=== PATIENT | female | born 1955 | race American Indian/Alaskan Native ===

== ENCOUNTER 2016-09-04 11:29 | Emergency (ER) | payer MEDICARE, OTHER ==
[2016-09-04 11:30] VITALS: PULSE 81
[2016-09-04 11:45] VITALS: BMI 34.7
[2016-09-04 11:49] VITALS: PULSE 80
[2016-09-04 12:35] LABS: BASO % 0.5 % (0.0-2.0); EOS # 0.1 K/uL (0.0-0.7); EOS % 1.1 % (0.0-4.0); HEMATOCRIT 27.4 % (34.0-47.0); LYMPH # 1.7 K/uL (1.0-4.3); LYMPH % 17.6 % (20.0-40.0); MEAN CELL VOLUME 77.7 fL (81.0-99.0); MEAN CORPUSCULAR HEMOGLOBIN 24.3 pg (27.0-31.0); MEAN CORPUSCULAR HGB CONC 31.3 g/dL (33.0-37.0); MEAN PLATELET VOLUME 9.6 fL (7.2-11.7); MONO # 0.7 K/uL (0.0-0.8); MONO % 6.9 % (0.0-10.0); RED CELL DISTRIBUTION WIDTH 17.3 % (11.5-14.5); WHITE BLOOD COUNT 9.7 K/uL (4.8-10.8)
[2016-09-04 12:53] LABS: CHLORIDE 98 mmol/L (98-107)
[2016-09-04 12:54] LABS: POTASSIUM 3.7 mmol/L (3.6-5.2); SODIUM 138 mmol/L (132-148)
[2016-09-04 12:56] LABS: ALKALINE PHOSPHATASE 105 U/L (38-126); ALT/SGPT 24 U/L (9-52); AST/SGOT 23 U/L (14-36); BILIRUBIN,TOTAL 1.3 mg/dL (0.2-1.3); BLOOD UREA NITROGEN 10 mg/dL (7-17); CALCIUM 8.8 mg/dl (8.6-10.4); CARBON DIOXIDE 31 mmol/L (22-30); GFR AFRICAN-AMERICAN > 60; GLUCOSE,RANDOM 171 mg/dL (65-105); TOTAL PROTEIN 7.5 g/dL (6.3-8.3)
--- NOTE | 2016-09-04 13:47 | RAD ---
HISTORY: r/o infiltrate COMPARISON: 04/14/2016 FINDINGS: LUNGS: The lungs are clear. PLEURA: No significant pleural effusion identified, no pneumothorax apparent. CARDIOVASCULAR: There is persistent severe cardiomegaly. OSSEOUS STRUCTURES: No significant abnormalities. VISUALIZED UPPER ABDOMEN: Normal. OTHER FINDINGS: None. IMPRESSION: No active pulmonary disease.
--- NOTE | 2016-09-04 14:21 | C.PDOC ---
History Of Present Illness 61 y/o female presents to the ED with complaints of chronic SOB and headache x3- 4 days. Pt denies worst headache of her life. Denies fever, neck stiffness, chest pain, vomiting or any other complaints. PMHx includes pacemaker, CHF, COPD. Chief Complaint (Nursing): Shortness Of Breath History Per: Patient History/Exam Limitations: no limitations Onset/Duration Of Symptoms: Days Current Symptoms Are (Timing): Still Present Quality: "Pain" Severity: Moderate Associated Symptoms: denies: Fever, Chills, Chest Pain Recent travel outside of the [place]: No Past Medical History Reviewed: Historical Data, Nursing Documentation, Vital Signs Vital Signs: Last Vital Signs Temp 98.2 F 09/04/16 16:54 Pulse 80 09/04/16 16:54 Resp 20 09/04/16 16:54 BP 95/52 L 09/04/16 16:54 Pulse Ox 95 09/04/16 16:54 - Medical History PMH: Anemia, Arthritis (KNEES), Atrial Fibrillation, Cardia Arrhythmia, CHF, COPD, Fractures (RIGHT MIDDLE TOE), HTN, Hypercholesterolemia, Peripheral Edema , Sleep Apnea (C PAP SETTING 10) Surgical History: Pacemaker - [facility] Procedures LEFT HEART CARDIAC CATH (02/12/13) LT HEART ANGIOCARDIOGRAM (02/12/13) Family History: States: Unknown Family Hx - Social History Hx Tobacco Use: No Hx Alcohol Use: No Hx Substance Use: No - Immunization History Hx Tetanus Toxoid Vaccination: No Hx Influenza Vaccination: No Hx Pneumococcal Vaccination: No Review Of Systems Except As Marked, All Systems Reviewed And Found Negative. Constitutional: Negative for: Fever Cardiovascular: Negative for: Chest Pain Respiratory: Positive for: Shortness of Breath Gastrointestinal: Negative for: Vomiting Neurological: Positive for: Headache Physical Exam - Physical Exam Appears: Non-toxic, No Acute Distress Skin: Warm, Dry, No Rash Head: Atraumatic, Normacephalic Throat: Normal Neck: Normal, Normal ROM, Supple Chest: Symmetrical, No Tenderness Cardiovascular: Rhythm Regular, No Murmur Respiratory: No Accessory Muscle Use, No Rhonchi, No Wheezing, Other (basilar crackles, good air entry) Gastrointestinal/Abdominal: Normal Exam, Soft, No Tenderness Extremity: Normal ROM, No Calf Tenderness, Other (Trace bilateral lower extremity edema) Pulses: Left Dorsalis Pedis: Normal, Right Dorsalis Pedis: Normal Neurological/Psych: Oriented x3, Normal Speech ED Course And Treatment - Laboratory Results Result Diagrams: 09/04/16 12:31 09/04/16 12:31 ECG: Interpreted By Me, Viewed By Me ECG Rhythm: A Paced Rate From EC (BPM) O2 Sat by Pulse Oximetry: 88 (room air) Pulse Ox Interpretation: Abnormal - Other Rad CXR X-Ray: Viewed By Me, Read By Radiologist Interpretation: HISTORY: r/o infiltrate. COMPARISON: 04/14/2016. FINDINGS: LUNGS: The lungs are clear. PLEURA: No significant pleural effusion identified, no pneumothorax apparent. CARDIOVASCULAR: There is persistent severe cardiomegaly. OSSEOUS STRUCTURES: No significant abnormalities. VISUALIZED UPPER ABDOMEN: Normal. OTHER FINDINGS: None. IMPRESSION: No active pulmonary disease. 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 Headache resolved with pain medication. Medical Decision Making Medical Decision Making: Plan: * labs * CXR * toradol Disposition - Disposition Referrals: Peggy Aaron, [Non-Staff] - Disposition: HOME/ ROUTINE Disposition Time: 15:30 Condition: IMPROVED Additional Instructions: Thank you for letting us take care of you today. Your provider was Dr. Singh. You were treated for headache and CHF. The emergency medical care you received today was directed at your acute symptoms. If you were prescribed any medication, please fill it and take as directed. It may take several days for your symptoms to resolve. Return to the Emergency Department if your symptoms worsen, do not improve, or if you have any other problems. Please contact your doctor or call one of the physicians/clinics you have been referred to that are listed on the Patient Visit Information form that is included in your discharge packet. Bring any paperwork you were given at discharge with you along with any medications you are taking to your follow up visit. Our treatment cannot replace ongoing medical care by a primary care provider (PCP) outside of the emergency department. Thank you for allowing the [facility] team to be part of your care today. Follow up with your doctor in 2-3 days for re-evaluation. Prescriptions: traMADol [Ultram] 50 mg PO Q8 PRN #15 tab PRN Reason: Pain, Moderate (4-7) Instructions: Heart Failure (ED) - Clinical Impression Clinical Impression: Chronic congestive heart failure - Scribe Statement The provider has reviewed the documentation as recorded by the Edis Rebolledo Provider Attestation: All medical record entries made by the Edis were at my direction and personally dictated by me. I have reviewed the chart and agree that the record accurately reflects my personal performance of the history, physical exam, medical decision making, and the department course for this patient. I have also personally directed, reviewed, and agree with the discharge instructions and disposition.
[2016-09-04 16:55] VITALS: BP 95/52; RESP 20; TEMP 98.2
--- NOTE | 2016-09-05 14:01 | CARD ---
APPROVED REPORT EKG Measurement Heart [id number] NM 150P [id number] <Conclusion> Atrial-Ventricular paced rhythm Abnormal ECG
[2016-09-07 07:37] VITALS: O2SAT 88
== END 2016-09-04 17:15 | disposition home or self-care (01) ==
LOC: C.ER 11:29
DX: I50.9 Heart failure, unspecified (principal)
CPT/HCPCS: 71010; 80053; 83880; 84484; 85025; 85610; 85730; 93005; 96374; 99285; J1885

== ENCOUNTER 2016-10-31 19:04 | Inpatient (IN) | payer MEDICARE, OTHER ==
[2016-10-31 19:04] VITALS: BMI 34.7
--- NOTE | 2016-10-31 19:51 | C.PDOC ---
History Of Present Illness Patient presents to ED with complaints of worsening sob for 3 weeks. Patient states she saw PMD and finished course of Antibiotics with no relief. Patient is speaking in 5-6 words sentences and denies fever, chills, chest pain, palpitations, n/v/d or any other complaints at this time. Time Seen by Provider: 10/31/16 19:50 Chief Complaint (Nursing): Shortness Of Breath History Per: Patient History/Exam Limitations: no limitations Onset/Duration Of Symptoms: Days Current Symptoms Are (Timing): Still Present Initiating Event: Upper Respiratory Illness Quality: "Pain" Severity: Mild Pain Scale Rating Of: 2 Associated Symptoms: denies: Fever, Chills, Chest Pain Past Medical History Reviewed: Historical Data, Nursing Documentation, Vital Signs Vital Signs: Last Vital Signs Temp 98.6 F 10/31/16 19:31 Pulse 90 10/31/16 22:00 Resp 20 10/31/16 22:00 BP 133/85 10/31/16 22:00 Pulse Ox 100 10/31/16 22:00 - Medical History PMH: Anemia, Arthritis (KNEES), Atrial Fibrillation, Cardia Arrhythmia, CHF, COPD, Fractures (RIGHT MIDDLE TOE), HTN, Hypercholesterolemia, Peripheral Edema , Sleep Apnea (C PAP SETTING 10) Surgical History: Pacemaker - [facility] Procedures LEFT HEART CARDIAC CATH (02/12/13) LT HEART ANGIOCARDIOGRAM (02/12/13) Family History: States: No Known Family Hx - Social History Hx Tobacco Use: No Hx Alcohol Use: No Hx Substance Use: No - Immunization History Hx Tetanus Toxoid Vaccination: No Hx Influenza Vaccination: No Hx Pneumococcal Vaccination: No Review Of Systems Constitutional: Negative for: Fever, Chills Cardiovascular: Negative for: Chest Pain Respiratory: Positive for: Shortness of Breath. Negative for: Cough Gastrointestinal: Negative for: Nausea, Vomiting, Diarrhea Skin: Negative for: Rash Neurological: Negative for: Numbness Physical Exam - Physical Exam Appears: No Acute Distress, Other (Morbidly obese) Skin: Warm, Dry, No Rash Head: Normacephalic Eye(s): bilateral: Normal Inspection Oral Mucosa: Moist Neck: Supple Chest: No Deformity, Other (Fibrillator to left chest wall) Cardiovascular: Rhythm Irregular Respiratory: Decreased Breath Sounds, Rales (at bases), No Rhonchi, No Wheezing Gastrointestinal/Abdominal: Soft, No Tenderness, No Guarding, No Rebound, Other (Obese abdomen) Back: No CVA Tenderness Extremity: Pedal Edema (Trace pedal edema bilateral), Capillary Refill (<2 seconds), No Deformity Extremity: Bilateral: Atraumatic, Normal Color And Temperature Pulses: Left Dorsalis Pedis: Normal, Right Dorsalis Pedis: Normal Neurological/Psych: Oriented x3, Normal Speech, Normal Cognition Gait: Steady ED Course And Treatment - Laboratory Results Result Diagrams: 10/31/16 20:19 10/31/16 20:19 ECG: Interpreted By Me, Viewed By Me ECG Rhythm: Sinus Rhythm (80), Nonspecific Changes (av dual paced rhythm) O2 Sat by Pulse Oximetry: 98 (RA) Pulse Ox Interpretation: Normal - Radiology CXR: Interpreted by Me, Viewed By Me CXR Interpretation: Yes: Cardiomegaly, Other (aicd left, unchanged from 09/09). No: Infiltrates, Fracture, Pnemothorax Disposition Discussed With : Kandy Sánchez Comment: accepted the pt on her service and took over the care at 10:12PM Doctor Will See Patient In The: Hospital Counseled Patient/Family Regarding: Studies Performed, Diagnosis - Disposition Disposition: HOSPITALIZED Disposition Time: 19:50 Condition: FAIR Forms: [employer] (Danish) - POA Present On Arrival: Poor Glycemic Control - Clinical Impression Clinical Impression: Chr obstructive pulmonary disease w/ acute lower respiratory infxn, Dyspnea, CHF (congestive heart failure), Anemia - Scribe Statement The provider has reviewed the documentation as recorded by the Scribe Gurwinder Figueroa All medical record entries made by the Scribe were at my direction and personally dictated by me. I have reviewed the chart and agree that the record accurately reflects my personal performance of the history, physical exam, medical decision making, and the department course for this patient. I have also personally directed, reviewed, and agree with the discharge instructions and disposition. Decision To Admit - Pt Status Changed To: Hospital Disposition Of: Inpatient - Admit Certification Admit to Inpatient:: After my assessment, the patient will require hospitalization for at least two midnights. This is because of the severity of symptoms shown, intensity of services needed, and/or the medical risk in this patient being treated as an outpatient. - InPatient: Physician Admission Certification: I certify that this patient requires 2 or more midnights of care for the following reason:: After my assessment, the patient will require hospitalization for at least two midnights. This is because of the severity of symptoms shown, intensity of services needed, and/or the medical risk in this patient being treated as an outpatient. - . Bed Request Type: Telemetry Admitting Physician: Kandy Sánchez Patient Diagnosis: Chr obstructive pulmonary disease w/ acute lower respiratory infxn, Dyspnea, CHF (congestive heart failure), Anemia
[2016-10-31 20:23] LABS: BASO % 0.3 % (0.0-2.0); EOS # 0.2 K/uL (0.0-0.7); EOS % 2.8 % (0.0-4.0); HEMATOCRIT 32.8 % (34.0-47.0); LYMPH # 1.9 K/uL (1.0-4.3); LYMPH % 25.2 % (20.0-40.0); MEAN CORPUSCULAR HEMOGLOBIN 25.7 pg (27.0-31.0); MEAN CORPUSCULAR HGB CONC 31.5 g/dL (33.0-37.0); MEAN PLATELET VOLUME 8.6 fL (7.2-11.7); MONO # 0.7 K/uL (0.0-0.8); MONO % 9.7 % (0.0-10.0); RED CELL DISTRIBUTION WIDTH 18.7 % (11.5-14.5); WHITE BLOOD COUNT 7.6 K/uL (4.8-10.8)
[2016-10-31 20:24] LABS: MEAN CELL VOLUME 81.8 fL (81.0-99.0)
[2016-10-31 20:38] LABS: CHLORIDE 100 mmol/L (98-107)
[2016-10-31 20:39] LABS: SODIUM 142 mmol/L (132-148)
[2016-10-31 20:40] LABS: POTASSIUM 3.8 mmol/L (3.6-5.2)
[2016-10-31 20:42] LABS: ALB/GLOB RATIO 0.9 (1.0-2.1); ALKALINE PHOSPHATASE 105 U/L (38-126); ALT/SGPT 23 U/L (9-52); AST/SGOT 27 U/L (14-36); BILIRUBIN,TOTAL 1.2 mg/dL (0.2-1.3); BLOOD UREA NITROGEN 9 mg/dL (7-17); CARBON DIOXIDE 30 mmol/L (22-30); GFR AFRICAN-AMERICAN > 60; GLUCOSE,RANDOM 120 mg/dL (65-105); TOTAL PROTEIN 7.9 g/dL (6.3-8.3)
[2016-10-31 20:43] LABS: CALCIUM 8.9 mg/dl (8.6-10.4)
[2016-10-31 21:03] LABS: ABG ALLEN TEST POS; DRAW SITE RRADIAL
[2016-10-31] MEDS ORDERED: Albuterol-Ipratrop 3 mg / 0.5 (3 ml) UD ONE (21:52)
[2016-10-31] MEDS: Albuterol-Ipratrop 3 mg / 0.5 (3 ml) UD IH SCH (22:03)
[2016-10-31 22:08] LABS: INR 1.2
[2016-10-31] MEDS ORDERED: Piperacillin/Tazobact 3.375 gm 100 ML IVPB STA (22:24)
[2016-10-31] MEDS ORDERED: Piperacillin/Tazobact 3.375 gm 100 ML IVPB ONE (22:31)
[2016-10-31 22:34] LABS: RBC URINE < 1 /hpf (0-3); URINE BACTERIA RARE (<OCC); URINE BILIRUBIN NEGATIVE (NEGATIVE); URINE BLOOD NEGATIVE (NEGATIVE); URINE COLOR Yellow (YELLOW); URINE GLUCOSE (UA) NORMAL (Normal); URINE KETONE NEGATIVE (NEGATIVE); URINE LEUKOCYTE ESTERASE NEG Leu/uL (Negative); URINE PROTEIN 1+ mg/dL (NEGATIVE); URINE UROBILINOGEN NORMAL mg/dL (0.2-1.0); WBC URINE 1 /hpf (0-5)
[2016-11-01] MEDS: (Novolin R) Insulin Human Regular 100 units/ml vial SC SCH ×4 (08:04→21:59)
--- NOTE | 2016-11-01 08:07 | RAD ---
PROCEDURE: CHEST RADIOGRAPH, 1 VIEW HISTORY: Shortness of breath COMPARISON: 09/04/2016 FINDINGS: LUNGS: Moderate to severe venous congestion with prominent bibasilar airspace opacities and possible small bilateral pleural effusions. Prominent right suprahilar region which may be related to prominent vasculature. PLEURA: As above. CARDIOVASCULAR: Marked cardiomegaly. Marked prominence of the superior mediastinum. Left-sided pacemaker. OSSEOUS STRUCTURES: No significant abnormalities. VISUALIZED UPPER ABDOMEN: Normal. OTHER FINDINGS: None. IMPRESSION: Moderate to severe venous congestion with prominent bibasilar airspace opacities and possible small bilateral pleural effusions. Prominent right suprahilar region which may be related to prominent vasculature. Marked cardiomegaly. Marked prominence of the superior mediastinum. Left-sided pacemaker.
--- NOTE | 2016-11-01 08:14 | CP.PCM.CON ---
<VALE MAYES - Last Filed: 11/01/16 09:17> History of Present Illness - History of Present Illness History of Present Illness: Vale Mayes, PGY1, Consult Note for Dr. Catherine: CC: SOB HPI: 61F with PMH COPD (on home O2/2-3L NC), CHF (EF of 55%), afib on Xarelto, pacemaker, htn, HLD, ROSIO (c pap setting of 10), anemia, arthritis, presents for SOB x 3 weeks. Pt complains of dry cough, wheezing, dizziness, mild leg swelling ; denies f/c/n/v/d, constipation, abdominal pain, dysuria, and hematuria. Pt is able to speak 5-6 word sentences. Pt went to PMD and finished course of PO Augmentin, with minimal improvement. 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 On Home O2 (2-3L NC). Denies ETOH or drug use. Previous smoker. PMD: Dr. Mckeon ([place]) Review of Systems - Constitutional Constitutional: absent: Chills, Fever - EENT Eyes: absent: Blurred Vision, Change in Vision Nose/Mouth/Throat: absent: Nasal Congestion - Cardiovascular Cardiovascular: Leg Edema, Lightheadedness. absent: Chest Pain, Chest Pain with Activity, Palpitations - Respiratory Respiratory: Dyspnea, Wheezing, Chest Congestion - Gastrointestinal Gastrointestinal: absent: Constipation, Diarrhea - Musculoskeletal Musculoskeletal: absent: Joint Swelling, Stiffness - Integumentary Integumentary: absent: New Lesions, Rash - Neurological Neurological: absent: Confusion, Dizziness, Numbness - Endocrine Endocrine: absent: Excessive Sweating, Flushing - Hematologic/Lymphatic Hematologic: absent: Easy Bleeding Past Patient History - Past Medical History & Family History Past Medical History?: Yes - Past Social History Smoking Status: Former Smoker - CARDIAC Hx Atrial Fibrillation: Yes Hx Cardia Arrhythmia: Yes Hx Congestive Heart Failure: Yes Hx Hypercholesterolemia: Yes Hx Hypertension: Yes Hx Pacemaker: Yes Hx Peripheral Edema: Yes - PULMONARY Hx Chronic Obstructive Pulmonary Disease (COPD): Yes Hx Sleep Apnea: Yes (C PAP SETTING 10) - NEUROLOGICAL Hx Neurological Disorder: Yes Hx Dizziness: Yes - HEENT Hx HEENT Problems: Yes (ITCHY EYES) Other/Comment: left eye surgery 2014 - RENAL Hx Chronic Kidney Disease: No - ENDOCRINE/METABOLIC Hx Diabetes Mellitus Type 2: Yes - HEMATOLOGICAL/ONCOLOGICAL Hx Anemia: Yes - INTEGUMENTARY Hx Dermatological Problems: No - MUSCULOSKELETAL/RHEUMATOLOGICAL Hx Arthritis: Yes (KNEES) Hx Fractures: Yes (RIGHT MIDDLE TOE) - GASTROINTESTINAL Hx Gastrointestinal Disorders: No - GENITOURINARY/GYNECOLOGICAL Hx Genitourinary Disorders: No - PSYCHIATRIC Hx Substance Use: No - SURGICAL HISTORY Hx Surgeries: Yes (CARDIAC ABLATION) Hx Cardiac Catheterization: Yes Hx Eye Surgery: Yes (left eye 2014) Hx Herniorrhaphy: Yes (UMBILICAL) 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 ) Other/Comment: pacemaker 2009,ablation 2009, - ANESTHESIA Hx Anesthesia: Yes Hx Anesthesia Reactions: No Hx Malignant Hyperthermia: No Meds Allergies/Adverse Reactions: Allergies Allergy/AdvReac Type Severity Reaction Status Date / Time No Known Allergies Allergy Verified 09/04/16 11:44 - Medications Medications: Current Medications Carvedilol (Coreg) 25 mg PO BID [facility] Cyclobenzaprine HCl (Flexeril) 10 mg PO HS [facility]ONE Digoxin (Lanoxin) 0.25 mg PO DAILY [facility] Ferrous Sulfate (Feosol) 325 mg PO TID [facility] Furosemide (Lasix) 40 mg PO DAILY [facility] Home Med (Atorvastatin Calcium [Lipitor]) 20 mg PO DAILY [facility] Home Med (Esomeprazole Magnesium [Nexium]) 40 mg PO DAILY [facility] Home Med (Magnesium [Magnesium]) 400 mg PO DAILY [facility] Home Med (Potassium Chloride [Potassium Chloride]) 20 meq PO DAILY [facility] Insulin Human Regular (Novolin R) 0 unit SC ACHS [facility] PRN Reason: Protocol Last Admin: 11/01/16 08:04 Dose: Not Given Lisinopril (Zestril) 5 mg PO DAILY [facility] Rivaroxaban (Xarelto) 20 mg PO DAILY [facility] Sitagliptin Phosphate (Januvia) 50 mg PO DAILY [facility] Tramadol HCl (Ultram) 50 mg PO Q8 PRN PRN Reason: Pain, moderate (4-7) Physical Exam - Constitutional Appears: No Acute Distress - Head Exam Head Exam: ATRAUMATIC, NORMOCEPHALIC - Eye Exam Eye Exam: absent: PERRL - ENT Exam ENT Exam: Mucous Membranes Moist - Respiratory Exam Respiratory Exam: Decreased Breath Sounds Additional comments: mild wheezing in middle lobes. - Cardiovascular Exam Cardiovascular Exam: RRR Additional comments: paced - GI/Abdominal Exam GI & Abdominal Exam: Normal Bowel Sounds, Soft. absent: Distended - Extremities Exam Extremities exam: Negative for: calf tenderness, pedal edema - Neurological Exam Neurological exam: Alert, Oriented x3 - Psychiatric Exam Psychiatric exam: Normal Mood - Skin Skin Exam: Dry, Warm Results - Vital Signs Recent Vital Signs: Last Vital Signs Temp 98.6 F 10/31/16 19:31 Pulse 80 11/01/16 08:02 Resp 20 11/01/16 08:02 BP 104/64 11/01/16 08:02 Pulse Ox 94 L 11/01/16 08:02 - Labs Result Diagrams: 10/31/16 20:19 10/31/16 20:19 Labs: Laboratory Results - last 24 hr 11/01/16 07:58 POC Glucose (mg/dL) 130 H Assessment & Plan - Assessment and Plan (Free Text) Assessment: 61F with PMH CHF (EF 55%), COPD, afib, pacemaker, htn, hld, admitted for COPD exacerbation. Cardiology consulted for management of chf. Plan: CHF and afib: - Pt c/o sob, wheezing x3 weeks [employer], failed PO outpatient Augmentin therapy. - In ED, pt afebrile, HR 80's, paced, normotensive, saturating well on 2L NC. Labs show no leukocytosis, trop neg x1, BNP elevated 1270, lactate 0.7. Received IV Lasix 40 mg once and Zosyn IV. - EKG shows HR 80, dual paced. QRS 160 ms, QTc 489. - CXR shows cardiomegaly. - Echo 03/2016: EF 55%. R ventricle severely dilated. RV function moderately reduced. Paradoxic septum consistent with right ventricle volume overload. R atrium severely dilated. Moderate tricuspid regurg. Mild pulm HTN. - Cardiac Cath 01/2013: Normal coronaries. Increased end diastolic pressure 30 mmHg. Normal LVSF. Recommend medical management. - Continue with home meds lisinopril 5 mg Po daily, lasix 40 mg PO daily, digoxin 0.25 mg PO daily, Carvedilol 25 mg PO BID, Atorvastatin 20 mg PO daily, Xarelto 20 mg PO daily. - Maintain normotensive BP and currently rate controlled. Discussed with Dr. Catherine. Vale Mayes PGY1 - Date & Time Date: 11/01/16 Time: 09:41 <Mony Catherine - Last Filed: 11/01/16 10:04> Meds - Medications Medications: Current Medications Carvedilol (Coreg) 25 mg PO BID [facility] Cyclobenzaprine HCl (Flexeril) 10 mg PO HS [facility] Digoxin (Lanoxin) 0.25 mg PO Q24H [facility] Ferrous Sulfate (Feosol) 325 mg PO TID [facility] Furosemide (Lasix) 40 mg PO DAILY [facility] Insulin Human Regular (Novolin R) 0 unit SC ACHS [facility] PRN Reason: Protocol Last Admin: 11/01/16 08:04 Dose: Not Given Lisinopril (Zestril) 5 mg PO DAILY [facility] Magnesium Oxide (Mag-Ox) 400 mg PO DAILY [facility] Pantoprazole Sodium (Protonix Ec Tab) 40 mg PO DAILY [facility] Potassium Chloride (K-Dur 20 Meq Er Tab) 20 meq PO DAILY [facility] Rivaroxaban (Xarelto) 20 mg PO DAILY [facility] Rosuvastatin Calcium (Crestor) 10 mg PO HS [facility] Sitagliptin Phosphate (Januvia) 50 mg PO DAILY [facility] Tramadol HCl (Ultram) 50 mg PO Q8 PRN PRN Reason: Pain, moderate (4-7) Results - Vital Signs Recent Vital Signs: Last Vital Signs Temp 98.0 F 11/01/16 09:25 Pulse 80 11/01/16 08:58 Resp 22 11/01/16 08:58 BP 125/62 11/01/16 08:58 Pulse Ox 99 11/01/16 08:58 - Labs Result Diagrams: 10/31/16 20:19 10/31/16 20:19 Labs: Laboratory Results - last 24 hr 11/01/16 11/01/16 07:58 08:31 POC Glucose (mg/dL) 130 H Digoxin 0.4 L Attending/Attestation - Attestation I have personally seen and examined this patient.: Yes I have fully participated in the care of the patient.: Yes I have reviewed all pertinent clinical information: Yes Notes (Text): 11/01/16 10:04 continue a/c will interrogate icd
[2016-11-01] MEDS ORDERED: Potassium Chloride 20 mEq ER Tab PO ONE (09:41)
[2016-11-01] MEDS ORDERED: Home Med 1 UNIT (Esomeprazole Magnesium [Nexium] 40 MG) PO SCH (10:00)
[2016-11-01] MEDS ORDERED: MAGNESIUM 400 MG PO SCH (10:00)
[2016-11-01] MEDS ORDERED: Digoxin 250 mcg (0.25 mg) Tab PO SCH (10:00)
[2016-11-01] MEDS ORDERED: Home Med 1 UNIT (Potassium Chloride [Potassium Chloride] 20 MEQ) PO SCH (10:00)
[2016-11-01] MEDS ORDERED: Potassium Chloride 20 mEq ER Tab PO SCH (10:00)
[2016-11-01] MEDS: Potassium Chloride 20 mEq ER Tab PO SCH (10:11)
[2016-11-01] MEDS: Magnesium Oxide 400 mg Tab UD PO SCH (10:34)
[2016-11-01] MEDS: Pantoprazole 40 mg EC Tab PO SCH (10:34)
--- NOTE | 2016-11-01 13:55 | CP.PCM.CON ---
History of Present Illness - History of Present Illness History of Present Illness: Reason for consult: COPD The patient is a 61 year old female with PMHx of COPD, HTN, ROSIO , CHF and Afib who presented to the emergency department for shortness of breath and dry cough for three weeks. In ED she received two Duonebs, two doses of Lasix 40mg and Zosyn. Currently patient reported dyspnea, dry cough, fever, and tenderness of bilateral lower extremities. Patient denied palpitations, n/v/d/c, chills, and sputum production. PMHx: Arthritis, anemia, afib, CHF, COPD (on home oxygen 2-3L nasal cannula), DM , HTN, hypercholesterolemia, ROSIO (CPAP setting of 10) Surg Hx: Patent foramen ovale repair (open heart surgery) at 6yo, ICD placement (2009), , Pacemaker placement (2009), cardiac ablation (2009),, umbilical hernia repair (2014), left heart cath (2016) Family hx: mother has HTN and asthma, from unknown cancer at 52yo Social Hx: denied drugs and ETOH, former smoker with unknown pack year history ( quit 20 years ago) Allergies: NKDA PMD: Dr. Sánchez CXR (10/31/16): Moderate to severe venous congestion with prominent bibasilar airspace opacities and possible small bilateral pleural effusions. Marked cardiomegaly and left sided pacemaker Echocardiogram (03/2016): LVEF 55%, severely dilated right atrium and right ventricle, mild pulmonary HTN, and moderate tricuspid regurg CT angio Chest (03/2016): cardiomegaly and pulm HTN Review of Systems - Review of Systems All systems: reviewed and no additional remarkable complaints except (Shortness of breath and cough) Past Patient History - Past Medical History & Family History Past Medical History?: Yes - Past Social History Smoking Status: Never Smoked - CARDIAC Hx Atrial Fibrillation: Yes Hx Cardia Arrhythmia: Yes Hx Congestive Heart Failure: Yes Hx Hypercholesterolemia: Yes Hx Hypertension: Yes Hx Pacemaker: Yes Hx Peripheral Edema: Yes - PULMONARY Hx Chronic Obstructive Pulmonary Disease (COPD): Yes Hx Sleep Apnea: Yes (C PAP SETTING 10) - NEUROLOGICAL Hx Neurological Disorder: Yes Hx Dizziness: Yes - HEENT Hx HEENT Problems: Yes (ITCHY EYES) Other/Comment: left eye surgery 2014 - RENAL Hx Chronic Kidney Disease: No - ENDOCRINE/METABOLIC Hx Diabetes Mellitus Type 2: Yes - HEMATOLOGICAL/ONCOLOGICAL Hx Anemia: Yes - INTEGUMENTARY Hx Dermatological Problems: No - MUSCULOSKELETAL/RHEUMATOLOGICAL Hx Falls: Yes - GASTROINTESTINAL Hx Gastrointestinal Disorders: No - GENITOURINARY/GYNECOLOGICAL Hx Genitourinary Disorders: No - PSYCHIATRIC Hx Substance Use: No - SURGICAL HISTORY Hx Surgeries: Yes (CARDIAC ABLATION) Hx Cardiac Catheterization: Yes Hx Eye Surgery: Yes (left eye 2014) Hx Herniorrhaphy: Yes (UMBILICAL) 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) Other/Comment: pacemaker 2009,ablation 2009, - ANESTHESIA Hx Anesthesia: Yes Hx Anesthesia Reactions: No Hx Malignant Hyperthermia: No Meds Allergies/Adverse Reactions: Allergies Allergy/AdvReac Type Severity Reaction Status Date / Time No Known Allergies Allergy Verified 09/04/16 11:44 - Medications Medications: Current Medications Carvedilol (Coreg) 25 mg PO BID [facility] Last Admin: 11/01/16 10:10 Dose: 25 mg Cyclobenzaprine HCl (Flexeril) 10 mg PO HS [facility] Digoxin (Lanoxin) 0.25 mg PO Q24H [facility] Ferrous Sulfate (Feosol) 325 mg PO TID [facility] Last Admin: 11/01/16 10:11 Dose: 325 mg Furosemide (Lasix) 40 mg PO DAILY [facility] Last Admin: 11/01/16 10:11 Dose: 40 mg Insulin Human Regular (Novolin R) 0 unit SC [facility] PRN Reason: Protocol Last Admin: 11/01/16 12:34 Dose: Not Given Lisinopril (Zestril) 5 mg PO DAILY [facility] Last Admin: 11/01/16 10:12 Dose: 5 mg Magnesium Oxide (Mag-Ox) 400 mg PO DAILY [facility] Last Admin: 11/01/16 10:34 Dose: 400 mg Pantoprazole Sodium (Protonix Ec Tab) 40 mg PO DAILY [facility] Last Admin: 11/01/16 10:34 Dose: 40 mg Potassium Chloride (K-Dur 20 Meq Er Tab) 20 meq PO DAILY [facility] Last Admin: 11/01/16 10:11 Dose: Not Given Rivaroxaban (Xarelto) 20 mg PO DAILY [facility] Last Admin: 11/01/16 10:11 Dose: 20 mg Rosuvastatin Calcium (Crestor) 10 mg PO HS [facility] Sitagliptin Phosphate (Januvia) 50 mg PO DAILY [facility] Last Admin: 11/01/16 10:11 Dose: 50 mg Tramadol HCl (Ultram) 50 mg PO Q8 PRN PRN Reason: Pain, moderate (4-7) Physical Exam - Head Exam Head Exam: ATRAUMATIC, NORMOCEPHALIC - Eye Exam Eye Exam: Normal appearance - ENT Exam ENT Exam: Mucous Membranes Moist - Neck Exam Neck exam: Positive for: Normal Inspection - Respiratory Exam Respiratory Exam: Decreased Breath Sounds Results - Vital Signs Recent Vital Signs: Last Vital Signs Temp 97.8 F 11/01/16 11:32 Pulse 80 11/01/16 11:36 Resp 18 11/01/16 11:36 BP 120/80 11/01/16 11:32 Pulse Ox 96 11/01/16 11:36 - Labs Result Diagrams: 10/31/16 20:19 10/31/16 20:19 Labs: Laboratory Results - last 24 hr 11/01/16 11/01/16 11/01/16 07:58 08:31 12:10 POC Glucose (mg/dL) 130 H 116 H Digoxin 0.4 L Assessment & Plan (1) ROSIO and COPD overlap syndrome Status: Acute Comment: Nebulizer treatment and inhaled steroids. BiPAP. Diuretics. Follow up ABG and chest x-ray (2) Atrial fibrillation and flutter Status: Chronic
[2016-11-01] MEDS: MethylPREDNISolone 40 mg Vial IV SCH ×2 (14:30→21:59)
[2016-11-01] MEDS: Albuterol-Ipratrop 3 mg / 0.5 (3 ml) UD INH SCH ×2 (15:00→19:59)
[2016-11-01] MEDS: Digoxin 250 mcg (0.25 mg) Tab PO SCH (17:50)
--- NOTE | 2016-11-01 19:17 | CARD ---
APPROVED REPORT EKG Measurement Heart [id number] 150P [id number] <Conclusion> AV dual-paced rhythm Abnormal ECG
[2016-11-02] MEDS: Albuterol-Ipratrop 3 mg / 0.5 (3 ml) UD INH SCH ×4 (00:47→19:59)
--- NOTE | 2016-11-02 01:08 | CP.PCM.HP ---
History of Present Illness - History of Present Illness History of Present Illness: 11/01/16 Patient presents to ED with complaints of worsening sob for 3 weeks. Patient states she saw PMD and finished course of Antibiotics with no relief. Patient is speaking in 5-6 words sentences and denies fever, chills, chest pain, palpitations, n/v/d or any other complaints at this time. Present on Admission - Present on Admission Any Indicators Present on Admission: No Review of Systems - Constitutional Constitutional: As Per HPI - EENT Eyes: As Per HPI Ears: As Per HPI Nose/Mouth/Throat: As Per HPI - Breasts Breasts: As Per HPI - Cardiovascular Cardiovascular: As Per HPI - Respiratory Respiratory: Cough, Dyspnea on Exertion, Wheezing - Gastrointestinal Gastrointestinal: As Per HPI - Genitourinary Genitourinary: As Per HPI - Musculoskeletal Musculoskeletal: As Per HPI - Integumentary Integumentary: As Per HPI - Neurological Neurological: As Per HPI - Psychiatric Psychiatric: As Per HPI - Endocrine Endocrine: As Per HPI - Hematologic/Lymphatic Hematologic: As Per HPI Past Patient History - Past Medical History & Family History Past Medical History?: Yes - Past Social History Smoking Status: Never Smoked - CARDIAC Hx Atrial Fibrillation: Yes Hx Cardia Arrhythmia: Yes Hx Congestive Heart Failure: Yes Hx Hypercholesterolemia: Yes Hx Hypertension: Yes Hx Pacemaker: Yes Hx Peripheral Edema: Yes - PULMONARY Hx Chronic Obstructive Pulmonary Disease (COPD): Yes Hx Sleep Apnea: Yes (C PAP SETTING 10) - NEUROLOGICAL Hx Neurological Disorder: Yes Hx Dizziness: Yes - HEENT Hx HEENT Problems: Yes (ITCHY EYES) Other/Comment: left eye surgery 2014 - RENAL Hx Chronic Kidney Disease: No - ENDOCRINE/METABOLIC Hx Diabetes Mellitus Type 2: Yes - HEMATOLOGICAL/ONCOLOGICAL Hx Anemia: Yes - INTEGUMENTARY Hx Dermatological Problems: No - MUSCULOSKELETAL/RHEUMATOLOGICAL Hx Falls: Yes - GASTROINTESTINAL Hx Gastrointestinal Disorders: No - GENITOURINARY/GYNECOLOGICAL Hx Genitourinary Disorders: No - PSYCHIATRIC Hx Substance Use: No - SURGICAL HISTORY Hx Surgeries: Yes (CARDIAC ABLATION) Hx Cardiac Catheterization: Yes Hx Eye Surgery: Yes (left eye 2014) Hx Herniorrhaphy: Yes (UMBILICAL) 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) Other/Comment: pacemaker 2009,ablation 2009, - ANESTHESIA Hx Anesthesia: Yes Hx Anesthesia Reactions: No Hx Malignant Hyperthermia: No Meds Allergies/Adverse Reactions: Allergies Allergy/AdvReac Type Severity Reaction Status Date / Time No Known Allergies Allergy Verified 09/04/16 11:44 Physical Exam - Constitutional Appears: Well - Head Exam Head Exam: ATRAUMATIC, NORMAL INSPECTION, NORMOCEPHALIC - Eye Exam Eye Exam: EOMI, Normal appearance, PERRL Pupil Exam: NORMAL ACCOMODATION, PERRL - ENT Exam ENT Exam: Mucous Membranes Moist, Normal Exam - Neck Exam Neck exam: Positive for: Normal Inspection - Respiratory Exam Respiratory Exam: Prolonged Expiratory Phase - Cardiovascular Exam Cardiovascular Exam: REGULAR RHYTHM - GI/Abdominal Exam GI & Abdominal Exam: Normal Bowel Sounds, Soft. absent: Tenderness - Rectal Exam Rectal Exam: NORMAL INSPECTION - Exam Exam: Circumcision, NORMAL INSPECTION External exam: NORMAL EXTERNAL EXAM Speculum exam: NORMAL SPECULUM EXAM Bimanual exam: NORMAL BIMANUAL EXAM - Extremities Exam Extremities exam: Positive for: normal inspection - Back Exam Back exam: NORMAL INSPECTION - Neurological Exam Neurological exam: Alert, CN II-XII Intact, Normal Gait, Oriented x3, Reflexes Normal - Psychiatric Exam Psychiatric exam: Normal Affect, Normal Mood - Skin Skin Exam: Dry, Intact, Normal Color, Warm Results - Vital Signs Recent Vital Signs: Last Vital Signs Temp 97.8 F 11/01/16 15:00 Pulse 80 11/01/16 20:00 Resp 20 11/01/16 15:00 BP 143/68 11/01/16 17:50 Pulse Ox 95 11/01/16 15:00 - Labs Result Diagrams: 10/31/16 20:19 10/31/16 20:19 Labs: Laboratory Results - last 24 hr 11/01/16 11/01/16 11/01/16 07:58 08:31 12:10 POC Glucose (mg/dL) 130 H 116 H Digoxin 0.4 L 11/01/16 11/01/16 16:54 21:27 POC Glucose (mg/dL) 129 H 144 H Digoxin Assessment & Plan - Assessment and Plan (Free Text) Assessment: The patient is a 61 year old female with PMHx of COPD, HTN, ROSIO , CHF and Afib who presented to the emergency department for shortness of breath and dry cough for three weeks. In ED she received two Duonebs, two doses of Lasix 40mg and Zosyn. Currently patient reported dyspnea, dry cough, fever, and tenderness of bilateral lower extremities. Patient denied palpitations, n/v/d/c, chills, and sputum production. h/o Arthritis, anemia, afib, CHF, COPD (on home oxygen 2-3L nasal cannula), DM , HTN, hypercholesterolemia, ROSIO (CPAP setting of 10) Hx: Patent foramen ovale repair (open heart surgery) at 6yo, ICD placement ( 2009), , Pacemaker placement (2009), cardiac ablation (2009),, umbilical hernia repair (2014), left heart cath (2016) CXR (10/31/16): Moderate to severe venous congestion with prominent bibasilar airspace opacities and possible small bilateral pleural effusions. Marked cardiomegaly and left sided pacemaker Echocardiogram (03/2016): LVEF 55%, severely dilated right atrium and right ventricle, mild pulmonary HTN, and moderate tricuspid regurg CT angio Chest (03/2016): cardiomegaly and pulm HTN pul and cardio consult called
[2016-11-02] MEDS: MethylPREDNISolone 40 mg Vial IV SCH ×3 (05:33→22:32)
--- NOTE | 2016-11-02 07:58 | CP.PCM.PN ---
<CARLY MAYES - Last Filed: 11/02/16 07:55> Subjective - Date & Time of Evaluation Date of Evaluation: 11/02/16 Time of Evaluation: 07:55 - Subjective Subjective: Carly Mayes, PGY1, Progress Note for Dr. Catherine: Pt seen and examined at bedside. No acute events overnight. Pt complains of cough with yellow sputum and improving sob, denies f/c/n/v/d, cp, diaphoresis, abdominal pain or urinary discomfort. Objective - Vital Signs/Intake and Output Vital Signs (last 24 hours): Temp Pulse Resp BP Pulse Ox 98.0 F 80 20 124/78 98 11/01/16 23:32 11/01/16 23:32 11/01/16 23:32 11/01/16 23:32 11/01/16 23:32 - Medications Medications: Current Medications Albuterol/Ipratropium (Duoneb 3 Mg/0.5 Mg (3 Ml) Ud) 3 ml INH RQ6 [facility] Last Admin: 11/02/16 07:09 Dose: Not Given Carvedilol (Coreg) 25 mg PO BID [facility] Last Admin: 11/01/16 17:50 Dose: 25 mg Cyclobenzaprine HCl (Flexeril) 10 mg PO HS [facility] Last Admin: 11/01/16 21:59 Dose: 10 mg Digoxin (Lanoxin) 0.25 mg PO Q24H [facility] Last Admin: 11/01/16 17:50 Dose: 0.25 mg Ferrous Sulfate (Feosol) 325 mg PO TID [facility] Last Admin: 11/01/16 17:50 Dose: 325 mg Furosemide (Lasix) 40 mg PO DAILY [facility] Last Admin: 11/01/16 10:11 Dose: 40 mg Insulin Human Regular (Novolin R) 0 unit SC ACHS [facility] PRN Reason: Protocol Last Admin: 11/01/16 21:59 Dose: Not Given Lisinopril (Zestril) 5 mg PO DAILY [facility] Last Admin: 11/01/16 10:12 Dose: 5 mg Magnesium Oxide (Mag-Ox) 400 mg PO DAILY [facility] Last Admin: 11/01/16 10:34 Dose: 400 mg Methylprednisolone (Solu-Medrol) 40 mg IV Q8 [facility] Last Admin: 11/02/16 05:33 Dose: 40 mg Pantoprazole Sodium (Protonix Ec Tab) 40 mg PO DAILY [facility] Last Admin: 11/01/16 10:34 Dose: 40 mg Potassium Chloride (K-Dur 20 Meq Er Tab) 20 meq PO DAILY [facility] Last Admin: 11/01/16 10:11 Dose: Not Given Rivaroxaban (Xarelto) 20 mg PO DAILY [facility] Last Admin: 11/01/16 10:11 Dose: 20 mg Rosuvastatin Calcium (Crestor) 10 mg PO HS [facility] Last Admin: 11/01/16 21:59 Dose: 10 mg Sitagliptin Phosphate (Januvia) 50 mg PO DAILY [facility] Last Admin: 11/01/16 10:11 Dose: 50 mg Tramadol HCl (Ultram) 50 mg PO Q8 PRN PRN Reason: Pain, moderate (4-7) - Labs Labs: PT 13.6 SECONDS (9.7-12.2) H 10/31/16 21:56 INR 1.2 10/31/16 21:56 APTT 35 SECONDS (21-34) H 10/31/16 21:56 - Constitutional Appears: No Acute Distress - Head Exam Head Exam: ATRAUMATIC, NORMOCEPHALIC - Eye Exam Eye Exam: PERRL - ENT Exam ENT Exam: Mucous Membranes Moist - Respiratory Exam Respiratory Exam: Decreased Breath Sounds, Rhonchi, Wheezes - Cardiovascular Exam Additional comments: paced - GI/Abdominal Exam GI & Abdominal Exam: Soft, Normal Bowel Sounds. absent: Tenderness - Extremities Exam Extremities Exam: absent: Calf Tenderness, Pedal Edema - Neurological Exam Neurological Exam: Alert, Awake, Oriented x3 - Psychiatric Exam Psychiatric exam: Normal Mood - Skin Skin Exam: Dry, Intact, Warm Assessment and Plan - Assessment and Plan (Free Text) Assessment: 61F with PMH CHF (EF 55%), COPD, afib, pacemaker, htn, hld, admitted for COPD exacerbation. Cardiology consulted for management of chf and afib. 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 - In ED, pt afebrile, HR 80's, paced, normotensive, saturating well on 2L NC. Labs show no leukocytosis, trop neg x1, BNP elevated 1270, lactate 0.7. Received IV Lasix 40 mg once and Zosyn IV. - EKG shows HR 80, dual paced. QRS 160 ms, QTc 489. - CXR shows cardiomegaly. - Echo 03/2016: EF 55%. R ventricle severely dilated. RV function moderately reduced. Paradoxic septum consistent with right ventricle volume overload. R atrium severely dilated. Moderate tricuspid regurg. Mild pulm HTN. - Cardiac Cath 01/2013: Normal coronaries. Increased end diastolic pressure 30 mmHg. Normal LVSF. Recommend medical management. - Continue with home meds lisinopril 5 mg Po daily, lasix 40 mg PO daily, digoxin 0.25 mg PO daily, Carvedilol 25 mg PO BID, Atorvastatin 20 mg PO daily, Xarelto 20 mg PO daily for afib. - Maintain normotensive BP and currently rate controlled. Discussed with Dr. Catherine. Carly Mayes, PGY1 <Mony Catherine - Last Filed: 11/02/16 09:07> Objective - Vital Signs/Intake and Output Vital Signs (last 24 hours): Temp Pulse Resp BP Pulse Ox 98.0 F 80 20 124/78 98 11/01/16 23:32 11/01/16 23:32 11/01/16 23:32 11/01/16 23:32 11/01/16 23:32 - Medications Medications: Current Medications Albuterol/Ipratropium (Duoneb 3 Mg/0.5 Mg (3 Ml) Ud) 3 ml INH RQ6 [facility] Last Admin: 11/02/16 07:09 Dose: Not Given Carvedilol (Coreg) 25 mg PO BID [facility] Last Admin: 11/01/16 17:50 Dose: 25 mg Cyclobenzaprine HCl (Flexeril) 10 mg PO HS [facility] Last Admin: 11/01/16 21:59 Dose: 10 mg Digoxin (Lanoxin) 0.25 mg PO Q24H [facility] Last Admin: 11/01/16 17:50 Dose: 0.25 mg Ferrous Sulfate (Feosol) 325 mg PO TID [facility] Last Admin: 11/01/16 17:50 Dose: 325 mg Furosemide (Lasix) 40 mg PO DAILY [facility] Last Admin: 11/01/16 10:11 Dose: 40 mg Insulin Human Regular (Novolin R) 0 unit SC ACHS [facility] PRN Reason: Protocol Last Admin: 11/01/16 21:59 Dose: Not Given Lisinopril (Zestril) 5 mg PO DAILY [facility] Last Admin: 11/01/16 10:12 Dose: 5 mg Magnesium Oxide (Mag-Ox) 400 mg PO DAILY [facility] Last Admin: 11/01/16 10:34 Dose: 400 mg Methylprednisolone (Solu-Medrol) 40 mg IV Q8 [facility] Last Admin: 11/02/16 05:33 Dose: 40 mg Pantoprazole Sodium (Protonix Ec Tab) 40 mg PO DAILY [facility] Last Admin: 11/01/16 10:34 Dose: 40 mg Potassium Chloride (K-Dur 20 Meq Er Tab) 20 meq PO DAILY [facility] Last Admin: 11/01/16 10:11 Dose: Not Given Rivaroxaban (Xarelto) 20 mg PO DAILY [facility] Last Admin: 11/01/16 10:11 Dose: 20 mg Rosuvastatin Calcium (Crestor) 10 mg PO HS [facility] Last Admin: 11/01/16 21:59 Dose: 10 mg Sitagliptin Phosphate (Januvia) 50 mg PO DAILY [facility] Last Admin: 11/01/16 10:11 Dose: 50 mg Tramadol HCl (Ultram) 50 mg PO Q8 PRN PRN Reason: Pain, moderate (4-7) - Labs Labs: PT 13.6 SECONDS (9.7-12.2) H 10/31/16 21:56 INR 1.2 10/31/16 21:56 APTT 35 SECONDS (21-34) H 10/31/16 21:56 Attending/Attestation - Attestation I have personally seen and examined this patient.: Yes I have fully participated in the care of the patient.: Yes I have reviewed all pertinent clinical information, including history, physical exam and plan: Yes Notes (Text): 11/02/16 09:06 pt being treated for pneumonia called ICD company again to have ICD interrogated today
[2016-11-02] MEDS: (Novolin R) Insulin Human Regular 100 units/ml vial SC SCH ×4 (08:10→22:33)
[2016-11-02 10:04] LABS: IRON 37 ug/dL (37-170)
[2016-11-02] MEDS: Magnesium Oxide 400 mg Tab UD PO SCH (10:25)
[2016-11-02] MEDS: Pantoprazole 40 mg EC Tab PO SCH (10:25)
[2016-11-02] MEDS: Potassium Chloride 20 mEq ER Tab PO SCH (10:25)
--- NOTE | 2016-11-02 18:10 | CP.PCM.PN ---
Subjective - Date & Time of Evaluation Date of Evaluation: 11/02/16 Time of Evaluation: 11:55 - Subjective Subjective: patient seen and examined. patient is complaining of cough and shortness of brath Using CPAP at night Afebrile No chest pain Objective - Vital Signs/Intake and Output Vital Signs (last 24 hours): Temp Pulse Resp BP Pulse Ox 97.6 F 98 H 18 120/78 94 L 11/02/16 16:00 11/02/16 16:00 11/02/16 16:00 11/02/16 16:00 11/02/16 17:37 Intake and Output: 11/02/16 11/02/16 06:59 18:59 Intake Total 300 Balance 300 - Medications Medications: Current Medications Albuterol/Ipratropium (Duoneb 3 Mg/0.5 Mg (3 Ml) Ud) 3 ml INH RQ6 [facility] Last Admin: 11/02/16 13:20 Dose: 3 ml Carvedilol (Coreg) 25 mg PO BID [facility] Last Admin: 11/02/16 10:24 Dose: 25 mg Cyclobenzaprine HCl (Flexeril) 10 mg PO HS [facility] Last Admin: 11/01/16 21:59 Dose: 10 mg Digoxin (Lanoxin) 0.25 mg PO Q24H [facility] Last Admin: 11/01/16 17:50 Dose: 0.25 mg Ferrous Sulfate (Feosol) 325 mg PO TID [facility] Last Admin: 11/02/16 13:37 Dose: 325 mg Furosemide (Lasix) 40 mg PO DAILY [facility] Last Admin: 11/02/16 10:24 Dose: 40 mg Insulin Human Regular (Novolin R) 0 unit SC ACHS [facility] PRN Reason: Protocol Last Admin: 11/02/16 12:00 Dose: Not Given Lisinopril (Zestril) 5 mg PO DAILY [facility] Last Admin: 11/02/16 10:25 Dose: 5 mg Magnesium Oxide (Mag-Ox) 400 mg PO DAILY [facility] Last Admin: 11/02/16 10:25 Dose: 400 mg Methylprednisolone (Solu-Medrol) 40 mg IV Q8 [facility] Last Admin: 11/02/16 13:37 Dose: 40 mg Pantoprazole Sodium (Protonix Ec Tab) 40 mg PO DAILY [facility] Last Admin: 11/02/16 10:25 Dose: 40 mg Potassium Chloride (K-Dur 20 Meq Er Tab) 20 meq PO DAILY [facility] Last Admin: 11/02/16 10:25 Dose: Not Given Rivaroxaban (Xarelto) 20 mg PO DAILY [facility] Last Admin: 11/02/16 10:25 Dose: 20 mg Rosuvastatin Calcium (Crestor) 10 mg PO HS [facility] Last Admin: 11/01/16 21:59 Dose: 10 mg Sitagliptin Phosphate (Januvia) 50 mg PO DAILY [facility] Last Admin: 11/02/16 10:25 Dose: 50 mg Tramadol HCl (Ultram) 50 mg PO Q8 PRN PRN Reason: Pain, moderate (4-7) - Labs Labs: PT 13.6 SECONDS (9.7-12.2) H 10/31/16 21:56 INR 1.2 10/31/16 21:56 APTT 35 SECONDS (21-34) H 10/31/16 21:56 - Head Exam Head Exam: ATRAUMATIC, NORMOCEPHALIC - Eye Exam Eye Exam: Normal appearance - ENT Exam ENT Exam: Mucous Membranes Moist - Neck Exam Neck Exam: Normal Inspection - Respiratory Exam Respiratory Exam: Decreased Breath Sounds - Cardiovascular Exam Cardiovascular Exam: REGULAR RHYTHM - GI/Abdominal Exam GI & Abdominal Exam: Soft Assessment and Plan (1) ROSIO and COPD overlap syndrome Assessment & Plan: continue nebulizment and steroids BiPAP at night and as needed Continue diuretics Status: Acute (2) Atrial fibrillation and flutter Status: Chronic
[2016-11-02] MEDS: Digoxin 250 mcg (0.25 mg) Tab PO SCH (18:12)
[2016-11-03] MEDS: Albuterol-Ipratrop 3 mg / 0.5 (3 ml) UD INH SCH ×4 (01:14→19:18)
[2016-11-03] MEDS: MethylPREDNISolone 40 mg Vial IV SCH ×4 (05:16→21:56)
[2016-11-03 08:19] LABS: HEMATOCRIT 31.4 % (34.0-47.0); MEAN CELL VOLUME 80.6 fL (81.0-99.0); MEAN CORPUSCULAR HEMOGLOBIN 25.1 pg (27.0-31.0); MEAN CORPUSCULAR HGB CONC 31.1 g/dL (33.0-37.0); WHITE BLOOD COUNT 10.7 K/uL (4.8-10.8)
[2016-11-03 08:33] LABS: CHLORIDE 99 mmol/L (98-107)
[2016-11-03 08:34] LABS: POTASSIUM 4.3 mmol/L (3.6-5.2); SODIUM 140 mmol/L (132-148)
[2016-11-03 08:36] LABS: CARBON DIOXIDE 34 mmol/L (22-30); GFR AFRICAN-AMERICAN > 60
[2016-11-03 08:37] LABS: BLOOD UREA NITROGEN 16 mg/dL (7-17); CALCIUM 8.8 mg/dl (8.6-10.4); GLUCOSE,RANDOM 184 mg/dL (65-105)
[2016-11-03] MEDS: (Novolin R) Insulin Human Regular 100 units/ml vial SC SCH ×4 (08:59→21:40)
[2016-11-03 09:22] LABS: THYROID STIMULATING HORMONE 0.35 mIU/L (0.46-4.68)
--- NOTE | 2016-11-03 09:33 | CP.PCM.PN ---
<CARLY MAYES - Last Filed: 11/03/16 09:29> Subjective - Date & Time of Evaluation Date of Evaluation: 11/03/16 Time of Evaluation: 09:29 - Subjective Subjective: Carly Mayes, PGY1, Progress Note for Dr. Catherine: Pt seen and examined at bedside. No acute events overnight. Pt reports improving cough and sob, denies f/c/n/v/d, cp, diaphoresis, abdominal pain or urinary discomfort. Objective - Vital Signs/Intake and Output Vital Signs (last 24 hours): Temp Pulse Resp BP Pulse Ox 97.4 F L 80 20 103/68 95 11/03/16 07:10 11/03/16 07:10 11/03/16 07:10 11/03/16 07:10 11/03/16 07:10 - Medications Medications: Current Medications Albuterol/Ipratropium (Duoneb 3 Mg/0.5 Mg (3 Ml) Ud) 3 ml INH RQ6 [facility] Last Admin: 11/03/16 07:24 Dose: Not Given Carvedilol (Coreg) 25 mg PO BID [facility] Last Admin: 11/02/16 18:12 Dose: 25 mg Cyclobenzaprine HCl (Flexeril) 10 mg PO HS [facility] Last Admin: 11/02/16 22:32 Dose: 10 mg Digoxin (Lanoxin) 0.25 mg PO Q24H [facility] Last Admin: 11/02/16 18:12 Dose: 0.25 mg Ferrous Sulfate (Feosol) 325 mg PO TID [facility] Last Admin: 11/02/16 18:13 Dose: 325 mg Furosemide (Lasix) 40 mg PO DAILY [facility] Last Admin: 11/02/16 10:24 Dose: 40 mg Insulin Human Regular (Novolin R) 0 unit SC ACHS [facility] PRN Reason: Protocol Last Admin: 11/03/16 08:59 Dose: 2 unit Lisinopril (Zestril) 5 mg PO DAILY [facility] Last Admin: 11/02/16 10:25 Dose: 5 mg Magnesium Oxide (Mag-Ox) 400 mg PO DAILY [facility] Last Admin: 11/02/16 10:25 Dose: 400 mg Methylprednisolone (Solu-Medrol) 40 mg IV Q8 [facility] Last Admin: 11/03/16 05:16 Dose: 40 mg Pantoprazole Sodium (Protonix Ec Tab) 40 mg PO DAILY [facility] Last Admin: 11/02/16 10:25 Dose: 40 mg Potassium Chloride (K-Dur 20 Meq Er Tab) 20 meq PO DAILY [facility] Last Admin: 11/02/16 10:25 Dose: Not Given Rivaroxaban (Xarelto) 20 mg PO DAILY [facility] Last Admin: 11/02/16 10:25 Dose: 20 mg Rosuvastatin Calcium (Crestor) 10 mg PO HS [facility] Last Admin: 11/02/16 22:32 Dose: 10 mg Sitagliptin Phosphate (Januvia) 50 mg PO DAILY [facility] Last Admin: 11/02/16 10:25 Dose: 50 mg Tramadol HCl (Ultram) 50 mg PO Q8 PRN PRN Reason: Pain, moderate (4-7) Last Admin: 11/02/16 18:12 Dose: 50 mg - Labs Labs: 11/03/16 08:04 11/03/16 08:04 PT 13.6 SECONDS (9.7-12.2) H 10/31/16 21:56 INR 1.2 10/31/16 21:56 APTT 35 SECONDS (21-34) H 10/31/16 21:56 - Constitutional Appears: No Acute Distress - Head Exam Head Exam: ATRAUMATIC, NORMOCEPHALIC - Eye Exam Eye Exam: PERRL - ENT Exam ENT Exam: Mucous Membranes Moist - Respiratory Exam Respiratory Exam: Clear to Ausculation Bilateral - Cardiovascular Exam Cardiovascular Exam: +S1, +S2. absent: Murmur - GI/Abdominal Exam GI & Abdominal Exam: Soft, Normal Bowel Sounds. absent: Tenderness - Extremities Exam Extremities Exam: absent: Calf Tenderness, Pedal Edema - Neurological Exam Neurological Exam: Alert, Awake, Oriented x3 - Psychiatric Exam Psychiatric exam: Normal Mood - Skin Skin Exam: Dry, Warm Assessment and Plan - Assessment and Plan (Free Text) Assessment: 61F with PMH CHF (EF 55%), COPD, afib, pacemaker, htn, hld, admitted for COPD exacerbation. Cardiology consulted for management of chf and afib. 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 - In ED, pt afebrile, HR 80's, paced, normotensive, saturating well on 2L NC. Labs show no leukocytosis, trop neg x1, BNP elevated 1270, lactate 0.7. Received IV Lasix 40 mg once and Zosyn IV. - EKG shows HR 80, dual paced. QRS 160 ms, QTc 489. - CXR shows cardiomegaly. - Echo 03/2016: EF 55%. R ventricle severely dilated. RV function moderately reduced. Paradoxic septum consistent with right ventricle volume overload. R atrium severely dilated. Moderate tricuspid regurg. Mild pulm HTN. - Cardiac Cath 01/2013: Normal coronaries. Increased end diastolic pressure 30 mmHg. Normal LVSF. Recommend medical management. - Continue with home meds lisinopril 5 mg Po daily, lasix 40 mg PO daily, digoxin 0.25 mg PO daily, Carvedilol 25 mg PO BID, Atorvastatin 20 mg PO daily, Xarelto 20 mg PO daily for afib. - Lung sounds better, CTA b/l but decreased - Will interrogate icd. - Maintain normotensive BP and currently rate controlled. Off Tele. Discussed with Dr. Catherine. Carly Mayes, PGY1 <Mony Catherine A - Last Filed: 11/27/16 23:51> Objective - Vital Signs/Intake and Output Vital Signs (last 24 hours): Temp Pulse Resp BP Pulse Ox 97.8 F 80 22 133/65 93 L 11/06/16 19:25 11/06/16 19:25 11/06/16 19:25 11/06/16 19:25 11/06/16 19:25 - Labs Labs: 11/03/16 08:04 11/03/16 08:04 PT 13.6 SECONDS (9.7-12.2) H 10/31/16 21:56 INR 1.2 10/31/16 21:56 APTT 35 SECONDS (21-34) H 10/31/16 21:56 Attending/Attestation - Attestation I have personally seen and examined this patient.: Yes I have fully participated in the care of the patient.: Yes I have reviewed all pertinent clinical information, including history, physical exam and plan: Yes Notes (Text): 11/27/16 23:50 continue pulmonary tx
[2016-11-03] MEDS: Pantoprazole 40 mg EC Tab PO SCH (10:53)
[2016-11-03] MEDS: Magnesium Oxide 400 mg Tab UD PO SCH (10:53)
[2016-11-03] MEDS: Potassium Chloride 20 mEq ER Tab PO SCH (10:54)
--- NOTE | 2016-11-03 11:54 | CP.PCM.PN ---
Subjective - Date & Time of Evaluation Date of Evaluation: 11/03/16 Time of Evaluation: 11:10 - Subjective Subjective: Patient seen and examined. Breathing and cough much improved Sitting comfortably in no acute distress On BiPAP at night Denies any chest pain Objective - Vital Signs/Intake and Output Vital Signs (last 24 hours): Temp Pulse Resp BP Pulse Ox 97.4 F L 79 20 103/63 95 11/03/16 07:10 11/03/16 10:50 11/03/16 07:10 11/03/16 10:52 11/03/16 07:10 - Medications Medications: Current Medications Albuterol/Ipratropium (Duoneb 3 Mg/0.5 Mg (3 Ml) Ud) 3 ml INH RQ6 [facility] Last Admin: 11/03/16 07:24 Dose: Not Given Carvedilol (Coreg) 25 mg PO BID [facility] Last Admin: 11/03/16 10:50 Dose: Not Given Cyclobenzaprine HCl (Flexeril) 10 mg PO HS [facility] Last Admin: 11/02/16 22:32 Dose: 10 mg Digoxin (Lanoxin) 0.25 mg PO Q24H [facility] Last Admin: 11/02/16 18:12 Dose: 0.25 mg Ferrous Sulfate (Feosol) 325 mg PO TID [facility] Last Admin: 11/03/16 10:52 Dose: 325 mg Furosemide (Lasix) 40 mg PO DAILY [facility] Last Admin: 11/03/16 10:52 Dose: 40 mg Insulin Human Regular (Novolin R) 0 unit SC ACHS [facility] PRN Reason: Protocol Last Admin: 11/03/16 08:59 Dose: 2 unit Lisinopril (Zestril) 5 mg PO DAILY [facility] Last Admin: 11/03/16 10:51 Dose: Not Given Magnesium Oxide (Mag-Ox) 400 mg PO DAILY [facility] Last Admin: 11/03/16 10:53 Dose: 400 mg Methylprednisolone (Solu-Medrol) 40 mg IV Q8 [facility] Last Admin: 11/03/16 05:16 Dose: 40 mg Pantoprazole Sodium (Protonix Ec Tab) 40 mg PO DAILY [facility] Last Admin: 11/03/16 10:53 Dose: 40 mg Potassium Chloride (K-Dur 20 Meq Er Tab) 20 meq PO DAILY [facility] Last Admin: 11/03/16 10:54 Dose: Not Given Rivaroxaban (Xarelto) 20 mg PO DAILY [facility] Last Admin: 11/03/16 10:52 Dose: 20 mg Rosuvastatin Calcium (Crestor) 10 mg PO HS [facility] Last Admin: 11/02/16 22:32 Dose: 10 mg Sitagliptin Phosphate (Januvia) 50 mg PO DAILY [facility] Last Admin: 11/03/16 10:52 Dose: 50 mg Tramadol HCl (Ultram) 50 mg PO Q8 PRN PRN Reason: Pain, moderate (4-7) Last Admin: 11/02/16 18:12 Dose: 50 mg - Labs Labs: 11/03/16 08:04 11/03/16 08:04 PT 13.6 SECONDS (9.7-12.2) H 10/31/16 21:56 INR 1.2 10/31/16 21:56 APTT 35 SECONDS (21-34) H 10/31/16 21:56 - Constitutional Appears: No Acute Distress - Head Exam Head Exam: ATRAUMATIC, NORMOCEPHALIC - Eye Exam Eye Exam: Normal appearance - ENT Exam ENT Exam: Mucous Membranes Moist - Neck Exam Neck Exam: Normal Inspection - Respiratory Exam Respiratory Exam: Rhonchi - Cardiovascular Exam Cardiovascular Exam: REGULAR RHYTHM - GI/Abdominal Exam GI & Abdominal Exam: Soft, Normal Bowel Sounds - Extremities Exam Extremities Exam: Pedal Edema Assessment and Plan (1) ROSIO and COPD overlap syndrome Assessment & Plan: Continue BiPAP at night Taper IV steroids Continue nebulizer treatment Status: Acute (2) Atrial fibrillation and flutter Status: Chronic
[2016-11-03] MEDS: Digoxin 250 mcg (0.25 mg) Tab PO SCH (18:37)
[2016-11-04] MEDS: Albuterol-Ipratrop 3 mg / 0.5 (3 ml) UD INH SCH ×4 (01:57→19:53)
--- NOTE | 2016-11-04 02:01 | CP.PCM.PN ---
Subjective - Date & Time of Evaluation Date of Evaluation: 11/02/16 Time of Evaluation: 01:00 - Subjective Subjective: patient seen and examined. patient is complaining of cough and shortness of brath Using CPAP at night Afebrile No chest pain Objective - Vital Signs/Intake and Output Vital Signs (last 24 hours): Temp Pulse Resp BP Pulse Ox 97.6 F 80 20 102/65 98 11/03/16 23:50 11/03/16 23:50 11/03/16 23:50 11/03/16 23:50 11/03/16 23:50 Intake and Output: 11/03/16 11/04/16 18:59 06:59 Intake Total 400 Balance 400 - Medications Medications: Current Medications Albuterol/Ipratropium (Duoneb 3 Mg/0.5 Mg (3 Ml) Ud) 3 ml INH RQ6 [facility] Last Admin: 11/04/16 01:57 Dose: 3 ml Carvedilol (Coreg) 25 mg PO BID [facility] Last Admin: 11/03/16 18:37 Dose: 25 mg Digoxin (Lanoxin) 0.25 mg PO Q24H [facility] Last Admin: 11/03/16 18:37 Dose: 0.25 mg Ferrous Sulfate (Feosol) 325 mg PO TID [facility] Last Admin: 11/03/16 18:37 Dose: 325 mg Furosemide (Lasix) 40 mg PO DAILY [facility] Last Admin: 11/03/16 10:52 Dose: 40 mg Insulin Human Regular (Novolin R) 0 unit SC ACHS [facility] PRN Reason: Protocol Last Admin: 11/03/16 21:40 Dose: Not Given Lisinopril (Zestril) 5 mg PO DAILY [facility] Last Admin: 11/03/16 10:51 Dose: Not Given Magnesium Oxide (Mag-Ox) 400 mg PO DAILY [facility] Last Admin: 11/03/16 10:53 Dose: 400 mg Methylprednisolone (Solu-Medrol) 30 mg IV Q8 [facility] Pantoprazole Sodium (Protonix Ec Tab) 40 mg PO DAILY [facility] Last Admin: 11/03/16 10:53 Dose: 40 mg Potassium Chloride (K-Dur 20 Meq Er Tab) 20 meq PO DAILY [facility] Last Admin: 11/03/16 10:54 Dose: Not Given Rivaroxaban (Xarelto) 20 mg PO DAILY [facility] Last Admin: 11/03/16 10:52 Dose: 20 mg Rosuvastatin Calcium (Crestor) 10 mg PO HS [facility] Last Admin: 11/03/16 21:56 Dose: 10 mg Sitagliptin Phosphate (Januvia) 50 mg PO DAILY [facility] Last Admin: 11/03/16 10:52 Dose: 50 mg - Labs Labs: 11/03/16 08:04 11/03/16 08:04 PT 13.6 SECONDS (9.7-12.2) H 10/31/16 21:56 INR 1.2 10/31/16 21:56 APTT 35 SECONDS (21-34) H 10/31/16 21:56 - Constitutional Appears: Well - Head Exam Head Exam: ATRAUMATIC, NORMAL INSPECTION, NORMOCEPHALIC - Eye Exam Eye Exam: EOMI, Normal appearance, PERRL Pupil Exam: NORMAL ACCOMODATION, PERRL - ENT Exam ENT Exam: Mucous Membranes Moist, Normal Exam - Neck Exam Neck Exam: Full ROM, Normal Inspection. absent: Lymphadenopathy - Respiratory Exam Respiratory Exam: Clear to Ausculation Bilateral, NORMAL BREATHING PATTERN - Cardiovascular Exam Cardiovascular Exam: REGULAR RHYTHM, +S1, +S2. absent: Murmur - GI/Abdominal Exam GI & Abdominal Exam: Soft, Normal Bowel Sounds. absent: Tenderness - Rectal Exam Rectal Exam: NORMAL INSPECTION - Exam Exam: Circumcision, NORMAL INSPECTION External exam: NORMAL EXTERNAL EXAM Speculum exam: NORMAL SPECULUM EXAM Bimanual exam: NORMAL BIMANUAL EXAM - Extremities Exam Extremities Exam: Full ROM, Normal Capillary Refill, Normal Inspection. absent : Joint Swelling, Pedal Edema - Back Exam Back Exam: NORMAL INSPECTION - Neurological Exam Neurological Exam: Alert, Awake, CN II-XII Intact, Normal Gait, Oriented x3 - Psychiatric Exam Psychiatric exam: Normal Affect, Normal Mood - Skin Skin Exam: Dry, Intact, Normal Color, Warm Assessment and Plan - Assessment and Plan (Free Text) Assessment: Assessment: 61F with PMH CHF (EF 55%), COPD, afib, pacemaker, htn, hld, admitted for COPD exacerbation. Cardiology consulted for management of chf and afib. 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 - In ED, pt afebrile, HR 80's, paced, normotensive, saturating well on 2L NC. Labs show no leukocytosis, trop neg x1, BNP elevated 1270, lactate 0.7. Received IV Lasix 40 mg once and Zosyn IV. - EKG shows HR 80, dual paced. QRS 160 ms, QTc 489. - CXR shows cardiomegaly. - Echo 03/2016: EF 55%. R ventricle severely dilated. RV function moderately reduced. Paradoxic septum consistent with right ventricle volume overload. R atrium severely dilated. Moderate tricuspid regurg. Mild pulm HTN. - Cardiac Cath 01/2013: Normal coronaries. Increased end diastolic pressure 30 mmHg. Normal LVSF. Recommend medical management. - Continue with home meds lisinopril 5 mg Po daily, lasix 40 mg PO daily, digoxin 0.25 mg PO daily, Carvedilol 25 mg PO BID, Atorvastatin 20 mg PO daily, Xarelto 20 mg PO daily for afib. - Maintain normotensive BP and currently rate controlled.
--- NOTE | 2016-11-04 03:43 | PN ---
SUBJECTIVE: The patient is 61 years old female. The patient is seen and examined on the bedside, looking comfortable. Cough is getting better. Shortness of breath is getting better. No nausea, vomiting or diarrhea. No swelling of the leg. No chest pain. No palpitations. No headache or dizziness. No hematuria or hematochezia. PHYSICAL EXAMINATION: VITAL SIGNS: Temperature is 97.4, pulse is 79, respiratory rate 20, blood pressure is 102/63, and pulse oximetry is 95. HEENT: Head is normocephalic and atraumatic. Eyes, PERRLA. Extraocular muscles intact. Conjunctivae clear. Nose patent. Mucous membranes are moist. NECK: Supple. No carotid bruit. No JVD or thyromegaly. CHEST: Bilaterally symmetrical. HEART: S1 and S2 positive. LUNGS: Clear to auscultation. ABDOMEN: Soft. Bowel sounds are present. No organomegaly. EXTREMITIES: No edema. No cyanosis. NEUROLOGIC: The patient is awake and alert. Moving all four extremities. No focal deficits. MEDICATIONS: Duoneb, Coreg, Flexeril, Digoxin, Feosol, Lasix, Novolin, Zestril, magnesium oxide, Solu-Medrol tapering dose, Protonix, Xarelto, Crestor, Januvia and tramadol. LABORATORY DATA: White blood cell is 10.7, hemoglobin 9.2, hematocrit 31.4, and platelets 192. Sodium 140, potassium 4.3, BUN 16, creatinine 0.7 and glucose 184. ASSESSMENT AND PLAN: Ms. Kary Gordillo is a 61 years old lady with anemia, hyperglycemia, came with exacerbation of chronic obstructive pulmonary disease, overlapping obstructive sleep apnea syndrome. She is getting BiPAP at night, tapering dose of steroids. Continue nebulizer, atrial fibrillation and flutter is chronic. Tarring Machine Operator Dr. Chavez is on the case. The patient has an ejection fraction of 55%, congestive heart failure, pacemaker, hypertension. Shortness of breath and wheezing is better. Heart rate 80s. Getting IV Lasix and Zosyn. Echo shows paradoxical septum consistent with right ventricular volume overload. done on 02/12/2013 showed normal coronaries. GI and DVT prophylaxis. Repeat labs. We will followup. Kandy Sánchez MD [facility] # [id number] [place]
--- NOTE | 2016-11-04 07:12 | CP.PCM.PN ---
Subjective - Date & Time of Evaluation Date of Evaluation: 11/04/16 Time of Evaluation: 07:12 - Subjective Subjective: less coughing breathing better Objective - Vital Signs/Intake and Output Vital Signs (last 24 hours): Temp Pulse Resp BP Pulse Ox 97.6 F 80 20 102/65 98 11/03/16 23:50 11/03/16 23:50 11/03/16 23:50 11/03/16 23:50 11/03/16 23:50 - Medications Medications: Current Medications Albuterol/Ipratropium (Duoneb 3 Mg/0.5 Mg (3 Ml) Ud) 3 ml INH RQ6 [facility] Last Admin: 11/04/16 01:57 Dose: 3 ml Carvedilol (Coreg) 25 mg PO BID [facility] Last Admin: 11/03/16 18:37 Dose: 25 mg Digoxin (Lanoxin) 0.25 mg PO Q24H [facility] Last Admin: 11/03/16 18:37 Dose: 0.25 mg Ferrous Sulfate (Feosol) 325 mg PO TID [facility] Last Admin: 11/03/16 18:37 Dose: 325 mg Furosemide (Lasix) 40 mg PO DAILY [facility] Last Admin: 11/03/16 10:52 Dose: 40 mg Insulin Human Regular (Novolin R) 0 unit SC ACHS [facility] PRN Reason: Protocol Last Admin: 11/03/16 21:40 Dose: Not Given Lisinopril (Zestril) 5 mg PO DAILY [facility] Last Admin: 11/03/16 10:51 Dose: Not Given Magnesium Oxide (Mag-Ox) 400 mg PO DAILY [facility] Last Admin: 11/03/16 10:53 Dose: 400 mg Methylprednisolone (Solu-Medrol) 30 mg IV Q8 [facility] Pantoprazole Sodium (Protonix Ec Tab) 40 mg PO DAILY [facility] Last Admin: 11/03/16 10:53 Dose: 40 mg Potassium Chloride (K-Dur 20 Meq Er Tab) 20 meq PO DAILY [facility] Last Admin: 11/03/16 10:54 Dose: Not Given Rivaroxaban (Xarelto) 20 mg PO DAILY [facility] Last Admin: 11/03/16 10:52 Dose: 20 mg Rosuvastatin Calcium (Crestor) 10 mg PO HS [facility] Last Admin: 11/03/16 21:56 Dose: 10 mg Sitagliptin Phosphate (Januvia) 50 mg PO DAILY [facility] Last Admin: 11/03/16 10:52 Dose: 50 mg - Labs Labs: 11/03/16 08:04 11/03/16 08:04 PT 13.6 SECONDS (9.7-12.2) H 10/31/16 21:56 INR 1.2 10/31/16 21:56 APTT 35 SECONDS (21-34) H 10/31/16 21:56 - Constitutional Appears: Well - Head Exam Head Exam: ATRAUMATIC - Eye Exam Eye Exam: Normal appearance - ENT Exam ENT Exam: Mucous Membranes Moist - Respiratory Exam Respiratory Exam: Wheezes - Cardiovascular Exam Cardiovascular Exam: Diastolic murmur, REGULAR RHYTHM - GI/Abdominal Exam GI & Abdominal Exam: Normal Bowel Sounds - Exam External exam: absent: Ecchymosis Assessment and Plan (1) CHF (congestive heart failure) Assessment & Plan: icd stable continue xarelto rate control Status: Acute (2) Atrial fibrillation and flutter Status: Chronic
[2016-11-04] MEDS: MethylPREDNISolone 40 mg Vial IV SCH ×2 (07:21→13:20)
[2016-11-04] MEDS: (Novolin R) Insulin Human Regular 100 units/ml vial SC SCH ×4 (07:59→21:25)
[2016-11-04] MEDS: Magnesium Oxide 400 mg Tab UD PO SCH (10:03)
[2016-11-04] MEDS: Pantoprazole 40 mg EC Tab PO SCH (10:04)
[2016-11-04] MEDS: Potassium Chloride 20 mEq ER Tab PO SCH ×2 (10:04→10:08)
[2016-11-04] MEDS: Digoxin 250 mcg (0.25 mg) Tab PO SCH (17:58)
[2016-11-04 18:00] VITALS: PULSE 80
--- NOTE | 2016-11-04 19:51 | CP.PCM.PN ---
Subjective - Date & Time of Evaluation Date of Evaluation: 11/04/16 Time of Evaluation: 16:00 - Subjective Subjective: patient seen and examined. Sitting comfortably in no acute distress Patient states breathing is much improved Not using BiPAP at night Afebrile No chest pain Objective - Vital Signs/Intake and Output Vital Signs (last 24 hours): Temp Pulse Resp BP Pulse Ox 97.7 F 80 18 126/81 96 11/04/16 16:00 11/04/16 16:00 11/04/16 16:00 11/04/16 17:59 11/04/16 16:00 - Medications Medications: Current Medications Albuterol/Ipratropium (Duoneb 3 Mg/0.5 Mg (3 Ml) Ud) 3 ml INH RQ6 [facility] Last Admin: 11/04/16 13:34 Dose: 3 ml Carvedilol (Coreg) 25 mg PO BID [facility] Last Admin: 11/04/16 17:59 Dose: 25 mg Digoxin (Lanoxin) 0.25 mg PO Q24H [facility] Last Admin: 11/04/16 17:58 Dose: 0.25 mg Ferrous Sulfate (Feosol) 325 mg PO TID [facility] Last Admin: 11/04/16 17:59 Dose: 325 mg Furosemide (Lasix) 40 mg PO DAILY [facility] Last Admin: 11/04/16 10:10 Dose: 40 mg Insulin Human Regular (Novolin R) 0 unit SC ACHS [facility] PRN Reason: Protocol Last Admin: 11/04/16 17:59 Dose: 4 unit Lisinopril (Zestril) 5 mg PO DAILY [facility] Last Admin: 11/04/16 10:03 Dose: 5 mg Magnesium Oxide (Mag-Ox) 400 mg PO DAILY [facility] Last Admin: 11/04/16 10:03 Dose: 400 mg Methylprednisolone (Solu-Medrol) 30 mg IV Q8 [facility] Last Admin: 11/04/16 13:20 Dose: 30 mg Pantoprazole Sodium (Protonix Ec Tab) 40 mg PO DAILY [facility] Last Admin: 11/04/16 10:04 Dose: 40 mg Potassium Chloride (K-Dur 20 Meq Er Tab) 20 meq PO DAILY [facility] Last Admin: 11/04/16 10:08 Dose: Not Given Rivaroxaban (Xarelto) 20 mg PO DAILY [facility] Last Admin: 11/04/16 10:03 Dose: 20 mg Rosuvastatin Calcium (Crestor) 10 mg PO HS [facility] Last Admin: 11/03/16 21:56 Dose: 10 mg Sitagliptin Phosphate (Januvia) 50 mg PO DAILY [facility] Last Admin: 11/04/16 10:04 Dose: 50 mg - Labs Labs: 11/03/16 08:04 11/03/16 08:04 PT 13.6 SECONDS (9.7-12.2) H 10/31/16 21:56 INR 1.2 10/31/16 21:56 APTT 35 SECONDS (21-34) H 10/31/16 21:56 - Head Exam Head Exam: ATRAUMATIC, NORMOCEPHALIC - Eye Exam Eye Exam: Normal appearance - ENT Exam ENT Exam: Mucous Membranes Moist - Neck Exam Neck Exam: Normal Inspection - Respiratory Exam Respiratory Exam: Decreased Breath Sounds - Cardiovascular Exam Cardiovascular Exam: REGULAR RHYTHM - GI/Abdominal Exam GI & Abdominal Exam: Soft, Normal Bowel Sounds Assessment and Plan (1) ROSIO and COPD overlap syndrome Assessment & Plan: switch to p.o. prednisone Continue nebulizer treatment Patient advised to use BiPAP Status: Acute (2) Atrial fibrillation and flutter Status: Chronic
--- NOTE | 2016-11-05 00:56 | PN ---
SUBJECTIVE: The patient is 61-year-old female. The patient is seen and examined on the bedside, looking comfortable. Shortness of breath is better. No nausea, vomiting or diarrhea. Tolerating food very well. Family was around. PHYSICAL EXAMINATION: VITAL SIGNS: Temperature 97.7, pulse 80, respiratory rate 18, blood pressure 126/81, and pulse oximetry is 96. HEENT: Head is normocephalic and atraumatic. Eyes, PERRLA. Extraocular muscles intact. Conjunctivae clear. Nose patent. NECK: Supple. No carotid bruit. No JVD or thyromegaly. CHEST: Bilaterally symmetrical. HEART: S1 and S2 positive. LUNGS: Clear to auscultation. ABDOMEN: Soft. Bowel sounds are present. No organomegaly. EXTREMITIES: No edema. No cyanosis. NEUROLOGIC: The patient is awake and alert. Moving all four extremities. No focal deficits. MEDICATIONS: Duoneb, Coreg, Digoxin, Iron, Lasix, Novolin, Zestril, magnesium oxide, Solu-Medrol, Protonix, potassium, Xarelto, Crestor, Januvia. LABORATORY DATA: We do not have recent labs today, but I reviewed old labs . ASSESSMENT AND PLAN: The patient is a 61-year-old female with obstructive sleep apnea, chronic obstructive pulmonary disease, overlap syndrome as per Dr. Colton Serrano. He switched her Solu-Medrol to prednisone p.o. Continue present treatment. The patient was advised to use BiPAP. Atrial fibrillation and flutter. Dr. hCavez, semiconductor processor is on the case. The patient has history of anemia, hyperglycemia. According to Dr. Chavez's progress notes, I do not have any plan and I never talked to him about this patient. We will try to reach Dr. Chavez about the patient's plan. Meanwhile, continue present treatment. Gastrointestinal and deep venous thrombosis prophylaxis. Repeat labs. The patient has congestive heart failure with ejection fraction of 55, pacemaker, hypertension, hypercholesterolemia. We will follow up. Kandy Sánchez MD
[2016-11-05] MEDS: Albuterol-Ipratrop 3 mg / 0.5 (3 ml) UD INH SCH ×4 (01:41→20:08)
--- NOTE | 2016-11-05 07:47 | CP.PCM.PN ---
Subjective - Date & Time of Evaluation Date of Evaluation: 11/05/16 Time of Evaluation: 07:47 - Subjective Subjective: tolerating po Objective - Vital Signs/Intake and Output Vital Signs (last 24 hours): Temp Pulse Resp BP Pulse Ox 98 F 79 20 132/82 96 11/04/16 23:40 11/04/16 23:40 11/04/16 23:40 11/04/16 23:40 11/04/16 23:40 - Medications Medications: Current Medications Albuterol/Ipratropium (Duoneb 3 Mg/0.5 Mg (3 Ml) Ud) 3 ml INH RQ6 [facility] Last Admin: 11/05/16 01:41 Dose: 3 ml Carvedilol (Coreg) 25 mg PO BID [facility] Last Admin: 11/04/16 17:59 Dose: 25 mg Digoxin (Lanoxin) 0.25 mg PO Q24H [facility] Last Admin: 11/04/16 17:58 Dose: 0.25 mg Ferrous Sulfate (Feosol) 325 mg PO TID [facility] Last Admin: 11/04/16 17:59 Dose: 325 mg Furosemide (Lasix) 40 mg PO DAILY [facility] Last Admin: 11/04/16 10:10 Dose: 40 mg Insulin Human Regular (Novolin R) 0 unit SC [facility] PRN Reason: Protocol Last Admin: 11/04/16 21:25 Dose: Not Given Lisinopril (Zestril) 5 mg PO DAILY [facility] Last Admin: 11/04/16 10:03 Dose: 5 mg Magnesium Oxide (Mag-Ox) 400 mg PO DAILY [facility] Last Admin: 11/04/16 10:03 Dose: 400 mg Pantoprazole Sodium (Protonix Ec Tab) 40 mg PO DAILY [facility] Last Admin: 11/04/16 10:04 Dose: 40 mg Potassium Chloride (K-Dur 20 Meq Er Tab) 20 meq PO DAILY [facility] Last Admin: 11/04/16 10:08 Dose: Not Given Prednisone (Prednisone Tab) 20 mg PO DAILY [facility] Rivaroxaban (Xarelto) 20 mg PO DAILY [facility] Last Admin: 11/04/16 10:03 Dose: 20 mg Rosuvastatin Calcium (Crestor) 10 mg PO HS [facility] Last Admin: 11/04/16 21:25 Dose: 10 mg Sitagliptin Phosphate (Januvia) 50 mg PO DAILY [facility] Last Admin: 11/04/16 10:04 Dose: 50 mg - Labs Labs: 11/03/16 08:04 11/03/16 08:04 PT 13.6 SECONDS (9.7-12.2) H 10/31/16 21:56 INR 1.2 10/31/16 21:56 APTT 35 SECONDS (21-34) H 10/31/16 21:56 - Constitutional Appears: Well - Head Exam Head Exam: ATRAUMATIC - Eye Exam Eye Exam: Normal appearance - Respiratory Exam Respiratory Exam: Clear to Ausculation Bilateral - Cardiovascular Exam Cardiovascular Exam: REGULAR RHYTHM - Extremities Exam Extremities Exam: Normal Inspection - Neurological Exam Neurological Exam: Awake - Psychiatric Exam Psychiatric exam: Normal Mood - Skin Skin Exam: Dry Assessment and Plan (1) CHF (congestive heart failure) Assessment & Plan: bipap pulmonary tx lungs continie a/c and rate control Status: Acute (2) Dyspnea Status: Acute
[2016-11-05] MEDS: (Novolin R) Insulin Human Regular 100 units/ml vial SC SCH ×4 (08:28→21:48)
[2016-11-05] MEDS: Magnesium Oxide 400 mg Tab UD PO SCH (11:29)
[2016-11-05] MEDS: Pantoprazole 40 mg EC Tab PO SCH (11:30)
[2016-11-05] MEDS: Potassium Chloride 20 mEq ER Tab PO SCH (11:31)
[2016-11-05] MEDS: Digoxin 250 mcg (0.25 mg) Tab PO SCH (18:19)
[2016-11-06] MEDS: Albuterol-Ipratrop 3 mg / 0.5 (3 ml) UD INH SCH ×3 (01:28→13:10)
--- NOTE | 2016-11-06 05:25 | PN ---
DATE: 11/05/2016 SUBJECTIVE: The patient is a 61-year-old female. The patient last seen and examined on 11/05/2016 on the bedside. Looking comfortable. Shortness of breath is getting better, and swelling of the leg getting better. No nausea, vomiting or diarrhea. No hematuria or hematochezia. No headache, no chest pain, no palpitation. PHYSICAL EXAMINATION: VITAL SIGNS: Temperature 97.6, pulse 80, blood pressure 90/60, and respiratory rate 20. HEENT: Head is normocephalic and atraumatic. Eyes, PERRLA. Extraocular muscles intact. Conjunctivae clear. Nose patent. NECK: Supple. No carotid bruit. No thyromegaly. CHEST: Bilaterally symmetrical. HEART: S1 and S2 positive. LUNGS: Clear to auscultation. ABDOMEN: Soft. Bowel sounds are present. No organomegaly. EXTREMITIES: No edema and no cyanosis. NEUROLOGIC: The patient is awake and alert, moving all 4 extremities. No focal deficits. MEDICATIONS: Coreg, Crestor, DuoNeb, Feosol, Januvia, K-Dur, Lanoxin, furosemide, magnesium oxide, Novolin. prednisone, Protonix, Xarelto, and Zestril. LABORATORY DATA: White blood cell is 10.7, hemoglobin 9.8, hematocrit 31.4 and platelets 192. Glucose 308, 243, 243. ASSESSMENT AND PLAN: Ms. Duy Preston is a 61-year-old lady with obstructive sleep apnea syndrome and chronic obstructive pulmonary disease, getting tapering dose of steroid. Advice to use BiPAP. Atrial fibrillation and flutter. Dr. Chavez is the spray machine tender. History of anemia, hypercholesterolemia. Gastrointestinal and deep vein thrombosis prophylaxis. Repeat labs. We will followup. Kandy Sánchez MD
[2016-11-06] MEDS: (Novolin R) Insulin Human Regular 100 units/ml vial SC SCH ×2 (09:36→12:50)
--- NOTE | 2016-11-06 09:49 | CP.PCM.PN ---
Subjective - Date & Time of Evaluation Date of Evaluation: 11/06/16 Time of Evaluation: 09:49 - Subjective Subjective: stable tolerating po Objective - Vital Signs/Intake and Output Vital Signs (last 24 hours): Temp Pulse Resp BP Pulse Ox 97.8 F 80 20 114/77 94 L 11/06/16 08:45 11/06/16 08:45 11/06/16 08:45 11/06/16 08:45 11/06/16 08:45 Intake and Output: 11/06/16 11/06/16 06:59 18:59 Intake Total 480 Balance 480 - Medications Medications: Current Medications Albuterol/Ipratropium (Duoneb 3 Mg/0.5 Mg (3 Ml) Ud) 3 ml INH RQ6 [facility] Last Admin: 11/06/16 07:45 Dose: 3 ml Carvedilol (Coreg) 25 mg PO BID [facility] Last Admin: 11/05/16 18:19 Dose: 25 mg Digoxin (Lanoxin) 0.25 mg PO Q24H [facility] Last Admin: 11/05/16 18:19 Dose: 0.25 mg Ferrous Sulfate (Feosol) 325 mg PO TID [facility] Last Admin: 11/05/16 18:19 Dose: 325 mg Furosemide (Lasix) 40 mg PO DAILY [facility] Last Admin: 11/05/16 11:30 Dose: 40 mg Insulin Human Regular (Novolin R) 0 unit SC [facility] PRN Reason: Protocol Last Admin: 11/06/16 09:36 Dose: 1 unit Lisinopril (Zestril) 5 mg PO DAILY [facility] Last Admin: 11/05/16 11:31 Dose: 5 mg Magnesium Oxide (Mag-Ox) 400 mg PO DAILY [facility] Last Admin: 11/05/16 11:29 Dose: 400 mg Pantoprazole Sodium (Protonix Ec Tab) 40 mg PO DAILY [facility] Last Admin: 11/05/16 11:30 Dose: 40 mg Potassium Chloride (K-Dur 20 Meq Er Tab) 20 meq PO DAILY [facility] Last Admin: 11/05/16 11:31 Dose: 20 meq Prednisone (Prednisone Tab) 20 mg PO DAILY [facility] Last Admin: 11/05/16 11:31 Dose: 20 mg Rivaroxaban (Xarelto) 20 mg PO DAILY [facility] Last Admin: 11/05/16 11:34 Dose: 20 mg Rosuvastatin Calcium (Crestor) 10 mg PO HS [facility] Last Admin: 11/05/16 22:13 Dose: 10 mg Sitagliptin Phosphate (Januvia) 50 mg PO DAILY [facility] Last Admin: 11/05/16 11:31 Dose: 50 mg - Labs Labs: 11/03/16 08:04 11/03/16 08:04 PT 13.6 SECONDS (9.7-12.2) H 10/31/16 21:56 INR 1.2 10/31/16 21:56 APTT 35 SECONDS (21-34) H 10/31/16 21:56 - Constitutional Appears: Well - Head Exam Head Exam: ATRAUMATIC - Eye Exam Eye Exam: Normal appearance - ENT Exam ENT Exam: Mucous Membranes Moist - Respiratory Exam Respiratory Exam: Wheezes - Cardiovascular Exam Cardiovascular Exam: Diastolic murmur - GI/Abdominal Exam GI & Abdominal Exam: Normal Bowel Sounds - Exam External exam: NORMAL EXTERNAL EXAM - Neurological Exam Neurological Exam: Alert
[2016-11-06] MEDS: Potassium Chloride 20 mEq ER Tab PO SCH (11:00)
[2016-11-06] MEDS: Pantoprazole 40 mg EC Tab PO SCH (11:00)
[2016-11-06] MEDS: Magnesium Oxide 400 mg Tab UD PO SCH (11:00)
--- NOTE | 2016-11-06 12:05 | CP.PCM.PN ---
Subjective - Date & Time of Evaluation Date of Evaluation: 11/06/16 Time of Evaluation: 09:00 - Subjective Subjective: patient seen and examined. sitting comfortably in no acute distress but still complaining of dyspnea on exertion and slight cough Denies fever chills not using BiPAP at night Objective - Vital Signs/Intake and Output Vital Signs (last 24 hours): Temp Pulse Resp BP Pulse Ox 97.8 F 81 20 132/86 94 L 11/06/16 08:45 11/06/16 11:00 11/06/16 08:45 11/06/16 11:00 11/06/16 08:45 Intake and Output: 11/06/16 11/06/16 06:59 18:59 Intake Total 480 Balance 480 - Medications Medications: Current Medications Albuterol/Ipratropium (Duoneb 3 Mg/0.5 Mg (3 Ml) Ud) 3 ml INH RQ6 [facility] Last Admin: 11/06/16 07:45 Dose: 3 ml Carvedilol (Coreg) 25 mg PO BID [facility] Last Admin: 11/06/16 11:00 Dose: 25 mg Digoxin (Lanoxin) 0.25 mg PO Q24H [facility] Last Admin: 11/05/16 18:19 Dose: 0.25 mg Ferrous Sulfate (Feosol) 325 mg PO TID [facility] Last Admin: 11/06/16 11:00 Dose: 325 mg Furosemide (Lasix) 40 mg PO DAILY [facility] Last Admin: 11/06/16 11:00 Dose: 40 mg Insulin Human Regular (Novolin R) 0 unit SC [facility] PRN Reason: Protocol Last Admin: 11/06/16 09:36 Dose: 1 unit Lisinopril (Zestril) 5 mg PO DAILY [facility] Last Admin: 11/06/16 11:00 Dose: 5 mg Magnesium Oxide (Mag-Ox) 400 mg PO DAILY [facility] Last Admin: 11/06/16 11:00 Dose: 400 mg Pantoprazole Sodium (Protonix Ec Tab) 40 mg PO DAILY [facility] Last Admin: 11/06/16 11:00 Dose: 40 mg Potassium Chloride (K-Dur 20 Meq Er Tab) 20 meq PO DAILY [facility] Last Admin: 11/06/16 11:00 Dose: 20 meq Prednisone (Prednisone Tab) 20 mg PO DAILY [facility] Last Admin: 11/06/16 11:00 Dose: 20 mg Rivaroxaban (Xarelto) 20 mg PO DAILY [facility] Last Admin: 11/06/16 11:00 Dose: 20 mg Rosuvastatin Calcium (Crestor) 10 mg PO [facility] Last Admin: 11/05/16 22:13 Dose: 10 mg Sitagliptin Phosphate (Januvia) 50 mg PO DAILY [facility] Last Admin: 11/06/16 11:00 Dose: 50 mg - Labs Labs: 11/03/16 08:04 11/03/16 08:04 PT 13.6 SECONDS (9.7-12.2) H 10/31/16 21:56 INR 1.2 10/31/16 21:56 APTT 35 SECONDS (21-34) H 10/31/16 21:56 - Head Exam Head Exam: ATRAUMATIC, NORMOCEPHALIC - Eye Exam Eye Exam: Normal appearance - ENT Exam ENT Exam: Mucous Membranes Moist - Neck Exam Neck Exam: Normal Inspection - Respiratory Exam Respiratory Exam: Clear to Ausculation Bilateral - Cardiovascular Exam Cardiovascular Exam: Irregular Rhythm - GI/Abdominal Exam GI & Abdominal Exam: Soft Assessment and Plan (1) ROSIO and COPD overlap syndrome Assessment & Plan: Patient advised to use CPAP at night Tapers her prednisone Continue nebulizer treatment Status: Acute (2) Atrial fibrillation and flutter Status: Chronic
--- NOTE | 2016-11-06 16:50 | CP.PCM.PN ---
Subjective - Date & Time of Evaluation Date of Evaluation: 11/06/16 Time of Evaluation: 12:00 - Subjective Subjective: Patient seen an d examined today comfortable states feels better, sob improved ,denies any chest pain, palpitations , dizziness spo2 94% room air Objective - Vital Signs/Intake and Output Vital Signs (last 24 hours): Temp Pulse Resp BP Pulse Ox 97.8 F 81 20 132/86 94 L 11/06/16 08:45 11/06/16 11:00 11/06/16 08:45 11/06/16 11:00 11/06/16 08:45 Intake and Output: 11/06/16 11/06/16 06:59 18:59 Intake Total 480 Balance 480 - Medications Medications: Current Medications Carvedilol (Coreg) 25 mg PO BID [facility]S [facility] Last Admin: 11/06/16 11:00 Dose: 25 mg Digoxin (Lanoxin) 0.25 mg PO Q24H [facility] 234 [facility]EDS AT [facility] Last Admin: 11/05/16 18:19 Dose: 0.25 mg Ferrous Sulfate (Feosol) 325 mg PO TID [facility] 234 [facility]S [facility] Last Admin: 11/06/16 13:04 Dose: 325 mg Furosemide (Lasix) 40 mg PO DAILY [facility] 234 [facility]S [facility] Last Admin: 11/06/16 11:00 Dose: 40 mg Insulin Human Regular (Novolin R) 0 unit SC [facility]S [facility] PRN Reason: Protocol Last Admin: 11/06/16 12:50 Dose: 2 unit Lisinopril (Zestril) 5 mg PO DAILY [facility] 234 [facility]S [facility] Last Admin: 11/06/16 11:00 Dose: 5 mg Magnesium Oxide (Mag-Ox) 400 mg PO DAILY [facility] 234 [facility]S [facility] Last Admin: 11/06/16 11:00 Dose: 400 mg Pantoprazole Sodium (Protonix Ec Tab) 40 mg PO DAILY [facility] 234 [facility]S [facility] Last Admin: 11/06/16 11:00 Dose: 40 mg Potassium Chloride (K-Dur 20 Meq Er Tab) 20 meq PO DAILY [facility]S [facility] Last Admin: 11/06/16 11:00 Dose: 20 meq Prednisone (Prednisone Tab) 20 mg PO DAILY [facility] 234 [facility]S [facility] Last Admin: 11/06/16 11:00 Dose: 20 mg Rivaroxaban (Xarelto) 20 mg PO DAILY [facility] 234 [facility] Last Admin: 11/06/16 11:00 Dose: 20 mg Rosuvastatin Calcium (Crestor) 10 mg PO [facility] Last Admin: 11/05/16 22:13 Dose: 10 mg Sitagliptin Phosphate (Januvia) 50 mg PO DAILY [facility] Last Admin: 11/06/16 11:00 Dose: 50 mg - Labs Labs: 11/03/16 08:04 11/03/16 08:04 PT 13.6 SECONDS (9.7-12.2) H 10/31/16 21:56 INR 1.2 10/31/16 21:56 APTT 35 SECONDS (21-34) H 10/31/16 21:56 - Constitutional Appears: Well, No Acute Distress - Respiratory Exam Respiratory Exam: Decreased Breath Sounds, Rhonchi, NORMAL BREATHING PATTERN - Cardiovascular Exam Cardiovascular Exam: REGULAR RHYTHM, +S1, +S2 - Neurological Exam Neurological Exam: Alert, Awake, Oriented x3 Assessment and Plan - Assessment and Plan (Free Text) Assessment: A/P 61 yr old female admitted for exc. CHF/COPD Pt has oxygen an d C- pap at home seen by Dr. Serrano cleared for discharge from pulmonary stand point , recommends to use c- pap at [facility] ttime D/W Dr. Gonzalez, cleared for discharge from cardiology stand point D/W Dr. cano, stable for discharge home otday an df/u with Dr. Cano in 1 week Discharge plan discussed wiht patient who understands and agrees with plan Pt instructed to return to ED if symptoms returns CM will arrange transportation
[2016-11-06 16:56] VITALS: PULSE 80
--- NOTE | 2016-11-06 17:20 | PCM.HF ---
Heart Failure Core Measure - Heart Failure Ejection Fraction: 40 % or Greater KENA Inhibitor Prescribed: Yes Beta-Daquan Prescribed: Carvedilol Angiotensin II Receptor Daquan Prescribed: No Contraindication/Reason for not providing: ON KENA AnticoagulationTherapy for Atrial Fibrillation/Atrialflutter: Yes Aldosterone Antagonist Prescribed: No Contraindication/Reason for not providing: EF>45 Hydralazine Nitrate Prescribed: No Contraindication/Reason for not providing: EF>45 Implantable Cardioverter Defibrillator Therapy: No Contraindication/Reason for not providing: EFa>45 Cardiac Resynchronization Therapy Prescribed: No Contraindication/Reason for not providing: EF>45 - Follow up Will be discharged to: Home Follow Up Date (must be within 7 days from discharge): 11/10/16 Follow Up Time: 09:00
[2016-11-06 20:40] VITALS: BP 133/65; RESP 22; TEMP 97.8; O2SAT 93
--- NOTE | 2016-11-24 07:36 | DS ---
CHIEF COMPLAINT: Shortness of breath. HISTORY OF PRESENT ILLNESS: The patient is a 61-year-old lady came with complaining of worsening of shortness of breath from 3 days. The patient said she saw her primary care physician and treated with course of antibiotics with no relief. The patient is speaking 5 to 6 words sentence. Denies fevers, chills, nausea, vomiting, diarrhea. No palpitations. Readmitted the patient, did a chest x-ray, seen by Dr. Zach Segura, hospitality house supervisor. Dr. Mony Catherine is the patient's green building materials distributor. The patient got better, discharged home. Prescription medicine given. She will follow up with her own primary care physician and hospitality house supervisor. PAST MEDICAL HISTORY: History of asthma, atrial fibrillation, congestive heart failure, hypercholesterolemia, hypertension and pacemaker, peripheral edema, history of COPD, sleep apnea using CPAP, dizziness, left eye surgery, herniorrhaphy of umbilical hernia, born with a hole in the right repaired as infant. ALLERGIES: THE PATIENT IS NOT ALLERGIC WITH ANY MEDICATIONS. REVIEW OF SYSTEMS: The patient seen and examined on the bedside, looking comfortable. Shortness of breath is better. No hematuria, no hematochezia. No headache. No dizziness. Looking comfortable. PHYSICAL EXAMINATION: VITAL SIGNS: Temperature 97.8, pulse 80, blood pressure 133/65, respiratory rate 22. HEENT: Head normocephalic and atraumatic. Eyes: PERRLA. Extraocular muscles intact. Conjunctivae clear. Nose patent. Mucous membranes moist. NECK: Supple. No carotid bruits, JVD, or thyromegaly. CHEST: Bilaterally symmetrical. HEART: S1 and S2 positive. LUNGS: Clear to auscultation. ABDOMEN: Soft. Bowel sounds are present. No organomegaly. EXTREMITIES: No edema. No cyanosis. NEUROLOGIC: The patient is awake and alert. Moving all 4 extremities. No focal deficit.. LABORATORY DATA: White blood cells 10.7, hemoglobin 9.8, hematocrit 31.4 and platelets 192. Glucose 205, 190, 308, 243. ASSESSMENT AND PLAN: The patient is a 61-year-old lady with multiple medical problems, has obstructive sleep apnea syndrome, chronic obstructive lung disease, got tapering dose of steroid, obstructive sleep apnea using BiPAP, atrial fibrillation and flutter, Dr. Catherine, green building materials distributor. History of anemia, hypercholesterolemia, chronic obstructive pulmonary disease treated by Dr. Zach Segura. Discharged home with medications. We will follow primary care physician and patient's hospitality house supervisor. We will follow. Kandy Sánchez MD
== END 2016-11-06 19:20 | disposition home or self-care (01) | DRG 190 ==
LOC: C.ER 19:04 → C.9E 22:23 → C.5T 11-01 09:49
PROVIDERS: ADMIT Internal Medicine; ATTEND Internal Medicine
DX: J44.0 Chronic obstructive pulmonary disease with (acute) lower respiratory infection (principal); J18.9 Pneumonia, unspecified organism; J44.1 Chronic obstructive pulmonary disease with (acute) exacerbation; I27.2 Other secondary pulmonary hypertension; I11.0 Hypertensive heart disease with heart failure; I48.92 Unspecified atrial flutter; E11.65 Type 2 diabetes mellitus with hyperglycemia; I50.9 Heart failure, unspecified; Z99.81 Dependence on supplemental oxygen; D64.9 Anemia, unspecified; I48.91 Unspecified atrial fibrillation; I07.1 Rheumatic tricuspid insufficiency; E78.00 Pure hypercholesterolemia, unspecified; E78.5 Hyperlipidemia, unspecified; G47.33 Obstructive sleep apnea (adult) (pediatric); M17.0 Bilateral primary osteoarthritis of knee; Z79.01 Long term (current) use of anticoagulants; Z87.891 Personal history of nicotine dependence; Z95.0 Presence of cardiac pacemaker; Z87.74 Personal history of (corrected) congenital malformations of heart and circulatory system

== ENCOUNTER 2017-07-06 13:46 | Inpatient (IN) | payer MEDICARE, OTHER ==
[2017-07-06 13:46] VITALS: BMI 50.6
[2017-07-06 15:02] LABS: EOS # 0.1 K/uL (0.0-0.7); MEAN PLATELET VOLUME 9.1 fL (7.2-11.7); MONO # 0.5 K/uL (0.0-0.8); NRBC % 0.1 % (0.0-2.0)
[2017-07-06 15:07] LABS: BASO % 0.4 % (0.0-2.0); EOS % 1.2 % (0.0-4.0); LYMPH % 25.7 % (20.0-40.0); MEAN CORPUSCULAR HEMOGLOBIN 24.9 pg (27.0-31.0); MONO % 6.4 % (0.0-10.0); NEUT # 5.3 K/uL (1.8-7.0); NEUT % 66.3 % (50.0-75.0); RBC 2.39 Mil/uL (3.80-5.20); RED CELL DISTRIBUTION WIDTH 16.2 % (11.5-14.5)
[2017-07-06 15:11] LABS: INR 1.2; PROTHROMBIN TIME 13.5 SECONDS (9.7-12.2)
[2017-07-06 15:23] LABS: ALB/GLOB RATIO 0.9 (1.0-2.1); ALBUMIN 3.8 g/dL (3.5-5.0); ALT/SGPT 8 U/L (9-52); AST/SGOT 25 U/L (14-36); BLOOD UREA NITROGEN 19 mg/dL (7-17); CALCIUM 8.6 mg/dl (8.6-10.4); GFR AFRICAN-AMERICAN > 60; GFR NON-AFRICAN AMERICAN > 60
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
[2017-07-06] MEDS ORDERED: Sodium Chloride 0.9% 250 ML IV ONE (16:45)
--- NOTE | 2017-07-06 16:59 | C.PDOC ---
History Of Present Illness 61-year-old female, presents to the emergency department from pre admission testing for evaluation of low hemoglobin. Patient has a Hx of anemia and regularly gets iron infusion every two weeks. Patient denies blood or stool in urine, currently complaining of generalized weakness. Denies fever. Chief Complaint (Nursing): Abnormal Labs History Per: Patient History/Exam Limitations: no limitations Past Medical History Reviewed: Historical Data, Nursing Documentation, Vital Signs Vital Signs: Last Vital Signs Temp 97.9 F 07/06/17 21:00 Pulse 74 07/06/17 21:00 Resp 20 07/06/17 18:33 BP 132/76 07/06/17 21:00 Pulse Ox 94 L 07/06/17 18:33 - Medical History PMH: Anemia, Anxiety, Arthritis, Asthma, Atrial Fibrillation, Cardia Arrhythmia , CHF, COPD, Depression, Fractures (RIGHT MIDDLE TOE), HTN, Hypercholesterolemia , Peripheral Edema, Pneumonia, Sleep Apnea (C PAP SETTING 10) Surgical History: Pacemaker - [facility] Procedures LEFT HEART CARDIAC CATH (02/12/13) LT HEART ANGIOCARDIOGRAM (02/12/13) Family History: States: No Known Family Hx - Social History Hx Tobacco Use: No Hx Alcohol Use: No Hx Substance Use: No - Immunization History Hx Tetanus Toxoid Vaccination: No Hx Influenza Vaccination: Yes Hx Pneumococcal Vaccination: No Review Of Systems Constitutional: Positive for: Weakness. Negative for: Fever Cardiovascular: Negative for: Chest Pain Respiratory: Negative for: Shortness of Breath Gastrointestinal: Negative for: Vomiting Musculoskeletal: Negative for: Neck Pain, Back Pain Neurological: Negative for: Weakness, Numbness, Headache, Dizziness Physical Exam - Physical Exam Appears: Non-toxic, No Acute Distress Skin: Warm, Dry, No Rash Head: Normacephalic Eye(s): bilateral: PERRL, EOMI, Conjunctiva Pale Nose: Normal Oral Mucosa: Moist Lips: Normal Appearing Neck: Normal ROM Chest: Symmetrical Cardiovascular: Rhythm Regular, No Murmur Respiratory: Normal Breath Sounds, No Accessory Muscle Use Extremity: Normal ROM, No Deformity Neurological/Psych: Oriented x3, Normal Speech ED Course And Treatment - Laboratory Results Result Diagrams: 07/06/17 14:58 07/06/17 14:58 O2 Sat by Pulse Oximetry: 99 (RA) Pulse Ox Interpretation: Normal Disposition - Disposition Disposition: HOSPITALIZED Disposition Time: 15:15 Condition: STABLE - Clinical Impression Clinical Impression: Iron deficiency anemia, Weakness - Scribe Statement The provider has reviewed the documentation as recorded by the Scribe (Octavio Pacheco) All medical record entries made by the Scribe were at my direction and personally dictated by me. I have reviewed the chart and agree that the record accurately reflects my personal performance of the history, physical exam, medical decision making, and the department course for this patient. I have also personally directed, reviewed, and agree with the discharge instructions and disposition.
[2017-07-06] MEDS ORDERED: Albuterol-Ipratrop 3 mg / 0.5 (3 ml) UD INH PRN (18:01)
[2017-07-06] MEDS ORDERED: Glucagon Recombinant 1 mg Inj IM PRN (18:15)
[2017-07-06] MEDS ORDERED: Dextrose 50% SYRINGE Inj (50 ml) IV PRN (18:15)
--- NOTE | 2017-07-06 22:24 | CP.PCM.CON ---
History of Present Illness - History of Present Illness History of Present Illness: 61 year old female with a history of DM, HTN, HL, COPD, ROSIO, cardiomyopthay with AICD, afib on aspirin, iron deficiency anemia, admitted with severe anemia. The patient has been receiving intermittent iron infusions which has been limited due to poor IV access. She was tohave a portacath placed and was found to have a hgb of 6 at preadmission testing. She was sent to the ER and is currently receiving PRBC transfusions. She has been FOB positive and has received multiple PRBC transfusions. The patient was felt high risk for endoscopy given her cardiac history and prior Xarelto was held in an attempt to stabilize her hemoglobin. Past medical history: DM, HTN, HL, COPD, ROSIO, cardiomyopathy, with AICD, afib, iron deficiency anemia Past surgical history: Umbilical hernia repair, AICD Family history: Denies hematologic and oncologic problems Social history: Denies tobacco, alcohol, and illicit drug use. Allergies: NKA Review of systems: All remaining review of systems including HEENT, cardiovascular, respiratory, gastrointestinal, genitourinary, musculoskeletal, dermatologic, neurologic, and psychiatric are negative unless mentioned in the HPI. Past Patient History - Past Medical History & Family History Past Medical History?: Yes - Past Social History Smoking Status: Former Smoker Alcohol: None Drugs: Denies - CARDIAC Hx Cardiac Disorders: Yes Hx Angina: Yes Hx Cardia Arrhythmia: Yes Hx Congestive Heart Failure: Yes Hx Hypercholesterolemia: Yes Hx Hypertension: Yes Hx Internal Defibrillator: Yes Hx Pacemaker: Yes Hx Peripheral Edema: Yes - PULMONARY Other/Comment: pt uses continuous o2 2l via nc at home - NEUROLOGICAL Hx Neurological Disorder: Yes Hx Dizziness: Yes - HEENT Other/Comment: left eye surgery 2015 - RENAL Hx Chronic Kidney Disease: No - ENDOCRINE/METABOLIC Hx Endocrine Disorders: Yes Hx Diabetes Mellitus Type 2: Yes - HEMATOLOGICAL/ONCOLOGICAL Hx Blood Disorders: Yes Hx Anemia: Yes Hx Blood Transfusions: Yes Hx Blood Transfusion Reaction: No - INTEGUMENTARY Hx Dermatological Problems: No - MUSCULOSKELETAL/RHEUMATOLOGICAL Other/Comment: carpal tunnel surgery 2015 - GASTROINTESTINAL Hx Gastrointestinal Disorders: No - GENITOURINARY/GYNECOLOGICAL Hx Genitourinary Disorders: No - PSYCHIATRIC Hx Psychophysiologic Disorder: Yes Hx Anxiety: Yes Hx Depression: Yes Hx Substance Use: No - SURGICAL HISTORY Hx Eye Surgery: Yes (left eye 2014) Hx Orthopedic Surgery: Yes (right carpal surgery) Other/Comment: pacemaker 2009,ablation 2009, - ANESTHESIA Hx Anesthesia: Yes Hx Anesthesia Reactions: No Hx Malignant Hyperthermia: No Meds Allergies/Adverse Reactions: Allergies Allergy/AdvReac Type Severity Reaction Status Date / Time No Known Allergies Allergy Verified 01/25/17 15:34 - Medications Medications: Current Medications Acetaminophen (Tylenol 325mg Tab) 650 mg PO Q6 PRN PRN Reason: Fever >100.4 F Albuterol/Ipratropium (Duoneb 3 Mg/0.5 Mg (3 Ml) Ud) 3 ml INH RQ4 PRN PRN Reason: Wheezing Alprazolam (Xanax) 1 mg PO BID [facility] Last Admin: 07/06/17 21:31 Dose: 1 mg Aspirin (Aspirin Chewable) 81 mg PO DAILY MONE Carvedilol (Coreg) 12.5 mg PO BID MONE Dextrose (Dextrose 50% Inj) 0 ml IV STAT PRN; Protocol PRN Reason: Hypoglycemia Protocol Dextrose (Glutose 15) 0 gm PO ONCE PRN; Protocol PRN Reason: Hypoglycemia Protocol Digoxin (Lanoxin) 0.25 mg PO DAILY@1800 MONE Ferrous Sulfate (Feosol) 325 mg PO TID MONE Furosemide (Lasix) 40 mg PO BID MONE Glucagon (Glucagen Diagnostic Kit) 0 mg IM STAT PRN; Protocol PRN Reason: Hypoglycemia Protocol Dextrose (Dextrose 5% In Water 1000 Ml) 1,000 mls @ 0 mls/hr IV .Q0M PRN; Protocol; Per Protocol PRN Reason: Hypoglycemia Protocol Insulin Aspart (Novolog) 0 unit SC ACHS MONE PRN Reason: Protocol Magnesium Oxide (Mag-Ox) 400 mg PO DAILY [facility] Potassium Chloride (K-Dur 20 Meq Er Tab) 20 meq PO DAILY MONE Rosuvastatin Calcium (Crestor) 10 mg PO HS [facility] Last Admin: 07/06/17 21:31 Dose: 10 mg Sacubitril/Valsartan (Entresto 24 Mg-26 Mg) 1 tab PO BID MONE Fluticasone/Salmeterol (Advair Diskus 250/50) 1 puff INH RQ12 MONE Sitagliptin Phosphate (Januvia) 50 mg PO DAILY [facility] Physical Exam - Head Exam Head Exam: ATRAUMATIC - Eye Exam Eye Exam: Normal appearance - ENT Exam ENT Exam: Mucous Membranes Dry - Respiratory Exam Respiratory Exam: NORMAL BREATHING PATTERN - Cardiovascular Exam Cardiovascular Exam: +S1, +S2 - GI/Abdominal Exam GI & Abdominal Exam: Normal Bowel Sounds - Neurological Exam Neurological exam: Oriented x3 - Psychiatric Exam Psychiatric exam: Normal Affect, Normal Mood - Skin Skin Exam: Warm Results - Vital Signs Recent Vital Signs: Last Vital Signs Temp 98.5 F 07/06/17 18:33 Pulse 75 07/06/17 19:37 Resp 20 07/06/17 18:33 BP 100/65 07/06/17 18:33 Pulse Ox 94 L 07/06/17 18:33 - Labs Result Diagrams: 07/06/17 14:58 07/06/17 14:58 Labs: Laboratory Results - last 24 hr 07/06/17 07/06/17 07/06/17 14:58 14:58 14:58 WBC 8.0 RBC 2.39 L Hgb 6.0 L* Hct 18.6 L MCV 78.0 L MCH 24.9 L MCHC 32.0 L RDW 16.2 H Plt Count 194 MPV 9.1 Neut % (Auto) 66.3 Lymph % (Auto) 25.7 [place] % (Auto) 6.4 Eos % (Auto) 1.2 Baso % (Auto) 0.4 Neut # (Auto) 5.3 Lymph # (Auto) 2.0 [place] # (Auto) 0.5 Eos # (Auto) 0.1 Baso # (Auto) 0.0 PT 13.5 H INR 1.2 APTT 34 D Sodium 143 Potassium 4.0 Chloride 100 Carbon Dioxide 28 Anion Gap 16 BUN 19 H Creatinine 0.9 Est GFR ( Amer) > 60 Est GFR (Non-Af Amer) > 60 POC Glucose (mg/dL) Random Glucose 116 H Calcium 8.6 Total Bilirubin 1.0 AST 25 ALT 8 L Alkaline Phosphatase 61 Total Protein 7.8 Albumin 3.8 Globulin 4.0 H Albumin/Globulin Ratio 0.9 L Blood Type Antibody Screen 07/06/17 07/06/17 14:58 21:37 WBC RBC Hgb Hct MCV MCH MCHC RDW Plt Count MPV Neut % (Auto) Lymph % (Auto) [place] % (Auto) Eos % (Auto) Baso % (Auto) Neut # (Auto) Lymph # (Auto) [place] # (Auto) Eos # (Auto) Baso # (Auto) PT INR APTT Sodium Potassium Chloride Carbon Dioxide Anion Gap BUN Creatinine Est GFR ( Amer) Est GFR (Non-Af Amer) POC Glucose (mg/dL) 131 H Random Glucose Calcium Total Bilirubin AST ALT Alkaline Phosphatase Total Protein Albumin Globulin Albumin/Globulin Ratio Blood Type O POSITIVE Antibody Screen Negative Assessment & Plan (1) Anemia Assessment and Plan: iron deficiency anemia from chronic GI blood loss unable to undergo GI w/u due to high cardiac risk on intermittent iron agree with PRBC transfusion support; goal HGb ~ 10 iron supplementation portacath placement Status: Acute
[2017-07-06] MEDS: (Novolog) Insulin Aspart, Recombinant 100 u/ml 10 ml vial SC SCH (22:49)
--- NOTE | 2017-07-07 01:25 | CP.PCM.CON ---
History of Present Illness - History of Present Illness History of Present Illness: Vascular surgery consult for Dr. Celis-Ashley Lewis, PGY-1 Pt S & E at bedside. 61F w/PMH sig for iron deficiency anemia consulted for portacath insertion due to poor vascular access. Pt had an appointment with Dr. Celis, pre op lab work revealed severe anemia. Pt was admitted to hospital for severe anemia. Admits to dizziness, some SOB. Denies N & V, F & C, palpitations, hematochezia , hematemesis, hematuria, other complaints. PMH: DM, HTN, CLD, COPD, ROSIO, CM w/AICD, Afib on ASA, iron deficiency anemia PSH: Umbilical hernia repair, AICD, Pacemaker, cardaic ablation, hernia repair All: NKDA SH: Denies current ETOH, tobacco, illicit drug use. Former smoker, unknown duration, former ETOH user, unknown duration Review of Systems - Review of Systems All systems: reviewed and no additional remarkable complaints except - Constitutional Constitutional: absent: Chills, Fever, Headache - EENT Eyes: absent: Change in Vision Ears: Dizziness Nose/Mouth/Throat: absent: Sore Throat - Cardiovascular Cardiovascular: absent: Chest Pain, Palpitations - Gastrointestinal Gastrointestinal: absent: Abdominal Pain, Hematemesis, Hematochezia, Nausea, Vomiting - Genitourinary Genitourinary: absent: Hematuria - Reproductive: Female Reproductive:Female: absent: Abnormal Vaginal Bleeding - Musculoskeletal Musculoskeletal: absent: Neck Pain - Integumentary Integumentary: absent: New Lesions - Neurological Neurological: Dizziness Past Patient History - Past Medical History & Family History Past Medical History?: Yes - Past Social History Smoking Status: Former Smoker Alcohol: None Drugs: Denies - CARDIAC Hx Atrial Fibrillation: Yes Hx Cardia Arrhythmia: Yes Hx Congestive Heart Failure: Yes Hx Hypercholesterolemia: Yes Hx Hypertension: Yes Hx Pacemaker: Yes Hx Peripheral Edema: Yes - PULMONARY Hx Asthma: Yes Hx Chronic Obstructive Pulmonary Disease (COPD): Yes Hx Pneumonia: Yes Hx Sleep Apnea: Yes (C PAP SETTING 10) - NEUROLOGICAL Hx Neurological Disorder: Yes Hx Dizziness: Yes - HEENT Other/Comment: left eye surgery 2014 - RENAL Hx Chronic Kidney Disease: No - ENDOCRINE/METABOLIC Hx Endocrine Disorders: Yes Hx Diabetes Mellitus Type 2: Yes - HEMATOLOGICAL/ONCOLOGICAL Hx Anemia: Yes - INTEGUMENTARY Hx Dermatological Problems: No - MUSCULOSKELETAL/RHEUMATOLOGICAL Hx Arthritis: Yes Hx Fractures: Yes (RIGHT MIDDLE TOE) - GASTROINTESTINAL Hx Gastrointestinal Disorders: No - GENITOURINARY/GYNECOLOGICAL Hx Genitourinary Disorders: No - PSYCHIATRIC Hx Anxiety: Yes Hx Depression: Yes Hx Substance Use: No - SURGICAL HISTORY Hx Eye Surgery: Yes (left eye 2014) Hx Orthopedic Surgery: Yes (right carpal surgery) Other/Comment: pacemaker 2010,ablation 2009, - ANESTHESIA Hx Anesthesia: Yes Hx Anesthesia Reactions: No Hx Malignant Hyperthermia: No Meds Allergies/Adverse Reactions: Allergies Allergy/AdvReac Type Severity Reaction Status Date / Time No Known Allergies Allergy Verified 01/25/17 15:34 - Medications Medications: Current Medications Acetaminophen (Tylenol 325mg Tab) 650 mg PO Q6 PRN PRN Reason: Fever >100.4 F Albuterol/Ipratropium (Duoneb 3 Mg/0.5 Mg (3 Ml) Ud) 3 ml INH RQ4 PRN PRN Reason: Wheezing Alprazolam (Xanax) 1 mg PO BID [facility] Last Admin: 07/06/17 21:31 Dose: 1 mg Aspirin (Aspirin Chewable) 81 mg PO DAILY [facility] Carvedilol (Coreg) 12.5 mg PO BID [facility] Dextrose (Dextrose 50% Inj) 0 ml IV STAT PRN; Protocol PRN Reason: Hypoglycemia Protocol Dextrose (Glutose 15) 0 gm PO ONCE PRN; Protocol PRN Reason: Hypoglycemia Protocol Digoxin (Lanoxin) 0.25 mg PO DAILY@1800 [facility] Ferric Sodium Gluconate Complex (Ferrlecit) 125 mg IVPB DAILY [facility] Stop: 07/15/17 10:01 Ferrous Sulfate (Feosol) 325 mg PO TID [facility] Furosemide (Lasix) 40 mg PO BID [facility] Glucagon (Glucagen Diagnostic Kit) 0 mg IM STAT PRN; Protocol PRN Reason: Hypoglycemia Protocol Dextrose (Dextrose 5% In Water 1000 Ml) 1,000 mls @ 0 mls/hr IV .Q0M PRN; Protocol; Per Protocol PRN Reason: Hypoglycemia Protocol Insulin Aspart (Novolog) 0 unit SC ACHS [facility] PRN Reason: Protocol Last Admin: 07/06/17 22:49 Dose: Not Given Magnesium Oxide (Mag-Ox) 400 mg PO DAILY [facility] Potassium Chloride (K-Dur 20 Meq Er Tab) 20 meq PO DAILY [facility] Rosuvastatin Calcium (Crestor) 10 mg PO HS [facility] Last Admin: 07/06/17 21:31 Dose: 10 mg Sacubitril/Valsartan (Entresto 24 Mg-26 Mg) 1 tab PO BID [facility] Fluticasone/Salmeterol (Advair Diskus 250/50) 1 puff INH RQ12 [facility] Sitagliptin Phosphate (Januvia) 50 mg PO DAILY [facility] Physical Exam - Constitutional Appears: Non-toxic, No Acute Distress - Head Exam Head Exam: ATRAUMATIC, NORMAL INSPECTION, NORMOCEPHALIC - Eye Exam Eye Exam: EOMI, Normal appearance - ENT Exam ENT Exam: Mucous Membranes Moist, Normal Exam - Neck Exam Neck exam: Positive for: Full Rom, Normal Inspection - Respiratory Exam Respiratory Exam: NORMAL BREATHING PATTERN. absent: Chest Wall Tenderness - Cardiovascular Exam Cardiovascular Exam: REGULAR RHYTHM, +S1, +S2 - GI/Abdominal Exam GI & Abdominal Exam: Normal Bowel Sounds, Soft. absent: Distended (obese), Tenderness - Extremities Exam Extremities exam: Positive for: normal inspection. Negative for: pedal edema - Neurological Exam Neurological exam: CN II-XII Intact, Oriented x3 - Psychiatric Exam Psychiatric exam: Normal Affect, Normal Mood - Skin Skin Exam: Dry, Intact, Normal Color, Warm Results - Vital Signs Recent Vital Signs: Last Vital Signs Temp 98.0 F 07/07/17 01:10 Pulse 89 07/07/17 01:10 Resp 20 07/07/17 01:10 BP 105/89 07/07/17 01:10 Pulse Ox 99 07/07/17 00:26 - Labs Result Diagrams: 07/06/17 14:58 07/06/17 14:58 Labs: Laboratory Results - last 24 hr 07/06/17 07/06/17 07/06/17 14:58 14:58 14:58 WBC 8.0 RBC 2.39 L Hgb 6.0 L* Hct 18.6 L MCV 78.0 L MCH 24.9 L MCHC 32.0 L RDW 16.2 H Plt Count 194 MPV 9.1 Neut % (Auto) 66.3 Lymph % (Auto) 25.7 [place] % (Auto) 6.4 Eos % (Auto) 1.2 Baso % (Auto) 0.4 Neut # (Auto) 5.3 Lymph # (Auto) 2.0 [place] # (Auto) 0.5 Eos # (Auto) 0.1 Baso # (Auto) 0.0 PT 13.5 H INR 1.2 APTT 34 D Sodium 143 Potassium 4.0 Chloride 100 Carbon Dioxide 28 Anion Gap 16 BUN 19 H Creatinine 0.9 Est GFR ( Amer) > 60 Est GFR (Non-Af Amer) > 60 POC Glucose (mg/dL) Random Glucose 116 H Calcium 8.6 Total Bilirubin 1.0 AST 25 ALT 8 L Alkaline Phosphatase 61 Total Protein 7.8 Albumin 3.8 Globulin 4.0 H Albumin/Globulin Ratio 0.9 L Blood Type Antibody Screen 07/06/17 07/06/17 14:58 21:37 WBC RBC Hgb Hct MCV MCH MCHC RDW Plt Count MPV Neut % (Auto) Lymph % (Auto) [place] % (Auto) Eos % (Auto) Baso % (Auto) Neut # (Auto) Lymph # (Auto) [place] # (Auto) Eos # (Auto) Baso # (Auto) PT INR APTT Sodium Potassium Chloride Carbon Dioxide Anion Gap BUN Creatinine Est GFR ( Amer) Est GFR (Non-Af Amer) POC Glucose (mg/dL) 131 H Random Glucose Calcium Total Bilirubin AST ALT Alkaline Phosphatase Total Protein Albumin Globulin Albumin/Globulin Ratio Blood Type O POSITIVE Antibody Screen Negative Assessment & Plan - Assessment and Plan (Free Text) Assessment: 61F w/PMH sig for severe anemia consulted for portacath insertion Plan: NPO for AM Possible portacath insertion tomorrow FU AM labs Will DW attending Debbie, PGY-1 - Date & Time Date: 07/07/17 Time: 01:25
[2017-07-07] MEDS: (Novolog) Insulin Aspart, Recombinant 100 u/ml 10 ml vial SC SCH ×4 (08:08→22:04)
[2017-07-07 10:13] LABS: BASO % 0.2 % (0.0-2.0); EOS # 0.1 K/uL (0.0-0.7); EOS % 1.1 % (0.0-4.0); HEMOGLOBIN 7.2 g/dL (11.0-16.0); LYMPH # 1.8 K/uL (1.0-4.3); LYMPH % 21.3 % (20.0-40.0); MEAN CELL VOLUME 78.1 fL (81.0-99.0); MEAN CORPUSCULAR HEMOGLOBIN 25.7 pg (27.0-31.0); MEAN CORPUSCULAR HGB CONC 32.9 g/dL (33.0-37.0); MEAN PLATELET VOLUME 9.1 fL (7.2-11.7); MONO # 0.5 K/uL (0.0-0.8); MONO % 5.9 % (0.0-10.0); NEUT % 71.5 % (50.0-75.0); NRBC % 0.1 % (0.0-2.0); RBC 2.79 Mil/uL (3.80-5.20); RED CELL DISTRIBUTION WIDTH 16.7 % (11.5-14.5); WHITE BLOOD COUNT 8.4 K/uL (4.8-10.8)
[2017-07-07 10:18] LABS: INR 1.1
[2017-07-07 10:27] LABS: BLOOD UREA NITROGEN 17 mg/dL (7-17); CALCIUM 8.7 mg/dl (8.6-10.4); GFR AFRICAN-AMERICAN > 60; GFR NON-AFRICAN AMERICAN > 60; HDL CHOLESTEROL 26 mg/dL (30-70)
[2017-07-07 10:38] LABS: LDL CHOLESTEROL 121 mg/dL (0-129)
[2017-07-07] MEDS: Magnesium Oxide 400 mg Tab UD PO SCH (10:47)
[2017-07-07] MEDS: Fluticasone-Salmeterol 250-50mcg Diskus INH SCH (10:47)
[2017-07-07] MEDS: Ferric Sodium Gluconat Complex 62.5 mg/5 ml Vial IVPB SCH (10:48)
[2017-07-07] MEDS: Sacubitril/Valsartan 24-26mg Tab PO SCH ×2 (10:53→18:02)
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
[2017-07-07 11:07] LABS: FERRITIN 9.6 ng/mL
[2017-07-07] MEDS: Potassium Chloride 20 mEq ER Tab PO SCH ×2 (15:10→15:13)
[2017-07-07] MEDS: Digoxin 250 mcg (0.25 mg) Tab PO SCH (17:58)
[2017-07-07] MEDS ORDERED: Digoxin 250 mcg (0.25 mg) Tab PO SCH (18:00)
[2017-07-07 21:12] LABS: BASO % 0.4 % (0.0-2.0); EOS # 0.2 K/uL (0.0-0.7); EOS % 1.5 % (0.0-4.0); HEMOGLOBIN 7.7 g/dL (11.0-16.0); LYMPH # 2.2 K/uL (1.0-4.3); LYMPH % 19.3 % (20.0-40.0); MEAN CELL VOLUME 78.5 fL (81.0-99.0); MEAN CORPUSCULAR HEMOGLOBIN 25.2 pg (27.0-31.0); MEAN CORPUSCULAR HGB CONC 32.1 g/dL (33.0-37.0); MEAN PLATELET VOLUME 9.3 fL (7.2-11.7); MONO # 0.8 K/uL (0.0-0.8); MONO % 7.6 % (0.0-10.0); NEUT % 71.2 % (50.0-75.0); NRBC % 0.6 % (0.0-2.0); RBC 3.05 Mil/uL (3.80-5.20); RED CELL DISTRIBUTION WIDTH 16.8 % (11.5-14.5); WHITE BLOOD COUNT 11.2 K/uL (4.8-10.8)
--- NOTE | 2017-07-08 03:36 | CP.PCM.PN ---
Subjective - Date & Time of Evaluation Date of Evaluation: 07/07/17 Time of Evaluation: 18:00 - Subjective Subjective: Feels weak, short of breat with exertion. Objective - Vital Signs/Intake and Output Vital Signs (last 24 hours): Temp Pulse Resp BP Pulse Ox 98.1 F 84 20 91/59 L 96 07/07/17 23:55 07/07/17 23:55 07/07/17 23:55 07/07/17 23:55 07/07/17 23:55 Intake and Output: 07/07/17 07/08/17 18:59 06:59 Intake Total 275 600 Balance 275 600 - Medications Medications: Current Medications Acetaminophen (Tylenol 325mg Tab) 650 mg PO Q6 PRN PRN Reason: Fever >100.4 F Albuterol/Ipratropium (Duoneb 3 Mg/0.5 Mg (3 Ml) Ud) 3 ml INH RQ4 PRN PRN Reason: Wheezing Alprazolam (Xanax) 1 mg PO BID [facility] Last Admin: 07/07/17 17:59 Dose: 1 mg Aspirin (Aspirin Chewable) 81 mg PO DAILY [facility] Last Admin: 07/07/17 10:48 Dose: 81 mg Carvedilol (Coreg) 12.5 mg PO BID [facility] Last Admin: 07/07/17 18:02 Dose: Not Given Dextrose (Dextrose 50% Inj) 0 ml IV STAT PRN; Protocol PRN Reason: Hypoglycemia Protocol Dextrose (Glutose 15) 0 gm PO ONCE PRN; Protocol PRN Reason: Hypoglycemia Protocol Digoxin (Lanoxin) 0.25 mg PO DAILY@1800 [facility] Last Admin: 07/07/17 17:58 Dose: 0.25 mg Ferric Sodium Gluconate Complex (Ferrlecit) 125 mg IVPB DAILY [facility] Stop: 07/15/17 10:01 Last Admin: 07/07/17 10:48 Dose: 125 mg Ferrous Sulfate (Feosol) 325 mg PO TID [facility] Last Admin: 07/07/17 18:01 Dose: 325 mg Furosemide (Lasix) 40 mg PO BID [facility] Last Admin: 07/07/17 18:03 Dose: Not Given Glucagon (Glucagen Diagnostic Kit) 0 mg IM STAT PRN; Protocol PRN Reason: Hypoglycemia Protocol Dextrose (Dextrose 5% In Water 1000 Ml) 1,000 mls @ 0 mls/hr IV .Q0M PRN; Protocol; Per Protocol PRN Reason: Hypoglycemia Protocol Insulin Aspart (Novolog) 0 unit SC ACHS [facility] PRN Reason: Protocol Last Admin: 07/07/17 22:04 Dose: Not Given Magnesium Oxide (Mag-Ox) 400 mg PO DAILY [facility] Last Admin: 07/07/17 10:47 Dose: 400 mg Pantoprazole Sodium (Protonix Inj) 40 mg IVP DAILY [facility] Last Admin: 07/07/17 15:10 Dose: 40 mg Potassium Chloride (K-Dur 20 Meq Er Tab) 20 meq PO DAILY [facility] Last Admin: 07/07/17 15:13 Dose: Not Given Rosuvastatin Calcium (Crestor) 10 mg PO HS [facility] Last Admin: 07/07/17 22:31 Dose: 10 mg Sacubitril/Valsartan (Entresto 24 Mg-26 Mg) 1 tab PO BID [facility] Last Admin: 07/07/17 18:02 Dose: 1 tab Fluticasone/Salmeterol (Advair Diskus 250/50) 1 puff INH RQ12 [facility] Last Admin: 07/07/17 10:47 Dose: Not Given Sitagliptin Phosphate (Januvia) 50 mg PO DAILY [facility] Last Admin: 07/07/17 10:48 Dose: 50 mg - Labs Labs: 07/07/17 20:35 07/07/17 09:58 PT 13.0 SECONDS (9.7-12.2) H 07/07/17 09:58 INR 1.1 07/07/17 09:58 APTT 35 SECONDS (21-34) H 07/07/17 09:58 - Head Exam Head Exam: ATRAUMATIC - Eye Exam Eye Exam: Normal appearance - ENT Exam ENT Exam: Mucous Membranes Dry - Respiratory Exam Respiratory Exam: NORMAL BREATHING PATTERN - Cardiovascular Exam Cardiovascular Exam: +S1, +S2 - GI/Abdominal Exam GI & Abdominal Exam: Normal Bowel Sounds Assessment and Plan (1) Anemia Assessment & Plan: iron deficiency on IV iron transfusion support; goal hgb ~ 10 Status: Acute
[2017-07-08] MEDS: (Novolog) Insulin Aspart, Recombinant 100 u/ml 10 ml vial SC SCH ×3 (07:51→21:58)
--- NOTE | 2017-07-08 08:03 | CP.PCM.PN ---
Subjective - Date & Time of Evaluation Date of Evaluation: 07/08/17 Time of Evaluation: 08:02 - Subjective Subjective: Vascular Surgery - Dr. Celis Pt S&E. JENNIFER. Pt denies any complaints at this time. She is aware of plan for Portacath insertion tomorrow. Objective - Vital Signs/Intake and Output Vital Signs (last 24 hours): Temp Pulse Resp BP Pulse Ox 98.1 F 75 20 104/66 95 07/07/17 23:55 07/08/17 01:00 07/07/17 23:55 07/08/17 04:41 07/08/17 04:41 Intake and Output: 07/08/17 07/08/17 06:59 18:59 Intake Total 600 Balance 600 - Medications Medications: Current Medications Acetaminophen (Tylenol 325mg Tab) 650 mg PO Q6 PRN PRN Reason: Fever >100.4 F Albuterol/Ipratropium (Duoneb 3 Mg/0.5 Mg (3 Ml) Ud) 3 ml INH RQ4 PRN PRN Reason: Wheezing Alprazolam (Xanax) 1 mg PO BID [facility] Last Admin: 07/07/17 17:59 Dose: 1 mg Aspirin (Aspirin Chewable) 81 mg PO DAILY [facility] Last Admin: 07/07/17 10:48 Dose: 81 mg Carvedilol (Coreg) 12.5 mg PO BID [facility] Last Admin: 07/07/17 18:02 Dose: Not Given Dextrose (Dextrose 50% Inj) 0 ml IV STAT PRN; Protocol PRN Reason: Hypoglycemia Protocol Dextrose (Glutose 15) 0 gm PO ONCE PRN; Protocol PRN Reason: Hypoglycemia Protocol Digoxin (Lanoxin) 0.25 mg PO DAILY@1800 [facility] Last Admin: 07/07/17 17:58 Dose: 0.25 mg Ferric Sodium Gluconate Complex (Ferrlecit) 125 mg IVPB DAILY [facility] Stop: 07/15/17 10:01 Last Admin: 07/07/17 10:48 Dose: 125 mg Ferrous Sulfate (Feosol) 325 mg PO TID [facility] Last Admin: 07/07/17 18:01 Dose: 325 mg Furosemide (Lasix) 40 mg PO BID [facility] Last Admin: 07/07/17 18:03 Dose: Not Given Glucagon (Glucagen Diagnostic Kit) 0 mg IM STAT PRN; Protocol PRN Reason: Hypoglycemia Protocol Dextrose (Dextrose 5% In Water 1000 Ml) 1,000 mls @ 0 mls/hr IV .Q0M PRN; Protocol; Per Protocol PRN Reason: Hypoglycemia Protocol Insulin Aspart (Novolog) 0 unit SC ACHS [facility] PRN Reason: Protocol Last Admin: 07/08/17 07:51 Dose: Not Given Magnesium Oxide (Mag-Ox) 400 mg PO DAILY [facility] Last Admin: 07/07/17 10:47 Dose: 400 mg Pantoprazole Sodium (Protonix Inj) 40 mg IVP DAILY [facility] Last Admin: 07/07/17 15:10 Dose: 40 mg Potassium Chloride (K-Dur 20 Meq Er Tab) 20 meq PO DAILY [facility] Last Admin: 07/07/17 15:13 Dose: Not Given Rosuvastatin Calcium (Crestor) 10 mg PO HS [facility] Last Admin: 07/07/17 22:31 Dose: 10 mg Sacubitril/Valsartan (Entresto 24 Mg-26 Mg) 1 tab PO BID [facility] Last Admin: 07/07/17 18:02 Dose: 1 tab Fluticasone/Salmeterol (Advair Diskus 250/50) 1 puff INH RQ12 [facility] Last Admin: 07/07/17 10:47 Dose: Not Given Sitagliptin Phosphate (Januvia) 50 mg PO DAILY [facility] Last Admin: 07/07/17 10:48 Dose: 50 mg - Labs Labs: 07/07/17 20:35 07/07/17 09:58 PT 13.0 SECONDS (9.7-12.2) H 07/07/17 09:58 INR 1.1 07/07/17 09:58 APTT 35 SECONDS (21-34) H 07/07/17 09:58 - Constitutional Appears: No Acute Distress - Head Exam Head Exam: ATRAUMATIC, NORMAL INSPECTION, NORMOCEPHALIC - Eye Exam Eye Exam: Normal appearance - Respiratory Exam Respiratory Exam: NORMAL BREATHING PATTERN. absent: Respiratory Distress - Neurological Exam Neurological Exam: Alert, Oriented x3 - Psychiatric Exam Psychiatric exam: Normal Affect, Normal Mood - Skin Skin Exam: Dry Assessment and Plan - Assessment and Plan (Free Text) Assessment: 61F w/ severe anemia with ongoing transfusions, surgery consulted for portacath Plan: OR tomorrow for Portacath insertion NPO after midnight tonphuong Celis
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
[2017-07-08 08:54] LABS: BASO % 0.2 % (0.0-2.0); EOS # 0.2 K/uL (0.0-0.7); EOS % 1.8 % (0.0-4.0); HEMOGLOBIN 7.3 g/dL (11.0-16.0); LYMPH # 1.9 K/uL (1.0-4.3); LYMPH % 19.1 % (20.0-40.0); MEAN CELL VOLUME 78.3 fL (81.0-99.0); MEAN CORPUSCULAR HEMOGLOBIN 25.6 pg (27.0-31.0); MEAN CORPUSCULAR HGB CONC 32.7 g/dL (33.0-37.0); MEAN PLATELET VOLUME 8.8 fL (7.2-11.7); MONO # 0.6 K/uL (0.0-0.8); MONO % 5.9 % (0.0-10.0); NEUT # 7.3 K/uL (1.8-7.0); NRBC % 0.5 % (0.0-2.0); RBC 2.85 Mil/uL (3.80-5.20); RED CELL DISTRIBUTION WIDTH 16.7 % (11.5-14.5); WHITE BLOOD COUNT 10.1 K/uL (4.8-10.8)
[2017-07-08 09:12] LABS: ALB/GLOB RATIO 0.9 (1.0-2.1); ALBUMIN 3.3 g/dL (3.5-5.0); ALT/SGPT < 6 U/L (9-52); AST/SGOT 27 U/L (14-36); BLOOD UREA NITROGEN 15 mg/dL (7-17); CALCIUM 8.5 mg/dl (8.6-10.4); GFR AFRICAN-AMERICAN > 60; GFR NON-AFRICAN AMERICAN > 60
[2017-07-08] MEDS: Ferric Sodium Gluconat Complex 62.5 mg/5 ml Vial IVPB SCH (09:37)
[2017-07-08] MEDS: Magnesium Oxide 400 mg Tab UD PO SCH (09:38)
[2017-07-08] MEDS: Potassium Chloride 20 mEq ER Tab PO SCH (09:40)
[2017-07-08] MEDS: Sacubitril/Valsartan 24-26mg Tab PO SCH ×2 (09:45→18:32)
--- NOTE | 2017-07-08 10:56 | CP.PCM.CON ---
History of Present Illness - History of Present Illness History of Present Illness: This is a 61 year old woman with anemia, positive fecal occult blood test. Patient has a history of anemia, HGB 10.0 04/13/2016, who was admitted with severe anemia, HGB 5.9 and ferritin 9.6. Stool for occult blood was positive. Patient denies having rectal bleeding, constipation or diarrhea. She further denies having nausea, vomiting, heartburn, difficulty swallowing, loss of appetite or loss of weight. She has not had colonoscopy before and specifically refuses to have colonoscopy at present. She said, "You're not going up my butt." Review of Systems - Constitutional Constitutional: absent: Chills, Fever - EENT Eyes: absent: Blurred Vision, Change in Vision - Cardiovascular Cardiovascular: Dyspnea. absent: Chest Pain, Chest Pain at Rest - Respiratory Respiratory: Dyspnea. absent: Chest Congestion - Gastrointestinal Gastrointestinal: absent: Constipation, Diarrhea, Dysphagia, Heartburn, Hematochezia, Nausea, Vomiting - Genitourinary Genitourinary: absent: Difficulty Urinating, Dysuria - Neurological Neurological: absent: Headaches, Tremor - Hematologic/Lymphatic Hematologic: absent: Easy Bleeding, Easy Bruising Past Patient History - Past Medical History & Family History Past Medical History?: Yes - Past Social History Smoking Status: Former Smoker Alcohol: None Drugs: Denies - CARDIAC Hx Atrial Fibrillation: Yes Hx Cardia Arrhythmia: Yes Hx Congestive Heart Failure: Yes Hx Hypercholesterolemia: Yes Hx Hypertension: Yes Hx Pacemaker: Yes Hx Peripheral Edema: Yes - PULMONARY Hx Asthma: Yes Hx Chronic Obstructive Pulmonary Disease (COPD): Yes Hx Pneumonia: Yes Hx Sleep Apnea: Yes (C PAP SETTING 10) - NEUROLOGICAL Hx Neurological Disorder: Yes Hx Dizziness: Yes - HEENT Other/Comment: left eye surgery 2014 - RENAL Hx Chronic Kidney Disease: No - ENDOCRINE/METABOLIC Hx Endocrine Disorders: Yes Hx Diabetes Mellitus Type 2: Yes - HEMATOLOGICAL/ONCOLOGICAL Hx Anemia: Yes - INTEGUMENTARY Hx Dermatological Problems: No - MUSCULOSKELETAL/RHEUMATOLOGICAL Hx Arthritis: Yes Hx Fractures: Yes (RIGHT MIDDLE TOE) - GASTROINTESTINAL Hx Gastrointestinal Disorders: No - GENITOURINARY/GYNECOLOGICAL Hx Genitourinary Disorders: No - PSYCHIATRIC Hx Anxiety: Yes Hx Depression: Yes Hx Substance Use: No - SURGICAL HISTORY Hx Eye Surgery: Yes (left eye 2014) Hx Orthopedic Surgery: Yes (right carpal surgery) Other/Comment: pacemaker 2009,ablation 2009, - ANESTHESIA Hx Anesthesia: Yes Hx Anesthesia Reactions: No Hx Malignant Hyperthermia: No Meds Allergies/Adverse Reactions: Allergies Allergy/AdvReac Type Severity Reaction Status Date / Time No Known Allergies Allergy Verified 01/25/17 15:34 - Medications Medications: Current Medications Acetaminophen (Tylenol 325mg Tab) 650 mg PO Q6 PRN PRN Reason: Fever >100.4 F Albuterol/Ipratropium (Duoneb 3 Mg/0.5 Mg (3 Ml) Ud) 3 ml INH RQ4 PRN PRN Reason: Wheezing Alprazolam (Xanax) 1 mg PO BID [facility] Last Admin: 07/07/17 17:59 Dose: 1 mg Carvedilol (Coreg) 12.5 mg PO BID [facility] Last Admin: 07/08/17 09:39 Dose: 12.5 mg Dextrose (Dextrose 50% Inj) 0 ml IV STAT PRN; Protocol PRN Reason: Hypoglycemia Protocol Dextrose (Glutose 15) 0 gm PO ONCE PRN; Protocol PRN Reason: Hypoglycemia Protocol Digoxin (Lanoxin) 0.25 mg PO DAILY@1800 [facility] Last Admin: 07/07/17 17:58 Dose: 0.25 mg Ferric Sodium Gluconate Complex (Ferrlecit) 125 mg IVPB DAILY [facility] Stop: 07/15/17 10:01 Last Admin: 07/08/17 09:37 Dose: 125 mg Ferrous Sulfate (Feosol) 325 mg PO TID [facility] Last Admin: 07/08/17 09:39 Dose: 325 mg Furosemide (Lasix) 40 mg PO BID [facility] Last Admin: 07/08/17 09:39 Dose: 40 mg Glucagon (Glucagen Diagnostic Kit) 0 mg IM STAT PRN; Protocol PRN Reason: Hypoglycemia Protocol Dextrose (Dextrose 5% In Water 1000 Ml) 1,000 mls @ 0 mls/hr IV .Q0M PRN; Protocol; Per Protocol PRN Reason: Hypoglycemia Protocol Insulin Aspart (Novolog) 0 unit SC ACHS [facility] PRN Reason: Protocol Last Admin: 07/08/17 07:51 Dose: Not Given Magnesium Oxide (Mag-Ox) 400 mg PO DAILY [facility] Last Admin: 07/08/17 09:38 Dose: 400 mg Pantoprazole Sodium (Protonix Inj) 40 mg IVP DAILY [facility] Last Admin: 07/08/17 09:37 Dose: 40 mg Potassium Chloride (K-Dur 20 Meq Er Tab) 20 meq PO DAILY [facility] Last Admin: 07/08/17 09:40 Dose: 20 meq Rosuvastatin Calcium (Crestor) 10 mg PO HS [facility] Last Admin: 07/07/17 22:31 Dose: 10 mg Sacubitril/Valsartan (Entresto 24 Mg-26 Mg) 1 tab PO BID [facility] Last Admin: 07/08/17 09:45 Dose: 1 tab Fluticasone/Salmeterol (Advair Diskus 250/50) 1 puff INH RQ12 [facility] Last Admin: 07/07/17 10:47 Dose: Not Given Sitagliptin Phosphate (Januvia) 50 mg PO DAILY [facility] Last Admin: 07/08/17 09:39 Dose: 50 mg Physical Exam - Constitutional Additional comments: Obese - Head Exam Head Exam: ATRAUMATIC, NORMOCEPHALIC - Eye Exam Eye Exam: EOMI, PERRL - Neck Exam Neck exam: Negative for: Lymphadenopathy, Thyromegaly - Respiratory Exam Respiratory Exam: NORMAL BREATHING PATTERN. absent: Rales, Rhonchi, Wheezes - Cardiovascular Exam Cardiovascular Exam: REGULAR RHYTHM, +S1, +S2. absent: Gallop, Rubs, Systolic Murmur - GI/Abdominal Exam GI & Abdominal Exam: Normal Bowel Sounds, Soft. absent: Mass, Organomegaly, Tenderness - Rectal Exam Rectal Exam: Deferred - Extremities Exam Extremities exam: Negative for: calf tenderness, pedal edema Results - Vital Signs Recent Vital Signs: Last Vital Signs Temp 98.0 F 07/08/17 08:11 Pulse 73 07/08/17 08:11 Resp 20 07/08/17 08:11 BP 128/63 07/08/17 09:39 Pulse Ox 97 07/08/17 08:11 - Labs Result Diagrams: 07/08/17 08:42 07/08/17 08:42 Labs: Laboratory Results - last 24 hr 07/06/17 07/07/17 07/07/17 14:58 09:58 09:58 WBC RBC Hgb Hct MCV MCH MCHC RDW Plt Count MPV Neut % (Auto) Lymph % (Auto) [place] % (Auto) Eos % (Auto) Baso % (Auto) Neut # (Auto) Lymph # (Auto) [place] # (Auto) Eos # (Auto) Baso # (Auto) Sodium Potassium Chloride Carbon Dioxide Anion Gap BUN Creatinine Est GFR ( Amer) Est GFR (Non-Af Amer) POC Glucose (mg/dL) Random Glucose Hemoglobin A1c 6.9 H Calcium Phosphorus Magnesium Ferritin 9.6 Total Bilirubin AST ALT Alkaline Phosphatase Total Protein Albumin Globulin Albumin/Globulin Ratio TSH 3rd Generation 2.35 Stool Occult Blood Blood Type O POSITIVE Antibody Screen Negative 07/07/17 07/07/17 07/07/17 11:12 16:58 20:35 WBC 11.2 H RBC 3.05 L Hgb 7.7 L Hct 24.0 L MCV 78.5 L MCH 25.2 L MCHC 32.1 L RDW 16.8 H Plt Count 244 MPV 9.3 Neut % (Auto) 71.2 Lymph % (Auto) 19.3 L [place] % (Auto) 7.6 Eos % (Auto) 1.5 Baso % (Auto) 0.4 Neut # (Auto) 8.0 H Lymph # (Auto) 2.2 [place] # (Auto) 0.8 Eos # (Auto) 0.2 Baso # (Auto) 0.0 Sodium Potassium Chloride Carbon Dioxide Anion Gap BUN Creatinine Est GFR ( Amer) Est GFR (Non-Af Amer) POC Glucose (mg/dL) 166 H 113 H Random Glucose Hemoglobin A1c Calcium Phosphorus Magnesium Ferritin Total Bilirubin AST ALT Alkaline Phosphatase Total Protein Albumin Globulin Albumin/Globulin Ratio TSH 3rd Generation Stool Occult Blood Blood Type Antibody Screen 07/07/17 07/08/17 07/08/17 21:36 06:13 08:42 WBC 10.1 RBC 2.85 L Hgb 7.3 L Hct 22.4 L MCV 78.3 L MCH 25.6 L MCHC 32.7 L RDW 16.7 H Plt Count 187 MPV 8.8 Neut % (Auto) 73.0 Lymph % (Auto) 19.1 L [place] % (Auto) 5.9 Eos % (Auto) 1.8 Baso % (Auto) 0.2 Neut # (Auto) 7.3 H Lymph # (Auto) 1.9 [place] # (Auto) 0.6 Eos # (Auto) 0.2 Baso # (Auto) 0.0 Sodium Potassium Chloride Carbon Dioxide Anion Gap BUN Creatinine Est GFR ( Amer) Est GFR (Non-Af Amer) POC Glucose (mg/dL) 126 H 120 H Random Glucose Hemoglobin A1c Calcium Phosphorus Magnesium Ferritin Total Bilirubin AST ALT Alkaline Phosphatase Total Protein Albumin Globulin Albumin/Globulin Ratio TSH 3rd Generation Stool Occult Blood Blood Type Antibody Screen 07/08/17 07/08/17 08:42 08:55 WBC RBC Hgb Hct MCV MCH MCHC RDW Plt Count MPV Neut % (Auto) Lymph % (Auto) [place] % (Auto) Eos % (Auto) Baso % (Auto) Neut # (Auto) Lymph # (Auto) [place] # (Auto) Eos # (Auto) Baso # (Auto) Sodium 144 Potassium 3.9 Chloride 101 Carbon Dioxide 32 H Anion Gap 15 BUN 15 Creatinine 0.9 Est GFR ( Amer) > 60 Est GFR (Non-Af Amer) > 60 POC Glucose (mg/dL) Random Glucose 105 Hemoglobin A1c Calcium 8.5 L Phosphorus 3.4 Magnesium 1.8 Ferritin Total Bilirubin 1.2 AST 27 ALT < 6 L D Alkaline Phosphatase 70 Total Protein 6.8 Albumin 3.3 L Globulin 3.5 Albumin/Globulin Ratio 0.9 L TSH 3rd Generation Stool Occult Blood Positive H Blood Type Antibody Screen Assessment & Plan (1) Iron deficiency anemia Assessment and Plan: Patient has documented iron deficiency anemia with positive fecal occult blood test. Colonoscopy is indicated, followed by EGD if colonoscopy is non- diagnostic. However, patient is refusing colonoscopy at present. Please recall if patient consents to colonoscopy. Since she is not actively bleeding, she may be referred to the clinic to have the procedures done as an outpatient. Status: Acute
[2017-07-08] MEDS: Fluticasone-Salmeterol 250-50mcg Diskus INH SCH (11:16)
--- NOTE | 2017-07-08 17:12 | CP.PCM.PN ---
Subjective - Date & Time of Evaluation Date of Evaluation: 07/08/17 Time of Evaluation: 16:55 - Subjective Subjective: Intermittent dyspnea with exertion Objective - Vital Signs/Intake and Output Vital Signs (last 24 hours): Temp Pulse Resp BP Pulse Ox 97.2 F L 75 20 94/64 L 97 07/08/17 13:35 07/08/17 16:00 07/08/17 13:35 07/08/17 13:35 07/08/17 08:11 Intake and Output: 07/08/17 07/08/17 06:59 18:59 Intake Total 600 0 Balance 600 0 - Medications Medications: Current Medications Acetaminophen (Tylenol 325mg Tab) 650 mg PO Q6 PRN PRN Reason: Fever >100.4 F Albuterol/Ipratropium (Duoneb 3 Mg/0.5 Mg (3 Ml) Ud) 3 ml INH RQ4 PRN PRN Reason: Wheezing Alprazolam (Xanax) 1 mg PO BID [facility] Last Admin: 07/07/17 17:59 Dose: 1 mg Carvedilol (Coreg) 12.5 mg PO BID [facility] Last Admin: 07/08/17 09:39 Dose: 12.5 mg Dextrose (Dextrose 50% Inj) 0 ml IV STAT PRN; Protocol PRN Reason: Hypoglycemia Protocol Dextrose (Glutose 15) 0 gm PO ONCE PRN; Protocol PRN Reason: Hypoglycemia Protocol Digoxin (Lanoxin) 0.25 mg PO DAILY@1800 [facility] Last Admin: 07/07/17 17:58 Dose: 0.25 mg Ferric Sodium Gluconate Complex (Ferrlecit) 125 mg IVPB DAILY [facility] Stop: 07/15/17 10:01 Last Admin: 07/08/17 09:37 Dose: 125 mg Ferrous Sulfate (Feosol) 325 mg PO TID [facility] Last Admin: 07/08/17 14:29 Dose: 325 mg Furosemide (Lasix) 40 mg PO BID [facility] Last Admin: 07/08/17 09:39 Dose: 40 mg Glucagon (Glucagen Diagnostic Kit) 0 mg IM STAT PRN; Protocol PRN Reason: Hypoglycemia Protocol Dextrose (Dextrose 5% In Water 1000 Ml) 1,000 mls @ 0 mls/hr IV .Q0M PRN; Protocol; Per Protocol PRN Reason: Hypoglycemia Protocol Insulin Aspart (Novolog) 0 unit SC ACHS [facility] PRN Reason: Protocol Last Admin: 07/08/17 07:51 Dose: Not Given Magnesium Oxide (Mag-Ox) 400 mg PO DAILY [facility] Last Admin: 07/08/17 09:38 Dose: 400 mg Pantoprazole Sodium (Protonix Inj) 40 mg IVP DAILY [facility] Last Admin: 07/08/17 09:37 Dose: 40 mg Potassium Chloride (K-Dur 20 Meq Er Tab) 20 meq PO DAILY [facility] Last Admin: 07/08/17 09:40 Dose: 20 meq Rosuvastatin Calcium (Crestor) 10 mg PO HS [facility] Last Admin: 07/07/17 22:31 Dose: 10 mg Sacubitril/Valsartan (Entresto 24 Mg-26 Mg) 1 tab PO BID [facility] Last Admin: 07/08/17 09:45 Dose: 1 tab Fluticasone/Salmeterol (Advair Diskus 250/50) 1 puff INH RQ12 [facility] Last Admin: 07/08/17 11:16 Dose: Not Given Sitagliptin Phosphate (Januvia) 50 mg PO DAILY [facility] Last Admin: 07/08/17 09:39 Dose: 50 mg - Labs Labs: 07/08/17 08:42 07/08/17 08:42 PT 13.0 SECONDS (9.7-12.2) H 07/07/17 09:58 INR 1.1 07/07/17 09:58 APTT 35 SECONDS (21-34) H 07/07/17 09:58 - Head Exam Head Exam: ATRAUMATIC - Eye Exam Eye Exam: Normal appearance - ENT Exam ENT Exam: Mucous Membranes Dry - Respiratory Exam Respiratory Exam: NORMAL BREATHING PATTERN - Cardiovascular Exam Cardiovascular Exam: +S1, +S2 - GI/Abdominal Exam GI & Abdominal Exam: Normal Bowel Sounds Assessment and Plan (1) Anemia Assessment & Plan: iron deficiency from chronic GI blood loss declined endoscopy transfusion support; goal hgb ~ 10 on IV iron Status: Acute
[2017-07-08] MEDS: Digoxin 250 mcg (0.25 mg) Tab PO SCH (18:32)
[2017-07-08 21:31] LABS: BASO % 0.2 % (0.0-2.0); EOS # 0.2 K/uL (0.0-0.7); EOS % 1.8 % (0.0-4.0); HEMOGLOBIN 7.9 g/dL (11.0-16.0); LYMPH % 19.7 % (20.0-40.0); MEAN CELL VOLUME 78.8 fL (81.0-99.0); MEAN CORPUSCULAR HEMOGLOBIN 25.5 pg (27.0-31.0); MEAN CORPUSCULAR HGB CONC 32.3 g/dL (33.0-37.0); MEAN PLATELET VOLUME 8.9 fL (7.2-11.7); MONO # 0.6 K/uL (0.0-0.8); MONO % 5.8 % (0.0-10.0); NEUT # 7.2 K/uL (1.8-7.0); NEUT % 72.5 % (50.0-75.0); NRBC % 0.5 % (0.0-2.0); RBC 3.08 Mil/uL (3.80-5.20); RED CELL DISTRIBUTION WIDTH 16.4 % (11.5-14.5)
[2017-07-09] MEDS: Fluticasone-Salmeterol 250-50mcg Diskus INH SCH ×2 (07:24→19:01)
[2017-07-09 07:34] LABS: BASO % 0.2 % (0.0-2.0); EOS # 0.2 K/uL (0.0-0.7); EOS % 1.7 % (0.0-4.0); HEMOGLOBIN 7.6 g/dL (11.0-16.0); LYMPH # 1.9 K/uL (1.0-4.3); LYMPH % 17.8 % (20.0-40.0); MEAN CELL VOLUME 79.5 fL (81.0-99.0); MEAN CORPUSCULAR HGB CONC 32.8 g/dL (33.0-37.0); MEAN PLATELET VOLUME 8.9 fL (7.2-11.7); MONO # 0.7 K/uL (0.0-0.8); MONO % 6.2 % (0.0-10.0); NEUT # 7.9 K/uL (1.8-7.0); NEUT % 74.1 % (50.0-75.0); NRBC % 0.5 % (0.0-2.0); RBC 2.93 Mil/uL (3.80-5.20); RED CELL DISTRIBUTION WIDTH 16.7 % (11.5-14.5); WHITE BLOOD COUNT 10.7 K/uL (4.8-10.8)
[2017-07-09 07:57] LABS: ALBUMIN 3.3 g/dL (3.5-5.0); ALT/SGPT 9 U/L (9-52); AST/SGOT 19 U/L (14-36); BLOOD UREA NITROGEN 14 mg/dL (7-17); CALCIUM 8.7 mg/dl (8.6-10.4); GFR AFRICAN-AMERICAN > 60; GFR NON-AFRICAN AMERICAN 57
[2017-07-09] MEDS: (Novolog) Insulin Aspart, Recombinant 100 u/ml 10 ml vial SC SCH ×3 (08:49→22:08)
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
[2017-07-09] MEDS ORDERED: Home Med 1 UNIT (Acetaminophen/Oxycodone Hydr [Percocet 10/325 Mg Tab] 1 TAB) PO SCH (10:00)
[2017-07-09] MEDS ORDERED: HEPARIN-NS 5,000 UNITS/500 ML 5,000 UNIT/500 ML BAG IV ONE (10:17)
[2017-07-09] MEDS: Sacubitril/Valsartan 24-26mg Tab PO SCH ×2 (10:25→18:29)
[2017-07-09] MEDS: Magnesium Oxide 400 mg Tab UD PO SCH (10:26)
[2017-07-09] MEDS: Potassium Chloride 20 mEq ER Tab PO SCH (10:26)
[2017-07-09] MEDS ORDERED: Sodium Chloride 0.9% 500 ML IV ONE (10:55)
[2017-07-09] MEDS ORDERED: ceFAZolin 1 gm in NS 2 GM/200 ML BAG IVPB ONE (11:05)
[2017-07-09] MEDS ORDERED: Midazolam 2 MG/2 ML VIAL ONE ×3 (11:22→11:41)
[2017-07-09] MEDS: Ferric Sodium Gluconat Complex 62.5 mg/5 ml Vial IVPB SCH (11:24)
[2017-07-09] MEDS ORDERED: Lidocaine Hydrochloride 10 ML INJ ONE (11:47)
[2017-07-09] MEDS ORDERED: Propofol 10 mg/ml Inj (20 ML) ONE (11:52)
[2017-07-09] MEDS ORDERED: Sodium Chloride 0.9% 100 ML IV ONE (12:19)
--- NOTE | 2017-07-09 12:21 | PCM.SURG1 ---
Surgeon's Initial Post Op Note - Surgeon's Notes Surgeon: Dr. Quincy Celis MD [employer] Principal: Dr. Ashley Lewis PGY1, Fabrice Reynolds MS3 Pre-Operative Diagnosis: poor vascular access Operative Findings: see op report Post-Operative Diagnosis: poor vascular access Operation Performed: right IJ Portacath insertion Specimen/Specimens Removed: none Estimated Blood Loss: EBL {In ML}: 10 Blood Products Given: PRBC Drains Used: No Drains Post-Op Condition: Good Date of Surgery/Procedure: 07/09/17 Time of Surgery/Procedure: 12:21
--- NOTE | 2017-07-09 13:07 | RAD ---
Chest x-ray single frontal view History: Catheter insertion. Comparison: 07/06/2017 Findings: Right chest wall port with tip extending into the right SVC in a somewhat tortuous course. Cardiomegaly with enlarged ectatic aorta. Calcification at the aortic knob. Left-sided pacemaker. Degenerative changes in the spine and shoulders. Question left basilar airspace opacity. Degenerative changes in the spine and shoulders. Impression: Right chest wall port with tip extending into the right SVC in a somewhat tortuous course. Cardiomegaly with enlarged ectatic aorta. Calcification at the aortic knob. Left-sided pacemaker. Degenerative changes in the spine and shoulders. Question left basilar airspace opacity. Degenerative changes in the spine and shoulders.
--- NOTE | 2017-07-09 14:39 | RAD ---
PROCEDURE: Intraoperative Fluoroscopy. HISTORY: RENAL FAILURE FINDINGS: Fluoroscopic assistance was provided for right chest wall port placement. Please refer to the operative report from SUSHANT Cleary.
[2017-07-09 16:50] LABS: BASO % 0.2 % (0.0-2.0); EOS # 0.2 K/uL (0.0-0.7); EOS % 1.8 % (0.0-4.0); HEMOGLOBIN 7.9 g/dL (11.0-16.0); LYMPH # 2.1 K/uL (1.0-4.3); LYMPH % 23.3 % (20.0-40.0); MEAN CELL VOLUME 80.5 fL (81.0-99.0); MEAN CORPUSCULAR HEMOGLOBIN 25.6 pg (27.0-31.0); MEAN CORPUSCULAR HGB CONC 31.8 g/dL (33.0-37.0); MEAN PLATELET VOLUME 8.9 fL (7.2-11.7); MONO # 0.6 K/uL (0.0-0.8); MONO % 6.3 % (0.0-10.0); NEUT # 6.1 K/uL (1.8-7.0); NEUT % 68.4 % (50.0-75.0); NRBC % 0.7 % (0.0-2.0); RBC 3.1 Mil/uL (3.80-5.20); RED CELL DISTRIBUTION WIDTH 16.6 % (11.5-14.5)
[2017-07-09] MEDS: Digoxin 250 mcg (0.25 mg) Tab PO SCH (18:30)
[2017-07-09] MEDS: Oxycodone/Acetaminophen 5/325 mg Tab PO PRN (21:43)
--- NOTE | 2017-07-09 22:52 | OP ---
PROCEDURE DATE: 07/09/2017 PREOPERATIVE DIAGNOSIS: Lack of venous access, avenia. POSTOPERATIVE DIAGNOSIS: Lack of venous access, avenia. PROCEDURE: Placement of Port-A-Cath PowerPort type right jugular vein with C-arm fluoroscopy, ultrasound-guided puncture, and micropuncture technique. SURGEON: Quincy Celis Jr., MD CUSTOMER RETENTION REPRESENTATIVE: Dr. Lewis. TYPE OF ANESTHESIA: Local with sedation. ANESTHESIA ADMINISTERED BY: Amna Brewer CRNA INDICATIONS: The patient is an older middle-aged woman with multiple problems including anemia. OPERATIVE FINDINGS: The catheter was inserted uneventfully via the jugular vein. Initially placed catheter was too short, was too high up in the superior vena cava. We placed this over a wire for a longer catheter and went to the appropriate location in the lower portions of the superior vena cava. DESCRIPTION OF PROCEDURE: The patient was given local anesthesia. Using ultrasound guidance and micropuncture technique, the right jugular vein was cannulated. Under fluoroscopic control, the guidewire was advanced centrally. There were lot of other wires from multiple cardiac devices. Nonetheless, the device was then deployed. We had to revise it to make it a slightly longer one that went in further. This was flushed with heparinized saline, connected to the port in the subcutaneous tunnel and secured to the skin. Wounds were closed. Steri-Strips applied to the skin. Blood loss for the procedure was 25 mL. Operation carried out is Port-A-Cath PowerPort type right jugular vein with C-arm fluoroscopy and ultrasound-guided puncture. Ultrasound imaging of the neck showed the vein was approximately 20 mm in diameter with normal compressibility and no intraluminal thrombosis. Quincy Celis Jr., MD
--- NOTE | 2017-07-09 23:06 | CP.PCM.PN ---
Subjective - Date & Time of Evaluation Date of Evaluation: 07/09/17 Time of Evaluation: 19:00 - Subjective Subjective: Has some post op pain s/p portacath placement Objective - Vital Signs/Intake and Output Vital Signs (last 24 hours): Temp Pulse Resp BP Pulse Ox 98 F 75 20 100/65 97 07/09/17 15:55 07/09/17 20:48 07/09/17 15:55 07/09/17 15:55 07/09/17 15:55 Intake and Output: 07/09/17 07/10/17 18:59 06:59 Intake Total 625 Balance 625 - Medications Medications: Current Medications Acetaminophen (Tylenol 325mg Tab) 650 mg PO Q6 PRN PRN Reason: Fever >100.4 F Last Admin: 07/09/17 18:36 Dose: 650 mg Acetaminophen (Tylenol 325mg Tab) 650 mg PO Q6 PRN PRN Reason: Pain, moderate (4-7) Albuterol/Ipratropium (Duoneb 3 Mg/0.5 Mg (3 Ml) Ud) 3 ml INH RQ4 PRN PRN Reason: Wheezing Alprazolam (Xanax) 1 mg PO BID [facility] Last Admin: 07/09/17 18:29 Dose: 1 mg Carvedilol (Coreg) 12.5 mg PO BID [facility] Last Admin: 07/09/17 18:30 Dose: Not Given Dextrose (Dextrose 50% Inj) 0 ml IV STAT PRN; Protocol PRN Reason: Hypoglycemia Protocol Dextrose (Glutose 15) 0 gm PO ONCE PRN; Protocol PRN Reason: Hypoglycemia Protocol Digoxin (Lanoxin) 0.25 mg PO DAILY@1800 [facility] Last Admin: 07/09/17 18:30 Dose: 0.25 mg Ferric Sodium Gluconate Complex (Ferrlecit) 125 mg IVPB DAILY [facility] Stop: 07/15/17 10:01 Last Admin: 07/09/17 11:24 Dose: Not Given Ferrous Sulfate (Feosol) 325 mg PO TID [facility] Last Admin: 07/09/17 18:29 Dose: 325 mg Furosemide (Lasix) 40 mg PO BID [facility] Last Admin: 07/09/17 18:30 Dose: Not Given Glucagon (Glucagen Diagnostic Kit) 0 mg IM STAT PRN; Protocol PRN Reason: Hypoglycemia Protocol Insulin Aspart (Novolog) 0 unit SC ACHS [facility] PRN Reason: Protocol Last Admin: 07/09/17 22:08 Dose: Not Given Magnesium Oxide (Mag-Ox) 400 mg PO DAILY [facility] Last Admin: 07/09/17 10:26 Dose: Not Given Oxycodone/Acetaminophen (Percocet 5/325 Mg Tab) 1 tab PO Q4H PRN PRN Reason: Pain, moderate (4-7) Stop: 07/12/17 21:12 Last Admin: 07/09/17 21:43 Dose: 1 tab Pantoprazole Sodium (Protonix Inj) 40 mg IVP DAILY [facility] Last Admin: 07/09/17 11:23 Dose: Not Given Potassium Chloride (K-Dur 20 Meq Er Tab) 20 meq PO DAILY [facility] Last Admin: 07/09/17 10:26 Dose: Not Given Rosuvastatin Calcium (Crestor) 10 mg PO HS [facility] Last Admin: 07/09/17 21:43 Dose: 10 mg Sacubitril/Valsartan (Entresto 24 Mg-26 Mg) 1 tab PO BID [facility] Last Admin: 07/09/17 18:29 Dose: 1 tab Fluticasone/Salmeterol (Advair Diskus 250/50) 1 puff INH RQ12 [facility] Last Admin: 07/09/17 19:01 Dose: Not Given Sitagliptin Phosphate (Januvia) 50 mg PO DAILY [facility] Last Admin: 07/09/17 10:26 Dose: Not Given - Labs Labs: 07/09/17 16:44 07/09/17 07:24 PT 13.0 SECONDS (9.7-12.2) H 07/07/17 09:58 INR 1.1 07/07/17 09:58 APTT 35 SECONDS (21-34) H 07/07/17 09:58 - Head Exam Head Exam: ATRAUMATIC - Eye Exam Eye Exam: Normal appearance - ENT Exam ENT Exam: Mucous Membranes Dry - Respiratory Exam Respiratory Exam: NORMAL BREATHING PATTERN - Cardiovascular Exam Cardiovascular Exam: +S1, +S2 - GI/Abdominal Exam GI & Abdominal Exam: Normal Bowel Sounds Assessment and Plan (1) Anemia Assessment & Plan: iron deficiency anemia on IV iron FOBT positive; declined endoscopy transfusion support goal hgb ~ 10 given cardiac history Status: Acute
[2017-07-10] MEDS: Oxycodone/Acetaminophen 5/325 mg Tab PO PRN ×2 (02:28→08:14)
[2017-07-10 07:31] LABS: BASO % 0.5 % (0.0-2.0); EOS # 0.2 K/uL (0.0-0.7); EOS % 2.3 % (0.0-4.0); HEMOGLOBIN 8.2 g/dL (11.0-16.0); LYMPH # 2.3 K/uL (1.0-4.3); LYMPH % 26.2 % (20.0-40.0); MEAN CELL VOLUME 80.9 fL (81.0-99.0); MEAN CORPUSCULAR HGB CONC 32.2 g/dL (33.0-37.0); MONO # 0.6 K/uL (0.0-0.8); MONO % 7.1 % (0.0-10.0); NEUT # 5.6 K/uL (1.8-7.0); NEUT % 63.9 % (50.0-75.0); NRBC % 0.4 % (0.0-2.0); RBC 3.15 Mil/uL (3.80-5.20); RED CELL DISTRIBUTION WIDTH 16.8 % (11.5-14.5); WHITE BLOOD COUNT 8.7 K/uL (4.8-10.8)
[2017-07-10] MEDS: (Novolog) Insulin Aspart, Recombinant 100 u/ml 10 ml vial SC SCH ×4 (08:05→22:20)
[2017-07-10] MEDS: Fluticasone-Salmeterol 250-50mcg Diskus INH SCH ×2 (08:25→20:45)
[2017-07-10 08:51] LABS: ALBUMIN 3.5 g/dL (3.5-5.0); ALT/SGPT 7 U/L (9-52); AST/SGOT 18 U/L (14-36); BLOOD UREA NITROGEN 16 mg/dL (7-17); CALCIUM 8.7 mg/dl (8.6-10.4); GFR AFRICAN-AMERICAN > 60; GFR NON-AFRICAN AMERICAN > 60
[2017-07-10] MEDS ORDERED: Peg-Electrolyte Oral Soln 4L (Golytely) PO ONE ×2 (08:56→16:00)
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
[2017-07-10] MEDS: Potassium Chloride 20 mEq ER Tab PO SCH (10:15)
[2017-07-10] MEDS: Ferric Sodium Gluconat Complex 62.5 mg/5 ml Vial IVPB SCH (10:15)
[2017-07-10] MEDS: Magnesium Oxide 400 mg Tab UD PO SCH (10:15)
[2017-07-10] MEDS: Sacubitril/Valsartan 24-26mg Tab PO SCH ×2 (10:15→17:23)
--- NOTE | 2017-07-10 11:02 | CP.PCM.PN ---
Subjective - Date & Time of Evaluation Date of Evaluation: 07/10/17 Time of Evaluation: 07:10 - Subjective Subjective: Patient seen and exained this AM. No adverse events overnight. Patient reports mild pain but denies any other symptoms Objective - Vital Signs/Intake and Output Vital Signs (last 24 hours): Temp Pulse Resp BP Pulse Ox 97.6 F 76 18 122/69 97 07/10/17 07:30 07/10/17 07:30 07/10/17 07:30 07/10/17 07:30 07/10/17 07:30 Intake and Output: 07/10/17 07/10/17 06:59 18:59 Intake Total 480 Balance 480 - Medications Medications: Current Medications Acetaminophen (Tylenol 325mg Tab) 650 mg PO Q6 PRN PRN Reason: Fever >100.4 F Last Admin: 07/09/17 18:36 Dose: 650 mg Acetaminophen (Tylenol 325mg Tab) 650 mg PO Q6 PRN PRN Reason: Pain, moderate (4-7) Albuterol/Ipratropium (Duoneb 3 Mg/0.5 Mg (3 Ml) Ud) 3 ml INH RQ4 PRN PRN Reason: Wheezing Alprazolam (Xanax) 1 mg PO BID [facility] Last Admin: 07/09/17 18:29 Dose: 1 mg Carvedilol (Coreg) 12.5 mg PO BID [facility] Last Admin: 07/09/17 18:30 Dose: Not Given Dextrose (Dextrose 50% Inj) 0 ml IV STAT PRN; Protocol PRN Reason: Hypoglycemia Protocol Dextrose (Glutose 15) 0 gm PO ONCE PRN; Protocol PRN Reason: Hypoglycemia Protocol Digoxin (Lanoxin) 0.25 mg PO DAILY@1800 [facility] Last Admin: 07/09/17 18:30 Dose: 0.25 mg Ferric Sodium Gluconate Complex (Ferrlecit) 125 mg IVPB DAILY [facility] Stop: 07/15/17 10:01 Last Admin: 07/09/17 11:24 Dose: Not Given Ferrous Sulfate (Feosol) 325 mg PO TID [facility] Last Admin: 07/09/17 18:29 Dose: 325 mg Furosemide (Lasix) 40 mg PO BID [facility] Last Admin: 07/09/17 18:30 Dose: Not Given Glucagon (Glucagen Diagnostic Kit) 0 mg IM STAT PRN; Protocol PRN Reason: Hypoglycemia Protocol Insulin Aspart (Novolog) 0 unit SC ACHS [facility] PRN Reason: Protocol Last Admin: 07/10/17 08:05 Dose: Not Given Magnesium Oxide (Mag-Ox) 400 mg PO DAILY [facility] Last Admin: 07/09/17 10:26 Dose: Not Given Oxycodone/Acetaminophen (Percocet 5/325 Mg Tab) 1 tab PO Q4H PRN PRN Reason: Pain, moderate (4-7) Stop: 07/12/17 21:12 Last Admin: 07/10/17 08:14 Dose: 1 tab Pantoprazole Sodium (Protonix Inj) 40 mg IVP DAILY [facility] Last Admin: 07/09/17 11:23 Dose: Not Given Potassium Chloride (K-Dur 20 Meq Er Tab) 20 meq PO DAILY [facility] Last Admin: 07/09/17 10:26 Dose: Not Given Rosuvastatin Calcium (Crestor) 10 mg PO HS [facility] Last Admin: 07/09/17 21:43 Dose: 10 mg Sacubitril/Valsartan (Entresto 24 Mg-26 Mg) 1 tab PO BID [facility] Last Admin: 07/09/17 18:29 Dose: 1 tab Fluticasone/Salmeterol (Advair Diskus 250/50) 1 puff INH RQ12 [facility] Last Admin: 07/10/17 08:25 Dose: Not Given Sitagliptin Phosphate (Januvia) 50 mg PO DAILY [facility] Last Admin: 07/09/17 10:26 Dose: Not Given - Labs Labs: 07/10/17 07:19 07/10/17 07:19 PT 13.0 SECONDS (9.7-12.2) H 07/07/17 09:58 INR 1.1 07/07/17 09:58 APTT 35 SECONDS (21-34) H 07/07/17 09:58 - Constitutional Appears: Well, Non-toxic, No Acute Distress - Head Exam Head Exam: ATRAUMATIC, NORMOCEPHALIC - Eye Exam Eye Exam: Normal appearance. absent: Conjunctival injection, Scleral icterus - ENT Exam ENT Exam: Mucous Membranes Moist, Normal Oropharynx - Respiratory Exam Respiratory Exam: NORMAL BREATHING PATTERN. absent: Accessory Muscle Use, Respiratory Distress - Cardiovascular Exam Cardiovascular Exam: RRR - GI/Abdominal Exam GI & Abdominal Exam: absent: Distended - Neurological Exam Neurological Exam: Alert, Awake, Oriented x3 - Psychiatric Exam Psychiatric exam: Normal Affect, Normal Mood - Skin Skin Exam: Dry, Intact, Normal Color, Warm - Additional Findings Additional findings: portacath in his right chest without surrounding erythema or swelling or drainage Assessment and Plan - Assessment and Plan (Free Text) Assessment: 61F POD#1 s/p portacath insertion Plan: -No further surgical intervention indicated at this time -Portacath is cleared for use -Medical management per primary team -Follow up with Dr. Celis in his office in 1-2 weeks as outpatient discussed with Dr. Lalita Ji, PGY2
[2017-07-10] MEDS: Digoxin 250 mcg (0.25 mg) Tab PO SCH (17:23)
[2017-07-10 19:14] VITALS: PULSE 75
--- NOTE | 2017-07-10 19:29 | CP.PCM.PN ---
Subjective - Date & Time of Evaluation Date of Evaluation: 07/10/17 Time of Evaluation: 14:00 - Subjective Subjective: Has a headache Objective - Vital Signs/Intake and Output Vital Signs (last 24 hours): Temp Pulse Resp BP Pulse Ox 98.7 F 75 20 98/63 L 95 07/10/17 15:00 07/10/17 16:00 07/10/17 15:00 07/10/17 15:00 07/10/17 15:00 - Medications Medications: Current Medications Acetaminophen (Tylenol 325mg Tab) 650 mg PO Q6 PRN PRN Reason: Fever >100.4 F Last Admin: 07/10/17 17:23 Dose: 650 mg Acetaminophen (Tylenol 325mg Tab) 650 mg PO Q6 PRN PRN Reason: Pain, moderate (4-7) Albuterol/Ipratropium (Duoneb 3 Mg/0.5 Mg (3 Ml) Ud) 3 ml INH RQ4 PRN PRN Reason: Wheezing Alprazolam (Xanax) 1 mg PO BID [facility] Last Admin: 07/10/17 17:23 Dose: 1 mg Carvedilol (Coreg) 12.5 mg PO BID [facility] Last Admin: 07/10/17 17:35 Dose: Not Given Dextrose (Dextrose 50% Inj) 0 ml IV STAT PRN; Protocol PRN Reason: Hypoglycemia Protocol Dextrose (Glutose 15) 0 gm PO ONCE PRN; Protocol PRN Reason: Hypoglycemia Protocol Digoxin (Lanoxin) 0.25 mg PO DAILY@1800 [facility] Last Admin: 07/10/17 17:23 Dose: 0.25 mg Ferric Sodium Gluconate Complex (Ferrlecit) 125 mg IVPB DAILY [facility] Stop: 07/15/17 10:01 Last Admin: 07/10/17 10:15 Dose: 125 mg Ferrous Sulfate (Feosol) 325 mg PO TID [facility] Last Admin: 07/10/17 17:22 Dose: 325 mg Furosemide (Lasix) 40 mg PO BID [facility] Last Admin: 07/10/17 17:34 Dose: Not Given Glucagon (Glucagen Diagnostic Kit) 0 mg IM STAT PRN; Protocol PRN Reason: Hypoglycemia Protocol Insulin Aspart (Novolog) 0 unit SC ACHS [facility] PRN Reason: Protocol Last Admin: 07/10/17 16:33 Dose: Not Given Magnesium Oxide (Mag-Ox) 400 mg PO DAILY [facility] Last Admin: 07/10/17 10:15 Dose: 400 mg Pantoprazole Sodium (Protonix Inj) 40 mg IVP DAILY [facility] Last Admin: 07/10/17 10:15 Dose: 40 mg Potassium Chloride (K-Dur 20 Meq Er Tab) 20 meq PO DAILY [facility] Last Admin: 07/10/17 10:15 Dose: 20 meq Rosuvastatin Calcium (Crestor) 10 mg PO HS [facility] Last Admin: 07/09/17 21:43 Dose: 10 mg Sacubitril/Valsartan (Entresto 24 Mg-26 Mg) 1 tab PO BID [facility] Last Admin: 07/10/17 17:23 Dose: 1 tab Fluticasone/Salmeterol (Advair Diskus 250/50) 1 puff INH RQ12 [facility] Last Admin: 07/10/17 08:25 Dose: Not Given Sitagliptin Phosphate (Januvia) 50 mg PO DAILY [facility] Last Admin: 07/10/17 10:15 Dose: 50 mg - Labs Labs: 07/10/17 07:19 07/10/17 07:19 PT 13.0 SECONDS (9.7-12.2) H 07/07/17 09:58 INR 1.1 07/07/17 09:58 APTT 35 SECONDS (21-34) H 07/07/17 09:58 - Head Exam Head Exam: ATRAUMATIC - Eye Exam Eye Exam: Normal appearance - ENT Exam ENT Exam: Mucous Membranes Dry - Respiratory Exam Respiratory Exam: NORMAL BREATHING PATTERN - Cardiovascular Exam Cardiovascular Exam: +S1, +S2 - GI/Abdominal Exam GI & Abdominal Exam: Normal Bowel Sounds Assessment and Plan (1) Anemia Assessment & Plan: iron deficiency GI w/u pending transfusion support PRN Status: Acute
[2017-07-11 07:39] LABS: BASO % 0.3 % (0.0-2.0); EOS # 0.2 K/uL (0.0-0.7); EOS % 1.8 % (0.0-4.0); HEMOGLOBIN 8.4 g/dL (11.0-16.0); LYMPH % 22.1 % (20.0-40.0); MEAN CELL VOLUME 81.7 fL (81.0-99.0); MEAN CORPUSCULAR HEMOGLOBIN 26.4 pg (27.0-31.0); MEAN CORPUSCULAR HGB CONC 32.4 g/dL (33.0-37.0); MEAN PLATELET VOLUME 9.2 fL (7.2-11.7); MONO # 0.5 K/uL (0.0-0.8); MONO % 5.4 % (0.0-10.0); NEUT # 6.3 K/uL (1.8-7.0); NEUT % 70.4 % (50.0-75.0); NRBC % 0.2 % (0.0-2.0); RBC 3.17 Mil/uL (3.80-5.20); RED CELL DISTRIBUTION WIDTH 16.9 % (11.5-14.5); WHITE BLOOD COUNT 8.9 K/uL (4.8-10.8)
[2017-07-11] MEDS: Fluticasone-Salmeterol 250-50mcg Diskus INH SCH (07:48)
[2017-07-11 07:58] LABS: ALB/GLOB RATIO 0.9 (1.0-2.1); ALBUMIN 3.5 g/dL (3.5-5.0); ALT/SGPT 11 U/L (9-52); AST/SGOT 17 U/L (14-36); BLOOD UREA NITROGEN 13 mg/dL (7-17); CALCIUM 8.7 mg/dl (8.6-10.4); GFR AFRICAN-AMERICAN > 60; GFR NON-AFRICAN AMERICAN > 60
[2017-07-11] MEDS: (Novolog) Insulin Aspart, Recombinant 100 u/ml 10 ml vial SC SCH ×2 (08:30→17:09)
--- NOTE | 2017-07-11 10:30 | CP.PCM.PN ---
Subjective - Date & Time of Evaluation Date of Evaluation: 07/11/17 Time of Evaluation: 10:15 - Subjective Subjective: Hospitalist Progress Note Patient was seen and examined at 10:15 AM 07/11/17 660 A Upon FULL ROS Pain at the Right Chest PortCath that is described as a soreness NO dysphagia/odynopahgia NO soreness in throat Cough that is dry and non productive NO sinus/nasal congestion NO fever/chills NO muscle aches/pains NO joint pain NO chest pain/palpations NO SOB as long as she uses O2 NO abdominal pain NO n/v/d/c NO burning pain with urination NO CARRERA NO lightheadedness/dizziness NO paresthesias Exam: General: Asleep but was easily arousable, AAOX3, NAD HEENT: NCA, EOMI, PERRLA, NO cervical/supraclavicular/submandibular lymphadenopathy, NO pharyngeal erythema/exudate, Nasal Turbinates are nonerythematous/nonedematous, Oral Mucosa is moist Cardio: NS1 and NS2, Early systolic ejection murmur heard in all of the auscultatory phipps Resp: CTA B/L, NO R/R/W however there are decreased breath sounds in the bilateral lower lung phipps that may be related to the patient's body habitus GI: BSx4, Soft, NT, Could not palpate Liver and Spleen adequately due to patient 's obesity, NO guarding/rebound tenderness Ext: Pulses are strong and equal, Capillary Refill is 2 seconds, NO edema Neuro: CN II through XII are grossly intact Assessments: 1). Iron Deficiency Anemia: required multiple PRBC transfusion during this admission. Stool Occult Blood was positive. Explained at length the need for Colonoscopy and Upper Endoscopy and patient finally agreed to have done on then refused to drink preparation. HgB/Hct is stable. She will need to continue her Iron transfusions through Heme/Onc Dr. Moura and arrange for outpatient Upper EGD and Colonoscopy through her PMD. 2). Hx Atrial Fibrillation 3). Hx CHF Pacemaker/AICD 4). Hx HLD 5). Hx DM 2 6). Hx COPD: uses continuous home O2 at 2L via NC and patient confirmed that she has enough O2 at home 7). Hx ROSIO 8). Hx Chronic Back Pain 9). Hx Anxiety Patient has refused to drink prep for Colonoscopy on 07/10/17. Extensive conversations by Hospitalist Team about the necessity of these procedures however patient continues to decline performance. HgB/Hct stable. Explained to her today because she is being discharged and will have to arrange through her PMD these procedures. The following instructions were explained to the patient and a copy will be provided to her upon discharge: 1). Please schedule follow up with your Primary Care Physician Dr. Mckeon as soon as possible to help coordinate your health care. Through his office arrange fro the following: Upper Endoscopy and Colonoscopy to help determine if you have an ulcer or a mass as the cause of the bleeding in your stool. 2). Schedule follow up with your Heart Physician Dr. Raymundo Andino by calling his office at [phone]. This follow up should occur in the next 7 to 10 days. 3). Schedule follow up with your Director Integrated Dr. Jerel Moura for your next Iron Infussion by calling his office at [phone]. 4). Please have the following prescriptions filled at your pharmacy on your way home from the hospital. Please use only these medications. Please take them as instructed: Anoro Ellipta 62.5/25 mcg, 1 inhalation by mouth 1x/day (breakfast), Dispense #1 , NO refills Januvia 50 mg, 1 tablet by mouth 1x/day (breakfast), Dispense #30, NO refills Entresto 24/26 mg, 1 tablet by mouth 1x/day (lunch) Dispense #30, NO refills Potassium Chloride 20 mg, 1 tablet by mouth 1x/day (breakfast), Dispense #30, NO refills Protonix 20 mg, 1 tablet by mouth 1x/day (breakfast), Dispense #30, NO refills Magnesium 400 mg, 1 tablet by mouth 1x/day (breakfast), Dispense #30, NO refills Furosemide 40 mg, 1 tablet by mouth 1x/day (breakfast), Dispense #30, NO refills Digoxin 0.25 mg, 1 tablet by mouth 1x/day (dinner), Dispense #30, NO refills Coreg 12.5 mg, 1 tablet by mouth 2x/day (breakfast and dinner), Dispense #60, NO refills Atorvastatin 20 mg, 1 tablet by mouth 1x/day (dinner), Dispense #30, NO refills Aspirin 81 mg, 1 tablet by mouth 1x/day (breakfast), Dispense #30, NO refills Xanax 1 mg, 1 tablet by mouth 2x/day ONLY NEEDED for anxiety, Dispense #15, NO refills Albuterol 0.083%, 1 respule via nebulizer every 6 hours ONLY NEEDED for severe shortness of breath/wheezing, Dispense #120, NO refills Ferrous Sulfate 325 mg, 1 tablet by mouth 3x/day (breakfast, lunch, dinner), Dispense #90, NO refills 5). Please stop taking Meloxicam and Percocet until further instructions from your Primary Care Physician Dr. Mckeon. 5). Please follow the above instructions. Failure to do so can cause serious harm to your health. 6). Please take care and be well. Shaheed Mejia D.O. Objective - Vital Signs/Intake and Output Vital Signs (last 24 hours): Temp Pulse Resp BP Pulse Ox 97.7 F 75 18 95/54 L 97 07/11/17 07:25 07/11/17 07:25 07/11/17 07:25 07/11/17 07:25 07/11/17 07:25 Intake and Output: 07/11/17 07/11/17 06:59 18:59 Intake Total 500 Balance 500 - Medications Medications: Current Medications Acetaminophen (Tylenol 325mg Tab) 650 mg PO Q6 PRN PRN Reason: Fever >100.4 F Last Admin: 07/10/17 17:23 Dose: 650 mg Acetaminophen (Tylenol 325mg Tab) 650 mg PO Q6 PRN PRN Reason: Pain, moderate (4-7) Albuterol/Ipratropium (Duoneb 3 Mg/0.5 Mg (3 Ml) Ud) 3 ml INH RQ4 PRN PRN Reason: Wheezing Alprazolam (Xanax) 1 mg PO BID [facility] Last Admin: 07/10/17 17:23 Dose: 1 mg Carvedilol (Coreg) 12.5 mg PO BID [facility] Last Admin: 07/10/17 17:35 Dose: Not Given Dextrose (Dextrose 50% Inj) 0 ml IV STAT PRN; Protocol PRN Reason: Hypoglycemia Protocol Dextrose (Glutose 15) 0 gm PO ONCE PRN; Protocol PRN Reason: Hypoglycemia Protocol Digoxin (Lanoxin) 0.25 mg PO DAILY@1800 [facility] Last Admin: 07/10/17 17:23 Dose: 0.25 mg Ferric Sodium Gluconate Complex (Ferrlecit) 125 mg IVPB DAILY [facility] Stop: 07/15/17 10:01 Last Admin: 07/10/17 10:15 Dose: 125 mg Ferrous Sulfate (Feosol) 325 mg PO TID [facility] Last Admin: 07/10/17 17:22 Dose: 325 mg Furosemide (Lasix) 40 mg PO BID [facility] Last Admin: 07/10/17 17:34 Dose: Not Given Glucagon (Glucagen Diagnostic Kit) 0 mg IM STAT PRN; Protocol PRN Reason: Hypoglycemia Protocol Insulin Aspart (Novolog) 0 unit SC ACHS [facility] PRN Reason: Protocol Last Admin: 07/11/17 08:30 Dose: Not Given Magnesium Oxide (Mag-Ox) 400 mg PO DAILY [facility] Last Admin: 07/10/17 10:15 Dose: 400 mg Pantoprazole Sodium (Protonix Inj) 40 mg IVP DAILY [facility] Last Admin: 07/10/17 10:15 Dose: 40 mg Potassium Chloride (K-Dur 20 Meq Er Tab) 20 meq PO DAILY [facility] Last Admin: 07/10/17 10:15 Dose: 20 meq Rosuvastatin Calcium (Crestor) 10 mg PO HS [facility] Last Admin: 07/10/17 21:23 Dose: 10 mg Sacubitril/Valsartan (Entresto 24 Mg-26 Mg) 1 tab PO BID [facility] Last Admin: 07/10/17 17:23 Dose: 1 tab Fluticasone/Salmeterol (Advair Diskus 250/50) 1 puff INH RQ12 [facility] Last Admin: 07/11/17 07:48 Dose: Not Given Sitagliptin Phosphate (Januvia) 50 mg PO DAILY [facility] Last Admin: 07/10/17 10:15 Dose: 50 mg - Labs Labs: 07/11/17 07:28 07/11/17 07:28 PT 13.0 SECONDS (9.7-12.2) H 07/07/17 09:58 INR 1.1 07/07/17 09:58 APTT 35 SECONDS (21-34) H 07/07/17 09:58
[2017-07-11] MEDS: Potassium Chloride 20 mEq ER Tab PO SCH (10:33)
[2017-07-11] MEDS: Ferric Sodium Gluconat Complex 62.5 mg/5 ml Vial IVPB SCH (10:34)
[2017-07-11] MEDS: Magnesium Oxide 400 mg Tab UD PO SCH (10:34)
[2017-07-11] MEDS: Sacubitril/Valsartan 24-26mg Tab PO SCH ×2 (10:36→17:59)
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
--- NOTE | 2017-07-11 14:46 | CP.PCM.PN ---
Subjective - Date & Time of Evaluation Date of Evaluation: 07/11/17 Time of Evaluation: 14:43 - Subjective Subjective: Patient was scheduled for colonoscopy today but refused the prep last night. The procedure was therefore canceled. She denies having nausea, vomting, abdominal pain. Objective - Vital Signs/Intake and Output Vital Signs (last 24 hours): Temp Pulse Resp BP Pulse Ox 97.7 F 75 18 99/65 L 97 07/11/17 07:25 07/11/17 07:25 07/11/17 07:25 07/11/17 10:35 07/11/17 07:25 Intake and Output: 07/11/17 07/11/17 06:59 18:59 Intake Total 500 Balance 500 - Medications Medications: Current Medications Acetaminophen (Tylenol 325mg Tab) 650 mg PO Q6 PRN PRN Reason: Fever >100.4 F Last Admin: 07/10/17 17:23 Dose: 650 mg Acetaminophen (Tylenol 325mg Tab) 650 mg PO Q6 PRN PRN Reason: Pain, moderate (4-7) Albuterol/Ipratropium (Duoneb 3 Mg/0.5 Mg (3 Ml) Ud) 3 ml INH RQ4 PRN PRN Reason: Wheezing Alprazolam (Xanax) 1 mg PO BID [facility] Last Admin: 07/11/17 10:33 Dose: 1 mg Carvedilol (Coreg) 12.5 mg PO BID [facility] Last Admin: 07/11/17 10:32 Dose: Not Given Dextrose (Dextrose 50% Inj) 0 ml IV STAT PRN; Protocol PRN Reason: Hypoglycemia Protocol Dextrose (Glutose 15) 0 gm PO ONCE PRN; Protocol PRN Reason: Hypoglycemia Protocol Digoxin (Lanoxin) 0.25 mg PO DAILY@1800 [facility] Last Admin: 07/10/17 17:23 Dose: 0.25 mg Ferric Sodium Gluconate Complex (Ferrlecit) 125 mg IVPB DAILY [facility] Stop: 07/15/17 10:01 Last Admin: 07/11/17 10:34 Dose: 125 mg Ferrous Sulfate (Feosol) 325 mg PO TID [facility] Last Admin: 07/11/17 10:34 Dose: 325 mg Furosemide (Lasix) 40 mg PO BID [facility] Last Admin: 07/11/17 10:35 Dose: Not Given Glucagon (Glucagen Diagnostic Kit) 0 mg IM STAT PRN; Protocol PRN Reason: Hypoglycemia Protocol Insulin Aspart (Novolog) 0 unit SC ACHS MONE PRN Reason: Protocol Last Admin: 07/11/17 08:30 Dose: Not Given Magnesium Oxide (Mag-Ox) 400 mg PO DAILY [facility] Last Admin: 07/11/17 10:34 Dose: 400 mg Pantoprazole Sodium (Protonix Inj) 40 mg IVP DAILY [facility] Last Admin: 07/11/17 10:32 Dose: 40 mg Potassium Chloride (K-Dur 20 Meq Er Tab) 20 meq PO DAILY [facility] Last Admin: 07/11/17 10:33 Dose: 20 meq Rosuvastatin Calcium (Crestor) 10 mg PO HS [facility] Last Admin: 07/10/17 21:23 Dose: 10 mg Sacubitril/Valsartan (Entresto 24 Mg-26 Mg) 1 tab PO BID [facility] Last Admin: 07/11/17 10:36 Dose: Not Given Fluticasone/Salmeterol (Advair Diskus 250/50) 1 puff INH RQ12 [facility] Last Admin: 07/11/17 07:48 Dose: Not Given Sitagliptin Phosphate (Januvia) 50 mg PO DAILY [facility] Last Admin: 07/11/17 10:33 Dose: 50 mg - Labs Labs: 07/11/17 07:28 07/11/17 07:28 PT 13.0 SECONDS (9.7-12.2) H 07/07/17 09:58 INR 1.1 07/07/17 09:58 APTT 35 SECONDS (21-34) H 07/07/17 09:58 - Constitutional Appears: No Acute Distress - Head Exam Head Exam: ATRAUMATIC, NORMOCEPHALIC - Eye Exam Eye Exam: EOMI, PERRL - Neck Exam Neck Exam: absent: Lymphadenopathy, Thyromegaly - Respiratory Exam Respiratory Exam: NORMAL BREATHING PATTERN. absent: Rales, Rhonchi, Wheezes - Cardiovascular Exam Cardiovascular Exam: REGULAR RHYTHM, +S1, +S2. absent: Gallop, Rubs, Murmur - GI/Abdominal Exam GI & Abdominal Exam: Soft, Normal Bowel Sounds. absent: Tenderness, Organomegaly - Rectal Exam Rectal Exam: Deferred - Extremities Exam Extremities Exam: absent: Calf Tenderness, Pedal Edema Assessment and Plan (1) Iron deficiency anemia Assessment & Plan: Patient has iron deficiency anemia and a positive fecal occult blood test. She should have colonoscopy and possibly EGD. These tests can be performed as an outpatient. Status: Acute
[2017-07-11 16:13] VITALS: RESP 20; TEMP 98.4; O2SAT 99
[2017-07-11] MEDS: Digoxin 250 mcg (0.25 mg) Tab PO SCH (17:58)
[2017-07-11 17:59] VITALS: BP 95/60; PULSE 76
--- NOTE | 2017-07-11 22:44 | CP.PCM.PN ---
Subjective - Date & Time of Evaluation Date of Evaluation: 07/11/17 Time of Evaluation: 13:00 - Subjective Subjective: Declined colon prep Objective - Vital Signs/Intake and Output Vital Signs (last 24 hours): Temp Pulse Resp BP Pulse Ox 98.4 F 75 20 95/60 L 99 07/11/17 16:12 07/11/17 16:12 07/11/17 16:12 07/11/17 17:58 07/11/17 16:12 Intake and Output: 07/11/17 07/12/17 18:59 06:59 Intake Total 100 Balance 100 - Labs Labs: 07/11/17 07:28 07/11/17 07:28 PT 13.0 SECONDS (9.7-12.2) H 07/07/17 09:58 INR 1.1 07/07/17 09:58 APTT 35 SECONDS (21-34) H 07/07/17 09:58 - Head Exam Head Exam: ATRAUMATIC - Eye Exam Eye Exam: Normal appearance - ENT Exam ENT Exam: Mucous Membranes Dry - Respiratory Exam Respiratory Exam: NORMAL BREATHING PATTERN - Cardiovascular Exam Cardiovascular Exam: +S1, +S2 - GI/Abdominal Exam GI & Abdominal Exam: Normal Bowel Sounds Assessment and Plan (1) Anemia Assessment & Plan: iron deficiency anemia outpatient endoscopy s/p IV iron and PRBC transfusion outpatient f/u Status: Acute
== END 2017-07-11 18:34 | disposition home or self-care (01) | DRG 812 ==
LOC: C.ER 13:46 → C.9E 15:41 → C.6T 17:24 → OBSVTOIN 07-09 19:31
PROVIDERS: ADMIT Family Medicine; ATTEND Family Medicine
PROC: 02HV33Z Insertion of Infusion Device into Superior Vena Cava, Percutaneous Approach (ICD-10-PCS; 2017-07-09)
PROC: 30233N1 Transfusion of Nonautologous Red Blood Cells into Peripheral Vein, Percutaneous Approach (ICD-10-PCS; 2017-07-09)
PROC: 0JH60XZ Insertion of Tunneled Vascular Access Device into Chest Subcutaneous Tissue and Fascia, Open Approach (ICD-10-PCS; principal; 2017-07-09 13:45)
DX: D50.0 Iron deficiency anemia secondary to blood loss (chronic) (principal); I42.9 Cardiomyopathy, unspecified; I48.91 Unspecified atrial fibrillation; I50.9 Heart failure, unspecified; I11.0 Hypertensive heart disease with heart failure; E11.9 Type 2 diabetes mellitus without complications; E78.00 Pure hypercholesterolemia, unspecified; F41.9 Anxiety disorder, unspecified; G47.33 Obstructive sleep apnea (adult) (pediatric); J44.9 Chronic obstructive pulmonary disease, unspecified; Z82.49 Family history of ischemic heart disease and other diseases of the circulatory system; Z82.5 Family history of asthma and other chronic lower respiratory diseases; Z99.81 Dependence on supplemental oxygen; Z95.810 Presence of automatic (implantable) cardiac defibrillator

== ENCOUNTER 2017-12-25 22:19 | Inpatient (IN) | payer MEDICARE, OTHER ==
[2017-12-25 22:21] VITALS: BMI 50.6
[2017-12-25 23:28] LABS: BASO % 0.6 % (0.0-2.0); EOS # 0.2 K/uL (0.0-0.7); EOS % 2.5 % (0.0-4.0); HEMOGLOBIN 8.5 g/dL (11.0-16.0); LYMPH % 26.7 % (20.0-40.0); MEAN CELL VOLUME 84.7 fL (81.0-99.0); MEAN CORPUSCULAR HEMOGLOBIN 27.5 pg (27.0-31.0); MEAN CORPUSCULAR HGB CONC 32.4 g/dL (33.0-37.0); MEAN PLATELET VOLUME 9.3 fL (7.2-11.7); MONO # 0.6 K/uL (0.0-0.8); NEUT # 4.7 K/uL (1.8-7.0); NEUT % 62.2 % (50.0-75.0); NRBC % 0.1 % (0.0-2.0); RBC 3.11 Mil/uL (3.80-5.20); RED CELL DISTRIBUTION WIDTH 15.8 % (11.5-14.5); WHITE BLOOD COUNT 7.5 K/uL (4.8-10.8)
[2017-12-25 23:36] LABS: INR 1.2; PROTHROMBIN TIME 12.9 SECONDS (9.7-12.2)
[2017-12-25 23:36] LABS: ALB/GLOB RATIO 1.2 (1.0-2.1); ALBUMIN 3.8 g/dL (3.5-5.0); ALT/SGPT 21 U/L (9-52); AST/SGOT 11 U/L (14-36); BLOOD UREA NITROGEN 14 mg/dL (7-17); GFR NON-AFRICAN AMERICAN > 60
[2017-12-25 23:47] LABS: B-TYPE NATRIURETIC PEPTIDE 245 pg/mL (0-900)
--- NOTE | 2017-12-26 00:07 | C.PDOC ---
History Of Present Illness 62 year old female sent in by Dr. Ned Moura for low hemoglobin of 7.5. Patient has a Hx of chronic anemia due to iron deficiency and GI blood loss. Patient also complains of dyspnea on exertion, SOB, and chest pressure. Denies nausea, vomiting, fever, or chills. Time Seen by Provider: 12/25/17 22:38 Chief Complaint (Nursing): Abnormal Labs History Per: Patient History/Exam Limitations: no limitations Onset/Duration Of Symptoms: Hrs Current Symptoms Are (Timing): Still Present Recent travel outside of the [place]: No Past Medical History Reviewed: Historical Data, Nursing Documentation, Vital Signs Vital Signs: Last Vital Signs Temp 98.9 F 12/25/17 22:35 Pulse 75 12/25/17 22:35 Resp 20 12/25/17 22:35 BP 141/84 12/25/17 22:35 Pulse Ox 97 12/25/17 22:35 - Medical History PMH: Anemia, Anxiety, Arthritis, Asthma, Atrial Fibrillation, Cardia Arrhythmia, CHF, COPD, Depression, Fractures (RIGHT MIDDLE TOE), HTN, Hypercholesterolemia, Peripheral Edema, Pneumonia, Sleep Apnea (C PAP SETTING 10) Denies: Chronic Kidney Disease Surgical History: Pacemaker - [facility] Procedures INSERTION OF INFUSION DEV INTO SUP VENA CAVA, PERC APPROACH (07/09/17) INSERTION OF VAD INTO CHEST SUBCU/FASCIA, OPEN APPROACH (07/09/17) LEFT HEART CARDIAC CATH (02/12/13) LT HEART ANGIOCARDIOGRAM (02/12/13) TRANSFUSE NONAUT RED BLOOD CELLS IN PERIPH VEIN, PERC (07/09/17) Family History: States: Unknown Family Hx - Social History Hx Tobacco Use: No Hx Alcohol Use: No Hx Substance Use: No - Immunization History Hx Tetanus Toxoid Vaccination: No Hx Influenza Vaccination: Yes Hx Pneumococcal Vaccination: No Review Of Systems Constitutional: Negative for: Fever, Chills Cardiovascular: Positive for: Chest Pain (Pressure) Respiratory: Positive for: Shortness of Breath, SOB with Excertion Gastrointestinal: Negative for: Nausea, Vomiting Genitourinary: Negative for: Dysuria, Hematuria Skin: Negative for: Rash Neurological: Negative for: Weakness, Numbness Physical Exam - Physical Exam Appears: Non-toxic, Other (Morbidly obese) Skin: Normal Color, Warm, Dry Head: Atraumatic, Normacephalic Eye(s): bilateral: Normal Inspection Oral Mucosa: Moist Throat: Normal, No Erythema, No Exudate Neck: Normal, Supple Chest: Other (Left sided pacer, Right sided medport) Cardiovascular: Rhythm Regular Respiratory: Normal Breath Sounds, No Rales, No Rhonchi, No Wheezing Gastrointestinal/Abdominal: Soft, No Tenderness Rectal: Other (Refuses exam) Back: No CVA Tenderness Extremity: Normal ROM (x4) Neurological/Psych: Oriented x3, Normal Speech, Other (Minor chronic left facial droop) ED Course And Treatment - Laboratory Results Result Diagrams: 12/25/17 23:19 12/25/17 23:19 Lab Interpretation: Abnormal (anemia) ECG: Interpreted By Mt ECG Rhythm: AV Paced ECG Interpretation: Normal Rate From EC O2 Sat by Pulse Oximetry: 97 Pulse Ox Interpretation: Normal - Radiology CXR: Interpreted by Me CXR Interpretation: Yes: No Acute Disease, Heart Size Reevaluation Time: 00:08 Reassessment Condition: Improved - Physician Consult Information Outcome Of Conversation: 2315: d/w Dr. Ned Moura, will consult. 2315: d/w Dr. Sánchez, prior admitting doctor, defers to [facility] [employer]. 0000: d/w Dr. Dave Mejia, [facility] [employer], ok to admit. Medical Decision Making Medical Decision Making: acute on chronic anemia usually GI source, pt denies GIB, refused occult blood stool Start Blood tx per Dr. Moura Disposition Doctor Will See Patient In The: Hospital Counseled Patient/Family Regarding: Studies Performed, Diagnosis - Disposition Disposition: HOSPITALIZED Disposition Time: 00:11 Condition: GOOD Forms: [facility] (Dutch) - Clinical Impression Clinical Impression: Chronic anemia - Scribe Statement The provider has reviewed the documentation as recorded by the Scribbarrett Leung All medical record entries made by the Scribe were at my direction and personally dictated by me. I have reviewed the chart and agree that the record accurately reflects my personal performance of the history, physical exam, medical decision making, and the department course for this patient. I have also personally directed, reviewed, and agree with the discharge instructions and disposition.
[2017-12-26] MEDS ORDERED: Albuterol 0.083% Inhal Sol (2.5 mg/3 mL) UD INH PRN ×2 (01:51→17:30)
[2017-12-26 06:25] LABS: BASO % 0.6 % (0.0-2.0); EOS # 0.2 K/uL (0.0-0.7); EOS % 2.5 % (0.0-4.0); HEMOGLOBIN 8.3 g/dL (11.0-16.0); LYMPH # 2.3 K/uL (1.0-4.3); LYMPH % 32.4 % (20.0-40.0); MEAN CORPUSCULAR HEMOGLOBIN 27.3 pg (27.0-31.0); MEAN CORPUSCULAR HGB CONC 31.7 g/dL (33.0-37.0); MONO # 0.6 K/uL (0.0-0.8); MONO % 8.7 % (0.0-10.0); NEUT % 55.8 % (50.0-75.0); RBC 3.06 Mil/uL (3.80-5.20); RED CELL DISTRIBUTION WIDTH 15.8 % (11.5-14.5); WHITE BLOOD COUNT 7.1 K/uL (4.8-10.8)
[2017-12-26 06:52] LABS: ALB/GLOB RATIO 1.2 (1.0-2.1); ALBUMIN 3.7 g/dL (3.5-5.0); ALT/SGPT 19 U/L (9-52); AST/SGOT 16 U/L (14-36); BLOOD UREA NITROGEN 15 mg/dL (7-17); GFR NON-AFRICAN AMERICAN > 60
--- NOTE | 2017-12-26 08:50 | RAD ---
Date of service: 12/25/2017 PROCEDURE: CHEST RADIOGRAPH, 1 VIEW HISTORY: SOB COMPARISON: 07/09/2017 FINDINGS: LUNGS: Clear. PLEURA: No pneumothorax or pleural fluid seen. CARDIOVASCULAR: Cardiomegaly. AIC Right central venous infusion port. Please note that the catheter is in appropriately position and extending up the jugular vein. This should be repositioned. This represents change from its position on prior radiographic examination. OSSEOUS STRUCTURES: No significant abnormalities. VISUALIZED UPPER ABDOMEN: Normal. OTHER FINDINGS: None. IMPRESSION: Malpositioned right central venous infusion port. This extends cephalad up the internal jugular vein. Cardiomegaly and AICD. No infiltrate.
[2017-12-26] MEDS ORDERED: IRON INFUSION IV SCH (09:00)
[2017-12-26] MEDS ORDERED: Home Med 1 UNIT (Potassium Chloride [Potassium Chloride] 20 MEQ) PO SCH (10:00)
[2017-12-26] MEDS ORDERED: MAGNESIUM 400 MG PO SCH (10:00)
[2017-12-26] MEDS ORDERED: UMECLIDINIUM BRM IH SCH (10:00)
[2017-12-26] MEDS ORDERED: Home Med 1 UNIT (Acetaminophen/Oxycodone Hydr [Percocet 10/325 Mg Tab] 1 TAB) PO SCH (10:00)
[2017-12-26] MEDS ORDERED: VILANTEROL TR IH SCH (10:00)
[2017-12-26] MEDS ORDERED: ALPRAZOLAM 1 MG PO SCH (10:00)
[2017-12-26] MEDS: Sacubitril/Valsartan 24-26mg Tab PO SCH (12:55)
[2017-12-26] MEDS: Pantoprazole 40 mg EC Tab PO SCH (12:55)
[2017-12-26] MEDS ORDERED: Ferric Sodium Gluconat Complex 62.5 mg/5 ml Vial IVPB SCH (13:45)
[2017-12-26] MEDS: Ferric Sodium Gluconat Complex 125 MG in Sodium Chloride 0.9% 100 ML IVPB SCH (15:39)
[2017-12-26] MEDS ORDERED: Ferric Sodium Gluconat Complex 125 MG in Sodium Chloride 0.9% 100 ML IVPB SCH (16:00)
[2017-12-26] MEDS: Oxycodone/Acetaminophen 5/325 mg Tab PO PRN (17:36)
[2017-12-26] MEDS: Digoxin 250 mcg (0.25 mg) Tab PO SCH (17:36)
[2017-12-26] MEDS: Potassium Chloride 20 mEq ER Tab PO SCH (17:47)
--- NOTE | 2017-12-26 21:17 | CP.PCM.HP ---
Past Patient History - Infectious Disease Hx of Infectious Diseases: None - Past Medical History & Family History Past Medical History?: Yes - Past Social History Smoking Status: Former Smoker - CARDIAC Hx Cardiac Disorders: Yes Hx Atrial Fibrillation: Yes Hx Cardia Arrhythmia: Yes Hx Congestive Heart Failure: Yes Hx Hypercholesterolemia: Yes Hx Hypertension: Yes Hx Internal Defibrillator: Yes Hx Pacemaker: Yes Hx Peripheral Edema: Yes - PULMONARY Hx Respiratory Disorders: Yes Hx Asthma: Yes Hx Chronic Obstructive Pulmonary Disease (COPD): Yes Hx Pneumonia: Yes Hx Sleep Apnea: Yes (C PAP SETTING 10) - NEUROLOGICAL Hx Neurological Disorder: Yes Hx Dizziness: Yes - HEENT Hx HEENT Problems: Yes Other/Comment: left eye surgery 2014. glasses for distance and reading - RENAL Hx Chronic Kidney Disease: No - ENDOCRINE/METABOLIC Hx Endocrine Disorders: Yes Hx Diabetes Mellitus Type 2: Yes - HEMATOLOGICAL/ONCOLOGICAL Hx Blood Disorders: Yes Hx Anemia: Yes Hx Blood Transfusions: Yes - INTEGUMENTARY Hx Dermatological Problems: No - MUSCULOSKELETAL/RHEUMATOLOGICAL Hx Musculoskeletal Disorders: Yes Hx Arthritis: Yes Hx Falls: Yes Hx Fractures: Yes (RIGHT MIDDLE TOE) - GASTROINTESTINAL Hx Gastrointestinal Disorders: No - GENITOURINARY/GYNECOLOGICAL Hx Genitourinary Disorders: No - PSYCHIATRIC Hx Psychophysiologic Disorder: Yes Hx Anxiety: Yes Hx Depression: Yes - SURGICAL HISTORY Hx Surgeries: Yes Hx Eye Surgery: Yes (left eye 2014) Hx Herniorrhaphy: Yes Hx Open Heart Surgery: Yes (foramen ovale at age 6) Hx Orthopedic Surgery: Yes (right carpal surgery) Hx Vascular Access Device: Yes Other/Comment: pacemaker 2009,ablation 2009, - ANESTHESIA Hx Anesthesia: Yes Hx Anesthesia Reactions: No Hx Malignant Hyperthermia: No Has any member of the family had a problem w/ anesthesia?: No Meds Allergies/Adverse Reactions: Allergies Allergy/AdvReac Type Severity Reaction Status Date / Time No Known Allergies Allergy Verified 12/25/17 22:40 Physical Exam - Constitutional Appears: Well - Head Exam Head Exam: ATRAUMATIC, NORMAL INSPECTION, NORMOCEPHALIC - Eye Exam Eye Exam: EOMI, Normal appearance, PERRL Pupil Exam: NORMAL ACCOMODATION, PERRL - ENT Exam ENT Exam: Mucous Membranes Moist, Normal Exam - Neck Exam Neck exam: Positive for: Normal Inspection - Respiratory Exam Respiratory Exam: Decreased Breath Sounds - Cardiovascular Exam Cardiovascular Exam: REGULAR RHYTHM, +S1, +S2 - GI/Abdominal Exam GI & Abdominal Exam: Diminished Bowel Sounds, Soft - Rectal Exam Rectal Exam: Deferred Results - Vital Signs Recent Vital Signs: Last Vital Signs Temp 98.2 F 12/26/17 14:00 Pulse 75 12/26/17 18:30 Resp 15 12/26/17 18:30 BP 111/62 12/26/17 17:35 Pulse Ox 98 12/26/17 17:32 - Labs Result Diagrams: 12/26/17 06:15 12/26/17 06:15 Labs: Laboratory Results - last 24 hr 12/25/17 12/25/17 12/25/17 23:19 23:19 23:26 WBC 7.5 RBC 3.11 L Hgb 8.5 L Hct 26.3 L MCV 84.7 D MCH 27.5 MCHC 32.4 L RDW 15.8 H Plt Count 202 MPV 9.3 Neut % (Auto) 62.2 Lymph % (Auto) 26.7 [place] % (Auto) 8.0 Eos % (Auto) 2.5 Baso % (Auto) 0.6 Neut # (Auto) 4.7 Lymph # (Auto) 2.0 [place] # (Auto) 0.6 Eos # (Auto) 0.2 Baso # (Auto) 0.0 PT 12.9 H INR 1.2 APTT 54 H Sodium 143 Potassium 3.9 Chloride 102 Carbon Dioxide 30 Anion Gap 15 BUN 14 Creatinine 0.8 Est GFR ( Amer) > 60 Est GFR (Non-Af Amer) > 60 POC Glucose (mg/dL) Random Glucose 123 H Calcium 9.0 Total Bilirubin 0.8 AST 11 L D ALT 21 Alkaline Phosphatase 76 Troponin I < 0.0120 NT-Pro-B Natriuret Pep 245 Total Protein 7.0 Albumin 3.8 Globulin 3.2 Albumin/Globulin Ratio 1.2 Blood Type Antibody Screen 12/25/17 12/26/17 12/26/17 23:40 06:15 06:15 WBC 7.1 RBC 3.06 L Hgb 8.3 L Hct 26.3 L MCV 86.0 MCH 27.3 MCHC 31.7 L RDW 15.8 H Plt Count 186 MPV 9.0 Neut % (Auto) 55.8 Lymph % (Auto) 32.4 [place] % (Auto) 8.7 Eos % (Auto) 2.5 Baso % (Auto) 0.6 Neut # (Auto) 4.0 Lymph # (Auto) 2.3 [place] # (Auto) 0.6 Eos # (Auto) 0.2 Baso # (Auto) 0.0 PT INR APTT Sodium 142 Potassium 4.0 Chloride 103 Carbon Dioxide 32 H Anion Gap 11 BUN 15 Creatinine 0.7 Est GFR ( Amer) > 60 Est GFR (Non-Af Amer) > 60 POC Glucose (mg/dL) Random Glucose 99 Calcium 9.0 Total Bilirubin 0.6 AST 16 ALT 19 Alkaline Phosphatase 81 Troponin I NT-Pro-B Natriuret Pep Total Protein 6.7 Albumin 3.7 Globulin 3.0 Albumin/Globulin Ratio 1.2 Blood Type O POSITIVE Antibody Screen Negative 12/26/17 12/26/17 12/26/17 07:25 11:15 16:13 WBC RBC Hgb Hct MCV MCH MCHC RDW Plt Count MPV Neut % (Auto) Lymph % (Auto) [place] % (Auto) Eos % (Auto) Baso % (Auto) Neut # (Auto) Lymph # (Auto) [place] # (Auto) Eos # (Auto) Baso # (Auto) PT INR APTT Sodium Potassium Chloride Carbon Dioxide Anion Gap BUN Creatinine Est GFR ( Amer) Est GFR (Non-Af Amer) POC Glucose (mg/dL) 109 109 125 H Random Glucose Calcium Total Bilirubin AST ALT Alkaline Phosphatase Troponin I NT-Pro-B Natriuret Pep Total Protein Albumin Globulin Albumin/Globulin Ratio Blood Type Antibody Screen
--- NOTE | 2017-12-27 01:21 | CP.PCM.CON ---
History of Present Illness - History of Present Illness History of Present Illness: 61 year old female with a history of DM, HTN, HL, COPD, ROSIO, cardiomyopthay with AICD, afib on aspirin, iron deficiency anemia, admitted with symptomatic anemia anemia. The patient was found to have a hgb of 7.4 in the office and sent to the ER for further evaluation. She has been FOB positive and has received multiple PRBC transfusions. The patient was felt high risk for endoscopy given her cardiac history and prior Xarelto was held in an attempt to stabilize her hemoglobin. Past medical history: DM, HTN, HL, COPD, ROSIO, cardiomyopathy, with AICD, afib, iron deficiency anemia Past surgical history: Umbilical hernia repair, AICD Family history: Denies hematologic and oncologic problems Social history: Denies tobacco, alcohol, and illicit drug use. Allergies: NKA Review of systems: All remaining review of systems including HEENT, cardiovascular, respiratory, gastrointestinal, genitourinary, musculoskeletal, dermatologic, neurologic, and psychiatric are negative unless mentioned in the HPI. Past Patient History - Infectious Disease Hx of Infectious Diseases: None - Past Medical History & Family History Past Medical History?: Yes - Past Social History Smoking Status: Former Smoker - CARDIAC Hx Cardiac Disorders: Yes Hx Atrial Fibrillation: Yes Hx Cardia Arrhythmia: Yes Hx Congestive Heart Failure: Yes Hx Hypercholesterolemia: Yes Hx Hypertension: Yes Hx Internal Defibrillator: Yes Hx Pacemaker: Yes Hx Peripheral Edema: Yes - PULMONARY Hx Respiratory Disorders: Yes Hx Asthma: Yes Hx Chronic Obstructive Pulmonary Disease (COPD): Yes Hx Pneumonia: Yes Hx Sleep Apnea: Yes (C PAP SETTING 10) - NEUROLOGICAL Hx Neurological Disorder: Yes Hx Dizziness: Yes - HEENT Hx HEENT Problems: Yes Other/Comment: left eye surgery 2014. glasses for distance and reading - RENAL Hx Chronic Kidney Disease: No - ENDOCRINE/METABOLIC Hx Endocrine Disorders: Yes Hx Diabetes Mellitus Type 2: Yes - HEMATOLOGICAL/ONCOLOGICAL Hx Blood Disorders: Yes Hx Anemia: Yes Hx Blood Transfusions: Yes - INTEGUMENTARY Hx Dermatological Problems: No - MUSCULOSKELETAL/RHEUMATOLOGICAL Hx Musculoskeletal Disorders: Yes Hx Arthritis: Yes Hx Falls: Yes Hx Fractures: Yes (RIGHT MIDDLE TOE) - GASTROINTESTINAL Hx Gastrointestinal Disorders: No - GENITOURINARY/GYNECOLOGICAL Hx Genitourinary Disorders: No - PSYCHIATRIC Hx Psychophysiologic Disorder: Yes Hx Anxiety: Yes Hx Depression: Yes - SURGICAL HISTORY Hx Surgeries: Yes Hx Eye Surgery: Yes (left eye 2014) Hx Herniorrhaphy: Yes Hx Open Heart Surgery: Yes (foramen ovale at age 6) Hx Orthopedic Surgery: Yes (right carpal surgery) Hx Vascular Access Device: Yes Other/Comment: pacemaker 2009,ablation 2009, - ANESTHESIA Hx Anesthesia: Yes Hx Anesthesia Reactions: No Hx Malignant Hyperthermia: No Has any member of the family had a problem w/ anesthesia?: No Meds Allergies/Adverse Reactions: Allergies Allergy/AdvReac Type Severity Reaction Status Date / Time No Known Allergies Allergy Verified 12/25/17 22:40 - Medications Medications: Current Medications Albuterol Sulfate (Albuterol 0.083% Inhal Donna (2.5 Mg/3 Ml) Ud) 2.5 mg INH RQ6 PRN PRN Reason: Shortness of Breath Alprazolam (Xanax) 1 mg PO BID [facility] Last Admin: 12/26/17 17:37 Dose: 1 mg Carvedilol (Coreg) 12.5 mg PO BID [facility] Last Admin: 12/26/17 17:48 Dose: Not Given Digoxin (Lanoxin) 0.25 mg PO DAILY@1800 [facility] Last Admin: 12/26/17 17:36 Dose: 0.25 mg Furosemide (Lasix) 40 mg PO DAILY [facility] Last Admin: 12/26/17 12:54 Dose: Not Given Home Med (Umeclidinium Brm/Vilanterol Tr [Anoro Ellipta 62.5-25 Mcg Inh]) 1 puff IH DAILY [facility] Ferric Sodium Gluconate Complex 125 mg/ Sodium Chloride 110 mls @ 110 mls/hr IVPB Q24H [facility] Stop: 01/03/18 15:31 Last Admin: 12/26/17 15:39 Dose: 110 mls/hr Magnesium Oxide (Mag-Ox) 400 mg PO DAILY [facility] Oxycodone/Acetaminophen (Percocet 5/325 Mg Tab) 1 tab PO Q12H PRN PRN Reason: FOR PAIN Stop: 12/29/17 18:01 Last Admin: 12/26/17 17:36 Dose: 1 tab Pantoprazole Sodium (Protonix Ec Tab) 40 mg PO DAILY [facility] Last Admin: 12/26/17 12:55 Dose: 40 mg Potassium Chloride (K-Dur 20 Meq Er Tab) 20 meq PO DAILY [facility] Last Admin: 12/26/17 17:47 Dose: Not Given Rosuvastatin Calcium (Crestor) 10 mg PO [facility] Last Admin: 12/26/17 22:41 Dose: 10 mg Sacubitril/Valsartan (Entresto 24 Mg-26 Mg) 1 tab PO DAILY [facility] Last Admin: 12/26/17 12:55 Dose: 1 tab Sitagliptin Phosphate (Januvia) 50 mg PO DAILY [facility] Last Admin: 12/26/17 12:55 Dose: 50 mg Physical Exam - Head Exam Head Exam: ATRAUMATIC - Eye Exam Eye Exam: Normal appearance - ENT Exam ENT Exam: Mucous Membranes Dry - Respiratory Exam Respiratory Exam: NORMAL BREATHING PATTERN - Cardiovascular Exam Cardiovascular Exam: +S1, +S2 - GI/Abdominal Exam GI & Abdominal Exam: Normal Bowel Sounds - Extremities Exam Extremities exam: Positive for: pedal edema - Neurological Exam Neurological exam: Oriented x3 - Psychiatric Exam Psychiatric exam: Normal Affect, Normal Mood - Skin Skin Exam: Warm Results - Vital Signs Recent Vital Signs: Last Vital Signs Temp 97.7 F 12/26/17 22:00 Pulse 75 12/27/17 01:00 Resp 18 12/26/17 22:00 BP 102/62 12/26/17 22:00 Pulse Ox 99 12/26/17 22:00 - Labs Result Diagrams: 12/26/17 06:15 12/26/17 06:15 Labs: Laboratory Results - last 24 hr 12/25/17 12/26/17 12/26/17 23:40 06:15 06:15 WBC 7.1 RBC 3.06 L Hgb 8.3 L Hct 26.3 L MCV 86.0 MCH 27.3 MCHC 31.7 L RDW 15.8 H Plt Count 186 MPV 9.0 Neut % (Auto) 55.8 Lymph % (Auto) 32.4 [place] % (Auto) 8.7 Eos % (Auto) 2.5 Baso % (Auto) 0.6 Neut # (Auto) 4.0 Lymph # (Auto) 2.3 [place] # (Auto) 0.6 Eos # (Auto) 0.2 Baso # (Auto) 0.0 Sodium 142 Potassium 4.0 Chloride 103 Carbon Dioxide 32 H Anion Gap 11 BUN 15 Creatinine 0.7 Est GFR ( Amer) > 60 Est GFR (Non-Af Amer) > 60 POC Glucose (mg/dL) Random Glucose 99 Calcium 9.0 Total Bilirubin 0.6 AST 16 ALT 19 Alkaline Phosphatase 81 Total Protein 6.7 Albumin 3.7 Globulin 3.0 Albumin/Globulin Ratio 1.2 Blood Type O POSITIVE Antibody Screen Negative 12/26/17 12/26/17 12/26/17 07:25 11:15 16:13 WBC RBC Hgb Hct MCV MCH MCHC RDW Plt Count MPV Neut % (Auto) Lymph % (Auto) [place] % (Auto) Eos % (Auto) Baso % (Auto) Neut # (Auto) Lymph # (Auto) [place] # (Auto) Eos # (Auto) Baso # (Auto) Sodium Potassium Chloride Carbon Dioxide Anion Gap BUN Creatinine Est GFR ( Amer) Est GFR (Non-Af Amer) POC Glucose (mg/dL) 109 109 125 H Random Glucose Calcium Total Bilirubin AST ALT Alkaline Phosphatase Total Protein Albumin Globulin Albumin/Globulin Ratio Blood Type Antibody Screen Assessment & Plan (1) Anemia Assessment and Plan: iron deficiency anemia from chronic GI blood loss unable to undergo GI w/u due to high cardiac risk on intermittent iron agree with PRBC transfusion support; goal HGb ~ 10 iron supplementation Status: Acute
[2017-12-27 06:15] LABS: BASO # 0.1 K/uL (0.0-0.2); BASO % 0.8 % (0.0-2.0); EOS # 0.2 K/uL (0.0-0.7); EOS % 2.7 % (0.0-4.0); HEMOGLOBIN 8.3 g/dL (11.0-16.0); LYMPH # 2.1 K/uL (1.0-4.3); LYMPH % 31.6 % (20.0-40.0); MEAN CELL VOLUME 85.6 fL (81.0-99.0); MEAN CORPUSCULAR HEMOGLOBIN 27.5 pg (27.0-31.0); MEAN CORPUSCULAR HGB CONC 32.1 g/dL (33.0-37.0); MEAN PLATELET VOLUME 8.9 fL (7.2-11.7); MONO # 0.6 K/uL (0.0-0.8); MONO % 8.8 % (0.0-10.0); NEUT # 3.7 K/uL (1.8-7.0); NEUT % 56.1 % (50.0-75.0); RBC 3.02 Mil/uL (3.80-5.20); RED CELL DISTRIBUTION WIDTH 15.6 % (11.5-14.5); WHITE BLOOD COUNT 6.5 K/uL (4.8-10.8)
[2017-12-27 06:33] LABS: ALB/GLOB RATIO 1.1 (1.0-2.1); ALBUMIN 3.5 g/dL (3.5-5.0); ALT/SGPT 14 U/L (9-52); AST/SGOT 10 U/L (14-36); BLOOD UREA NITROGEN 13 mg/dL (7-17); CALCIUM 8.7 mg/dl (8.6-10.4); GFR NON-AFRICAN AMERICAN > 60
[2017-12-27] MEDS: Magnesium Oxide 400 mg Tab UD PO SCH (09:22)
[2017-12-27] MEDS: Pantoprazole 40 mg EC Tab PO SCH (09:23)
[2017-12-27] MEDS: Potassium Chloride 20 mEq ER Tab PO SCH (09:23)
[2017-12-27] MEDS: Sacubitril/Valsartan 24-26mg Tab PO SCH (09:24)
[2017-12-27] MEDS: Oxycodone/Acetaminophen 5/325 mg Tab PO PRN ×2 (09:28→22:14)
[2017-12-27] MEDS: Fluticasone-Vilanterol 100/25mcg Diskus INH SCH (10:20)
[2017-12-27] MEDS: Ferric Sodium Gluconat Complex 125 MG in Sodium Chloride 0.9% 100 ML IVPB SCH (15:29)
[2017-12-27] MEDS: Digoxin 250 mcg (0.25 mg) Tab PO SCH (17:10)
--- NOTE | 2017-12-27 19:10 | CP.PCM.PN ---
Subjective - Date & Time of Evaluation Date of Evaluation: 12/27/17 Time of Evaluation: 12:00 - Subjective Subjective: No complaints. Objective - Vital Signs/Intake and Output Vital Signs (last 24 hours): Temp Pulse Resp BP Pulse Ox 97.6 F 75 18 98/55 L 93 L 12/27/17 16:24 12/27/17 18:00 12/27/17 16:24 12/27/17 17:35 12/27/17 16:00 Intake and Output: 12/27/17 12/28/17 18:59 06:59 Intake Total 835 Output Total 850 Balance -15 - Medications Medications: Current Medications Albuterol Sulfate (Albuterol 0.083% Inhal Donna (2.5 Mg/3 Ml) Ud) 2.5 mg INH RQ6 PRN PRN Reason: Shortness of Breath Alprazolam (Xanax) 1 mg PO BID [facility] Last Admin: 12/27/17 17:10 Dose: 1 mg Carvedilol (Coreg) 12.5 mg PO BID [facility] Last Admin: 12/27/17 17:35 Dose: Not Given Digoxin (Lanoxin) 0.25 mg PO DAILY@1800 [facility] Last Admin: 12/27/17 17:10 Dose: 0.25 mg Fluticasone/Vilanterol (Breo Ellipta 100-25 Mcg Inh) 1 puff INH DAILY [facility] Last Admin: 12/27/17 10:20 Dose: Not Given Furosemide (Lasix) 40 mg PO DAILY [facility] Last Admin: 12/27/17 09:23 Dose: 40 mg Ferric Sodium Gluconate Complex 125 mg/ Sodium Chloride 110 mls @ 110 mls/hr IVPB Q24H [facility] Stop: 01/03/18 15:31 Last Admin: 12/27/17 15:29 Dose: 110 mls/hr Magnesium Oxide (Mag-Ox) 400 mg PO DAILY [facility] Last Admin: 12/27/17 09:22 Dose: 400 mg Oxycodone/Acetaminophen (Percocet 5/325 Mg Tab) 1 tab PO Q12H PRN PRN Reason: FOR PAIN Stop: 12/29/17 18:01 Last Admin: 12/27/17 09:28 Dose: 1 tab Pantoprazole Sodium (Protonix Ec Tab) 40 mg PO DAILY [facility] Last Admin: 12/27/17 09:23 Dose: 40 mg Potassium Chloride (K-Dur 20 Meq Er Tab) 20 meq PO DAILY [facility] Last Admin: 12/27/17 09:23 Dose: 20 meq Rosuvastatin Calcium (Crestor) 10 mg PO HS [facility] Last Admin: 12/26/17 22:41 Dose: 10 mg Sacubitril/Valsartan (Entresto 24 Mg-26 Mg) 1 tab PO DAILY [facility] Last Admin: 12/27/17 09:24 Dose: 1 tab Sitagliptin Phosphate (Januvia) 50 mg PO DAILY [facility] Last Admin: 12/27/17 09:22 Dose: 50 mg - Labs Labs: 12/27/17 06:11 12/27/17 06:11 PT 12.9 SECONDS (9.7-12.2) H 12/25/17 23:26 INR 1.2 12/25/17 23:26 APTT 54 SECONDS (21-34) H 12/25/17 23:26 - Head Exam Head Exam: ATRAUMATIC - Eye Exam Eye Exam: Normal appearance - ENT Exam ENT Exam: Mucous Membranes Dry - Respiratory Exam Respiratory Exam: NORMAL BREATHING PATTERN - Cardiovascular Exam Cardiovascular Exam: +S1, +S2 - GI/Abdominal Exam GI & Abdominal Exam: Normal Bowel Sounds Assessment and Plan (1) Anemia Assessment & Plan: iron deficiency anemia from chronic GI blood loss unable to undergo GI w/u due to high cardiac risk on intermittent iron agree with PRBC transfusion support; goal HGb ~ 10 iron supplementation Status: Acute
--- NOTE | 2017-12-27 19:58 | CP.PCM.PN ---
Subjective - Date & Time of Evaluation Date of Evaluation: 12/27/17 Time of Evaluation: 11:15 - Subjective Subjective: clinically same Objective - Vital Signs/Intake and Output Vital Signs (last 24 hours): Temp Pulse Resp BP Pulse Ox 97.6 F 75 22 91/56 L 96 12/27/17 16:24 12/27/17 18:00 12/27/17 18:00 12/27/17 18:00 12/27/17 18:00 Intake and Output: 12/27/17 12/28/17 18:59 06:59 Intake Total 835 Output Total 850 Balance -15 - Medications Medications: Current Medications Albuterol Sulfate (Albuterol 0.083% Inhal Donna (2.5 Mg/3 Ml) Ud) 2.5 mg INH RQ6 PRN PRN Reason: Shortness of Breath Alprazolam (Xanax) 1 mg PO BID [facility] Last Admin: 12/27/17 17:10 Dose: 1 mg Carvedilol (Coreg) 12.5 mg PO BID [facility] Last Admin: 12/27/17 17:35 Dose: Not Given Digoxin (Lanoxin) 0.25 mg PO DAILY@1800 [facility] Last Admin: 12/27/17 17:10 Dose: 0.25 mg Fluticasone/Vilanterol (Breo Ellipta 100-25 Mcg Inh) 1 puff INH DAILY [facility] Last Admin: 12/27/17 10:20 Dose: Not Given Furosemide (Lasix) 40 mg PO DAILY [facility] Last Admin: 12/27/17 09:23 Dose: 40 mg Ferric Sodium Gluconate Complex 125 mg/ Sodium Chloride 110 mls @ 110 mls/hr IVPB Q24H [facility] Stop: 01/03/18 15:31 Last Admin: 12/27/17 15:29 Dose: 110 mls/hr Magnesium Oxide (Mag-Ox) 400 mg PO DAILY [facility] Last Admin: 12/27/17 09:22 Dose: 400 mg Oxycodone/Acetaminophen (Percocet 5/325 Mg Tab) 1 tab PO Q12H PRN PRN Reason: FOR PAIN Stop: 12/29/17 18:01 Last Admin: 12/27/17 09:28 Dose: 1 tab Pantoprazole Sodium (Protonix Ec Tab) 40 mg PO DAILY [facility] Last Admin: 12/27/17 09:23 Dose: 40 mg Potassium Chloride (K-Dur 20 Meq Er Tab) 20 meq PO DAILY [facility] Last Admin: 12/27/17 09:23 Dose: 20 meq Rosuvastatin Calcium (Crestor) 10 mg PO HS [facility] Last Admin: 12/26/17 22:41 Dose: 10 mg Sacubitril/Valsartan (Entresto 24 Mg-26 Mg) 1 tab PO DAILY [facility] Last Admin: 12/27/17 09:24 Dose: 1 tab Sitagliptin Phosphate (Januvia) 50 mg PO DAILY [facility] Last Admin: 12/27/17 09:22 Dose: 50 mg - Labs Labs: 12/27/17 06:11 12/27/17 06:11 PT 12.9 SECONDS (9.7-12.2) H 12/25/17 23:26 INR 1.2 12/25/17 23:26 APTT 54 SECONDS (21-34) H 12/25/17 23:26 - Constitutional Appears: Well - Head Exam Head Exam: ATRAUMATIC, NORMAL INSPECTION, NORMOCEPHALIC - Eye Exam Eye Exam: EOMI, Normal appearance, PERRL Pupil Exam: NORMAL ACCOMODATION, PERRL - ENT Exam ENT Exam: Mucous Membranes Moist, Normal Exam - Neck Exam Neck Exam: Full ROM, Normal Inspection. absent: Lymphadenopathy - Respiratory Exam Respiratory Exam: Decreased Breath Sounds - Cardiovascular Exam Cardiovascular Exam: REGULAR RHYTHM, +S1, +S2 - GI/Abdominal Exam GI & Abdominal Exam: Soft, Diminished Bowel Sounds - Rectal Exam Rectal Exam: Deferred
--- NOTE | 2017-12-27 23:24 | CARD ---
APPROVED REPORT Date of service: 12/25/2017 EKG Measurement Heart [id number] <Conclusion> Atrial-paced rhythm with prolonged AV conduction Nonspecific intraventricular block Abnormal ECG
[2017-12-28 06:34] LABS: BASO % 0.4 % (0.0-2.0); EOS # 0.2 K/uL (0.0-0.7); EOS % 3.3 % (0.0-4.0); HEMOGLOBIN 9.1 g/dL (11.0-16.0); LYMPH # 2.1 K/uL (1.0-4.3); LYMPH % 31.4 % (20.0-40.0); MEAN CELL VOLUME 85.6 fL (81.0-99.0); MEAN CORPUSCULAR HEMOGLOBIN 27.5 pg (27.0-31.0); MEAN CORPUSCULAR HGB CONC 32.2 g/dL (33.0-37.0); MEAN PLATELET VOLUME 9.5 fL (7.2-11.7); MONO # 0.6 K/uL (0.0-0.8); MONO % 8.3 % (0.0-10.0); NEUT # 3.8 K/uL (1.8-7.0); NEUT % 56.6 % (50.0-75.0); NRBC % 0.1 % (0.0-2.0); RBC 3.29 Mil/uL (3.80-5.20); RED CELL DISTRIBUTION WIDTH 15.5 % (11.5-14.5); WHITE BLOOD COUNT 6.7 K/uL (4.8-10.8)
[2017-12-28 07:08] LABS: ALB/GLOB RATIO 1.2 (1.0-2.1); ALBUMIN 3.7 g/dL (3.5-5.0); ALT/SGPT 19 U/L (9-52); AST/SGOT 9 U/L (14-36); BLOOD UREA NITROGEN 14 mg/dL (7-17); CALCIUM 8.7 mg/dl (8.6-10.4); GFR NON-AFRICAN AMERICAN > 60
[2017-12-28] MEDS: Pantoprazole 40 mg EC Tab PO SCH (10:33)
[2017-12-28] MEDS: Magnesium Oxide 400 mg Tab UD PO SCH (10:33)
[2017-12-28] MEDS: Potassium Chloride 20 mEq ER Tab PO SCH (10:34)
[2017-12-28] MEDS: Sacubitril/Valsartan 24-26mg Tab PO SCH (10:36)
[2017-12-28] MEDS: Fluticasone-Vilanterol 100/25mcg Diskus INH SCH (10:39)
[2017-12-28] MEDS: Oxycodone/Acetaminophen 5/325 mg Tab PO PRN (10:52)
--- NOTE | 2017-12-28 13:23 | CP.PCM.PN ---
Subjective - Date & Time of Evaluation Date of Evaluation: 12/28/17 Time of Evaluation: 12:00 - Subjective Subjective: Feeling better Objective - Vital Signs/Intake and Output Vital Signs (last 24 hours): Temp Pulse Resp BP Pulse Ox 97.6 F 75 24 97/58 L 97 12/28/17 00:00 12/28/17 04:00 12/27/17 21:00 12/28/17 10:37 12/28/17 04:00 Intake and Output: 12/28/17 12/28/17 06:59 18:59 Intake Total 480 320 Output Total 500 Balance 480 -180 - Medications Medications: Current Medications Albuterol Sulfate (Albuterol 0.083% Inhal Donna (2.5 Mg/3 Ml) Ud) 2.5 mg INH RQ6 PRN PRN Reason: Shortness of Breath Alprazolam (Xanax) 1 mg PO BID [facility] Last Admin: 12/28/17 10:38 Dose: 1 mg Carvedilol (Coreg) 12.5 mg PO BID [facility] Last Admin: 12/28/17 10:36 Dose: 12.5 mg Digoxin (Lanoxin) 0.25 mg PO DAILY@1800 [facility] Last Admin: 12/27/17 17:10 Dose: 0.25 mg Fluticasone/Vilanterol (Breo Ellipta 100-25 Mcg Inh) 1 puff INH DAILY [facility] Last Admin: 12/28/17 10:39 Dose: 1 puff Furosemide (Lasix) 40 mg PO DAILY [facility] Last Admin: 12/28/17 10:37 Dose: 40 mg Ferric Sodium Gluconate Complex 125 mg/ Sodium Chloride 110 mls @ 110 mls/hr IVPB Q24H [facility] Stop: 01/03/18 15:31 Last Admin: 12/27/17 15:29 Dose: 110 mls/hr Magnesium Oxide (Mag-Ox) 400 mg PO DAILY [facility] Last Admin: 12/28/17 10:33 Dose: 400 mg Oxycodone/Acetaminophen (Percocet 5/325 Mg Tab) 1 tab PO Q12H PRN PRN Reason: FOR PAIN Stop: 12/29/17 18:01 Last Admin: 12/28/17 10:52 Dose: 1 tab Pantoprazole Sodium (Protonix Ec Tab) 40 mg PO DAILY [facility] Last Admin: 12/28/17 10:33 Dose: 40 mg Potassium Chloride (K-Dur 20 Meq Er Tab) 20 meq PO DAILY [facility] Last Admin: 12/28/17 10:34 Dose: 20 meq Rosuvastatin Calcium (Crestor) 10 mg PO HS [facility] Last Admin: 12/27/17 22:11 Dose: 10 mg Sacubitril/Valsartan (Entresto 24 Mg-26 Mg) 1 tab PO DAILY [facility] Last Admin: 12/28/17 10:36 Dose: 1 tab Sitagliptin Phosphate (Januvia) 50 mg PO DAILY [facility] Last Admin: 12/28/17 10:35 Dose: 50 mg - Labs Labs: 12/28/17 06:21 12/28/17 06:19 PT 12.9 SECONDS (9.7-12.2) H 12/25/17 23:26 INR 1.2 12/25/17 23:26 APTT 54 SECONDS (21-34) H 12/25/17 23:26 - Head Exam Head Exam: ATRAUMATIC - Eye Exam Eye Exam: Normal appearance - ENT Exam ENT Exam: Mucous Membranes Dry - Respiratory Exam Respiratory Exam: NORMAL BREATHING PATTERN - Cardiovascular Exam Cardiovascular Exam: +S1, +S2 - GI/Abdominal Exam GI & Abdominal Exam: Normal Bowel Sounds Assessment and Plan (1) Anemia Assessment & Plan: iron deficiency anemia from chronic GI blood loss unable to undergo GI w/u due to high cardiac risk on intermittent iron agree with PRBC transfusion support; H/H improved iron supplementation cleared from heme/onc standpoint Status: Acute
--- NOTE | 2017-12-28 15:02 | CP.PCM.PN ---
Subjective - Date & Time of Evaluation Date of Evaluation: 12/28/17 Time of Evaluation: 12:45 - Subjective Subjective: clinically same Objective - Vital Signs/Intake and Output Vital Signs (last 24 hours): Temp Pulse Resp BP Pulse Ox 97.6 F 75 24 97/58 L 97 12/28/17 00:00 12/28/17 04:00 12/27/17 21:00 12/28/17 10:37 12/28/17 04:00 Intake and Output: 12/28/17 12/28/17 06:59 18:59 Intake Total 480 320 Output Total 500 Balance 480 -180 - Medications Medications: Current Medications Albuterol Sulfate (Albuterol 0.083% Inhal Donna (2.5 Mg/3 Ml) Ud) 2.5 mg INH RQ6 PRN PRN Reason: Shortness of Breath Alprazolam (Xanax) 1 mg PO BID [facility] Last Admin: 12/28/17 10:38 Dose: 1 mg Carvedilol (Coreg) 12.5 mg PO BID [facility] Last Admin: 12/28/17 10:36 Dose: 12.5 mg Digoxin (Lanoxin) 0.25 mg PO DAILY@1800 [facility] Last Admin: 12/27/17 17:10 Dose: 0.25 mg Fluticasone/Vilanterol (Breo Ellipta 100-25 Mcg Inh) 1 puff INH DAILY [facility] Last Admin: 12/28/17 10:39 Dose: 1 puff Furosemide (Lasix) 40 mg PO DAILY [facility] Last Admin: 12/28/17 10:37 Dose: 40 mg Ferric Sodium Gluconate Complex 125 mg/ Sodium Chloride 110 mls @ 110 mls/hr IVPB Q24H [facility] Stop: 01/03/18 15:31 Last Admin: 12/27/17 15:29 Dose: 110 mls/hr Magnesium Oxide (Mag-Ox) 400 mg PO DAILY [facility] Last Admin: 12/28/17 10:33 Dose: 400 mg Oxycodone/Acetaminophen (Percocet 5/325 Mg Tab) 1 tab PO Q12H PRN PRN Reason: FOR PAIN Stop: 12/29/17 18:01 Last Admin: 12/28/17 10:52 Dose: 1 tab Pantoprazole Sodium (Protonix Ec Tab) 40 mg PO DAILY [facility] Last Admin: 12/28/17 10:33 Dose: 40 mg Potassium Chloride (K-Dur 20 Meq Er Tab) 20 meq PO DAILY [facility] Last Admin: 12/28/17 10:34 Dose: 20 meq Rosuvastatin Calcium (Crestor) 10 mg PO HS [facility] Last Admin: 12/27/17 22:11 Dose: 10 mg Sacubitril/Valsartan (Entresto 24 Mg-26 Mg) 1 tab PO DAILY [facility] Last Admin: 12/28/17 10:36 Dose: 1 tab Sitagliptin Phosphate (Januvia) 50 mg PO DAILY [facility] Last Admin: 12/28/17 10:35 Dose: 50 mg - Labs Labs: 12/28/17 06:21 12/28/17 06:19 PT 12.9 SECONDS (9.7-12.2) H 12/25/17 23:26 INR 1.2 12/25/17 23:26 APTT 54 SECONDS (21-34) H 12/25/17 23:26 - Constitutional Appears: Well - Head Exam Head Exam: ATRAUMATIC, NORMAL INSPECTION, NORMOCEPHALIC - Eye Exam Eye Exam: EOMI, Normal appearance, PERRL Pupil Exam: NORMAL ACCOMODATION, PERRL - ENT Exam ENT Exam: Mucous Membranes Moist, Normal Exam - Neck Exam Neck Exam: Full ROM, Normal Inspection. absent: Lymphadenopathy - Respiratory Exam Respiratory Exam: Decreased Breath Sounds - Cardiovascular Exam Cardiovascular Exam: REGULAR RHYTHM, +S1, +S2 - GI/Abdominal Exam GI & Abdominal Exam: Soft, Diminished Bowel Sounds - Rectal Exam Rectal Exam: Deferred
[2017-12-28] MEDS: Ferric Sodium Gluconat Complex 125 MG in Sodium Chloride 0.9% 100 ML IVPB SCH (17:44)
[2017-12-28] MEDS: Digoxin 250 mcg (0.25 mg) Tab PO SCH (17:47)
--- NOTE | 2017-12-28 23:34 | CP.PCM.CON ---
History of Present Illness - History of Present Illness History of Present Illness: Pulmonary Consult, Covering Dr Serrano The patient was Seen/interviewed and examined by me at the bedside, Medical records reviewed and Management issues were discussed and formulated with the house staff. Events reviewed 62 year old female with PMHx of HTN, Hypercholesterolemia, CHF, Atrial Fibrillation, Cardia Arrhythmia, COPD, Asthma, Pneumonia, Sleep Apnea (C PAP SETTING 10), Anemia, Anxiety, Arthritis, Depression and Peripheral Edema who wassent in by Dr. Ned Moura for low hemoglobin of 7.5. Patient has a Hx of chronic anemia due to iron deficiency and GI blood loss. Patient also complains of dyspnea on exertion, SOB, and chest pressure. Pt received 2U packed RBC so far Comfortable, NAD No signs of fluid overload on exam Will start Patient on CPAP 06/09 with FIO2 of 400% 10P- Review of Systems - Constitutional Constitutional: Fatigue, Malaise. absent: Chills, Fever - Cardiovascular Cardiovascular: absent: As Per HPI, Acrocyanosis, Chest Pain, Chest Pain at Rest, Chest Pain with Activity, Claudication, Diaphoresis, Dyspnea, Dyspnea on Exertion, Edema, Irregular Heart Rhythm, Pain Radiating to Arm/Neck/Jaw, Leg Edema, Leg Ulcers, Lightheadedness, Orthopnea, Palpitations, Paroxysmal Nocturnal Dyspnea, Pedal Edema, Radiating Pain, Rapid Heart Rate, Slow Heart R ate, Syncope, Other - Respiratory Respiratory: absent: As Per HPI, Cough, Dyspnea, Hemoptysis, Dyspnea on Exertion, Wheezing, Snoring, Stridor, Pain on Inspiration, Chest Congestion, Excessive Mucous Production, Change in Mucous Color, Pain with Coughing, Other Past Patient History - Infectious Disease Hx of Infectious Diseases: None - Past Medical History & Family History Past Medical History?: Yes - Past Social History Smoking Status: Former Smoker - CARDIAC Hx Cardiac Disorders: Yes Hx Atrial Fibrillation: Yes Hx Cardia Arrhythmia: Yes Hx Congestive Heart Failure: Yes Hx Hypercholesterolemia: Yes Hx Hypertension: Yes Hx Internal Defibrillator: Yes Hx Pacemaker: Yes Hx Peripheral Edema: Yes - PULMONARY Hx Respiratory Disorders: Yes Hx Asthma: Yes Hx Chronic Obstructive Pulmonary Disease (COPD): Yes Hx Pneumonia: Yes Hx Sleep Apnea: Yes (C PAP SETTING 10) - NEUROLOGICAL Hx Neurological Disorder: Yes Hx Dizziness: Yes - HEENT Hx HEENT Problems: Yes Other/Comment: left eye surgery 2014. glasses for distance and reading - RENAL Hx Chronic Kidney Disease: No - ENDOCRINE/METABOLIC Hx Endocrine Disorders: Yes Hx Diabetes Mellitus Type 2: Yes - HEMATOLOGICAL/ONCOLOGICAL Hx Blood Disorders: Yes Hx Anemia: Yes Hx Blood Transfusions: Yes - INTEGUMENTARY Hx Dermatological Problems: No - MUSCULOSKELETAL/RHEUMATOLOGICAL Hx Musculoskeletal Disorders: Yes Hx Arthritis: Yes Hx Falls: Yes Hx Fractures: Yes (RIGHT MIDDLE TOE) - GASTROINTESTINAL Hx Gastrointestinal Disorders: No - GENITOURINARY/GYNECOLOGICAL Hx Genitourinary Disorders: No - PSYCHIATRIC Hx Psychophysiologic Disorder: Yes Hx Anxiety: Yes Hx Depression: Yes - SURGICAL HISTORY Hx Surgeries: Yes Hx Eye Surgery: Yes (left eye 2014) Hx Herniorrhaphy: Yes Hx Open Heart Surgery: Yes (foramen ovale at age 6) Hx Orthopedic Surgery: Yes (right carpal surgery) Hx Vascular Access Device: Yes Other/Comment: pacemaker 2009,ablation 2009, - ANESTHESIA Hx Anesthesia: Yes Hx Anesthesia Reactions: No Hx Malignant Hyperthermia: No Has any member of the family had a problem w/ anesthesia?: No Meds Allergies/Adverse Reactions: Allergies Allergy/AdvReac Type Severity Reaction Status Date / Time No Known Allergies Allergy Verified 12/25/17 22:40 - Medications Medications: Current Medications Albuterol Sulfate (Albuterol 0.083% Inhal Donna (2.5 Mg/3 Ml) Ud) 2.5 mg INH RQ6 PRN PRN Reason: Shortness of Breath Alprazolam (Xanax) 1 mg PO BID [facility] Last Admin: 12/28/17 10:38 Dose: 1 mg Carvedilol (Coreg) 12.5 mg PO BID [facility] Last Admin: 12/28/17 17:46 Dose: 12.5 mg Digoxin (Lanoxin) 0.25 mg PO DAILY@1800 [facility] Last Admin: 12/28/17 17:47 Dose: 0.25 mg Fluticasone/Vilanterol (Breo Ellipta 100-25 Mcg Inh) 1 puff INH DAILY [facility] Last Admin: 12/28/17 10:39 Dose: 1 puff Furosemide (Lasix) 40 mg PO DAILY [facility] Last Admin: 12/28/17 10:37 Dose: 40 mg Ferric Sodium Gluconate Complex 125 mg/ Sodium Chloride 110 mls @ 110 mls/hr IVPB Q24H [facility] Stop: 01/03/18 15:31 Last Admin: 12/28/17 17:44 Dose: 110 mls/hr Magnesium Oxide (Mag-Ox) 400 mg PO DAILY [facility] Last Admin: 12/28/17 10:33 Dose: 400 mg Oxycodone/Acetaminophen (Percocet 5/325 Mg Tab) 1 tab PO Q12H PRN PRN Reason: FOR PAIN Stop: 12/29/17 18:01 Last Admin: 12/28/17 10:52 Dose: 1 tab Pantoprazole Sodium (Protonix Ec Tab) 40 mg PO DAILY [facility] Last Admin: 12/28/17 10:33 Dose: 40 mg Potassium Chloride (K-Dur 20 Meq Er Tab) 20 meq PO DAILY [facility] Last Admin: 12/28/17 10:34 Dose: 20 meq Rosuvastatin Calcium (Crestor) 10 mg PO HS [facility] Last Admin: 12/28/17 21:18 Dose: 10 mg Sacubitril/Valsartan (Entresto 24 Mg-26 Mg) 1 tab PO DAILY [facility] Last Admin: 12/28/17 10:36 Dose: 1 tab Sitagliptin Phosphate (Januvia) 50 mg PO DAILY [facility] Last Admin: 12/28/17 10:35 Dose: 50 mg Physical Exam - Constitutional Appears: Well, Non-toxic - Head Exam Head Exam: ATRAUMATIC, NORMAL INSPECTION - Eye Exam Eye Exam: EOMI, Normal appearance, PERRL Pupil Exam: NORMAL ACCOMODATION, PERRL - ENT Exam ENT Exam: Mucous Membranes Moist, Normal Exam - Neck Exam Neck exam: Positive for: Normal Inspection - Respiratory Exam Respiratory Exam: Clear to Auscultation Bilateral, NORMAL BREATHING PATTERN. absent: Accessory Muscle Use, Chest Wall Tenderness, Decreased Breath Sounds, Prolonged Expiratory Phase, Rales, Rhonchi, Wheezes, Respiratory Distress, Stridor - Cardiovascular Exam Cardiovascular Exam: REGULAR RHYTHM, RRR, +S1, +S2. absent: JVD - Extremities Exam Extremities exam: Positive for: full ROM, normal capillary refill, normal inspection, pedal pulses present. Negative for: calf tenderness, joint swellin g, pedal edema - Neurological Exam Neurological exam: Alert, CN II-XII Intact, Oriented x3 Results - Vital Signs Recent Vital Signs: Last Vital Signs Temp 97.3 F L 12/28/17 20:00 Pulse 75 12/28/17 20:00 Resp 24 12/27/17 21:00 BP 92/46 L 12/28/17 20:00 Pulse Ox 98 12/28/17 20:00 - Labs Result Diagrams: 12/30/17 06:33 12/30/17 06:33 Labs: Laboratory Results - last 24 hr 12/28/17 12/28/17 12/28/17 06:19 06:21 07:28 WBC 6.7 RBC 3.29 L Hgb 9.1 L Hct 28.2 L MCV 85.6 MCH 27.5 MCHC 32.2 L RDW 15.5 H Plt Count 190 MPV 9.5 Neut % (Auto) 56.6 Lymph % (Auto) 31.4 Craven % (Auto) 8.3 Eos % (Auto) 3.3 Baso % (Auto) 0.4 Neut # (Auto) 3.8 Lymph # (Auto) 2.1 Craven # (Auto) 0.6 Eos # (Auto) 0.2 Baso # (Auto) 0.0 Sodium 143 Potassium 4.2 Chloride 103 Carbon Dioxide 32 H Anion Gap 12 BUN 14 Creatinine 0.8 Est GFR ( Amer) > 60 Est GFR (Non-Af Amer) > 60 POC Glucose (mg/dL) 112 H Random Glucose 102 Calcium 8.7 Phosphorus 3.5 Magnesium 1.8 Total Bilirubin 0.5 AST 9 L ALT 19 Alkaline Phosphatase 85 Total Protein 6.8 Albumin 3.7 Globulin 3.1 Albumin/Globulin Ratio 1.2 12/28/17 12/28/17 11:17 16:11 WBC RBC Hgb Hct MCV MCH MCHC RDW Plt Count MPV Neut % (Auto) Lymph % (Auto) Craven % (Auto) Eos % (Auto) Baso % (Auto) Neut # (Auto) Lymph # (Auto) Craven # (Auto) Eos # (Auto) Baso # (Auto) Sodium Potassium Chloride Carbon Dioxide Anion Gap BUN Creatinine Est GFR ( Amer) Est GFR (Non-Af Amer) POC Glucose (mg/dL) 129 H 117 H Random Glucose Calcium Phosphorus Magnesium Total Bilirubin AST ALT Alkaline Phosphatase Total Protein Albumin Globulin Albumin/Globulin Ratio Assessment & Plan (1) Chr obstructive pulmonary disease w/ acute lower respiratory infxn Status: Acute Priority: High (2) Chronic congestive heart failure Status: Acute Priority: High (3) ROSIO and COPD overlap syndrome Status: Acute Priority: High (4) Prophylactic measure Status: Acute Priority: High - Assessment and Plan (Free Text) Assessment: CPAP with heated humidification , nocturnal She was educated about the cleaning of the mask, tubing and water chamber. Avoidance of supine sleep may be helpful. Weight loss through diet and exercise regimen. PRN albuterol. Check PFTs outpatient to R/O Restrictive lung diseases
[2017-12-29] MEDS: Sacubitril/Valsartan 24-26mg Tab PO SCH (10:21)
[2017-12-29] MEDS: Magnesium Oxide 400 mg Tab UD PO SCH (10:22)
[2017-12-29] MEDS: Potassium Chloride 20 mEq ER Tab PO SCH (10:25)
[2017-12-29] MEDS: Pantoprazole 40 mg EC Tab PO SCH (10:27)
--- NOTE | 2017-12-29 15:39 | CP.PCM.PN ---
Subjective - Date & Time of Evaluation Date of Evaluation: 12/29/17 Time of Evaluation: 12:30 - Subjective Subjective: clinically same Objective - Vital Signs/Intake and Output Vital Signs (last 24 hours): Temp Pulse Resp BP Pulse Ox 98.2 F 75 17 89/39 L 98 12/29/17 10:00 12/29/17 10:00 12/29/17 10:00 12/29/17 10:21 12/29/17 10:00 Intake and Output: 12/29/17 12/29/17 06:59 18:59 Intake Total 100 Output Total 550 Balance 100 -550 - Medications Medications: Current Medications Albuterol Sulfate (Albuterol 0.083% Inhal Donna (2.5 Mg/3 Ml) Ud) 2.5 mg INH RQ6 PRN PRN Reason: Shortness of Breath Alprazolam (Xanax) 1 mg PO BID [facility] Last Admin: 12/29/17 10:26 Dose: Not Given Carvedilol (Coreg) 12.5 mg PO BID [facility] Last Admin: 12/29/17 10:19 Dose: Not Given Digoxin (Lanoxin) 0.25 mg PO DAILY@1800 [facility] Last Admin: 12/28/17 17:47 Dose: 0.25 mg Fluticasone/Vilanterol (Breo Ellipta 100-25 Mcg Inh) 1 puff INH DAILY [facility] Last Admin: 12/28/17 10:39 Dose: 1 puff Furosemide (Lasix) 40 mg PO DAILY [facility] Last Admin: 12/29/17 10:21 Dose: Not Given Ferric Sodium Gluconate Complex 125 mg/ Sodium Chloride 110 mls @ 110 mls/hr IVPB Q24H [facility] Stop: 01/03/18 15:31 Last Admin: 12/28/17 17:44 Dose: 110 mls/hr Magnesium Oxide (Mag-Ox) 400 mg PO DAILY [facility] Last Admin: 12/29/17 10:22 Dose: 400 mg Oxycodone/Acetaminophen (Percocet 5/325 Mg Tab) 1 tab PO Q12H PRN PRN Reason: FOR PAIN Stop: 12/29/17 18:01 Last Admin: 12/28/17 10:52 Dose: 1 tab Pantoprazole Sodium (Protonix Ec Tab) 40 mg PO DAILY [facility] Last Admin: 12/29/17 10:27 Dose: 40 mg Potassium Chloride (K-Dur 20 Meq Er Tab) 20 meq PO DAILY [facility] Last Admin: 12/28/17 10:34 Dose: 20 meq Rosuvastatin Calcium (Crestor) 10 mg PO HS [facility] Last Admin: 12/28/17 21:18 Dose: 10 mg Sacubitril/Valsartan (Entresto 24 Mg-26 Mg) 1 tab PO DAILY [facility] Last Admin: 12/29/17 10:21 Dose: 1 tab Sitagliptin Phosphate (Januvia) 50 mg PO DAILY [facility] Last Admin: 12/29/17 10:25 Dose: Not Given - Labs Labs: 12/28/17 06:21 12/28/17 06:19 PT 12.9 SECONDS (9.7-12.2) H 12/25/17 23:26 INR 1.2 12/25/17 23:26 APTT 54 SECONDS (21-34) H 12/25/17 23:26 - Constitutional Appears: Well - Head Exam Head Exam: ATRAUMATIC, NORMAL INSPECTION, NORMOCEPHALIC - Eye Exam Eye Exam: EOMI, Normal appearance, PERRL Pupil Exam: NORMAL ACCOMODATION, PERRL - ENT Exam ENT Exam: Mucous Membranes Moist, Normal Exam - Neck Exam Neck Exam: Full ROM, Normal Inspection. absent: Lymphadenopathy - Respiratory Exam Respiratory Exam: Decreased Breath Sounds - Cardiovascular Exam Cardiovascular Exam: REGULAR RHYTHM, +S1, +S2 - GI/Abdominal Exam GI & Abdominal Exam: Soft, Diminished Bowel Sounds - Rectal Exam Rectal Exam: Deferred
[2017-12-29] MEDS: Ferric Sodium Gluconat Complex 125 MG in Sodium Chloride 0.9% 100 ML IVPB SCH (15:40)
[2017-12-29] MEDS: Fluticasone-Vilanterol 100/25mcg Diskus INH SCH (16:48)
[2017-12-29] MEDS: Digoxin 250 mcg (0.25 mg) Tab PO SCH (18:19)
[2017-12-29] MEDS: Albuterol 0.083% Inhal Sol (2.5 mg/3 mL) UD INH PRN (19:29)
--- NOTE | 2017-12-29 21:30 | CP.PCM.PN ---
Subjective - Date & Time of Evaluation Date of Evaluation: 12/29/17 Time of Evaluation: 21:30 - Subjective Subjective: Pulmonary Follow up, Covering Dr Serrano The patient was Seen/interviewed and examined by me at the bedside, Medical records reviewed and Management issues were discussed and formulated with the house staff. Events reviewed 62 year old female with PMHx of HTN, Hypercholesterolemia, CHF, Atrial Fibrillation, Cardia Arrhythmia, COPD, Asthma, Pneumonia, Sleep Apnea (C PAP SETTING 10), Anemia, Anxiety, Arthritis, Depression and Peripheral Edema who wassent in by Dr. Ned Moura for low hemoglobin of 7.5. Patient has a Hx of chronic anemia due to iron deficiency and GI blood loss. Patient also complains of dyspnea on exertion, SOB, and chest pressure. Pt received 2U packed RBC so far Patient refused the CPAP last night Adequate saturation 94-97% on 2L nasal cannula No chest pain, Cough, Dyspnea Comfortable, NAD Objective - Vital Signs/Intake and Output Vital Signs (last 24 hours): Temp Pulse Resp BP Pulse Ox 97.9 F 75 18 90/46 L 94 L 12/29/17 20:00 12/29/17 20:00 12/29/17 20:00 12/29/17 20:00 12/29/17 20:00 Intake and Output: 12/29/17 12/30/17 18:59 06:59 Intake Total 120 100 Output Total 1100 Balance -980 100 - Medications Medications: Current Medications Albuterol Sulfate (Albuterol 0.083% Inhal Donna (2.5 Mg/3 Ml) Ud) 2.5 mg INH RQ6 PRN PRN Reason: Shortness of Breath Last Admin: 12/29/17 19:29 Dose: 2.5 mg Alprazolam (Xanax) 1 mg PO BID [facility] Last Admin: 12/29/17 18:20 Dose: 1 mg Carvedilol (Coreg) 12.5 mg PO BID [facility] Last Admin: 12/29/17 18:19 Dose: 12.5 mg Digoxin (Lanoxin) 0.25 mg PO DAILY@1800 [facility] Last Admin: 12/29/17 18:19 Dose: 0.25 mg Fluticasone/Vilanterol (Breo Ellipta 100-25 Mcg Inh) 1 puff INH DAILY [facility] Last Admin: 12/29/17 16:48 Dose: 1 puff Furosemide (Lasix) 40 mg PO DAILY [facility] Last Admin: 12/29/17 10:21 Dose: Not Given Ferric Sodium Gluconate Complex 125 mg/ Sodium Chloride 110 mls @ 110 mls/hr IVPB Q24H [facility] Stop: 01/03/18 15:31 Last Admin: 12/29/17 15:40 Dose: 110 mls/hr Magnesium Oxide (Mag-Ox) 400 mg PO DAILY [facility] Last Admin: 12/29/17 10:22 Dose: 400 mg Pantoprazole Sodium (Protonix Ec Tab) 40 mg PO DAILY [facility] Last Admin: 12/29/17 10:27 Dose: 40 mg Potassium Chloride (K-Dur 20 Meq Er Tab) 20 meq PO DAILY [facility] Last Admin: 12/29/17 10:25 Dose: Not Given Rosuvastatin Calcium (Crestor) 10 mg PO HS [facility] Last Admin: 12/28/17 21:18 Dose: 10 mg Sacubitril/Valsartan (Entresto 24 Mg-26 Mg) 1 tab PO DAILY [facility] Last Admin: 12/29/17 10:21 Dose: 1 tab Sitagliptin Phosphate (Januvia) 50 mg PO DAILY [facility] Last Admin: 12/29/17 10:25 Dose: Not Given - Labs Labs: 12/28/17 06:21 12/28/17 06:19 PT 12.9 SECONDS (9.7-12.2) H 12/25/17 23:26 INR 1.2 12/25/17 23:26 APTT 54 SECONDS (21-34) H 12/25/17 23:26 - Head Exam Head Exam: ATRAUMATIC, NORMAL INSPECTION - ENT Exam ENT Exam: Mucous Membranes Dry - Neck Exam Neck Exam: Full ROM - Respiratory Exam Respiratory Exam: Clear to Ausculation Bilateral. absent: Accessory Muscle Use, Decreased Breath Sounds, Rales, Rhonchi, Wheezes, Respiratory Distress - Cardiovascular Exam Cardiovascular Exam: RRR, +S1, +S2. absent: Bradycardia, Tachycardia, JVD - GI/Abdominal Exam GI & Abdominal Exam: Distended, Soft. absent: Firm, Guarding, Rigid, Tenderness - Back Exam Back Exam: absent: CVA tenderness (L), CVA tenderness (R) - Neurological Exam Neurological Exam: Alert, Awake, CN II-XII Intact, Oriented x3. absent: Altered, Motor Sensory Deficit Assessment and Plan (1) Chr obstructive pulmonary disease w/ acute lower respiratory infxn Status: Acute (2) Chronic congestive heart failure Status: Acute (3) ROSIO and COPD overlap syndrome Status: Acute (4) Prophylactic measure Status: Acute - Assessment and Plan (Free Text) Assessment: CPAP with heated humidification , nocturnal She was educated about the cleaning of the mask, tubing and water chamber. Avoidance of supine sleep may be helpful. Weight loss through diet and exercise regimen. PRN albuterol. Check PFTs outpatient to R/O Restrictive lung diseases
--- NOTE | 2017-12-29 22:29 | CP.PCM.CON ---
History of Present Illness - History of Present Illness History of Present Illness: 62 F with hx of HTN, Diastolic CHF, Anemia admitted for anemia and Acute on Chronic distolic CHF Felles better today Past Patient History - Infectious Disease Hx of Infectious Diseases: None - Past Medical History & Family History Past Medical History?: Yes - Past Social History Smoking Status: Former Smoker - CARDIAC Hx Cardiac Disorders: Yes Hx Atrial Fibrillation: Yes Hx Cardia Arrhythmia: Yes Hx Congestive Heart Failure: Yes Hx Hypercholesterolemia: Yes Hx Hypertension: Yes Hx Internal Defibrillator: Yes Hx Pacemaker: Yes Hx Peripheral Edema: Yes - PULMONARY Hx Respiratory Disorders: Yes Hx Asthma: Yes Hx Chronic Obstructive Pulmonary Disease (COPD): Yes Hx Pneumonia: Yes Hx Sleep Apnea: Yes (C PAP SETTING 10) - NEUROLOGICAL Hx Neurological Disorder: Yes Hx Dizziness: Yes - HEENT Hx HEENT Problems: Yes Other/Comment: left eye surgery 2014. glasses for distance and reading - RENAL Hx Chronic Kidney Disease: No - ENDOCRINE/METABOLIC Hx Endocrine Disorders: Yes Hx Diabetes Mellitus Type 2: Yes - HEMATOLOGICAL/ONCOLOGICAL Hx Blood Disorders: Yes Hx Anemia: Yes Hx Blood Transfusions: Yes - INTEGUMENTARY Hx Dermatological Problems: No - MUSCULOSKELETAL/RHEUMATOLOGICAL Hx Musculoskeletal Disorders: Yes Hx Arthritis: Yes Hx Falls: Yes Hx Fractures: Yes (RIGHT MIDDLE TOE) - GASTROINTESTINAL Hx Gastrointestinal Disorders: No - GENITOURINARY/GYNECOLOGICAL Hx Genitourinary Disorders: No - PSYCHIATRIC Hx Psychophysiologic Disorder: Yes Hx Anxiety: Yes Hx Depression: Yes - SURGICAL HISTORY Hx Surgeries: Yes Hx Eye Surgery: Yes (left eye 2014) Hx Herniorrhaphy: Yes Hx Open Heart Surgery: Yes (foramen ovale at age 6) Hx Orthopedic Surgery: Yes (right carpal surgery) Hx Vascular Access Device: Yes Other/Comment: pacemaker 2009,ablation 2009, - ANESTHESIA Hx Anesthesia: Yes Hx Anesthesia Reactions: No Hx Malignant Hyperthermia: No Has any member of the family had a problem w/ anesthesia?: No Meds Allergies/Adverse Reactions: Allergies Allergy/AdvReac Type Severity Reaction Status Date / Time No Known Allergies Allergy Verified 12/25/17 22:40 - Medications Medications: Current Medications Albuterol Sulfate (Albuterol 0.083% Inhal Donna (2.5 Mg/3 Ml) Ud) 2.5 mg INH RQ6 PRN PRN Reason: Shortness of Breath Last Admin: 12/29/17 19:29 Dose: 2.5 mg Alprazolam (Xanax) 1 mg PO BID [facility] Last Admin: 12/29/17 18:20 Dose: 1 mg Carvedilol (Coreg) 12.5 mg PO BID [facility] Last Admin: 12/29/17 18:19 Dose: 12.5 mg Digoxin (Lanoxin) 0.25 mg PO DAILY@1800 [facility] Last Admin: 12/29/17 18:19 Dose: 0.25 mg Fluticasone/Vilanterol (Breo Ellipta 100-25 Mcg Inh) 1 puff INH DAILY [facility] Last Admin: 12/29/17 16:48 Dose: 1 puff Furosemide (Lasix) 40 mg PO DAILY [facility] Last Admin: 12/29/17 10:21 Dose: Not Given Ferric Sodium Gluconate Complex 125 mg/ Sodium Chloride 110 mls @ 110 mls/hr IVPB Q24H [facility] Stop: 01/03/18 15:31 Last Admin: 12/29/17 15:40 Dose: 110 mls/hr Magnesium Oxide (Mag-Ox) 400 mg PO DAILY [facility] Last Admin: 12/29/17 10:22 Dose: 400 mg Pantoprazole Sodium (Protonix Ec Tab) 40 mg PO DAILY [facility] Last Admin: 12/29/17 10:27 Dose: 40 mg Potassium Chloride (K-Dur 20 Meq Er Tab) 20 meq PO DAILY [facility] Last Admin: 12/29/17 10:25 Dose: Not Given Rosuvastatin Calcium (Crestor) 10 mg PO HS [facility] Last Admin: 12/29/17 21:48 Dose: 10 mg Sacubitril/Valsartan (Entresto 24 Mg-26 Mg) 1 tab PO DAILY [facility] Last Admin: 12/29/17 10:21 Dose: 1 tab Sitagliptin Phosphate (Januvia) 50 mg PO DAILY [facility] Last Admin: 12/29/17 10:25 Dose: Not Given Results - Vital Signs Recent Vital Signs: Last Vital Signs Temp 97.9 F 12/29/17 20:00 Pulse 75 12/29/17 20:00 Resp 18 12/29/17 20:00 BP 90/46 L 12/29/17 20:00 Pulse Ox 94 L 12/29/17 20:00 - Labs Result Diagrams: 12/28/17 06:21 12/28/17 06:19 Labs: Laboratory Results - last 24 hr 12/29/17 12/29/17 12/29/17 02:04 07:35 11:43 POC Glucose (mg/dL) 115 H 97 101 12/29/17 16:30 POC Glucose (mg/dL) 122 H
[2017-12-30 06:37] LABS: BASO % 0.6 % (0.0-2.0); EOS # 0.2 K/uL (0.0-0.7); EOS % 3.6 % (0.0-4.0); HEMOGLOBIN 8.8 g/dL (11.0-16.0); LYMPH # 1.6 K/uL (1.0-4.3); MEAN CELL VOLUME 86.6 fL (81.0-99.0); MEAN CORPUSCULAR HEMOGLOBIN 27.4 pg (27.0-31.0); MEAN CORPUSCULAR HGB CONC 31.6 g/dL (33.0-37.0); MEAN PLATELET VOLUME 9.5 fL (7.2-11.7); MONO # 0.5 K/uL (0.0-0.8); MONO % 8.4 % (0.0-10.0); NEUT # 3.3 K/uL (1.8-7.0); NEUT % 58.4 % (50.0-75.0); NRBC % 0.1 % (0.0-2.0); RBC 3.2 Mil/uL (3.80-5.20); RED CELL DISTRIBUTION WIDTH 15.2 % (11.5-14.5); WHITE BLOOD COUNT 5.6 K/uL (4.8-10.8)
[2017-12-30 07:08] LABS: ALB/GLOB RATIO 1.1 (1.0-2.1); ALBUMIN 3.3 g/dL (3.5-5.0); ALT/SGPT 15 U/L (9-52); AST/SGOT 11 U/L (14-36); BLOOD UREA NITROGEN 16 mg/dL (7-17); CALCIUM 8.4 mg/dl (8.6-10.4); GFR NON-AFRICAN AMERICAN > 60
[2017-12-30] MEDS: Sacubitril/Valsartan 24-26mg Tab PO SCH (09:25)
[2017-12-30] MEDS: Pantoprazole 40 mg EC Tab PO SCH (09:26)
[2017-12-30] MEDS: Potassium Chloride 20 mEq ER Tab PO SCH (09:26)
[2017-12-30] MEDS: Magnesium Oxide 400 mg Tab UD PO SCH (09:26)
--- NOTE | 2017-12-30 12:03 | CP.PCM.PN ---
Subjective - Date & Time of Evaluation Date of Evaluation: 12/30/17 Time of Evaluation: 11:59 - Subjective Subjective: Pulmonary Follow up, Covering Dr Serrano The patient was Seen/interviewed and examined by me at the bedside, Medical records reviewed and Management issues were discussed and formulated with the house staff. Events reviewed 62 year old female with PMHx of HTN, Hypercholesterolemia, CHF, Atrial Fibrillation, Cardia Arrhythmia, COPD, Asthma, Pneumonia, Sleep Apnea (C PAP SETTING 10), Anemia, Anxiety, Arthritis, Depression and Peripheral Edema who wassent in by Dr. Ned Moura for low hemoglobin of 7.5. Patient has a Hx of chronic anemia due to iron deficiency and GI blood loss. Patient also complains of dyspnea on exertion, SOB, and chest pressure. Pt received 2U packed RBC so far Patient refused the CPAP last night Adequate saturation 94-97% on 2L nasal cannula Comfortable, NAD Afebrile and in no acute distress. Patient states SOB is improving. Denies any Chest pain, Dyspnea or cough. Objective - Vital Signs/Intake and Output Vital Signs (last 24 hours): Temp Pulse Resp BP Pulse Ox 97.4 F L 75 16 99/46 L 93 L 12/30/17 08:00 12/30/17 10:00 12/30/17 08:00 12/30/17 09:26 12/30/17 08:00 Intake and Output: 12/30/17 12/30/17 06:59 18:59 Intake Total 100 250 Output Total 450 Balance -350 250 - Medications Medications: Current Medications Albuterol Sulfate (Albuterol 0.083% Inhal Donna (2.5 Mg/3 Ml) Ud) 2.5 mg INH RQ6 PRN PRN Reason: Shortness of Breath Last Admin: 12/29/17 19:29 Dose: 2.5 mg Alprazolam (Xanax) 1 mg PO BID [facility] Last Admin: 12/30/17 09:27 Dose: 1 mg Carvedilol (Coreg) 12.5 mg PO BID [facility] Last Admin: 12/30/17 09:24 Dose: Not Given Digoxin (Lanoxin) 0.25 mg PO DAILY@1800 [facility] Last Admin: 12/29/17 18:19 Dose: 0.25 mg Fluticasone/Vilanterol (Breo Ellipta 100-25 Mcg Inh) 1 puff INH DAILY [facility] Last Admin: 12/29/17 16:48 Dose: 1 puff Furosemide (Lasix) 40 mg PO DAILY [facility] Last Admin: 12/30/17 09:26 Dose: Not Given Ferric Sodium Gluconate Complex 125 mg/ Sodium Chloride 110 mls @ 110 mls/hr IVPB Q24H [facility] Stop: 01/03/18 15:31 Last Admin: 12/29/17 15:40 Dose: 110 mls/hr Magnesium Oxide (Mag-Ox) 400 mg PO DAILY [facility] Last Admin: 12/30/17 09:26 Dose: 400 mg Oxycodone/Acetaminophen (Percocet 5/325 Mg Tab) 1 tab PO Q12H PRN PRN Reason: Pain, severe (8-10) Stop: 01/02/18 09:51 Pantoprazole Sodium (Protonix Ec Tab) 40 mg PO DAILY [facility] Last Admin: 12/30/17 09:26 Dose: 40 mg Potassium Chloride (K-Dur 20 Meq Er Tab) 20 meq PO DAILY [facility] Last Admin: 12/30/17 09:26 Dose: 20 meq Rosuvastatin Calcium (Crestor) 10 mg PO HS [facility] Last Admin: 12/29/17 21:48 Dose: 10 mg Sacubitril/Valsartan (Entresto 24 Mg-26 Mg) 1 tab PO DAILY [facility] Last Admin: 12/30/17 09:25 Dose: 1 tab Sitagliptin Phosphate (Januvia) 50 mg PO DAILY [facility] Last Admin: 12/30/17 09:26 Dose: 50 mg - Labs Labs: 12/30/17 06:33 12/30/17 06:33 PT 12.9 SECONDS (9.7-12.2) H 12/25/17 23:26 INR 1.2 12/25/17 23:26 APTT 54 SECONDS (21-34) H 12/25/17 23:26 - Constitutional Appears: Well, Non-toxic - Head Exam Head Exam: ATRAUMATIC, NORMAL INSPECTION, NORMOCEPHALIC - Eye Exam Eye Exam: EOMI, Normal appearance Pupil Exam: NORMAL ACCOMODATION, PERRL - ENT Exam ENT Exam: Mucous Membranes Moist, Normal Exam - Neck Exam Neck Exam: Normal Inspection - Respiratory Exam Respiratory Exam: Clear to Ausculation Bilateral, NORMAL BREATHING PATTERN. absent: Accessory Muscle Use, Chest Wall Tenderness, Decreased Breath Sounds, Rales, Rhonchi, Wheezes - Cardiovascular Exam Cardiovascular Exam: REGULAR RHYTHM, RRR. absent: Bradycardia, Tachycardia, Clicks, Diastolic murmur, JVD, Murmur - GI/Abdominal Exam GI & Abdominal Exam: Distended, Soft, Normal Bowel Sounds. absent: Rigid, Tenderness - Back Exam Back Exam: absent: CVA tenderness (L), CVA tenderness (R) - Neurological Exam Neurological Exam: Alert, Altered, Awake, CN II-XII Intact, Oriented x3 Assessment and Plan (1) Chr obstructive pulmonary disease w/ acute lower respiratory infxn Status: Acute (2) Chronic congestive heart failure Status: Acute (3) ROSIO and COPD overlap syndrome Status: Acute (4) Prophylactic measure Status: Acute
--- NOTE | 2017-12-30 14:41 | CP.PCM.PN ---
Subjective - Date & Time of Evaluation Date of Evaluation: 12/30/17 Time of Evaluation: 11:30 - Subjective Subjective: clinically same Objective - Vital Signs/Intake and Output Vital Signs (last 24 hours): Temp Pulse Resp BP Pulse Ox 97.4 F L 75 16 99/46 L 93 L 12/30/17 08:00 12/30/17 10:00 12/30/17 08:00 12/30/17 09:26 12/30/17 08:00 Intake and Output: 12/30/17 12/30/17 06:59 18:59 Intake Total 100 250 Output Total 450 Balance -350 250 - Medications Medications: Current Medications Albuterol Sulfate (Albuterol 0.083% Inhal Donna (2.5 Mg/3 Ml) Ud) 2.5 mg INH RQ6 PRN PRN Reason: Shortness of Breath Last Admin: 12/29/17 19:29 Dose: 2.5 mg Alprazolam (Xanax) 1 mg PO BID [facility] Last Admin: 12/30/17 09:27 Dose: 1 mg Carvedilol (Coreg) 12.5 mg PO BID [facility] Last Admin: 12/30/17 09:24 Dose: Not Given Digoxin (Lanoxin) 0.25 mg PO DAILY@1800 [facility] Last Admin: 12/29/17 18:19 Dose: 0.25 mg Fluticasone/Vilanterol (Breo Ellipta 100-25 Mcg Inh) 1 puff INH DAILY [facility] Last Admin: 12/29/17 16:48 Dose: 1 puff Furosemide (Lasix) 40 mg PO DAILY [facility] Last Admin: 12/30/17 09:26 Dose: Not Given Ferric Sodium Gluconate Complex 125 mg/ Sodium Chloride 110 mls @ 110 mls/hr IVPB Q24H [facility] Stop: 01/03/18 15:31 Last Admin: 12/29/17 15:40 Dose: 110 mls/hr Magnesium Oxide (Mag-Ox) 400 mg PO DAILY [facility] Last Admin: 12/30/17 09:26 Dose: 400 mg Oxycodone/Acetaminophen (Percocet 5/325 Mg Tab) 1 tab PO Q12H PRN PRN Reason: Pain, severe (8-10) Stop: 01/02/18 09:51 Pantoprazole Sodium (Protonix Ec Tab) 40 mg PO DAILY [facility] Last Admin: 12/30/17 09:26 Dose: 40 mg Potassium Chloride (K-Dur 20 Meq Er Tab) 20 meq PO DAILY [facility] Last Admin: 12/30/17 09:26 Dose: 20 meq Rosuvastatin Calcium (Crestor) 10 mg PO HS [facility] Last Admin: 12/29/17 21:48 Dose: 10 mg Sacubitril/Valsartan (Entresto 24 Mg-26 Mg) 1 tab PO DAILY [facility] Last Admin: 12/30/17 09:25 Dose: 1 tab Sitagliptin Phosphate (Januvia) 50 mg PO DAILY [facility] Last Admin: 12/30/17 09:26 Dose: 50 mg - Labs Labs: 12/30/17 06:33 12/30/17 06:33 PT 12.9 SECONDS (9.7-12.2) H 12/25/17 23:26 INR 1.2 12/25/17 23:26 APTT 54 SECONDS (21-34) H 12/25/17 23:26 - Constitutional Appears: Well - Head Exam Head Exam: ATRAUMATIC, NORMAL INSPECTION, NORMOCEPHALIC - Eye Exam Eye Exam: EOMI, Normal appearance, PERRL Pupil Exam: NORMAL ACCOMODATION, PERRL - ENT Exam ENT Exam: Mucous Membranes Moist, Normal Exam - Neck Exam Neck Exam: Full ROM, Normal Inspection. absent: Lymphadenopathy - Respiratory Exam Respiratory Exam: Decreased Breath Sounds - Cardiovascular Exam Cardiovascular Exam: REGULAR RHYTHM, +S1, +S2 - GI/Abdominal Exam GI & Abdominal Exam: Soft, Diminished Bowel Sounds - Rectal Exam Rectal Exam: Deferred
[2017-12-30] MEDS: Ferric Sodium Gluconat Complex 125 MG in Sodium Chloride 0.9% 100 ML IVPB SCH (15:48)
[2017-12-30] MEDS ORDERED: Ferric Sodium Gluconat Complex 62.5 mg/5 ml Vial ONE (15:49)
[2017-12-30] MEDS: Digoxin 250 mcg (0.25 mg) Tab PO SCH (17:41)
[2017-12-30] MEDS: Oxycodone/Acetaminophen 5/325 mg Tab PO PRN (17:41)
[2017-12-30] MEDS: Albuterol 0.083% Inhal Sol (2.5 mg/3 mL) UD INH PRN (19:12)
--- NOTE | 2017-12-30 20:08 | CP.PCM.PN ---
Subjective - Date & Time of Evaluation Date of Evaluation: 12/30/17 Time of Evaluation: 10:30 - Subjective Subjective: Patient with hx of Non Isch CMP s/p AICD Medical management Not on anticoagulation due to Chronic anemia Dyspnea secondary to anemia and CHF Check ECHO Objective - Vital Signs/Intake and Output Vital Signs (last 24 hours): Temp Pulse Resp BP Pulse Ox 97.4 F L 75 17 92/42 L 96 12/30/17 16:00 12/30/17 19:13 12/30/17 16:00 12/30/17 18:00 12/30/17 16:00 Intake and Output: 12/30/17 12/31/17 18:59 06:59 Intake Total 1050 Output Total 600 Balance 450 - Medications Medications: Current Medications Albuterol Sulfate (Albuterol 0.083% Inhal Donna (2.5 Mg/3 Ml) Ud) 2.5 mg INH RQ6 PRN PRN Reason: Shortness of Breath Last Admin: 12/30/17 19:12 Dose: 2.5 mg Alprazolam (Xanax) 1 mg PO BID [facility] Last Admin: 12/30/17 17:41 Dose: 1 mg Carvedilol (Coreg) 3.125 mg PO BID [facility] Digoxin (Lanoxin) 0.25 mg PO DAILY@1800 [facility] Last Admin: 12/30/17 17:41 Dose: 0.25 mg Fluticasone/Vilanterol (Breo Ellipta 100-25 Mcg Inh) 1 puff INH DAILY [facility] Last Admin: 12/29/17 16:48 Dose: 1 puff Furosemide (Lasix) 40 mg PO DAILY [facility] Last Admin: 12/30/17 09:26 Dose: Not Given Ferric Sodium Gluconate Complex 125 mg/ Sodium Chloride 110 mls @ 110 mls/hr IVPB Q24H [facility] Stop: 01/03/18 15:31 Last Admin: 12/30/17 15:48 Dose: 110 mls/hr Magnesium Oxide (Mag-Ox) 400 mg PO DAILY [facility] Last Admin: 12/30/17 09:26 Dose: 400 mg Oxycodone/Acetaminophen (Percocet 5/325 Mg Tab) 1 tab PO Q12H PRN PRN Reason: Pain, severe (8-10) Stop: 01/02/18 09:51 Last Admin: 12/30/17 17:41 Dose: 1 tab Pantoprazole Sodium (Protonix Ec Tab) 40 mg PO DAILY [facility] Last Admin: 12/30/17 09:26 Dose: 40 mg Potassium Chloride (K-Dur 20 Meq Er Tab) 20 meq PO DAILY [facility] Last Admin: 12/30/17 09:26 Dose: 20 meq Rosuvastatin Calcium (Crestor) 10 mg PO HS [facility] Last Admin: 12/29/17 21:48 Dose: 10 mg Sacubitril/Valsartan (Entresto 24 Mg-26 Mg) 1 tab PO DAILY [facility] Last Admin: 12/30/17 09:25 Dose: 1 tab Sitagliptin Phosphate (Januvia) 50 mg PO DAILY [facility] Last Admin: 12/30/17 09:26 Dose: 50 mg - Labs Labs: 12/30/17 06:33 12/30/17 06:33 PT 12.9 SECONDS (9.7-12.2) H 12/25/17 23:26 INR 1.2 12/25/17 23:26 APTT 54 SECONDS (21-34) H 12/25/17 23:26
--- NOTE | 2017-12-30 22:04 | CP.PCM.PN ---
Subjective - Date & Time of Evaluation Date of Evaluation: 12/29/17 Time of Evaluation: 17:00 - Subjective Subjective: Feeling better Objective - Vital Signs/Intake and Output Vital Signs (last 24 hours): Temp Pulse Resp BP Pulse Ox 97.5 F L 75 17 92/42 L 96 12/30/17 20:00 12/30/17 19:13 12/30/17 16:00 12/30/17 18:00 12/30/17 16:00 Intake and Output: 12/30/17 12/31/17 18:59 06:59 Intake Total 1050 140 Output Total 600 Balance 450 140 - Medications Medications: Current Medications Albuterol Sulfate (Albuterol 0.083% Inhal Donna (2.5 Mg/3 Ml) Ud) 2.5 mg INH RQ6 PRN PRN Reason: Shortness of Breath Last Admin: 12/30/17 19:12 Dose: 2.5 mg Alprazolam (Xanax) 1 mg PO BID [facility] Last Admin: 12/30/17 17:41 Dose: 1 mg Carvedilol (Coreg) 3.125 mg PO BID [facility] Digoxin (Lanoxin) 0.25 mg PO DAILY@1800 [facility] Last Admin: 12/30/17 17:41 Dose: 0.25 mg Fluticasone/Vilanterol (Breo Ellipta 100-25 Mcg Inh) 1 puff INH DAILY [facility] Last Admin: 12/29/17 16:48 Dose: 1 puff Furosemide (Lasix) 40 mg PO DAILY [facility] Last Admin: 12/30/17 09:26 Dose: Not Given Ferric Sodium Gluconate Complex 125 mg/ Sodium Chloride 110 mls @ 110 mls/hr IVPB Q24H [facility] Stop: 01/03/18 15:31 Last Admin: 12/30/17 15:48 Dose: 110 mls/hr Magnesium Oxide (Mag-Ox) 400 mg PO DAILY [facility] Last Admin: 12/30/17 09:26 Dose: 400 mg Oxycodone/Acetaminophen (Percocet 5/325 Mg Tab) 1 tab PO Q12H PRN PRN Reason: Pain, severe (8-10) Stop: 01/02/18 09:51 Last Admin: 12/30/17 17:41 Dose: 1 tab Pantoprazole Sodium (Protonix Ec Tab) 40 mg PO DAILY [facility] Last Admin: 12/30/17 09:26 Dose: 40 mg Potassium Chloride (K-Dur 20 Meq Er Tab) 20 meq PO DAILY [facility] Last Admin: 12/30/17 09:26 Dose: 20 meq Rosuvastatin Calcium (Crestor) 10 mg PO HS [facility] Last Admin: 12/30/17 21:14 Dose: 10 mg Sacubitril/Valsartan (Entresto 24 Mg-26 Mg) 1 tab PO DAILY [facility] Last Admin: 12/30/17 09:25 Dose: 1 tab Sitagliptin Phosphate (Januvia) 50 mg PO DAILY [facility] Last Admin: 12/30/17 09:26 Dose: 50 mg - Labs Labs: 12/30/17 06:33 12/30/17 06:33 PT 12.9 SECONDS (9.7-12.2) H 12/25/17 23:26 INR 1.2 12/25/17 23:26 APTT 54 SECONDS (21-34) H 12/25/17 23:26 - Head Exam Head Exam: ATRAUMATIC - Eye Exam Eye Exam: Normal appearance - ENT Exam ENT Exam: Mucous Membranes Dry - Respiratory Exam Respiratory Exam: NORMAL BREATHING PATTERN - Cardiovascular Exam Cardiovascular Exam: +S1, +S2 - GI/Abdominal Exam GI & Abdominal Exam: Normal Bowel Sounds Assessment and Plan (1) Anemia Assessment & Plan: iron deficiency anemia from chronic GI blood loss unable to undergo GI w/u due to high cardiac risk on intermittent iron agree with PRBC transfusion support; H/H improved iron supplementation cleared from heme/onc standpoint Status: Acute
--- NOTE | 2017-12-30 22:05 | CP.PCM.PN ---
Subjective - Date & Time of Evaluation Date of Evaluation: 12/30/17 Time of Evaluation: 19:00 - Subjective Subjective: No complaints. Objective - Vital Signs/Intake and Output Vital Signs (last 24 hours): Temp Pulse Resp BP Pulse Ox 97.5 F L 75 17 92/42 L 96 12/30/17 20:00 12/30/17 19:13 12/30/17 16:00 12/30/17 18:00 12/30/17 16:00 Intake and Output: 12/30/17 12/31/17 18:59 06:59 Intake Total 1050 140 Output Total 600 Balance 450 140 - Medications Medications: Current Medications Albuterol Sulfate (Albuterol 0.083% Inhal Donna (2.5 Mg/3 Ml) Ud) 2.5 mg INH RQ6 PRN PRN Reason: Shortness of Breath Last Admin: 12/30/17 19:12 Dose: 2.5 mg Alprazolam (Xanax) [address] [facility] Last Admin: 12/30/17 17:41 Dose: 1 mg Carvedilol (Coreg) 3.[address] [facility] Digoxin (Lanoxin) 0.25 mg PO DAILY@1800 [facility] Last Admin: 12/30/17 17:41 Dose: 0.25 mg Fluticasone/Vilanterol (Breo Ellipta 100-25 Mcg Inh) [address] [facility] Last Admin: 12/29/17 16:48 Dose: 1 puff Furosemide (Lasix) [address] [facility] Last Admin: 12/30/17 09:26 Dose: Not Given Ferric Sodium Gluconate Complex 125 mg/ Sodium Chloride 110 mls @ 110 mls/hr IVPB Q24H [facility] Stop: 01/03/18 15:31 Last Admin: 12/30/17 15:48 Dose: 110 mls/hr Magnesium Oxide (Mag-Ox) [address] [facility] Last Admin: 12/30/17 09:26 Dose: 400 mg Oxycodone/Acetaminophen (Percocet 5/325 Mg Tab) 1 tab PO Q12H PRN PRN Reason: Pain, severe (8-10) Stop: 01/02/18 09:51 Last Admin: 12/30/17 17:41 Dose: 1 tab Pantoprazole Sodium (Protonix Ec Tab) [address] [facility] Last Admin: 12/30/17 09:26 Dose: 40 mg Potassium Chloride (K-Dur 20 Meq Er Tab) 20 meq PO DAILY [facility] Last Admin: 12/30/17 09:26 Dose: 20 meq Rosuvastatin Calcium (Crestor) [address] [facility] Last Admin: 12/30/17 21:14 Dose: 10 mg Sacubitril/Valsartan (Entresto 24 Mg-26 Mg) 1 tab PO DAILY [facility] Last Admin: 12/30/17 09:25 Dose: 1 tab Sitagliptin Phosphate (Januvia) [address] [facility] Last Admin: 12/30/17 09:26 Dose: 50 mg - Labs Labs: 12/30/17 06:33 12/30/17 06:33 PT 12.9 SECONDS (9.7-12.2) H 12/25/17 23:26 INR 1.2 12/25/17 23:26 APTT 54 SECONDS (21-34) H 12/25/17 23:26 - Head Exam Head Exam: ATRAUMATIC - Eye Exam Eye Exam: Normal appearance - ENT Exam ENT Exam: Mucous Membranes Dry - Respiratory Exam Respiratory Exam: NORMAL BREATHING PATTERN - Cardiovascular Exam Cardiovascular Exam: +S1, +S2 - GI/Abdominal Exam GI & Abdominal Exam: Normal Bowel Sounds Assessment and Plan (1) Anemia Assessment & Plan: iron deficiency anemia from chronic GI blood loss unable to undergo GI w/u due to high cardiac risk on intermittent iron agree with PRBC transfusion support; H/H improved iron supplementation cleared from heme/onc standpoint Status: Acute
--- NOTE | 2017-12-31 10:00 | CP.PCM.PN ---
Subjective - Date & Time of Evaluation Date of Evaluation: 12/31/17 Time of Evaluation: 10:00 - Subjective Subjective: Pulmonary Follow up, Covering Dr Serrano The patient was Seen/interviewed and examined by me at the bedside, Events reviewed Objective - Vital Signs/Intake and Output Vital Signs (last 24 hours): Temp Pulse Resp BP Pulse Ox 98.4 F 75 13 99/52 L 93 L 12/31/17 08:00 12/31/17 08:00 12/31/17 08:00 12/31/17 08:00 12/31/17 08:00 Intake and Output: 12/31/17 12/31/17 06:59 18:59 Intake Total 380 Balance 380 - Medications Medications: Current Medications Albuterol Sulfate (Albuterol 0.083% Inhal Donna (2.5 Mg/3 Ml) Ud) 2.5 mg INH RQ6 PRN PRN Reason: Shortness of Breath Last Admin: 12/30/17 19:12 Dose: 2.5 mg Alprazolam (Xanax) 1 mg PO BID [facility] Last Admin: 12/30/17 17:41 Dose: 1 mg Carvedilol (Coreg) 3.125 mg PO BID [facility] Digoxin (Lanoxin) 0.25 mg PO DAILY@1800 [facility] Last Admin: 12/30/17 17:41 Dose: 0.25 mg Fluticasone/Vilanterol (Breo Ellipta 100-25 Mcg Inh) 1 puff INH DAILY [facility] Last Admin: 12/29/17 16:48 Dose: 1 puff Furosemide (Lasix) 40 mg PO DAILY [facility] Last Admin: 12/30/17 09:26 Dose: Not Given Ferric Sodium Gluconate Complex 125 mg/ Sodium Chloride 110 mls @ 110 mls/hr IVPB Q24H [facility] Stop: 01/03/18 15:31 Last Admin: 12/30/17 15:48 Dose: 110 mls/hr Magnesium Oxide (Mag-Ox) 400 mg PO DAILY [facility] Last Admin: 12/30/17 09:26 Dose: 400 mg Oxycodone/Acetaminophen (Percocet 5/325 Mg Tab) 1 tab PO Q12H PRN PRN Reason: Pain, severe (8-10) Stop: 01/02/18 09:51 Last Admin: 12/30/17 17:41 Dose: 1 tab Pantoprazole Sodium (Protonix Ec Tab) 40 mg PO DAILY [facility] Last Admin: 12/30/17 09:26 Dose: 40 mg Potassium Chloride (K-Dur 20 Meq Er Tab) 20 meq PO DAILY [facility] Last Admin: 12/30/17 09:26 Dose: 20 meq Rosuvastatin Calcium (Crestor) 10 mg PO HS [facility] Last Admin: 12/30/17 21:14 Dose: 10 mg Sacubitril/Valsartan (Entresto 24 Mg-26 Mg) 1 tab PO DAILY [facility] Last Admin: 12/30/17 09:25 Dose: 1 tab Sitagliptin Phosphate (Januvia) 50 mg PO DAILY [facility] Last Admin: 12/30/17 09:26 Dose: 50 mg - Labs Labs: 12/30/17 06:33 12/30/17 06:33 PT 12.9 SECONDS (9.7-12.2) H 12/25/17 23:26 INR 1.2 12/25/17 23:26 APTT 54 SECONDS (21-34) H 12/25/17 23:26 Assessment and Plan (1) Chr obstructive pulmonary disease w/ acute lower respiratory infxn Status: Acute (2) Chronic congestive heart failure Status: Acute (3) ROSIO and COPD overlap syndrome Status: Acute (4) Prophylactic measure Status: Acute
[2017-12-31] MEDS: Potassium Chloride 20 mEq ER Tab PO SCH (10:20)
[2017-12-31] MEDS: Magnesium Oxide 400 mg Tab UD PO SCH (10:20)
[2017-12-31] MEDS: Pantoprazole 40 mg EC Tab PO SCH (10:20)
[2017-12-31] MEDS: Oxycodone/Acetaminophen 5/325 mg Tab PO PRN (10:21)
[2017-12-31] MEDS: Sacubitril/Valsartan 24-26mg Tab PO SCH (10:24)
[2017-12-31] MEDS: Fluticasone-Vilanterol 100/25mcg Diskus INH SCH (11:02)
[2017-12-31] MEDS: Ferric Sodium Gluconat Complex 125 MG in Sodium Chloride 0.9% 100 ML IVPB SCH (15:41)
--- NOTE | 2017-12-31 17:08 | CARD ---
APPROVED REPORT Date of service: 12/31/2017 EXAM: Two-dimensional and M-mode echocardiogram with Doppler and color Doppler. Other Information Quality : GoodRhythm : INDICATION Dyspnea Congestive Heart Failure COPD RISK FACTORS Hyperlipidemia Diabetes 2D DIMENSIONS IVSd1.2 (0.7-1.1cm)LVDd5.4 (3.9-5.9cm) PWd1.0 (0.7-1.1cm)LA Panjcv755 (18-58mL) LVDs3.9 (2.5-4.0cm)FS (%) 27.4 % LVEF (%)52.8 (>50%)LVEF (Galloway's)55 % M-Mode DIMENSIONS Left Atrium (MM)4.95 (2.5-4.0cm)IVSd1.02 (0.7-1.1cm) Aortic Root3.71 (2.2-3.7cm)LVDd5.48 (4.0-5.6cm) Aortic Cusp Exc.2.53 (1.5-2.0cm)PWd0.99 (0.7-1.1cm) FS (%) 18 %LVDs4.52 (2.0-3.8cm) TAPSE13.83 cmLVEF (%)55 (>50%) Mitral Valve MV E Cgqehqja66.9cm/sMV A Zrhgsvgb34.4cm/sE/A ratio3.0 QSHV165.40 cm/s TDI Lateral E' Peak V18.97cm/sMedial E' Peak V6.42cm/sE/Lateral E'5.1 E/Medial E'14.9 Tricuspid Valve TR Peak Jaosnzsy888fm/sTR Peak Gr.[id number] LEFT VENTRICLE The left ventricle is normal size. There is borderline concentric left ventricular hypertrophy. The left ventricular ejection fraction is within the normal range. No left ventricle thrombus noted on this study. RIGHT VENTRICLE The right ventricle is moderately dilated. RV Systolic function is moderately reduced. Right Ventricular septal motion is paradoxical. There is a pacemaker lead in the right ventricle. ATRIA The left atrium is moderately dilated. The right atrium is mildly dilated. AORTIC VALVE The aortic valve is moderately sclerotic. No aortic regurgitation is present. There is no aortic valvular stenosis. MITRAL VALVE The mitral valve is mildly thickened. There is no mitral valve stenosis. Mitral regurgitation is mild to moderate. TRICUSPID VALVE The tricuspid valve is normal in structure. There is moderate tricuspid regurgitation. There is moderate pulmonary hypertension. PULMONIC VALVE The pulmonary valve is normal in structure. There is trace pulmonic valvular regurgitation. GREAT VESSELS The aortic root is normal in size. The IVC is normal in size and collapses >50% with inspiration. <Conclusion> The left ventricle is normal size. There is borderline concentric left ventricular hypertrophy. The left ventricular ejection fraction is within the normal range. The right ventricle is moderately dilated. RV Systolic function is moderately reduced. Right Ventricular septal motion is paradoxical. Mitral regurgitation is mild to moderate. There is moderate tricuspid regurgitation. There is moderate pulmonary hypertension.
[2017-12-31 17:32] VITALS: RESP 20
[2017-12-31] MEDS: Digoxin 250 mcg (0.25 mg) Tab PO SCH (18:11)
--- NOTE | 2017-12-31 18:28 | CP.PCM.PN ---
Subjective - Date & Time of Evaluation Date of Evaluation: 12/31/17 Time of Evaluation: 10:45 - Subjective Subjective: clinically same Objective - Vital Signs/Intake and Output Vital Signs (last 24 hours): Temp Pulse Resp BP Pulse Ox 98.3 F 75 20 116/56 L 100 12/31/17 16:00 12/31/17 16:00 12/31/17 16:00 12/31/17 16:00 12/31/17 16:00 Intake and Output: 12/31/17 12/31/17 06:59 18:59 Intake Total 380 550 Output Total 700 Balance 380 -150 - Medications Medications: Current Medications Albuterol Sulfate (Albuterol 0.083% Inhal Donna (2.5 Mg/3 Ml) Ud) 2.5 mg INH RQ6 PRN PRN Reason: Shortness of Breath Last Admin: 12/30/17 19:12 Dose: 2.5 mg Alprazolam (Xanax) 1 mg PO BID [facility] Last Admin: 12/31/17 18:11 Dose: 1 mg Carvedilol (Coreg) 3.125 mg PO BID [facility] Last Admin: 12/31/17 18:11 Dose: 3.125 mg Digoxin (Lanoxin) 0.25 mg PO DAILY@1800 [facility] Last Admin: 12/31/17 18:11 Dose: 0.25 mg Fluticasone/Vilanterol (Breo Ellipta 100-25 Mcg Inh) 1 puff INH RQD [facility] Last Admin: 12/31/17 11:02 Dose: 1 puff Furosemide (Lasix) 40 mg PO DAILY [facility] Last Admin: 12/31/17 10:25 Dose: Not Given Ferric Sodium Gluconate Complex 125 mg/ Sodium Chloride 110 mls @ 110 mls/hr IVPB Q24H [facility] Stop: 01/03/18 15:31 Last Admin: 12/31/17 15:41 Dose: 110 mls/hr Magnesium Oxide (Mag-Ox) 400 mg PO DAILY [facility] Last Admin: 12/31/17 10:20 Dose: 400 mg Oxycodone/Acetaminophen (Percocet 5/325 Mg Tab) 1 tab PO Q12H PRN PRN Reason: Pain, severe (8-10) Stop: 01/02/18 09:51 Last Admin: 12/31/17 10:21 Dose: 1 tab Pantoprazole Sodium (Protonix Ec Tab) 40 mg PO DAILY [facility] Last Admin: 12/31/17 10:20 Dose: 40 mg Potassium Chloride (K-Dur 20 Meq Er Tab) 20 meq PO DAILY [facility] Last Admin: 12/31/17 10:20 Dose: 20 meq Rosuvastatin Calcium (Crestor) 10 mg PO HS [facility] Last Admin: 12/30/17 21:14 Dose: 10 mg Sacubitril/Valsartan (Entresto 24 Mg-26 Mg) 1 tab PO DAILY [facility] Last Admin: 12/31/17 10:24 Dose: Not Given Sitagliptin Phosphate (Januvia) 50 mg PO DAILY [facility] Last Admin: 12/31/17 10:20 Dose: 50 mg - Labs Labs: 12/30/17 06:33 12/30/17 06:33 PT 12.9 SECONDS (9.7-12.2) H 12/25/17 23:26 INR 1.2 12/25/17 23:26 APTT 54 SECONDS (21-34) H 12/25/17 23:26
--- NOTE | 2018-01-01 06:32 | CP.PCM.PN ---
Subjective - Date & Time of Evaluation Date of Evaluation: 12/31/17 Time of Evaluation: 19:35 - Subjective Subjective: Patient with hx of Non Isch CMP s/p AICD Medical management Not on anticoagulation due to Chronic anemia Dyspnea secondary to anemia and CHF ECHO shows normal EF and Moderate pulmonary HTN Objective - Vital Signs/Intake and Output Vital Signs (last 24 hours): Temp Pulse Resp BP Pulse Ox 97.8 F 75 20 102/66 97 12/31/17 23:53 01/01/18 03:06 12/31/17 23:53 12/31/17 23:53 12/31/17 23:53 Intake and Output: 12/31/17 01/01/18 18:59 06:59 Intake Total 550 140 Output Total 700 Balance -150 140 - Medications Medications: Current Medications Albuterol Sulfate (Albuterol 0.083% Inhal Donna (2.5 Mg/3 Ml) Ud) 2.5 mg INH RQ6 PRN PRN Reason: Shortness of Breath Last Admin: 12/30/17 19:12 Dose: 2.5 mg Alprazolam (Xanax) 1 mg PO BID [facility] Last Admin: 12/31/17 18:11 Dose: 1 mg Carvedilol (Coreg) 3.125 mg PO BID [facility] Last Admin: 12/31/17 18:11 Dose: 3.125 mg Digoxin (Lanoxin) 0.25 mg PO DAILY@1800 [facility] Last Admin: 12/31/17 18:11 Dose: 0.25 mg Fluticasone/Vilanterol (Breo Ellipta 100-25 Mcg Inh) 1 puff INH RQD [facility] Last Admin: 12/31/17 11:02 Dose: 1 puff Furosemide (Lasix) 40 mg PO DAILY [facility] Last Admin: 12/31/17 10:25 Dose: Not Given Ferric Sodium Gluconate Complex 125 mg/ Sodium Chloride 110 mls @ 110 mls/hr IVPB Q24H [facility] Stop: 01/03/18 15:31 Last Admin: 12/31/17 15:41 Dose: 110 mls/hr Magnesium Oxide (Mag-Ox) 400 mg PO DAILY [facility] Last Admin: 12/31/17 10:20 Dose: 400 mg Oxycodone/Acetaminophen (Percocet 5/325 Mg Tab) 1 tab PO Q12H PRN PRN Reason: Pain, severe (8-10) Stop: 01/02/18 09:51 Last Admin: 12/31/17 10:21 Dose: 1 tab Pantoprazole Sodium (Protonix Ec Tab) 40 mg PO DAILY [facility] Last Admin: 12/31/17 10:20 Dose: 40 mg Potassium Chloride (K-Dur 20 Meq Er Tab) 20 meq PO DAILY [facility] Last Admin: 12/31/17 10:20 Dose: 20 meq Rosuvastatin Calcium (Crestor) 10 mg PO HS [facility] Last Admin: 12/31/17 21:25 Dose: 10 mg Sacubitril/Valsartan (Entresto 24 Mg-26 Mg) 1 tab PO DAILY [facility] Last Admin: 12/31/17 10:24 Dose: Not Given Sitagliptin Phosphate (Januvia) 50 mg PO DAILY [facility] Last Admin: 12/31/17 10:20 Dose: 50 mg - Labs Labs: 12/30/17 06:33 12/30/17 06:33 PT 12.9 SECONDS (9.7-12.2) H 12/25/17 23:26 INR 1.2 12/25/17 23:26 APTT 54 SECONDS (21-34) H 12/25/17 23:26
[2018-01-01 07:09] LABS: BASO % 0.3 % (0.0-2.0); EOS # 0.2 K/uL (0.0-0.7); EOS % 3.2 % (0.0-4.0); LYMPH # 1.6 K/uL (1.0-4.3); LYMPH % 26.7 % (20.0-40.0); MEAN CELL VOLUME 86.4 fL (81.0-99.0); MEAN CORPUSCULAR HEMOGLOBIN 27.6 pg (27.0-31.0); MEAN PLATELET VOLUME 9.5 fL (7.2-11.7); MONO # 0.5 K/uL (0.0-0.8); MONO % 8.2 % (0.0-10.0); NEUT # 3.6 K/uL (1.8-7.0); NEUT % 61.6 % (50.0-75.0); NRBC % 0.1 % (0.0-2.0); RBC 3.26 Mil/uL (3.80-5.20); RED CELL DISTRIBUTION WIDTH 15.3 % (11.5-14.5); WHITE BLOOD COUNT 5.9 K/uL (4.8-10.8)
[2018-01-01 07:28] LABS: ALB/GLOB RATIO 1.1 (1.0-2.1); ALBUMIN 3.5 g/dL (3.5-5.0); ALT/SGPT 14 U/L (9-52); AST/SGOT 11 U/L (14-36); BLOOD UREA NITROGEN 15 mg/dL (7-17); CALCIUM 9.1 mg/dl (8.6-10.4); GFR NON-AFRICAN AMERICAN > 60
[2018-01-01] MEDS: Fluticasone-Vilanterol 100/25mcg Diskus INH SCH (08:45)
[2018-01-01] MEDS: Magnesium Oxide 400 mg Tab UD PO SCH (09:43)
[2018-01-01] MEDS: Potassium Chloride 20 mEq ER Tab PO SCH (09:43)
[2018-01-01] MEDS: Pantoprazole 40 mg EC Tab PO SCH (09:43)
[2018-01-01] MEDS: Sacubitril/Valsartan 24-26mg Tab PO SCH (09:43)
[2018-01-01 12:00] VITALS: PULSE 75
--- NOTE | 2018-01-01 12:45 | CP.PCM.PN ---
Subjective - Date & Time of Evaluation Date of Evaluation: 01/01/18 Time of Evaluation: 12:45 - Subjective Subjective: Pulmonary Follow up, Covering Dr Serrano The patient was Seen/interviewed and examined by me at the bedside, Medical records reviewed and Management issues were discussed and formulated with the house staff. Events reviewed Objective - Vital Signs/Intake and Output Vital Signs (last 24 hours): Temp Pulse Resp BP Pulse Ox 97.7 F 75 20 95/62 L 95 01/01/18 08:18 01/01/18 12:00 01/01/18 08:18 01/01/18 09:42 01/01/18 08:18 Intake and Output: 01/01/18 01/01/18 06:59 18:59 Intake Total 140 Balance 140 - Medications Medications: Current Medications Albuterol Sulfate (Albuterol 0.083% Inhal Donna (2.5 Mg/3 Ml) Ud) 2.5 mg INH RQ6 PRN PRN Reason: Shortness of Breath Last Admin: 12/30/17 19:12 Dose: 2.5 mg Alprazolam (Xanax) 1 mg PO BID [facility] Last Admin: 01/01/18 09:43 Dose: 1 mg Carvedilol (Coreg) 3.125 mg PO BID [facility] Last Admin: 01/01/18 09:43 Dose: 3.125 mg Digoxin (Lanoxin) 0.25 mg PO DAILY@1800 [facility] Last Admin: 12/31/17 18:11 Dose: 0.25 mg Fluticasone/Vilanterol (Breo Ellipta 100-25 Mcg Inh) 1 puff INH RQD [facility] Last Admin: 12/31/17 11:02 Dose: 1 puff Furosemide (Lasix) 40 mg PO DAILY [facility] Last Admin: 01/01/18 09:42 Dose: Not Given Ferric Sodium Gluconate Complex 125 mg/ Sodium Chloride 110 mls @ 110 mls/hr IVPB Q24H [facility] Stop: 01/03/18 15:31 Last Admin: 12/31/17 15:41 Dose: 110 mls/hr Magnesium Oxide (Mag-Ox) 400 mg PO DAILY [facility] Last Admin: 01/01/18 09:43 Dose: 400 mg Oxycodone/Acetaminophen (Percocet 5/325 Mg Tab) 1 tab PO Q12H PRN PRN Reason: Pain, severe (8-10) Stop: 01/02/18 09:51 Last Admin: 12/31/17 10:21 Dose: 1 tab Pantoprazole Sodium (Protonix Ec Tab) 40 mg PO DAILY [facility] Last Admin: 01/01/18 09:43 Dose: 40 mg Potassium Chloride (K-Dur 20 Meq Er Tab) 20 meq PO DAILY [facility] Last Admin: 01/01/18 09:43 Dose: 20 meq Rosuvastatin Calcium (Crestor) 10 mg PO HS [facility] Last Admin: 12/31/17 21:25 Dose: 10 mg Sacubitril/Valsartan (Entresto 24 Mg-26 Mg) 1 tab PO DAILY [facility] Last Admin: 01/01/18 09:43 Dose: 1 tab Sitagliptin Phosphate (Januvia) 50 mg PO DAILY [facility] Last Admin: 01/01/18 09:43 Dose: 50 mg - Labs Labs: 01/01/18 07:00 01/01/18 07:00 PT 12.9 SECONDS (9.7-12.2) H 12/25/17 23:26 INR 1.2 12/25/17 23:26 APTT 54 SECONDS (21-34) H 12/25/17 23:26 Assessment and Plan (1) Chr obstructive pulmonary disease w/ acute lower respiratory infxn Status: Acute (2) Chronic congestive heart failure Status: Acute (3) ROSIO and COPD overlap syndrome Status: Acute (4) Prophylactic measure Status: Acute
[2018-01-01 13:10] VITALS: O2SAT 96
[2018-01-01] MEDS: Albuterol 0.083% Inhal Sol (2.5 mg/3 mL) UD INH PRN (13:55)
[2018-01-01] MEDS: Ferric Sodium Gluconat Complex 125 MG in Sodium Chloride 0.9% 100 ML IVPB SCH (14:38)
--- NOTE | 2018-01-01 15:14 | CP.PCM.PN ---
Subjective - Date & Time of Evaluation Date of Evaluation: 01/01/18 Time of Evaluation: 09:00 - Subjective Subjective: clinically same Objective - Vital Signs/Intake and Output Vital Signs (last 24 hours): Temp Pulse Resp BP Pulse Ox 97.7 F 75 20 95/62 L 96 01/01/18 08:18 01/01/18 12:00 01/01/18 08:18 01/01/18 09:42 01/01/18 12:55 Intake and Output: 01/01/18 01/01/18 06:59 18:59 Intake Total 140 Balance 140 - Medications Medications: Current Medications Albuterol Sulfate (Albuterol 0.083% Inhal Donna (2.5 Mg/3 Ml) Ud) 2.5 mg INH RQ6 PRN PRN Reason: Shortness of Breath Last Admin: 01/01/18 13:55 Dose: 2.5 mg Alprazolam (Xanax) 1 mg PO BID [facility] Last Admin: 01/01/18 09:43 Dose: 1 mg Carvedilol (Coreg) 3.125 mg PO BID [facility] Last Admin: 01/01/18 09:43 Dose: 3.125 mg Digoxin (Lanoxin) 0.25 mg PO DAILY@1800 [facility] Last Admin: 12/31/17 18:11 Dose: 0.25 mg Fluticasone/Vilanterol (Breo Ellipta 100-25 Mcg Inh) 1 puff INH RQD [facility] Last Admin: 01/01/18 08:45 Dose: 1 puff Furosemide (Lasix) 40 mg PO DAILY [facility] Last Admin: 01/01/18 09:42 Dose: Not Given Ferric Sodium Gluconate Complex 125 mg/ Sodium Chloride 110 mls @ 110 mls/hr IVPB Q24H [facility] Stop: 01/03/18 15:31 Last Admin: 01/01/18 14:38 Dose: 110 mls/hr Magnesium Oxide (Mag-Ox) 400 mg PO DAILY [facility] Last Admin: 01/01/18 09:43 Dose: 400 mg Oxycodone/Acetaminophen (Percocet 5/325 Mg Tab) 1 tab PO Q12H PRN PRN Reason: Pain, severe (8-10) Stop: 01/02/18 09:51 Last Admin: 12/31/17 10:21 Dose: 1 tab Pantoprazole Sodium (Protonix Ec Tab) 40 mg PO DAILY [facility] Last Admin: 01/01/18 09:43 Dose: 40 mg Potassium Chloride (K-Dur 20 Meq Er Tab) 20 meq PO DAILY [facility] Last Admin: 01/01/18 09:43 Dose: 20 meq Rosuvastatin Calcium (Crestor) 10 mg PO HS [facility] Last Admin: 12/31/17 21:25 Dose: 10 mg Sacubitril/Valsartan (Entresto 24 Mg-26 Mg) 1 tab PO DAILY [facility] Last Admin: 01/01/18 09:43 Dose: 1 tab Sitagliptin Phosphate (Januvia) 50 mg PO DAILY [facility] Last Admin: 01/01/18 09:43 Dose: 50 mg - Labs Labs: 01/01/18 07:00 01/01/18 07:00 PT 12.9 SECONDS (9.7-12.2) H 12/25/17 23:26 INR 1.2 12/25/17 23:26 APTT 54 SECONDS (21-34) H 12/25/17 23:26 - Constitutional Appears: Well - Head Exam Head Exam: ATRAUMATIC, NORMAL INSPECTION, NORMOCEPHALIC - Eye Exam Eye Exam: EOMI, Normal appearance, PERRL Pupil Exam: NORMAL ACCOMODATION, PERRL - ENT Exam ENT Exam: Mucous Membranes Moist, Normal Exam - Neck Exam Neck Exam: Full ROM, Normal Inspection. absent: Lymphadenopathy - Respiratory Exam Respiratory Exam: Decreased Breath Sounds - Cardiovascular Exam Cardiovascular Exam: REGULAR RHYTHM, +S1, +S2 - GI/Abdominal Exam GI & Abdominal Exam: Soft, Diminished Bowel Sounds - Rectal Exam Rectal Exam: Deferred
[2018-01-01 15:33] VITALS: BP 104/70; TEMP 97.6
--- NOTE | 2018-01-01 15:42 | CP.PCM.PN ---
Subjective - Date & Time of Evaluation Date of Evaluation: 01/01/18 Time of Evaluation: 15:42 Objective - Vital Signs/Intake and Output Vital Signs (last 24 hours): Temp Pulse Resp BP Pulse Ox 97.6 F 75 20 104/70 96 01/01/18 15:00 01/01/18 15:00 01/01/18 15:00 01/01/18 15:00 01/01/18 15:00 Intake and Output: 01/01/18 01/01/18 06:59 18:59 Intake Total 140 Balance 140 - Medications Medications: Current Medications Albuterol Sulfate (Albuterol 0.083% Inhal Donna (2.5 Mg/3 Ml) Ud) 2.5 mg INH RQ6 PRN PRN Reason: Shortness of Breath Last Admin: 01/01/18 13:55 Dose: 2.5 mg Alprazolam (Xanax) 1 mg PO BID [facility] Last Admin: 01/01/18 09:43 Dose: 1 mg Carvedilol (Coreg) 3.125 mg PO BID [facility] Last Admin: 01/01/18 09:43 Dose: 3.125 mg Digoxin (Lanoxin) 0.25 mg PO DAILY@1800 [facility] Last Admin: 12/31/17 18:11 Dose: 0.25 mg Fluticasone/Vilanterol (Breo Ellipta 100-25 Mcg Inh) 1 puff INH RQD [facility] Last Admin: 01/01/18 08:45 Dose: 1 puff Furosemide (Lasix) 40 mg PO DAILY [facility] Last Admin: 01/01/18 09:42 Dose: Not Given Ferric Sodium Gluconate Complex 125 mg/ Sodium Chloride 110 mls @ 110 mls/hr IVPB Q24H [facility] Stop: 01/03/18 15:31 Last Admin: 01/01/18 14:38 Dose: 110 mls/hr Magnesium Oxide (Mag-Ox) 400 mg PO DAILY [facility] Last Admin: 01/01/18 09:43 Dose: 400 mg Oxycodone/Acetaminophen (Percocet 5/325 Mg Tab) 1 tab PO Q12H PRN PRN Reason: Pain, severe (8-10) Stop: 01/02/18 09:51 Last Admin: 12/31/17 10:21 Dose: 1 tab Pantoprazole Sodium (Protonix Ec Tab) 40 mg PO DAILY [facility] Last Admin: 01/01/18 09:43 Dose: 40 mg Potassium Chloride (K-Dur 20 Meq Er Tab) 20 meq PO DAILY [facility] Last Admin: 01/01/18 09:43 Dose: 20 meq Rosuvastatin Calcium (Crestor) 10 mg PO HS [facility] Last Admin: 12/31/17 21:25 Dose: 10 mg Sacubitril/Valsartan (Entresto 24 Mg-26 Mg) 1 tab PO DAILY [facility] Last Admin: 01/01/18 09:43 Dose: 1 tab Sitagliptin Phosphate (Januvia) 50 mg PO DAILY [facility] Last Admin: 01/01/18 09:43 Dose: 50 mg - Labs Labs: 01/01/18 07:00 01/01/18 07:00 PT 12.9 SECONDS (9.7-12.2) H 12/25/17 23:26 INR 1.2 12/25/17 23:26 APTT 54 SECONDS (21-34) H 12/25/17 23:26 Assessment and Plan - Assessment and Plan (Free Text) Assessment: FOLLOW UP WITH DR Annamarie MOREJON IN HIS OFFICE ----CALL FOR APPOINTMENT FOLLOW UP WITH DR WOMACK IN HIS OFFICE ----CALL FOR APPOINTMENT CONTINUE HOME MEDICATION ACTIVITY TOLERATED / HOME WITH PHYSICAL THERAPY FOR [place] AND EVAL CALL DR Annamarie MOREJON OR DR WOMACK OR GO TO THE EMERGENCY ROOM IF SYMPTOM RETURN OR WORSENING
[2018-01-01 17:40] VITALS: PULSE 78
[2018-01-01] MEDS: Digoxin 250 mcg (0.25 mg) Tab PO SCH (17:40)
[2018-01-01] MEDS: Oxycodone/Acetaminophen 5/325 mg Tab PO PRN (17:47)
--- NOTE | 2018-01-01 19:10 | CP.PCM.PN ---
Subjective - Date & Time of Evaluation Date of Evaluation: 01/01/18 Time of Evaluation: 16:00 - Subjective Subjective: No complaints. Objective - Vital Signs/Intake and Output Vital Signs (last 24 hours): Temp Pulse Resp BP Pulse Ox 97.6 F 75 20 104/70 96 01/01/18 15:00 01/01/18 15:00 01/01/18 15:00 01/01/18 15:00 01/01/18 15:00 - Medications Medications: Current Medications Albuterol Sulfate (Albuterol 0.083% Inhal Donna (2.5 Mg/3 Ml) Ud) 2.5 mg INH RQ6 PRN PRN Reason: Shortness of Breath Last Admin: 01/01/18 13:55 Dose: 2.5 mg Alprazolam (Xanax) 1 mg PO BID [facility] Last Admin: 01/01/18 17:40 Dose: 1 mg Carvedilol (Coreg) 3.125 mg PO BID [facility] Last Admin: 01/01/18 17:40 Dose: 3.125 mg Digoxin (Lanoxin) 0.25 mg PO DAILY@1800 [facility] Last Admin: 01/01/18 17:40 Dose: 0.25 mg Fluticasone/Vilanterol (Breo Ellipta 100-25 Mcg Inh) 1 puff INH RQD [facility] Last Admin: 01/01/18 08:45 Dose: 1 puff Furosemide (Lasix) 40 mg PO DAILY [facility] Last Admin: 01/01/18 09:42 Dose: Not Given Ferric Sodium Gluconate Complex 125 mg/ Sodium Chloride 110 mls @ 110 mls/hr IVPB Q24H [facility] Stop: 01/03/18 15:31 Last Admin: 01/01/18 14:38 Dose: 110 mls/hr Magnesium Oxide (Mag-Ox) 400 mg PO DAILY [facility] Last Admin: 01/01/18 09:43 Dose: 400 mg Oxycodone/Acetaminophen (Percocet 5/325 Mg Tab) 1 tab PO Q12H PRN PRN Reason: Pain, severe (8-10) Stop: 01/02/18 09:51 Last Admin: 01/01/18 17:47 Dose: 1 tab Pantoprazole Sodium (Protonix Ec Tab) 40 mg PO DAILY [facility] Last Admin: 01/01/18 09:43 Dose: 40 mg Potassium Chloride (K-Dur 20 Meq Er Tab) 20 meq PO DAILY [facility] Last Admin: 01/01/18 09:43 Dose: 20 meq Rosuvastatin Calcium (Crestor) 10 mg PO HS [facility] Last Admin: 12/31/17 21:25 Dose: 10 mg Sacubitril/Valsartan (Entresto 24 Mg-26 Mg) 1 tab PO DAILY [facility] Last Admin: 01/01/18 09:43 Dose: 1 tab Sitagliptin Phosphate (Januvia) 50 mg PO DAILY [facility] Last Admin: 01/01/18 09:43 Dose: 50 mg - Labs Labs: 01/01/18 07:00 01/01/18 07:00 PT 12.9 SECONDS (9.7-12.2) H 12/25/17 23:26 INR 1.2 12/25/17 23:26 APTT 54 SECONDS (21-34) H 12/25/17 23:26 - Head Exam Head Exam: ATRAUMATIC - Eye Exam Eye Exam: Normal appearance - ENT Exam ENT Exam: Mucous Membranes Dry - Respiratory Exam Respiratory Exam: NORMAL BREATHING PATTERN - Cardiovascular Exam Cardiovascular Exam: +S1, +S2 - GI/Abdominal Exam GI & Abdominal Exam: Normal Bowel Sounds Assessment and Plan (1) Anemia Assessment & Plan: iron deficiency anemia from chronic GI blood loss unable to undergo GI w/u due to high cardiac risk on intermittent iron agree with PRBC transfusion support; H/H improved iron supplementation cleared from heme/onc standpoint Status: Acute
--- NOTE | 2018-01-01 19:10 | CP.PCM.PN ---
Subjective - Date & Time of Evaluation Date of Evaluation: 12/31/17 Time of Evaluation: 12:00 - Subjective Subjective: Feeling better Objective - Vital Signs/Intake and Output Vital Signs (last 24 hours): Temp Pulse Resp BP Pulse Ox 97.6 F 75 20 104/70 96 01/01/18 15:00 01/01/18 15:00 01/01/18 15:00 01/01/18 15:00 01/01/18 15:00 - Medications Medications: Current Medications Albuterol Sulfate (Albuterol 0.083% Inhal Donna (2.5 Mg/3 Ml) Ud) 2.5 mg INH RQ6 PRN PRN Reason: Shortness of Breath Last Admin: 01/01/18 13:55 Dose: 2.5 mg Alprazolam (Xanax) 1 mg PO BID [facility] Last Admin: 01/01/18 17:40 Dose: 1 mg Carvedilol (Coreg) 3.125 mg PO BID [facility] Last Admin: 01/01/18 17:40 Dose: 3.125 mg Digoxin (Lanoxin) 0.25 mg PO DAILY@1800 [facility] Last Admin: 01/01/18 17:40 Dose: 0.25 mg Fluticasone/Vilanterol (Breo Ellipta 100-25 Mcg Inh) 1 puff INH RQD [facility] Last Admin: 01/01/18 08:45 Dose: 1 puff Furosemide (Lasix) 40 mg PO DAILY [facility] Last Admin: 01/01/18 09:42 Dose: Not Given Ferric Sodium Gluconate Complex 125 mg/ Sodium Chloride 110 mls @ 110 mls/hr IVPB Q24H [facility] Stop: 01/03/18 15:31 Last Admin: 01/01/18 14:38 Dose: 110 mls/hr Magnesium Oxide (Mag-Ox) 400 mg PO DAILY [facility] Last Admin: 01/01/18 09:43 Dose: 400 mg Oxycodone/Acetaminophen (Percocet 5/325 Mg Tab) 1 tab PO Q12H PRN PRN Reason: Pain, severe (8-10) Stop: 01/02/18 09:51 Last Admin: 01/01/18 17:47 Dose: 1 tab Pantoprazole Sodium (Protonix Ec Tab) 40 mg PO DAILY [facility] Last Admin: 01/01/18 09:43 Dose: 40 mg Potassium Chloride (K-Dur 20 Meq Er Tab) 20 meq PO DAILY [facility] Last Admin: 01/01/18 09:43 Dose: 20 meq Rosuvastatin Calcium (Crestor) 10 mg PO HS [facility] Last Admin: 12/31/17 21:25 Dose: 10 mg Sacubitril/Valsartan (Entresto 24 Mg-26 Mg) 1 tab PO DAILY [facility] Last Admin: 01/01/18 09:43 Dose: 1 tab Sitagliptin Phosphate (Januvia) 50 mg PO DAILY [facility] Last Admin: 01/01/18 09:43 Dose: 50 mg - Labs Labs: 01/01/18 07:00 01/01/18 07:00 PT 12.9 SECONDS (9.7-12.2) H 12/25/17 23:26 INR 1.2 12/25/17 23:26 APTT 54 SECONDS (21-34) H 12/25/17 23:26 - Head Exam Head Exam: ATRAUMATIC - Eye Exam Eye Exam: Normal appearance - ENT Exam ENT Exam: Mucous Membranes Dry - Respiratory Exam Respiratory Exam: NORMAL BREATHING PATTERN - Cardiovascular Exam Cardiovascular Exam: +S1, +S2 - GI/Abdominal Exam GI & Abdominal Exam: Normal Bowel Sounds Assessment and Plan (1) Anemia Assessment & Plan: iron deficiency anemia from chronic GI blood loss unable to undergo GI w/u due to high cardiac risk on intermittent iron agree with PRBC transfusion support; H/H improved iron supplementation cleared from heme/onc standpoint Status: Acute
== END 2018-01-01 20:42 | disposition home or self-care (01) | DRG 378 ==
LOC: C.ER 22:19 → C.9I 12-26 00:25 → C.5S 12-31 20:16
PROVIDERS: ADMIT Internal Medicine Nephrology; ATTEND Internal Medicine Nephrology
DX: K92.2 Gastrointestinal hemorrhage, unspecified (principal); I42.9 Cardiomyopathy, unspecified; I50.32 Chronic diastolic (congestive) heart failure; Z68.43 Body mass index [BMI] 50.0-59.9, adult; D50.0 Iron deficiency anemia secondary to blood loss (chronic); E11.9 Type 2 diabetes mellitus without complications; G47.33 Obstructive sleep apnea (adult) (pediatric); I11.0 Hypertensive heart disease with heart failure; I27.20 Pulmonary hypertension, unspecified; I48.91 Unspecified atrial fibrillation; J44.9 Chronic obstructive pulmonary disease, unspecified; Z95.0 Presence of cardiac pacemaker; Z95.810 Presence of automatic (implantable) cardiac defibrillator; E78.00 Pure hypercholesterolemia, unspecified; E66.01 Morbid (severe) obesity due to excess calories

== ENCOUNTER 2018-06-03 15:59 | Inpatient (IN) | payer MEDICARE, OTHER | END 2018-06-08 14:44 | disposition home or self-care (01) | LOC: C.ER 15:59 → C.9E 19:46 → C.5S 23:30 ==

== ENCOUNTER 2018-08-10 16:02 | Inpatient (IN) | payer MEDICARE, OTHER ==
[2018-08-10 16:02] VITALS: PULSE 70; BMI 50.1
[2018-08-10 17:00] LABS: BASO % 0.3 % (0.0-2.0); EOS # 0.1 K/uL (0.0-0.7); EOS % 1.4 % (0.0-4.0); HEMOGLOBIN 8.3 g/dL (11.0-16.0); LYMPH # 1.4 K/uL (1.0-4.3); LYMPH % 27.1 % (20.0-40.0); MEAN CELL VOLUME 87.9 fL (81.0-99.0); MEAN CORPUSCULAR HEMOGLOBIN 27.7 pg (27.0-31.0); MEAN CORPUSCULAR HGB CONC 31.5 g/dL (33.0-37.0); MONO # 0.6 K/uL (0.0-0.8); MONO % 12.2 % (0.0-10.0); NEUT # 3.1 K/uL (1.8-7.0); NRBC % 0.1 % (0.0-2.0); RED CELL DISTRIBUTION WIDTH 16.6 % (11.5-14.5); WHITE BLOOD COUNT 5.3 K/uL (4.8-10.8)
--- NOTE | 2018-08-10 17:24 | RAD ---
HISTORY: SOB COMPARISON: Chest x-ray performed 12/25/17. TECHNIQUE: Chest, one view. FINDINGS: Examination limited by habitus. Right-sided MediPort re-identified with distal tip curved superiorly and directed upwards at the level of the neck/jugular vein. Recommend repositioning so as to have the distal tip directed to the cavoatrial junction. LUNGS: No focal consolidation. Please note that chest x-ray has limited sensitivity for the detection of pulmonary masses. PLEURA: No significant pleural effusion identified. No definite pneumothorax . CARDIOVASCULAR: Dual lead left-sided AICD. Severe cardiomegaly. Atherosclerotic calcifications of the aorta. OSSEOUS STRUCTURES: Degenerative changes of the spine. VISUALIZED UPPER ABDOMEN: Unremarkable. OTHER FINDINGS: None. IMPRESSION: Right-sided MediPort re-identified with distal tip curved superiorly and directed upwards at the level of the neck/jugular vein. Recommend repositioning so as to have the distal tip directed to the cavoatrial junction. Dual lead left-sided AICD. Severe cardiomegaly. Atherosclerotic calcifications of the aorta.
[2018-08-10 17:25] LABS: B-TYPE NATRIURETIC PEPTIDE 287 pg/mL (0-900)
[2018-08-10 17:31] LABS: INR 1.2; PROTHROMBIN TIME 13.1 SECONDS (9.7-12.2)
[2018-08-10 17:38] LABS: ALBUMIN 3.9 g/dL (3.5-5.0); ALT/SGPT 23 U/L (9-52); AST/SGOT 17 U/L (14-36); BLOOD UREA NITROGEN 15 mg/dL (7-17); CALCIUM 9.4 mg/dl (8.6-10.4); CK-MB < 0.22 ng/mL (0.0-3.38); GFR NON-AFRICAN AMERICAN 56
--- NOTE | 2018-08-10 18:53 | C.PDOC ---
History Of Present Illness 63 year female with PMHx of COPD/asthma, Afib, CHF, HTN, HLD, pneumonia, and ROSIO presents to the ED complaining of worsening chronic shortness of breath since last night. Also complains of generalized weakness. Reports she spoke with Dr. Moura, Instrument And Control Technician, who referred her to the ED because he was concerned for the possibility of anemia and need of blood transfusion. Denies any chest pain, palpitations, fever, chills, abdominal pain, rectal bleeding, or any other associated symptoms. Time Seen by Provider: 08/10/18 16:32 Chief Complaint (Nursing): Shortness Of Breath History Per: Patient History/Exam Limitations: no limitations Onset/Duration Of Symptoms: Hrs Current Symptoms Are (Timing): Still Present Associated Symptoms: Other (generalized weakness ). denies: Fever, Chills, Chest Pain Past Medical History Reviewed: Historical Data, Nursing Documentation, Vital Signs Vital Signs: Last Vital Signs Temp 98.6 F 08/10/18 16:24 Pulse 64 08/10/18 17:54 Resp 15 08/10/18 17:54 BP 130/70 08/10/18 17:54 Pulse Ox 100 08/10/18 17:54 Primary Care Provider: Ned Moura - Medical History PMH: Anemia, Anxiety, Arthritis, Asthma, Atrial Fibrillation, Cardia Arrhythmia, CHF, COPD, Depression, Fractures (RIGHT MIDDLE TOE), HTN, Hypercholesterolemia, Peripheral Edema, Pneumonia, Sleep Apnea (C PAP SETTING 10) Denies: Chronic Kidney Disease Surgical History: Pacemaker - [facility] Procedures INSERTION OF INFUSION DEV INTO SUP VENA CAVA, PERC APPROACH (07/09/17) INSERTION OF VAD INTO CHEST SUBCU/FASCIA, OPEN APPROACH (07/09/17) LEFT HEART CARDIAC CATH (02/12/13) LT HEART ANGIOCARDIOGRAM (02/12/13) TRANSFUSE NONAUT RED BLOOD CELLS IN PERIPH VEIN, PERC (06/03/18) Family History: States: No Known Family Hx - Social History Hx Tobacco Use: No Hx Alcohol Use: No Hx Substance Use: No - Immunization History Hx Tetanus Toxoid Vaccination: No Hx Influenza Vaccination: No Hx Pneumococcal Vaccination: Yes Review Of Systems Constitutional: Positive for: Weakness. Negative for: Fever, Chills Cardiovascular: Negative for: Chest Pain, Palpitations Respiratory: Positive for: Shortness of Breath Gastrointestinal: Negative for: Abdominal Pain, Hematochezia Physical Exam - Physical Exam Appears: Non-toxic, No Acute Distress, Other (morbidly obese ) Skin: Warm, Dry, No Rash Head: Normacephalic Eye(s): bilateral: PERRL, EOMI Oral Mucosa: Moist Neck: Supple Chest: Symmetrical Cardiovascular: Rhythm Regular Respiratory: No Accessory Muscle Use, No Rales, No Rhonchi, No Wheezing, Other (good air movement, CTA B/L ) Gastrointestinal/Abdominal: Soft, No Tenderness, No Distention, No Guarding, No Rebound Extremity: Pedal Edema (+1 pitting edema to B/L lower extremities ) Neurological/Psych: Oriented x3, Normal Speech Gait: Steady ED Course And Treatment - Laboratory Results Result Diagrams: 08/10/18 16:55 08/10/18 16:55 Lab Results: PT 13.1 SECONDS (9.7-12.2) H 08/10/18 16:55 INR 1.2 08/10/18 16:55 APTT 52.0 SECONDS (21-34) H 08/10/18 16:55 Troponin I < 0.0120 ng/mL (0.00-0.120) 08/10/18 16:55 NT-Pro-B Natriuret Pep 287 pg/mL (0-900) 08/10/18 16:55 Total Bilirubin 1.0 mg/dL (0.2-1.3) 08/10/18 16:55 AST 17 U/L (14-36) 08/10/18 16:55 ALT 23 U/L (9-52) 08/10/18 16:55 Alkaline Phosphatase 90 U/L (38-126) 08/10/18 16:55 Total Protein 7.6 g/dL (6.3-8.3) 08/10/18 16:55 Albumin 3.9 g/dL (3.5-5.0) 08/10/18 16:55 Globulin 3.7 gm/dL (2.2-3.9) 08/10/18 16:55 Albumin/Globulin Ratio 1.0 (1.0-2.1) 08/10/18 16:55 O2 Sat by Pulse Oximetry: 100 (RA) Pulse Ox Interpretation: Normal - Other Rad CXR X-Ray: Viewed By Me, Read By Radiologist Interpretation: Accession No. : [id number]. Patient Name / ID : GREGORY AMADO / [id number]. Exam Date : 08/10/2018 17:02:27 ( Approved ). Study Comment : Sex / Age : F / 63Y. Creator : Arleth Ott MD. Dictator : Arleth Ott MD. Light Industrial Supervisor : Envelope Fold Operator : Arleth Ott MD. Approver2 : Report Date : 08/10/2018 17:20:29. My Comment : . HISTORY: SOB. COMPARISON: Chest x-ray performed 12/25/17. TECHNIQUE: Chest, one view. FINDINGS: Examination limited by habitus. Right-sided MediPort re-identified with distal tip curved superiorly and directed upwards at the level of the neck/jugular vein. Recommend repositioning so as to have the distal tip directed to the cavoatrial junction. LUNGS: No focal consolidation. Please note that chest x- ray has limited sensitivity for the detection of pulmonary masses. PLEURA: No significant pleural effusion identified. No definite pneumothorax . CARDIOVASCULAR: Dual lead left-sided AICD. Severe cardiomegaly. Atherosclerotic calcifications of the aorta. OSSEOUS STRUCTURES: Degenerative changes of the spine. VISUALIZED UPPER ABDOMEN: Unremarkable. OTHER FINDINGS: None. IMPRESSION: Right-sided MediPort re-identified with distal tip curved superiorly and directed upwards at the level of the neck/jugular vein. Recommend repositioning so as to have the distal tip directed to the cavoatrial junction. Dual lead left-sided AICD. Severe cardiomegaly. Atherosclerotic calcifications of the aorta. Progress Note: EKG and CXR ordered and reviewed. Blood colelcted and sent to the lab for analysis. - Scribe Statement The provider has reviewed the documentation as recorded by the Scribe Juliette Pablo All medical record entries made by the Scribe were at my direction and personally dictated by me. I have reviewed the chart and agree that the record accurately reflects my personal performance of the history, physical exam, medical decision making, and the department course for this patient. I have also personally directed, reviewed, and agree with the discharge instructions and disposition.
[2018-08-10] MEDS ORDERED: Albuterol 0.083% Inhal Sol (2.5 mg/3 mL) UD INH PRN (21:25)
[2018-08-10] MEDS ORDERED: Oxycodone/Acetaminophen 5/325 mg Tab PO PRN (21:25)
[2018-08-10] MEDS: Ferric Sodium Gluconat Complex 62.5 mg/5 ml Vial IVPB SCH (22:17)
[2018-08-11] MEDS: (Novolog) Insulin Aspart, Recombinant 100 u/ml 10 ml vial SC SCH ×4 (08:04→21:34)
[2018-08-11] MEDS ORDERED: Sacubitril/Valsartan 24-26mg Tab PO SCH (10:00)
[2018-08-11] MEDS: Ferric Sodium Gluconat Complex 62.5 mg/5 ml Vial IVPB SCH (10:46)
[2018-08-11] MEDS: Magnesium Oxide 400 mg Tab UD PO SCH (10:47)
[2018-08-11] MEDS: Potassium Chloride 20 mEq ER Tab PO SCH (10:47)
[2018-08-11] MEDS: Pantoprazole 40 mg EC Tab PO SCH (10:47)
--- NOTE | 2018-08-11 11:12 | CP.PCM.HP ---
History of Present Illness - History of Present Illness History of Present Illness: 63-year-old female presents with complaint of worsening chronic shortness of breath since last night. Associated with generalized weakness. past medical history of anemia, anxiety, arthritis, eczema, atrial fibrillation, cardiac arrhythmia, CHF, COPD, depression, fractures (right middle toe), hypertension, hypercholesterolemia, peripheral edema, pneumonia, sleep apnea (CPAP setting 10), past surgical history of pacemaker. No history of fever, chills, chest pain.no history of night sweats, mouth ulcers .no history of palpitations, abdominal pain, rectal bleeding.no history of rash, cough. Past Medical History Reviewed: Historical Data, Nursing Documentation, Vital Signs Vital Signs: Last Vital Signs Temp 98.6 F 08/10/18 16:24 Pulse 64 08/10/18 17:54 Resp 15 08/10/18 17:54 BP 130/70 08/10/18 17:54 Pulse Ox 100 08/10/18 17:54 - Medical History PMH: Anemia, Anxiety, Arthritis, Asthma, Atrial Fibrillation, Cardia Arrhythmia, CHF, COPD, Depression, Fractures (RIGHT MIDDLE TOE), HTN, Hypercholesterolemia, Peripheral Edema, Pneumonia, Sleep Apnea (C PAP SETTING 10) Denies: Chronic Kidney Disease Surgical History: Pacemaker - [facility] Procedures INSERTION OF INFUSION DEV INTO SUP VENA CAVA, PERC APPROACH (07/09/17) INSERTION OF VAD INTO CHEST SUBCU/FASCIA, OPEN APPROACH (07/09/17) LEFT HEART CARDIAC CATH (02/12/13) LT HEART ANGIOCARDIOGRAM (02/12/13) TRANSFUSE NONAUT RED BLOOD CELLS IN PERIPH VEIN, PERC (06/03/18) Family History: States: No Known Family Hx - Social History Hx Tobacco Use: No Hx Alcohol Use: No Hx Substance Use: No - Immunization History Hx Tetanus Toxoid Vaccination: No Hx Influenza Vaccination: No Hx Pneumococcal Vaccination: Yes Review Of Systems Constitutional: Positive for: Weakness. Negative for: Fever, Chills Cardiovascular: Negative for: Chest Pain, Palpitations Respiratory: Positive for: Shortness of Breath Gastrointestinal: Negative for: Abdominal Pain, Hematochezia Neuro - no headache, vision changes Past Patient History - Infectious Disease Hx of Infectious Diseases: None - Past Medical History & Family History Past Medical History?: Yes - Past Social History Smoking Status: Former Smoker - CARDIAC Hx Atrial Fibrillation: Yes Hx Cardia Arrhythmia: Yes Hx Congestive Heart Failure: Yes Hx Hypercholesterolemia: Yes Hx Hypertension: Yes Hx Pacemaker: Yes Hx Peripheral Edema: Yes - PULMONARY Hx Asthma: Yes Hx Chronic Obstructive Pulmonary Disease (COPD): Yes Hx Pneumonia: Yes Hx Sleep Apnea: Yes (C PAP SETTING 10) - NEUROLOGICAL Hx Neurological Disorder: Yes Hx Dizziness: Yes - HEENT Hx HEENT Problems: Yes Other/Comment: left eye surgery 2014. glasses for distance and reading - RENAL Hx Chronic Kidney Disease: No - ENDOCRINE/METABOLIC Hx Endocrine Disorders: Yes Hx Diabetes Mellitus Type 2: Yes - HEMATOLOGICAL/ONCOLOGICAL Hx Anemia: Yes - INTEGUMENTARY Hx Dermatological Problems: No - MUSCULOSKELETAL/RHEUMATOLOGICAL Hx Arthritis: Yes Hx Fractures: Yes (RIGHT MIDDLE TOE) - GASTROINTESTINAL Hx Gastrointestinal Disorders: No - GENITOURINARY/GYNECOLOGICAL Hx Genitourinary Disorders: No - PSYCHIATRIC Hx Anxiety: Yes Hx Depression: Yes Hx Substance Use: No - SURGICAL HISTORY Hx Surgeries: Yes Hx Eye Surgery: Yes (left eye 2014) Hx Herniorrhaphy: Yes Hx Open Heart Surgery: Yes (foramen ovale at age 6) Hx Orthopedic Surgery: Yes (right carpal surgery) Hx Vascular Access Device: Yes Other/Comment: pacemaker 2009,ablation 2009, - ANESTHESIA Hx Anesthesia: Yes Hx Anesthesia Reactions: No Hx Malignant Hyperthermia: No Meds Allergies/Adverse Reactions: Allergies Allergy/AdvReac Type Severity Reaction Status Date / Time No Known Allergies Allergy Verified 08/10/18 16:28 Physical Exam - Constitutional Appears: Well - Head Exam Head Exam: ATRAUMATIC, NORMAL INSPECTION, NORMOCEPHALIC - Eye Exam Eye Exam: EOMI, Normal appearance, PERRL Pupil Exam: NORMAL ACCOMODATION, PERRL - ENT Exam ENT Exam: Mucous Membranes Moist, Normal Exam - Neck Exam Neck exam: Positive for: Normal Inspection - Respiratory Exam Respiratory Exam: Decreased Breath Sounds - Cardiovascular Exam Cardiovascular Exam: REGULAR RHYTHM, +S1, +S2 - GI/Abdominal Exam GI & Abdominal Exam: Diminished Bowel Sounds, Soft - Rectal Exam Rectal Exam: Deferred - Neurological Exam Neurological exam: Oriented x3 Results - Vital Signs Recent Vital Signs: Last Vital Signs Temp 98.1 F 08/11/18 08:36 Pulse 62 08/11/18 08:36 Resp 20 08/11/18 08:36 BP 112/66 08/11/18 10:51 Pulse Ox 98 08/11/18 08:36 - Labs Result Diagrams: 08/14/18 06:40 08/14/18 06:40 Labs: Laboratory Results - last 24 hr 08/10/18 08/10/18 08/10/18 16:55 16:55 16:55 WBC 5.3 RBC 3.00 L Hgb 8.3 L Hct 26.4 L MCV 87.9 MCH 27.7 MCHC 31.5 L RDW 16.6 H Plt Count 134 MPV 9.0 Neut % (Auto) 59.0 Lymph % (Auto) 27.1 Letcher % (Auto) 12.2 H Eos % (Auto) 1.4 Baso % (Auto) 0.3 Neut # (Auto) 3.1 Lymph # (Auto) 1.4 Letcher # (Auto) 0.6 Eos # (Auto) 0.1 Baso # (Auto) 0.0 PT 13.1 H INR 1.2 APTT 52.0 H Sodium 142 Potassium 4.1 Chloride 102 Carbon Dioxide 33 H Anion Gap 11 BUN 15 Creatinine 1.0 Est GFR ( Amer) > 60 Est GFR (Non-Af Amer) 56 POC Glucose (mg/dL) Random Glucose 98 Calcium 9.4 Total Bilirubin 1.0 AST 17 ALT 23 Alkaline Phosphatase 90 Total Creatine Kinase 55 CK-MB (Mass) < 0.22 Troponin I < 0.0120 NT-Pro-B Natriuret Pep 287 Total Protein 7.6 Albumin 3.9 Globulin 3.7 Albumin/Globulin Ratio 1.0 Blood Type Antibody Screen 08/10/18 08/10/18 08/10/18 16:58 17:45 23:57 WBC RBC Hgb Hct MCV MCH MCHC RDW Plt Count MPV Neut % (Auto) Lymph % (Auto) Letcher % (Auto) Eos % (Auto) Baso % (Auto) Neut # (Auto) Lymph # (Auto) Letcher # (Auto) Eos # (Auto) Baso # (Auto) PT INR APTT Sodium Potassium Chloride Carbon Dioxide Anion Gap BUN Creatinine Est GFR ( Amer) Est GFR (Non-Af Amer) POC Glucose (mg/dL) 105 148 H Random Glucose Calcium Total Bilirubin AST ALT Alkaline Phosphatase Total Creatine Kinase CK-MB (Mass) Troponin I NT-Pro-B Natriuret Pep Total Protein Albumin Globulin Albumin/Globulin Ratio Blood Type O POSITIVE Antibody Screen Negative 08/11/18 06:39 WBC RBC Hgb Hct MCV MCH MCHC RDW Plt Count MPV Neut % (Auto) Lymph % (Auto) Letcher % (Auto) Eos % (Auto) Baso % (Auto) Neut # (Auto) Lymph # (Auto) Letcher # (Auto) Eos # (Auto) Baso # (Auto) PT INR APTT Sodium Potassium Chloride Carbon Dioxide Anion Gap BUN Creatinine Est GFR ( Amer) Est GFR (Non-Af Amer) POC Glucose (mg/dL) 140 H Random Glucose Calcium Total Bilirubin AST ALT Alkaline Phosphatase Total Creatine Kinase CK-MB (Mass) Troponin I NT-Pro-B Natriuret Pep Total Protein Albumin Globulin Albumin/Globulin Ratio Blood Type Antibody Screen Assessment & Plan - Assessment and Plan (Free Text) Assessment: Plan WBC 5.3 Hemoglobin 8.3 Hematocrit 26.4 Platelets 134 Sodium 142 Potassium 4.1 Bicarbonate 33 BUN 15 Creatinine 1.0 Glucose 98 O2 saturation 100 Chest [id number] left-sided AICD.severe cardiomegaly.atherosclerotic calcifications of the aorta Moderate to high complexity of care. Plan of care discussed with patient &/or family & staff. Medications reviewed and reconciled. Labs reviewed. Vitals reviewed.
[2018-08-11 11:55] LABS: HEMOGLOBIN 7.7 g/dL (11.0-16.0); MEAN CELL VOLUME 88.6 fL (81.0-99.0); MEAN CORPUSCULAR HGB CONC 31.7 g/dL (33.0-37.0); RBC 2.74 Mil/uL (3.80-5.20); RED CELL DISTRIBUTION WIDTH 16.9 % (11.5-14.5); WHITE BLOOD COUNT 5.3 K/uL (4.8-10.8)
[2018-08-11] MEDS: Sacubitril/Valsartan 24-26mg Tab PO SCH (13:14)
[2018-08-11 20:53] LABS: ALBUMIN 3.8 g/dL (3.5-5.0); ALT/SGPT 14 U/L (9-52); AST/SGOT 17 U/L (14-36); BLOOD UREA NITROGEN 16 mg/dL (7-17); CALCIUM 9.3 mg/dl (8.6-10.4); GFR NON-AFRICAN AMERICAN > 60
--- NOTE | 2018-08-11 21:38 | CP.PCM.CON ---
History of Present Illness - History of Present Illness History of Present Illness: Vascular Surgery Consult note. Dr. Celis 63yo F with PMHx of COPD, Asthma, ROSIO, Obesity, A.Fib on ASA, HTN, HLD, Cardiomyopathy with AICD, DM, Iron deficiency anemia here for evaluation of generalized weakness, lethargy and SOB. Patient found to have symptomatic anemia and is being treated. Patient obtained a Right IJ Portacath placement in 06/2017 which she states has been working fine. On CXR during this admission, it was noted that the Right IJ portacath seems to be coiled and ends in the EJ. Vascular surgery evaluation obtained for further recs. Patient denies any fevers or chills. Denies any problems with her port in the past. PMHx: DM, COPD, Asthma, ROSIO, Obesity, A.Fib on ASA, HTN, HLD, Cardiomyopathy w AICD, Iron Deficiency Anemia PSHx: Umbilical Hernia Repair, AICD placement. Portacath placement 06/2018 Family Hx: Non-contributory Social Hx: Denies tobacco use, Denies illicit drugs, Denies ETOH use NKDA Review of Systems - Review of Systems All systems: reviewed and no additional remarkable complaints except - Constitutional Constitutional: Fatigue, Lethargy. absent: Chills, Fever, Malaise - EENT Eyes: absent: Change in Vision Nose/Mouth/Throat: absent: Nasal Congestion - Cardiovascular Cardiovascular: Dyspnea. absent: Chest Pain - Respiratory Respiratory: Dyspnea. absent: Cough - Gastrointestinal Gastrointestinal: absent: Abdominal Pain, Melena, Nausea, Vomiting - Genitourinary Genitourinary: absent: Change in Urinary Stream, Difficulty Urinating Past Patient History - Infectious Disease Hx of Infectious Diseases: None - Past Medical History & Family History Past Medical History?: Yes Past Family History: Reviewed and not pertinent - Past Social History Smoking Status: Former Smoker Alcohol: None Drugs: Denies - CARDIAC Hx Atrial Fibrillation: Yes Hx Cardia Arrhythmia: Yes Hx Congestive Heart Failure: Yes Hx Hypercholesterolemia: Yes Hx Hypertension: Yes Hx Pacemaker: Yes Hx Peripheral Edema: Yes - PULMONARY Hx Asthma: Yes Hx Chronic Obstructive Pulmonary Disease (COPD): Yes Hx Pneumonia: Yes Hx Sleep Apnea: Yes (C PAP SETTING 10) - NEUROLOGICAL Hx Neurological Disorder: Yes Hx Dizziness: Yes - HEENT Hx HEENT Problems: Yes Other/Comment: left eye surgery 2014. glasses for distance and reading - RENAL Hx Chronic Kidney Disease: No - ENDOCRINE/METABOLIC Hx Endocrine Disorders: Yes Hx Diabetes Mellitus Type 2: Yes - HEMATOLOGICAL/ONCOLOGICAL Hx Anemia: Yes - INTEGUMENTARY Hx Dermatological Problems: No - MUSCULOSKELETAL/RHEUMATOLOGICAL Hx Arthritis: Yes Hx Fractures: Yes (RIGHT MIDDLE TOE) - GASTROINTESTINAL Hx Gastrointestinal Disorders: No - GENITOURINARY/GYNECOLOGICAL Hx Genitourinary Disorders: No - PSYCHIATRIC Hx Anxiety: Yes Hx Depression: Yes Hx Substance Use: No - SURGICAL HISTORY Hx Surgeries: Yes Hx Eye Surgery: Yes (left eye 2014) Hx Herniorrhaphy: Yes Hx Open Heart Surgery: Yes (foramen ovale at age 6) Hx Orthopedic Surgery: Yes (right carpal surgery) Hx Vascular Access Device: Yes Other/Comment: pacemaker 2009,ablation 2009, - ANESTHESIA Hx Anesthesia: Yes Hx Anesthesia Reactions: No Hx Malignant Hyperthermia: No Meds Allergies/Adverse Reactions: Allergies Allergy/AdvReac Type Severity Reaction Status Date / Time No Known Allergies Allergy Verified 08/10/18 16:28 - Medications Medications: Current Medications Albuterol Sulfate (Albuterol 0.083% Inhal Donna (2.5 Mg/3 Ml) Ud) 2.5 mg INH RQ4 PRN PRN Reason: Shortness of Breath Alprazolam (Xanax) 2 mg PO BID [facility] Last Admin: 08/11/18 17:36 Dose: Not Given Aspirin (Ecotrin) 81 mg PO DAILY [facility] Last Admin: 08/11/18 10:47 Dose: 81 mg Carvedilol (Coreg) 12.5 mg PO BID [facility] Last Admin: 08/11/18 17:36 Dose: Not Given Ferric Sodium Gluconate Complex (Ferrlecit) 125 mg IVPB DAILY [facility] Stop: 08/18/18 21:31 Last Admin: 08/11/18 10:46 Dose: 125 mg Furosemide (Lasix) 40 mg PO DAILY [facility] Last Admin: 08/11/18 10:51 Dose: 40 mg Insulin Aspart (Novolog) [address] [facility]; Protocol Last Admin: 08/11/18 21:34 Dose: Not Given Magnesium Oxide (Mag-Ox) 400 mg PO DAILY [facility] Last Admin: 08/11/18 10:47 Dose: 400 mg Oxycodone/Acetaminophen (Percocet 5/325 Mg Tab) 1 tab PO BID PRN PRN Reason: Pain, moderate (4-7) Pantoprazole Sodium (Protonix Ec Tab) 40 mg PO DAILY [facility] Last Admin: 08/11/18 10:47 Dose: 40 mg Potassium Chloride (K-Dur 20 Meq Er Tab) 20 meq PO DAILY [facility] Last Admin: 08/11/18 10:47 Dose: 20 meq Rosuvastatin Calcium (Crestor) 10 mg PO HS [facility] Last Admin: 08/11/18 21:19 Dose: 10 mg Sacubitril/Valsartan (Entresto 24 Mg-26 Mg) 1 tab PO DAILY [facility] Last Admin: 08/11/18 13:14 Dose: 1 tab Sitagliptin Phosphate (Januvia) 50 mg PO DAILY [facility] Last Admin: 08/11/18 10:47 Dose: 50 mg Physical Exam - Constitutional Appears: Non-toxic, No Acute Distress - Head Exam Head Exam: ATRAUMATIC, NORMAL INSPECTION, NORMOCEPHALIC - Eye Exam Eye Exam: EOMI, Normal appearance. absent: Scleral icterus - ENT Exam ENT Exam: Mucous Membranes Moist - Respiratory Exam Respiratory Exam: NORMAL BREATHING PATTERN. absent: Accessory Muscle Use, Respiratory Distress - Cardiovascular Exam Cardiovascular Exam: RRR. absent: JVD Additional comments: Right chest wall with Portacath in place. No skin changes noted. - GI/Abdominal Exam GI & Abdominal Exam: Soft. absent: Distended, Firm, Guarding, Rebound, Rigid, Tenderness - Neurological Exam Neurological exam: Alert, Oriented x3 - Skin Skin Exam: Dry, Intact, Normal Color, Warm Results - Vital Signs Recent Vital Signs: Last Vital Signs Temp 98.3 F 08/11/18 16:47 Pulse 71 08/11/18 16:47 Resp 22 08/11/18 16:47 BP 102/60 08/11/18 17:36 Pulse Ox 97 08/11/18 15:00 - Labs Result Diagrams: 08/11/18 11:51 08/11/18 20:21 Labs: Laboratory Results - last 24 hr 08/10/18 08/11/18 08/11/18 23:57 06:39 11:48 WBC RBC Hgb Hct MCV MCH MCHC RDW Plt Count MPV Sodium Potassium Chloride Carbon Dioxide Anion Gap BUN Creatinine Est GFR ( Amer) Est GFR (Non-Af Amer) POC Glucose (mg/dL) 148 H 140 H 150 H Random Glucose Calcium Magnesium Total Bilirubin AST ALT Alkaline Phosphatase Total Protein Albumin Globulin Albumin/Globulin Ratio Blood Type Antibody Screen 08/11/18 08/11/18 08/11/18 11:51 11:51 16:11 WBC 5.3 RBC 2.74 L Hgb 7.7 L Hct 24.3 L MCV 88.6 MCH 28.0 MCHC 31.7 L RDW 16.9 H Plt Count 123 L MPV 9.0 Sodium Potassium Chloride Carbon Dioxide Anion Gap BUN Creatinine Est GFR ( Amer) Est GFR (Non-Af Amer) POC Glucose (mg/dL) 149 H Random Glucose Calcium Magnesium Total Bilirubin AST ALT Alkaline Phosphatase Total Protein Albumin Globulin Albumin/Globulin Ratio Blood Type O POSITIVE Antibody Screen Negative 08/11/18 08/11/18 20:21 21:13 WBC RBC Hgb Hct MCV MCH MCHC RDW Plt Count MPV Sodium 140 Potassium 4.5 Chloride 98 Carbon Dioxide 34 H Anion Gap 12 BUN 16 Creatinine 0.9 Est GFR ( Amer) > 60 Est GFR (Non-Af Amer) > 60 POC Glucose (mg/dL) 140 H Random Glucose 114 H Calcium 9.3 Magnesium 1.8 Total Bilirubin 1.5 H AST 17 ALT 14 Alkaline Phosphatase 79 Total Protein 7.5 Albumin 3.8 Globulin 3.7 Albumin/Globulin Ratio 1.0 Blood Type Antibody Screen Assessment & Plan - Assessment and Plan (Free Text) Assessment: 63yo F with mal-positioned portacath catheter tip. Plan: - NPO past midnight - We will consider possible OR tomorrow, 08/12; Pending OR scheduling - f/u AM labs - Maximization for OR - Medical Management as per Heme/Onc and Primary teams Further recs as per Dr. Lalita Yun PGY2 surgery
--- NOTE | 2018-08-11 22:10 | CP.PCM.CON ---
History of Present Illness - History of Present Illness History of Present Illness: 63 year old female with a history of DM, HTN, HL, COPD, ROSIO, cardiomyopthay with AICD, afib on aspirin, iron deficiency anemia, admitted with symptomatic anemia. The patient was found to have a hgb of 8.2 in the office on Sunday and notes to progressive fatigue. Due to her fatigue, she as sent to the ER for further evaluation. She has been FOB positive and has received multiple PRBC transfusions. The patient was felt high risk for endoscopy given her cardiac history and prior Xarelto was held in an attempt to stabilize her hemoglobin. Past medical history: DM, HTN, HL, COPD, ROSIO, cardiomyopathy, with AICD, afib, iron deficiency anemia Past surgical history: Umbilical hernia repair, AICD Family history: Denies hematologic and oncologic problems Social history: Denies tobacco, alcohol, and illicit drug use. Allergies: NKA Review of systems: All remaining review of systems including HEENT, cardiovascular, respiratory, gastrointestinal, genitourinary, musculoskeletal, dermatologic, neurologic, and psychiatric are negative unless mentioned in the HPI. Past Patient History - Infectious Disease Hx of Infectious Diseases: None - Past Medical History & Family History Past Medical History?: Yes - Past Social History Smoking Status: Former Smoker - CARDIAC Hx Atrial Fibrillation: Yes Hx Cardia Arrhythmia: Yes Hx Congestive Heart Failure: Yes Hx Hypercholesterolemia: Yes Hx Hypertension: Yes Hx Pacemaker: Yes Hx Peripheral Edema: Yes - PULMONARY Hx Asthma: Yes Hx Chronic Obstructive Pulmonary Disease (COPD): Yes Hx Pneumonia: Yes Hx Sleep Apnea: Yes (C PAP SETTING 10) - NEUROLOGICAL Hx Neurological Disorder: Yes Hx Dizziness: Yes - HEENT Hx HEENT Problems: Yes Other/Comment: left eye surgery 2014. glasses for distance and reading - RENAL Hx Chronic Kidney Disease: No - ENDOCRINE/METABOLIC Hx Endocrine Disorders: Yes Hx Diabetes Mellitus Type 2: Yes - HEMATOLOGICAL/ONCOLOGICAL Hx Anemia: Yes - INTEGUMENTARY Hx Dermatological Problems: No - MUSCULOSKELETAL/RHEUMATOLOGICAL Hx Arthritis: Yes Hx Fractures: Yes (RIGHT MIDDLE TOE) - GASTROINTESTINAL Hx Gastrointestinal Disorders: No - GENITOURINARY/GYNECOLOGICAL Hx Genitourinary Disorders: No - PSYCHIATRIC Hx Anxiety: Yes Hx Depression: Yes Hx Substance Use: No - SURGICAL HISTORY Hx Surgeries: Yes Hx Eye Surgery: Yes (left eye 2014) Hx Herniorrhaphy: Yes Hx Open Heart Surgery: Yes (foramen ovale at age 6) Hx Orthopedic Surgery: Yes (right carpal surgery) Hx Vascular Access Device: Yes Other/Comment: pacemaker 2009,ablation 2009, - ANESTHESIA Hx Anesthesia: Yes Hx Anesthesia Reactions: No Hx Malignant Hyperthermia: No Meds Allergies/Adverse Reactions: Allergies Allergy/AdvReac Type Severity Reaction Status Date / Time No Known Allergies Allergy Verified 08/10/18 16:28 - Medications Medications: Current Medications Albuterol Sulfate (Albuterol 0.083% Inhal Donna (2.5 Mg/3 Ml) Ud) 2.5 mg INH RQ4 PRN PRN Reason: Shortness of Breath Alprazolam (Xanax) 2 mg PO BID [facility] Last Admin: 08/11/18 17:36 Dose: Not Given Aspirin (Ecotrin) 81 mg PO DAILY [facility] Last Admin: 08/11/18 10:47 Dose: 81 mg Carvedilol (Coreg) 12.5 mg PO BID [facility] Last Admin: 08/11/18 17:36 Dose: Not Given Ferric Sodium Gluconate Complex (Ferrlecit) 125 mg IVPB DAILY [facility] Stop: 08/18/18 21:31 Last Admin: 08/11/18 10:46 Dose: 125 mg Furosemide (Lasix) 40 mg PO DAILY [facility] Last Admin: 08/11/18 10:51 Dose: 40 mg Insulin Aspart (Novolog) 0 unit [facility]; Protocol Last Admin: 08/11/18 21:34 Dose: Not Given Magnesium Oxide (Mag-Ox) 400 mg PO DAILY [facility] Last Admin: 08/11/18 10:47 Dose: 400 mg Oxycodone/Acetaminophen (Percocet 5/325 Mg Tab) 1 tab PO BID PRN PRN Reason: Pain, moderate (4-7) Pantoprazole Sodium (Protonix Ec Tab) 40 mg PO DAILY [facility] Last Admin: 08/11/18 10:47 Dose: 40 mg Potassium Chloride (K-Dur 20 Meq Er Tab) 20 meq PO DAILY [facility] Last Admin: 08/11/18 10:47 Dose: 20 meq Rosuvastatin Calcium (Crestor) 10 mg PO HS [facility] Last Admin: 08/11/18 21:19 Dose: 10 mg Sacubitril/Valsartan (Entresto 24 Mg-26 Mg) 1 tab PO DAILY [facility] Last Admin: 08/11/18 13:14 Dose: 1 tab Sitagliptin Phosphate (Januvia) 50 mg PO DAILY [facility] Last Admin: 08/11/18 10:47 Dose: 50 mg Physical Exam - Head Exam Head Exam: ATRAUMATIC - Eye Exam Eye Exam: Normal appearance - ENT Exam ENT Exam: Mucous Membranes Dry - Respiratory Exam Respiratory Exam: NORMAL BREATHING PATTERN - Cardiovascular Exam Cardiovascular Exam: +S1, +S2 - GI/Abdominal Exam GI & Abdominal Exam: Normal Bowel Sounds - Extremities Exam Extremities exam: Positive for: pedal edema - Neurological Exam Neurological exam: Oriented x3 - Psychiatric Exam Psychiatric exam: Normal Affect, Normal Mood - Skin Skin Exam: Warm Results - Vital Signs Recent Vital Signs: Last Vital Signs Temp 98.3 F 08/11/18 16:47 Pulse 71 08/11/18 16:47 Resp 22 08/11/18 16:47 BP 102/60 08/11/18 17:36 Pulse Ox 97 08/11/18 15:00 - Labs Result Diagrams: 08/11/18 11:51 08/11/18 20:21 Labs: Laboratory Results - last 24 hr 08/10/18 08/11/18 08/11/18 23:57 06:39 11:48 WBC RBC Hgb Hct MCV MCH MCHC RDW Plt Count MPV Sodium Potassium Chloride Carbon Dioxide Anion Gap BUN Creatinine Est GFR ( Amer) Est GFR (Non-Af Amer) POC Glucose (mg/dL) 148 H 140 H 150 H Random Glucose Calcium Magnesium Total Bilirubin AST ALT Alkaline Phosphatase Total Protein Albumin Globulin Albumin/Globulin Ratio Blood Type Antibody Screen 08/11/18 08/11/18 08/11/18 11:51 11:51 16:11 WBC 5.3 RBC 2.74 L Hgb 7.7 L Hct 24.3 L MCV 88.6 MCH 28.0 MCHC 31.7 L RDW 16.9 H Plt Count 123 L MPV 9.0 Sodium Potassium Chloride Carbon Dioxide Anion Gap BUN Creatinine Est GFR ( Amer) Est GFR (Non-Af Amer) POC Glucose (mg/dL) 149 H Random Glucose Calcium Magnesium Total Bilirubin AST ALT Alkaline Phosphatase Total Protein Albumin Globulin Albumin/Globulin Ratio Blood Type O POSITIVE Antibody Screen Negative 08/11/18 08/11/18 20:21 21:13 WBC RBC Hgb Hct MCV MCH MCHC RDW Plt Count MPV Sodium 140 Potassium 4.5 Chloride 98 Carbon Dioxide 34 H Anion Gap 12 BUN 16 Creatinine 0.9 Est GFR ( Amer) > 60 Est GFR (Non-Af Amer) > 60 POC Glucose (mg/dL) 140 H Random Glucose 114 H Calcium 9.3 Magnesium 1.8 Total Bilirubin 1.5 H AST 17 ALT 14 Alkaline Phosphatase 79 Total Protein 7.5 Albumin 3.8 Globulin 3.7 Albumin/Globulin Ratio 1.0 Blood Type Antibody Screen Assessment & Plan (1) Anemia Assessment and Plan: work up consistent with iron deficiency anemia for 1 U PRBC will start IV iron unable to undergo GI endoscopy due to cardiac history Status: Acute (2) Thrombocytopenia Assessment and Plan: mild cont. to monitor Status: Acute (3) Encounter for care related to Port-a-Cath Assessment and Plan: recommend consult with Dr. Celis as tip or portacath appears to be curved in wrong direction Thank you for this interesting consult. Status: Acute
[2018-08-12 05:11] LABS: HEMOGLOBIN 7.9 g/dL (11.0-16.0); MEAN CELL VOLUME 87.4 fL (81.0-99.0); MEAN CORPUSCULAR HEMOGLOBIN 27.4 pg (27.0-31.0); MEAN CORPUSCULAR HGB CONC 31.4 g/dL (33.0-37.0); MEAN PLATELET VOLUME 9.2 fL (7.2-11.7); RBC 2.89 Mil/uL (3.80-5.20); RED CELL DISTRIBUTION WIDTH 19.2 % (11.5-14.5)
[2018-08-12 05:20] LABS: BLOOD UREA NITROGEN 16 mg/dL (7-17); CALCIUM 8.7 mg/dl (8.6-10.4); GFR NON-AFRICAN AMERICAN > 60
[2018-08-12] MEDS: (Novolog) Insulin Aspart, Recombinant 100 u/ml 10 ml vial SC SCH ×4 (07:42→22:08)
[2018-08-12] MEDS: Pantoprazole 40 mg EC Tab PO SCH (11:45)
[2018-08-12] MEDS: Ferric Sodium Gluconat Complex 62.5 mg/5 ml Vial IVPB SCH (11:45)
[2018-08-12] MEDS: Magnesium Oxide 400 mg Tab UD PO SCH (11:45)
[2018-08-12] MEDS: Sacubitril/Valsartan 24-26mg Tab PO SCH (11:47)
[2018-08-12] MEDS: Potassium Chloride 20 mEq ER Tab PO SCH (11:48)
[2018-08-12 12:35] LABS: ABG ALLEN TEST POS; ARTERIAL BLOOD GAS HCO3 32.2 mmol/L (21-28); ARTERIAL BLOOD GAS HEMOGLOBIN 8.4 g/dL (11.7-17.4); ARTERIAL BLOOD GAS O2 SAT 100.1 % (95-98); ARTERIAL BLOOD GAS PCO2 57 mm/Hg (35-45); ARTERIAL BLOOD GAS PO2 143 mm/Hg (80-100)
[2018-08-12 14:01] LABS: FOLATE > 20.0 ng/mL
--- NOTE | 2018-08-12 14:28 | CP.PCM.PCO ---
Physician Communication Note - Physician Communication Note Physician Communication Note: ok to use port for blood transfusion,monitor for reaction or adverse effect
[2018-08-12] MEDS: Potassium Chloride 20 mEq/15 ml LIQ UD PO SCH (14:37)
--- NOTE | 2018-08-12 15:31 | CARD ---
APPROVED REPORT Date of service: 08/11/2018 EKG Measurement Heart [id number] ID [id number] <Conclusion> ventricular paced rhy. Abnormal QRS-T angle, consider primary T wave abnormality Abnormal ECG
--- NOTE | 2018-08-12 17:40 | CP.PCM.CON ---
History of Present Illness - History of Present Illness History of Present Illness: Reason for consultation: Shortness of breath 63-year-old female with history of COPD/asthma/obstructive sleep apnea, atrial fibrillation, hypertension, hyperlipidemia, cardiomyopathy status post AICD was admitted with shortness of breath, generalized weakness and lethargy. Patient found to be anemic status post packed RBCs transfusion. Right Port-A-Cath showed malposition and pointing up into the right internal jugular vein. PMHx: DM, COPD, Asthma, ROSIO, Obesity, A.Fib on ASA, HTN, HLD, Cardiomyopathy w AICD, Iron Deficiency Anemia PSHx: Umbilical Hernia Repair, AICD placement. Portacath placement 06/2018 Family Hx: Non-contributory Social Hx: Denies tobacco use, Denies illicit drugs, Denies ETOH use NKDA Review of Systems - Review of Systems All systems: reviewed and no additional remarkable complaints except (Shortness of breath) Past Patient History - Infectious Disease Hx of Infectious Diseases: None - Past Medical History & Family History Past Medical History?: Yes - Past Social History Smoking Status: Former Smoker - CARDIAC Hx Cardiac Disorders: Yes Hx Atrial Fibrillation: Yes Hx Cardia Arrhythmia: Yes Hx Congestive Heart Failure: Yes Hx Hypercholesterolemia: Yes Hx Hypertension: Yes Hx Pacemaker: Yes Hx Peripheral Edema: Yes - PULMONARY Hx Respiratory Disorders: Yes Hx Asthma: Yes Hx Chronic Obstructive Pulmonary Disease (COPD): Yes Hx Pneumonia: Yes Hx Sleep Apnea: Yes (C PAP SETTING 10) - NEUROLOGICAL Hx Neurological Disorder: Yes Hx Dizziness: Yes - HEENT Hx HEENT Problems: Yes Other/Comment: left eye surgery 2014. glasses for distance and reading - RENAL Hx Chronic Kidney Disease: No - ENDOCRINE/METABOLIC Hx Endocrine Disorders: Yes Hx Diabetes Mellitus Type 2: Yes - HEMATOLOGICAL/ONCOLOGICAL Hx Anemia: Yes - INTEGUMENTARY Hx Dermatological Problems: No - MUSCULOSKELETAL/RHEUMATOLOGICAL Hx Arthritis: Yes Hx Falls: No Hx Fractures: Yes (RIGHT MIDDLE TOE) - GASTROINTESTINAL Hx Gastrointestinal Disorders: No - GENITOURINARY/GYNECOLOGICAL Hx Genitourinary Disorders: No - PSYCHIATRIC Hx Anxiety: Yes Hx Depression: Yes Hx Substance Use: No - SURGICAL HISTORY Hx Surgeries: Yes Hx Eye Surgery: Yes (left eye 2014) Hx Herniorrhaphy: Yes Hx Open Heart Surgery: Yes (foramen ovale at age 6) Hx Orthopedic Surgery: Yes (right carpal surgery) Hx Vascular Access Device: Yes Other/Comment: pacemaker 2009,ablation 2009, - ANESTHESIA Hx Anesthesia: Yes Hx Anesthesia Reactions: No Hx Malignant Hyperthermia: No Meds Allergies/Adverse Reactions: Allergies Allergy/AdvReac Type Severity Reaction Status Date / Time No Known Allergies Allergy Verified 08/10/18 16:28 - Medications Medications: Current Medications Albuterol Sulfate (Albuterol 0.083% Inhal Donna (2.5 Mg/3 Ml) Ud) 2.5 mg INH RQ4 PRN PRN Reason: Shortness of Breath Alprazolam (Xanax) 2 mg PO BID [facility] Last Admin: 08/12/18 11:47 Dose: 2 mg Aspirin (Ecotrin) 81 mg PO DAILY [facility] Last Admin: 08/12/18 11:46 Dose: 81 mg Carvedilol (Coreg) 12.5 mg PO BID [facility] Last Admin: 08/12/18 11:47 Dose: Not Given Ferric Sodium Gluconate Complex (Ferrlecit) 125 mg IVPB DAILY [facility] Stop: 08/18/18 21:31 Last Admin: 08/12/18 11:45 Dose: 125 mg Furosemide (Lasix) 40 mg PO DAILY [facility] Last Admin: 08/12/18 11:46 Dose: 40 mg Insulin Aspart (Novolog) 0 unit [facility]; Protocol Last Admin: 08/12/18 11:48 Dose: Not Given Magnesium Oxide (Mag-Ox) 400 mg PO DAILY [facility] Last Admin: 08/12/18 11:45 Dose: 400 mg Oxycodone/Acetaminophen (Percocet 5/325 Mg Tab) 1 tab PO BID PRN PRN Reason: Pain, moderate (4-7) Last Admin: 08/12/18 04:42 Dose: 1 tab Pantoprazole Sodium (Protonix Ec Tab) 40 mg PO DAILY [facility] Last Admin: 08/12/18 11:45 Dose: 40 mg Potassium Chloride (Potassium Chloride Oral Soln) 20 meq PO DAILY [facility] Last Admin: 08/12/18 14:37 Dose: 20 meq Rosuvastatin Calcium (Crestor) 10 mg PO HS [facility] Last Admin: 08/11/18 21:19 Dose: 10 mg Sacubitril/Valsartan (Entresto 24 Mg-26 Mg) 1 tab PO DAILY [facility] Last Admin: 08/12/18 11:47 Dose: 1 tab Sitagliptin Phosphate (Januvia) 50 mg PO DAILY [facility] Last Admin: 08/12/18 11:49 Dose: 50 mg Physical Exam - Head Exam Head Exam: ATRAUMATIC, NORMOCEPHALIC - ENT Exam ENT Exam: Mucous Membranes Moist - Neck Exam Neck exam: Positive for: Normal Inspection - Respiratory Exam Respiratory Exam: Clear to Auscultation Bilateral - Cardiovascular Exam Cardiovascular Exam: REGULAR RHYTHM - GI/Abdominal Exam GI & Abdominal Exam: Normal Bowel Sounds, Soft - Extremities Exam Extremities exam: Positive for: pedal edema - Neurological Exam Neurological exam: Alert, Oriented x3 Results - Vital Signs Recent Vital Signs: Last Vital Signs Temp 97.9 F 08/12/18 15:43 Pulse 60 08/12/18 15:43 Resp 20 08/12/18 16:47 BP 109/67 08/12/18 15:43 Pulse Ox 95 08/12/18 16:47 - Labs Result Diagrams: 08/12/18 05:04 08/12/18 05:04 Labs: Laboratory Results - last 24 hr 08/11/18 08/11/18 08/11/18 11:51 20:21 21:13 WBC RBC Hgb Hct MCV MCH MCHC RDW Plt Count MPV Puncture Site pCO2 pO2 HCO3 ABG pH ABG Total CO2 ABG O2 Saturation ABG Base Excess ABG Hemoglobin ABG Carboxyhemoglobin POC ABG HHb (Measured) ABG Methemoglobin Ryan Test Hgb O2 Saturation Liter Flow Sodium 140 Potassium 4.5 Chloride 98 Carbon Dioxide 34 H Anion Gap 12 BUN 16 Creatinine 0.9 Est GFR ( Amer) > 60 Est GFR (Non-Af Amer) > 60 POC Glucose (mg/dL) 140 H Random Glucose 114 H Calcium 9.3 Phosphorus Magnesium 1.8 Total Bilirubin 1.5 H AST 17 ALT 14 Alkaline Phosphatase 79 Total Protein 7.5 Albumin 3.8 Globulin 3.7 Albumin/Globulin Ratio 1.0 Carcinoembryonic Ag CA 125 Antigen Folate Blood Type O POSITIVE Antibody Screen Negative 08/12/18 08/12/18 08/12/18 05:04 05:04 06:31 WBC 6.0 RBC 2.89 L Hgb 7.9 L Hct 25.3 L MCV 87.4 MCH 27.4 MCHC 31.4 L RDW 19.2 H Plt Count 112 L MPV 9.2 Puncture Site pCO2 pO2 HCO3 ABG pH ABG Total CO2 ABG O2 Saturation ABG Base Excess ABG Hemoglobin ABG Carboxyhemoglobin POC ABG HHb (Measured) ABG Methemoglobin Ryan Test Hgb O2 Saturation Liter Flow Sodium 139 Potassium 4.2 Chloride 100 Carbon Dioxide 34 H Anion Gap 9 L BUN 16 Creatinine 0.9 Est GFR ( Amer) > 60 Est GFR (Non-Af Amer) > 60 POC Glucose (mg/dL) 149 H Random Glucose 126 H Calcium 8.7 Phosphorus 3.5 Magnesium 1.8 Total Bilirubin AST ALT Alkaline Phosphatase Total Protein Albumin Globulin Albumin/Globulin Ratio Carcinoembryonic Ag CA 125 Antigen Folate Blood Type Antibody Screen 08/12/18 08/12/18 08/12/18 11:19 12:05 12:31 WBC RBC Hgb Hct MCV MCH MCHC RDW Plt Count MPV Puncture Site Rra pCO2 57 H pO2 143 H HCO3 32.2 H ABG pH 7.40 ABG Total CO2 37.0 H ABG O2 Saturation 100.1 H ABG Base Excess 9.3 H ABG Hemoglobin 8.4 L ABG Carboxyhemoglobin 2.8 H POC ABG HHb (Measured) -0.1 L ABG Methemoglobin 1.1 Ryan Test Pos Hgb O2 Saturation 96.2 Liter Flow 3.0 Sodium Potassium Chloride Carbon Dioxide Anion Gap BUN Creatinine Est GFR ( Amer) Est GFR (Non-Af Amer) POC Glucose (mg/dL) 114 H Random Glucose Calcium Phosphorus Magnesium Total Bilirubin AST ALT Alkaline Phosphatase Total Protein Albumin Globulin Albumin/Globulin Ratio Carcinoembryonic Ag 0.5 CA 125 Antigen < 5.5 Folate > 20.0 Blood Type Antibody Screen 08/12/18 16:21 WBC RBC Hgb Hct MCV MCH MCHC RDW Plt Count MPV Puncture Site pCO2 pO2 HCO3 ABG pH ABG Total CO2 ABG O2 Saturation ABG Base Excess ABG Hemoglobin ABG Carboxyhemoglobin POC ABG HHb (Measured) ABG Methemoglobin Ryan Test Hgb O2 Saturation Liter Flow Sodium Potassium Chloride Carbon Dioxide Anion Gap BUN Creatinine Est GFR ( Amer) Est GFR (Non-Af Amer) POC Glucose (mg/dL) 122 H Random Glucose Calcium Phosphorus Magnesium Total Bilirubin AST ALT Alkaline Phosphatase Total Protein Albumin Globulin Albumin/Globulin Ratio Carcinoembryonic Ag CA 125 Antigen Folate Blood Type Antibody Screen Assessment & Plan (1) COPD (chronic obstructive pulmonary disease) Status: Chronic Comment: Dyspnea most likely secondary to anemia. Continue nebulizer treatment. Add Brovana. BiPAP at night. Port-A-Cath malposition needs to be adjusted (2) Anemia Status: Acute (3) Cardiomyopathy Status: Chronic Priority: Low (4) ROSIO (obstructive sleep apnea) Status: Chronic
--- NOTE | 2018-08-12 20:50 | CP.PCM.PN ---
Subjective - Date & Time of Evaluation Date of Evaluation: 08/12/18 - Subjective Subjective: patient examined today no nausea no vomiting no dizziness no diarrhea no fever no shortness of breath Objective - Vital Signs/Intake and Output Vital Signs (last 24 hours): Temp Pulse Resp BP Pulse Ox 97.9 F 60 20 109/67 95 08/12/18 15:43 08/12/18 16:47 08/12/18 16:47 08/12/18 17:59 08/12/18 16:47 - Medications Medications: Current Medications Albuterol Sulfate (Albuterol 0.083% Inhal Donna (2.5 Mg/3 Ml) Ud) 2.5 mg INH RQ4 PRN PRN Reason: Shortness of Breath Alprazolam (Xanax) 2 mg PO BID [facility] Last Admin: 08/12/18 18:21 Dose: Not Given Aspirin (Ecotrin) 81 mg PO DAILY [facility] Last Admin: 08/12/18 11:46 Dose: 81 mg Carvedilol (Coreg) 12.5 mg PO BID [facility] Last Admin: 08/12/18 17:59 Dose: Not Given Ferric Sodium Gluconate Complex (Ferrlecit) 125 mg IVPB DAILY [facility] Stop: 08/18/18 21:31 Last Admin: 08/12/18 11:45 Dose: 125 mg Furosemide (Lasix) 40 mg PO DAILY [facility] Last Admin: 08/12/18 11:46 Dose: 40 mg Insulin Aspart (Novolog) 0 unit [facility]; Protocol Last Admin: 08/12/18 18:00 Dose: Not Given Magnesium Oxide (Mag-Ox) 400 mg PO DAILY [facility] Last Admin: 08/12/18 11:45 Dose: 400 mg Oxycodone/Acetaminophen (Percocet 5/325 Mg Tab) 1 tab PO BID PRN PRN Reason: Pain, moderate (4-7) Last Admin: 08/12/18 04:42 Dose: 1 tab Pantoprazole Sodium (Protonix Ec Tab) 40 mg PO DAILY [facility] Last Admin: 08/12/18 11:45 Dose: 40 mg Potassium Chloride (Potassium Chloride Oral Soln) 20 meq PO DAILY [facility] Last Admin: 08/12/18 14:37 Dose: 20 meq Rosuvastatin Calcium (Crestor) 10 mg PO [facility] Last Admin: 08/11/18 21:19 Dose: 10 mg Sacubitril/Valsartan (Entresto 24 Mg-26 Mg) 1 tab PO DAILY [facility] Last Admin: 08/12/18 11:47 Dose: 1 tab Sitagliptin Phosphate (Januvia) 50 mg PO DAILY [facility] Last Admin: 08/12/18 11:49 Dose: 50 mg - Labs Labs: 08/12/18 05:04 08/12/18 05:04 PT 13.1 SECONDS (9.7-12.2) H 08/10/18 16:55 INR 1.2 08/10/18 16:55 APTT 52.0 SECONDS (21-34) H 08/10/18 16:55 - Constitutional Appears: Well - Head Exam Head Exam: ATRAUMATIC, NORMAL INSPECTION, NORMOCEPHALIC - Eye Exam Eye Exam: EOMI, Normal appearance, PERRL Pupil Exam: NORMAL ACCOMODATION, PERRL - ENT Exam ENT Exam: Mucous Membranes Moist, Normal Exam - Neck Exam Neck Exam: Full ROM, Normal Inspection. absent: Lymphadenopathy - Respiratory Exam Respiratory Exam: Decreased Breath Sounds - Cardiovascular Exam Cardiovascular Exam: REGULAR RHYTHM, +S1, +S2 - GI/Abdominal Exam GI & Abdominal Exam: Soft, Diminished Bowel Sounds - Rectal Exam Rectal Exam: Deferred - Neurological Exam Neurological Exam: Oriented x3 Assessment and Plan - Assessment and Plan (Free Text) Plan: plan discussed with patient moderate complexity of care labs reviewed vitals reviewed medications reviewed albuterol coreg crestor ecotrin entresto ferrelcit januvia lasix mag-ox novolog perocet potassium chloride protonix ec tab xanax
--- NOTE | 2018-08-12 22:15 | CP.PCM.PN ---
Subjective - Date & Time of Evaluation Date of Evaluation: 08/12/18 Time of Evaluation: 20:00 - Subjective Subjective: Feeling better 1U PRBC tonight Objective - Vital Signs/Intake and Output Vital Signs (last 24 hours): Temp Pulse Resp BP Pulse Ox 97.9 F 60 20 109/67 95 08/12/18 15:43 08/12/18 16:47 08/12/18 16:47 08/12/18 17:59 08/12/18 16:47 - Medications Medications: Current Medications Albuterol Sulfate (Albuterol 0.083% Inhal Donna (2.5 Mg/3 Ml) Ud) 2.5 mg INH RQ4 PRN PRN Reason: Shortness of Breath Alprazolam (Xanax) 2 mg PO BID [facility] Last Admin: 08/12/18 18:21 Dose: Not Given Aspirin (Ecotrin) 81 mg PO DAILY [facility] Last Admin: 08/12/18 11:46 Dose: 81 mg Carvedilol (Coreg) 12.5 mg PO BID [facility] Last Admin: 08/12/18 17:59 Dose: Not Given Ferric Sodium Gluconate Complex (Ferrlecit) 125 mg IVPB DAILY [facility] Stop: 08/18/18 21:31 Last Admin: 08/12/18 11:45 Dose: 125 mg Furosemide (Lasix) 40 mg PO DAILY [facility] Last Admin: 08/12/18 11:46 Dose: 40 mg Insulin Aspart (Novolog) 0 unit [facility]; Protocol Last Admin: 08/12/18 22:08 Dose: Not Given Magnesium Oxide (Mag-Ox) 400 mg PO DAILY [facility] Last Admin: 08/12/18 11:45 Dose: 400 mg Oxycodone/Acetaminophen (Percocet 5/325 Mg Tab) 1 tab PO BID PRN PRN Reason: Pain, moderate (4-7) Last Admin: 08/12/18 04:42 Dose: 1 tab Pantoprazole Sodium (Protonix Ec Tab) 40 mg PO DAILY [facility] Last Admin: 08/12/18 11:45 Dose: 40 mg Potassium Chloride (Potassium Chloride Oral Soln) 20 meq PO DAILY [facility] Last Admin: 08/12/18 14:37 Dose: 20 meq Rosuvastatin Calcium (Crestor) 10 mg PO [facility] Last Admin: 08/12/18 22:08 Dose: Not Given Sacubitril/Valsartan (Entresto 24 Mg-26 Mg) 1 tab PO DAILY [facility] Last Admin: 08/12/18 11:47 Dose: 1 tab Sitagliptin Phosphate (Januvia) 50 mg PO DAILY [facility] Last Admin: 08/12/18 11:49 Dose: 50 mg - Labs Labs: 08/12/18 05:04 08/12/18 05:04 PT 13.1 SECONDS (9.7-12.2) H 08/10/18 16:55 INR 1.2 08/10/18 16:55 APTT 52.0 SECONDS (21-34) H 08/10/18 16:55 - Head Exam Head Exam: ATRAUMATIC - Eye Exam Eye Exam: Normal appearance - ENT Exam ENT Exam: Mucous Membranes Dry - Respiratory Exam Respiratory Exam: NORMAL BREATHING PATTERN - Cardiovascular Exam Cardiovascular Exam: +S1, +S2 - GI/Abdominal Exam GI & Abdominal Exam: Normal Bowel Sounds Assessment and Plan (1) Anemia Assessment & Plan: iron deficiency on IV iron transfusion support unable to undergo GI endoscopy due to high risk cardiac issues Status: Acute (2) Thrombocytopenia Assessment & Plan: mild, cont. to monitor Status: Acute (3) Encounter for care related to Port-a-Cath Assessment & Plan: malpositioned surgical evaluation Status: Acute
--- NOTE | 2018-08-13 00:27 | CP.PCM.CON ---
History of Present Illness - History of Present Illness History of Present Illness: Patient seen and evaluated Denies chest pain and dyspnea Review of Systems - Constitutional Constitutional: Daytime Sleepiness, Fatigue. absent: Chills, Excessive Sweat ing, Fever, Weight Loss - EENT Eyes: absent: Blurred Vision, Dry Eye Nose/Mouth/Throat: absent: Nasal Trauma, Nose Pain, Mouth Pain - Cardiovascular Cardiovascular: Dyspnea. absent: Chest Pain, Chest Pain at Rest - Gastrointestinal Gastrointestinal: absent: Abdominal Pain, Bloating, Diarrhea - Musculoskeletal Musculoskeletal: absent: Joint Swelling, Myalgias Additional comments: LUE pain, sensation normal - Integumentary Integumentary: absent: Hirsutism, Lesions - Neurological Neurological: absent: Headaches, Paresthesias, Syncope - Psychiatric Psychiatric: absent: Confusion, Depression - Endocrine Endocrine: absent: Heat Intolorance, Polyphagia Physical Exam - Constitutional Appears: Non-toxic, No Acute Distress - Head Exam Head Exam: NORMAL INSPECTION, NORMOCEPHALIC - Eye Exam Eye Exam: EOMI, Normal appearance Additional comments: pale conjuctiva - ENT Exam ENT Exam: Mucous Membranes Moist - Respiratory Exam Respiratory Exam: Clear to Auscultation Bilateral, NORMAL BREATHING PATTERN. absent: Rales, Rhonchi, Wheezes - Cardiovascular Exam Cardiovascular Exam: +S1, +S2, Systolic Murmur - GI/Abdominal Exam GI & Abdominal Exam: Normal Bowel Sounds, Soft. absent: Distended, Firm Additional comments: pt refused rectal examination/ stool occult test for possible GI bleed assessment - Extremities Exam Extremities exam: Negative for: calf tenderness, pedal edema Additional comments: inability to move L LE w/o pain normal b/l finger city recorder strength - Neurological Exam Neurological exam: Alert, Oriented x3 - Psychiatric Exam Psychiatric exam: Normal Affect, Normal Mood - Skin Skin Exam: Dry, Intact, Normal Color, Warm Assessment & Plan - Assessment and Plan (Free Text) Assessment: 62 F w/ PMHx of afib, aicd, htn, dm, anema, presents with acute on chronic anemia, symptomatic. Acute on chronic anemia History of Congestive Heart Failure w/ preserved Ejection Fracture History of Hypertension History of atrial fibrillation - vitals stable, EKG ventricular paced w/ premature supraventricular complex - Echo 2018, EF of 52.8, EF wnl, moderated tricuspid regurgitation -Cath: Non Obstructive Coronaries History of diabetes - HgA1C 2018 6.9 - continue outpatient monitoring - c/w home medication januvia 50 mg PO daily This patient with Non Obstructive coronaries Stable CHF with preserved EF S/P AICD Assessed as moderate cardiac risk for EGD and Colonoscopy under conscious sedation Since benefit outweighs the risk Recommend to proceed with the EGD and Endoscopy Past Patient History - Infectious Disease Hx of Infectious Diseases: None - Past Medical History & Family History Past Medical History?: Yes - Past Social History Smoking Status: Former Smoker - CARDIAC Hx Cardiac Disorders: Yes Hx Atrial Fibrillation: Yes Hx Cardia Arrhythmia: Yes Hx Congestive Heart Failure: Yes Hx Hypercholesterolemia: Yes Hx Hypertension: Yes Hx Pacemaker: Yes Hx Peripheral Edema: Yes - PULMONARY Hx Respiratory Disorders: Yes Hx Asthma: Yes Hx Chronic Obstructive Pulmonary Disease (COPD): Yes Hx Pneumonia: Yes Hx Sleep Apnea: Yes (C PAP SETTING 10) - NEUROLOGICAL Hx Neurological Disorder: Yes Hx Dizziness: Yes - HEENT Hx HEENT Problems: Yes Other/Comment: left eye surgery 2014. glasses for distance and reading - RENAL Hx Chronic Kidney Disease: No - ENDOCRINE/METABOLIC Hx Endocrine Disorders: Yes Hx Diabetes Mellitus Type 2: Yes - HEMATOLOGICAL/ONCOLOGICAL Hx Anemia: Yes - INTEGUMENTARY Hx Dermatological Problems: No - MUSCULOSKELETAL/RHEUMATOLOGICAL Hx Arthritis: Yes Hx Falls: No Hx Fractures: Yes (RIGHT MIDDLE TOE) - GASTROINTESTINAL Hx Gastrointestinal Disorders: No - GENITOURINARY/GYNECOLOGICAL Hx Genitourinary Disorders: No - PSYCHIATRIC Hx Anxiety: Yes Hx Depression: Yes Hx Substance Use: No - SURGICAL HISTORY Hx Surgeries: Yes Hx Eye Surgery: Yes (left eye 2014) Hx Herniorrhaphy: Yes Hx Open Heart Surgery: Yes (foramen ovale at age 6) Hx Orthopedic Surgery: Yes (right carpal surgery) Hx Vascular Access Device: Yes Other/Comment: pacemaker 2009,ablation 2009, - ANESTHESIA Hx Anesthesia: Yes Hx Anesthesia Reactions: No Hx Malignant Hyperthermia: No Meds Allergies/Adverse Reactions: Allergies Allergy/AdvReac Type Severity Reaction Status Date / Time No Known Allergies Allergy Verified 08/10/18 16:28 - Medications Medications: Current Medications Albuterol Sulfate (Albuterol 0.083% Inhal Donna (2.5 Mg/3 Ml) Ud) 2.5 mg INH RQ4 PRN PRN Reason: Shortness of Breath Alprazolam (Xanax) 2 mg PO BID [facility] Last Admin: 08/12/18 18:21 Dose: Not Given Aspirin (Ecotrin) 81 mg PO DAILY [facility] Last Admin: 08/12/18 11:46 Dose: 81 mg Carvedilol (Coreg) 12.5 mg PO BID [facility] Last Admin: 08/12/18 17:59 Dose: Not Given Ferric Sodium Gluconate Complex (Ferrlecit) 125 mg IVPB DAILY [facility] Stop: 08/18/18 21:31 Last Admin: 08/12/18 11:45 Dose: 125 mg Furosemide (Lasix) 40 mg PO DAILY [facility] Last Admin: 08/12/18 11:46 Dose: 40 mg Insulin Aspart (Novolog) 0 unit SC [facility]; Protocol Last Admin: 08/12/18 22:08 Dose: Not Given Magnesium Oxide (Mag-Ox) 400 mg PO DAILY [facility] Last Admin: 08/12/18 11:45 Dose: 400 mg Oxycodone/Acetaminophen (Percocet 5/325 Mg Tab) 1 tab PO BID PRN PRN Reason: Pain, moderate (4-7) Last Admin: 08/12/18 04:42 Dose: 1 tab Pantoprazole Sodium (Protonix Ec Tab) 40 mg PO DAILY [facility] Last Admin: 08/12/18 11:45 Dose: 40 mg Potassium Chloride (Potassium Chloride Oral Soln) 20 meq PO DAILY [facility] Last Admin: 08/12/18 14:37 Dose: 20 meq Rosuvastatin Calcium (Crestor) 10 mg PO HS [facility] Last Admin: 08/12/18 22:08 Dose: Not Given Sacubitril/Valsartan (Entresto 24 Mg-26 Mg) 1 tab PO DAILY [facility] Last Admin: 08/12/18 11:47 Dose: 1 tab Sitagliptin Phosphate (Januvia) 50 mg PO DAILY [facility] Last Admin: 08/12/18 11:49 Dose: 50 mg Results - Vital Signs Recent Vital Signs: Last Vital Signs Temp 98.7 F 08/12/18 23:35 Pulse 73 08/12/18 23:35 Resp 20 08/12/18 23:35 BP 101/62 08/12/18 23:41 Pulse Ox 95 08/12/18 16:47 - Labs Result Diagrams: 08/12/18 05:04 08/12/18 05:04 Labs: Laboratory Results - last 24 hr 08/11/18 08/12/18 08/12/18 11:51 05:04 05:04 WBC 6.0 RBC 2.89 L Hgb 7.9 L Hct 25.3 L MCV 87.4 MCH 27.4 MCHC 31.4 L RDW 19.2 H Plt Count 112 L MPV 9.2 Puncture Site pCO2 pO2 HCO3 ABG pH ABG Total CO2 ABG O2 Saturation ABG Base Excess ABG Hemoglobin ABG Carboxyhemoglobin POC ABG HHb (Measured) ABG Methemoglobin Ryan Test Hgb O2 Saturation Liter Flow Sodium 139 Potassium 4.2 Chloride 100 Carbon Dioxide 34 H Anion Gap 9 L BUN 16 Creatinine 0.9 Est GFR ( Amer) > 60 Est GFR (Non-Af Amer) > 60 POC Glucose (mg/dL) Random Glucose 126 H Calcium 8.7 Phosphorus 3.5 Magnesium 1.8 Carcinoembryonic Ag CA 125 Antigen Folate Blood Type O POSITIVE Antibody Screen Negative 08/12/18 08/12/18 08/12/18 06:31 11:19 12:05 WBC RBC Hgb Hct MCV MCH MCHC RDW Plt Count MPV Puncture Site pCO2 pO2 HCO3 ABG pH ABG Total CO2 ABG O2 Saturation ABG Base Excess ABG Hemoglobin ABG Carboxyhemoglobin POC ABG HHb (Measured) ABG Methemoglobin Ryan Test Hgb O2 Saturation Liter Flow Sodium Potassium Chloride Carbon Dioxide Anion Gap BUN Creatinine Est GFR ( Amer) Est GFR (Non-Af Amer) POC Glucose (mg/dL) 149 H 114 H Random Glucose Calcium Phosphorus Magnesium Carcinoembryonic Ag 0.5 CA 125 Antigen < 5.5 Folate > 20.0 Blood Type Antibody Screen 08/12/18 08/12/18 08/12/18 12:31 16:21 21:08 WBC RBC Hgb Hct MCV MCH MCHC RDW Plt Count MPV Puncture Site Rra pCO2 57 H pO2 143 H HCO3 32.2 H ABG pH 7.40 ABG Total CO2 37.0 H ABG O2 Saturation 100.1 H ABG Base Excess 9.3 H ABG Hemoglobin 8.4 L ABG Carboxyhemoglobin 2.8 H POC ABG HHb (Measured) -0.1 L ABG Methemoglobin 1.1 Ryan Test Pos Hgb O2 Saturation 96.2 Liter Flow 3.0 Sodium Potassium Chloride Carbon Dioxide Anion Gap BUN Creatinine Est GFR ( Amer) Est GFR (Non-Af Amer) POC Glucose (mg/dL) 122 H 155 H Random Glucose Calcium Phosphorus Magnesium Carcinoembryonic Ag CA 125 Antigen Folate Blood Type Antibody Screen
--- NOTE | 2018-08-13 05:33 | CON ---
DATE: 08/12/2018 LOCATION: 564, bed A. This is a 63-year-old female, seen initially for GI consultation on 08/12/2018 as requested by the admitting medical staff. The entire chart is reviewed including but not limited to the most recent lab and radiology study results, current and the previous medication list, current and the previous medical events. Case discussed with the staff at length. HISTORY OF PRESENT ILLNESS: This is a 63-year-old female with multiple complicated past medical history who was admitted to the hospital due to increased shortness of breath, generalized weakness, malaise, poor oral intake with periods of mild dizziness but no actual chest pain, palpitation, chills, fever, or evidence of active GI bleeding. PAST MEDICAL HISTORY: Including but not limited to, 1. COPD. 2. Cardiac arrhythmias including atrial fibrillation. 3. Congestive heart failure. 4. Hyperlipidemia, hypertension, peripheral edema syndrome as well as sleep apnea with pneumonia. 5. Peptic ulcer disease. 6. Status post pacemaker insertion due to her cardiac arrhythmias. FAMILY HISTORY: Unknown. SOCIAL HISTORY: Denied any recent history of cigarette smoking or alcohol intake. LABORATORY DATA: Initial blood workup at the time she was admitted is hemoglobin 8.3, went down to 7.7; hematocrit 27.4, went down to 24.3 with the latest blood glucose level 149. PT 13.1 and PTT 52 with the latest blood glucose level 149 with persistently low hemoglobin and hematocrit as well as thrombocytopenia of 112 with today's lab results showed abnormal ABGs with the latest blood glucose level of 149, CO2 content 34 indicative of respiratory alkalosis with total bilirubin of 1.5. Cancer markers initially was ordered and reported to be normal including CEA and CA-125 antigen as ordered by myself. PHYSICAL EXAMINATION: GENERAL: A 63-year-old female awake, alert, oriented. VITAL SIGNS: Afebrile with pulse of 66, respiratory rate 20 to 22, blood pressure of 116/70. HEENT: Showed pale, dry oral mucoid membrane. Nonicteric sclerae. LUNGS: Few scattered crepitation. Decreased air entry at bases. HEART: Positive S1 and S2. ABDOMEN: Soft with mild generalized tenderness. No mass or organomegaly. No rebound tenderness or guarding. EXTREMITIES: Showed mild lower extremity edematous changes. No clubbing or cyanosis. NEUROLOGIC: No reported new neurological deficits, sensory or motor. No reported new focal deficits. On record, the patient still has lower extremity edematous changes with some tenderness around both ankles and both knees by physical examination. IMPRESSION: 1. Anemia, to rule out gastrointestinal blood loss, upper versus lower versus occult gastrointestinal malignancy. Her anemia could be secondary to chronic disease. To rule out occult gastrointestinal malignancy. 2. Multiple past medical history as mentioned above. 3. Poorly controlled diabetes mellitus. 4. Mild jaundice with increased total bilirubin to 1.5 of unclear etiology. However, that could be secondary to right-sided mild failure. SUGGESTIONS: 1. Continue current management. 2. Antireflux measures. 3. Proton pump inhibitors. 4. Endoscopic evaluation of the upper GI tract with colonoscopy after adequate preparation and when the patient is more stable clinically. Thank you for letting me participate in your patient's case management. Further recommendation to follow and abdominal ultrasound to be performed. Love Jones MD
[2018-08-13 07:14] LABS: HEMOGLOBIN 8.9 g/dL (11.0-16.0); MEAN CELL VOLUME 87.2 fL (81.0-99.0); MEAN CORPUSCULAR HEMOGLOBIN 28.3 pg (27.0-31.0); MEAN CORPUSCULAR HGB CONC 32.5 g/dL (33.0-37.0); RBC 3.13 Mil/uL (3.80-5.20); WHITE BLOOD COUNT 6.9 K/uL (4.8-10.8)
[2018-08-13] MEDS: (Novolog) Insulin Aspart, Recombinant 100 u/ml 10 ml vial SC SCH ×4 (07:20→21:31)
--- NOTE | 2018-08-13 08:45 | RAD ---
Date of service: 08/12/2018 HISTORY: check for portacath tip COMPARISON: 08/10/2018 and a 04/13/2016 image. TECHNIQUE: Chest PA and lateral views FINDINGS: LUNGS: No active pulmonary disease. PLEURA: No significant pleural effusion identified. No pneumothorax apparent. CARDIOVASCULAR: There is presence of aortic atherosclerotic calcification on x-ray. Cardiomegaly interval increased pulmonary venous congestion. As before: Right-sided MediPort re-identified with distal tip curved superiorly and directed upwards at the level of the neck/jugular vein. Recommend repositioning so as to have the distal tip directed to the cavoatrial junction Position/ configuration of pacemaker The right hilum is more prominent than the prior study-this could in part be technical the overall heart size also appears increased since prior exam. OSSEOUS STRUCTURES: Thoracic spondylosis present. VISUALIZED UPPER ABDOMEN: Normal. OTHER FINDINGS: None. IMPRESSION: As before: Right-sided MediPort re-identified with distal tip curved superiorly and directed upwards at the level of the neck/jugular vein. Recommend repositioning so as to have the distal tip directed to the cavoatrial junction Cardiomegaly with interval increased pulmonary venous congestion. Interval perceived increased soft tissue fullness to the right hilum- Similar to 04/13/2016 semi-erect portable projection. Correlate clinically.
[2018-08-13] MEDS: Potassium Chloride 20 mEq/15 ml LIQ UD PO SCH (09:25)
[2018-08-13] MEDS: Sacubitril/Valsartan 24-26mg Tab PO SCH (09:27)
[2018-08-13] MEDS ORDERED: Propofol 10 mg/ml Inj (20 ML) ONE (12:06)
[2018-08-13] MEDS ORDERED: Midazolam 2 MG/2 ML VIAL ONE (12:10)
--- NOTE | 2018-08-13 13:24 | CP.PCM.PN ---
Subjective - Date & Time of Evaluation Date of Evaluation: 08/13/18 Time of Evaluation: 11:20 - Subjective Subjective: Patient seen and examined Appears drowsy Status post transfusion of packed RBCs Breathing better Refusing BiPAP Objective - Vital Signs/Intake and Output Vital Signs (last 24 hours): Temp Pulse Resp BP Pulse Ox 97.7 F 98 H 22 125/85 99 08/13/18 12:29 08/13/18 12:44 08/13/18 12:44 08/13/18 12:44 08/13/18 12:44 Intake and Output: 08/13/18 08/13/18 06:59 18:59 Intake Total 355 Balance 355 - Medications Medications: Current Medications Albuterol Sulfate (Albuterol 0.083% Inhal Donna (2.5 Mg/3 Ml) Ud) 2.5 mg INH RQ4 PRN PRN Reason: Shortness of Breath Aspirin (Ecotrin) 81 mg PO DAILY [facility] Last Admin: 08/13/18 09:25 Dose: Not Given Carvedilol (Coreg) 12.5 mg PO BID [facility] Last Admin: 08/13/18 09:27 Dose: Not Given Ferric Sodium Gluconate Complex (Ferrlecit) 125 mg IVPB DAILY [facility] Stop: 08/18/18 21:31 Last Admin: 08/12/18 11:45 Dose: 125 mg Furosemide (Lasix) 40 mg PO DAILY [facility] Last Admin: 08/12/18 11:46 Dose: 40 mg Insulin Aspart (Novolog) 0 unit SC [facility]; Protocol Last Admin: 08/13/18 11:39 Dose: Not Given Magnesium Oxide (Mag-Ox) 400 mg PO DAILY [facility] Last Admin: 08/12/18 11:45 Dose: 400 mg Pantoprazole Sodium (Protonix Ec Tab) 40 mg PO DAILY [facility] Last Admin: 08/12/18 11:45 Dose: 40 mg Potassium Chloride (Potassium Chloride Oral Soln) 20 meq PO DAILY [facility] Last Admin: 08/13/18 09:25 Dose: Not Given Rosuvastatin Calcium (Crestor) 10 mg PO HS [facility] Last Admin: 08/12/18 22:08 Dose: Not Given Sacubitril/Valsartan (Entresto 24 Mg-26 Mg) 1 tab PO DAILY [facility] Last Admin: 08/13/18 09:27 Dose: 1 tab Sitagliptin Phosphate (Januvia) 50 mg PO DAILY [facility] Last Admin: 08/13/18 09:25 Dose: Not Given - Labs Labs: 08/13/18 07:04 08/12/18 05:04 PT 13.1 SECONDS (9.7-12.2) H 08/10/18 16:55 INR 1.2 08/10/18 16:55 APTT 52.0 SECONDS (21-34) H 08/10/18 16:55 - Head Exam Head Exam: ATRAUMATIC, NORMOCEPHALIC - ENT Exam ENT Exam: Mucous Membranes Moist - Neck Exam Neck Exam: Normal Inspection - Respiratory Exam Respiratory Exam: Decreased Breath Sounds - Cardiovascular Exam Cardiovascular Exam: Irregular Rhythm - GI/Abdominal Exam GI & Abdominal Exam: Soft, Normal Bowel Sounds - Extremities Exam Extremities Exam: Pedal Edema Assessment and Plan (1) COPD (chronic obstructive pulmonary disease) Assessment & Plan: Continue with the nebulizer treatment Refusing BiPAP Follow-up H&H Port-A-Cath needs to be readjusted Status: Chronic (2) Anemia Status: Acute (3) Cardiomyopathy Status: Chronic (4) ROSIO (obstructive sleep apnea) Status: Chronic
[2018-08-13] MEDS: Magnesium Oxide 400 mg Tab UD PO SCH (13:40)
[2018-08-13] MEDS: Ferric Sodium Gluconat Complex 62.5 mg/5 ml Vial IVPB SCH (13:40)
[2018-08-13] MEDS: Pantoprazole 40 mg EC Tab PO SCH (13:40)
--- NOTE | 2018-08-13 16:47 | CP.PCM.PN ---
Subjective - Date & Time of Evaluation Date of Evaluation: 08/13/18 - Subjective Subjective: patient examined today no nausea no vomiting no dizziness no diarrhea no fever no shortness of breath Objective - Vital Signs/Intake and Output Vital Signs (last 24 hours): Temp Pulse Resp BP Pulse Ox 97.9 F 65 18 147/80 98 08/13/18 15:00 08/13/18 15:00 08/13/18 15:00 08/13/18 15:00 08/13/18 15:00 Intake and Output: 08/13/18 08/13/18 06:59 18:59 Intake Total 355 100 Balance 355 100 - Medications Medications: Current Medications Albuterol Sulfate (Albuterol 0.083% Inhal Donna (2.5 Mg/3 Ml) Ud) 2.5 mg INH RQ4 PRN PRN Reason: Shortness of Breath Aspirin (Ecotrin) 81 mg PO DAILY [facility] Last Admin: 08/13/18 09:25 Dose: Not Given Carvedilol (Coreg) 12.5 mg PO BID [facility] Last Admin: 08/13/18 09:27 Dose: Not Given Ferric Sodium Gluconate Complex (Ferrlecit) 125 mg IVPB DAILY [facility] Stop: 08/18/18 21:31 Last Admin: 08/13/18 13:40 Dose: 125 mg Furosemide (Lasix) 40 mg PO DAILY [facility] Last Admin: 08/13/18 13:40 Dose: 40 mg Lactated Ringer's (Lactated Ringer's) 1,000 mls @ 100 mls/hr IV .Q10H [facility] Insulin Aspart (Novolog) 0 unit SC [facility]; Protocol Last Admin: 08/13/18 16:29 Dose: Not Given Magnesium Oxide (Mag-Ox) 400 mg PO DAILY [facility] Last Admin: 08/13/18 13:40 Dose: 400 mg Pantoprazole Sodium (Protonix Ec Tab) 40 mg PO DAILY [facility] Last Admin: 08/13/18 13:40 Dose: 40 mg Potassium Chloride (Potassium Chloride Oral Soln) 20 meq PO DAILY [facility] Last Admin: 08/13/18 09:25 Dose: Not Given Rosuvastatin Calcium (Crestor) 10 mg PO HS [facility] Last Admin: 08/12/18 22:08 Dose: Not Given Sacubitril/Valsartan (Entresto 24 Mg-26 Mg) 1 tab PO DAILY [facility] Last Admin: 08/13/18 09:27 Dose: 1 tab Sitagliptin Phosphate (Januvia) 50 mg PO DAILY [facility] Last Admin: 08/13/18 09:25 Dose: Not Given - Labs Labs: 08/13/18 07:04 08/12/18 05:04 PT 13.1 SECONDS (9.7-12.2) H 08/10/18 16:55 INR 1.2 08/10/18 16:55 APTT 52.0 SECONDS (21-34) H 08/10/18 16:55 - Constitutional Appears: Well - Head Exam Head Exam: ATRAUMATIC, NORMAL INSPECTION, NORMOCEPHALIC - Eye Exam Eye Exam: EOMI, Normal appearance, PERRL Pupil Exam: NORMAL ACCOMODATION, PERRL - ENT Exam ENT Exam: Mucous Membranes Moist, Normal Exam - Neck Exam Neck Exam: Full ROM, Normal Inspection. absent: Lymphadenopathy - Respiratory Exam Respiratory Exam: Decreased Breath Sounds - Cardiovascular Exam Cardiovascular Exam: REGULAR RHYTHM, +S1, +S2 - GI/Abdominal Exam GI & Abdominal Exam: Soft, Diminished Bowel Sounds - Rectal Exam Rectal Exam: Deferred - Neurological Exam Neurological Exam: Oriented x3 Assessment and Plan - Assessment and Plan (Free Text) Plan: plan discussed with patient moderate complexity of care albuterol coreg crestor entresto ferrlecit januvia lactated ringer's lasix mag-ox novolog potassium chloride protonix ec tab tylenol medications reviewed vitals reviewed labs reviewed
--- NOTE | 2018-08-13 23:25 | CP.PCM.PN ---
Subjective - Date & Time of Evaluation Date of Evaluation: 08/13/18 Time of Evaluation: 08:40 - Subjective Subjective: Patient seen and evaluated Denies chest pain and dyspnea Review of Systems - Constitutional Constitutional: Daytime Sleepiness, Fatigue. absent: Chills, Excessive Sweati ng, Fever, Weight Loss - EENT Eyes: absent: Blurred Vision, Dry Eye Nose/Mouth/Throat: absent: Nasal Trauma, Nose Pain, Mouth Pain - Cardiovascular Cardiovascular: Dyspnea. absent: Chest Pain, Chest Pain at Rest - Gastrointestinal Gastrointestinal: absent: Abdominal Pain, Bloating, Diarrhea - Musculoskeletal Musculoskeletal: absent: Joint Swelling, Myalgias Additional comments: LUE pain, sensation normal - Integumentary Integumentary: absent: Hirsutism, Lesions - Neurological Neurological: absent: Headaches, Paresthesias, Syncope - Psychiatric Psychiatric: absent: Confusion, Depression - Endocrine Endocrine: absent: Heat Intolorance, Polyphagia Physical Exam - Constitutional Appears: Non-toxic, No Acute Distress - Head Exam Head Exam: NORMAL INSPECTION, NORMOCEPHALIC - Eye Exam Eye Exam: EOMI, Normal appearance Additional comments: pale conjuctiva - ENT Exam ENT Exam: Mucous Membranes Moist - Respiratory Exam Respiratory Exam: Clear to Auscultation Bilateral, NORMAL BREATHING PATTERN. absent: Rales, Rhonchi, Wheezes - Cardiovascular Exam Cardiovascular Exam: +S1, +S2, Systolic Murmur - GI/Abdominal Exam GI & Abdominal Exam: Normal Bowel Sounds, Soft. absent: Distended, Firm Additional comments: pt refused rectal examination/ stool occult test for possible GI bleed assessment - Extremities Exam Extremities exam: Negative for: calf tenderness, pedal edema Additional comments: inability to move L LE w/o pain normal b/l finger top lift and automatic window repairer strength - Neurological Exam Neurological exam: Alert, Oriented x3 - Psychiatric Exam Psychiatric exam: Normal Affect, Normal Mood - Skin Skin Exam: Dry, Intact, Normal Color, Warm Assessment & Plan - Assessment and Plan (Free Text) Assessment: 62 F w/ PMHx of afib, aicd, htn, dm, anema, presents with acute on chronic anemia, symptomatic. Acute on chronic anemia History of Congestive Heart Failure w/ preserved Ejection Fracture History of Hypertension History of atrial fibrillation - vitals stable, EKG ventricular paced w/ premature supraventricular complex - Echo 2018, EF of 52.8, EF wnl, moderated tricuspid regurgitation -Cath: Non Obstructive Coronaries History of diabetes - HgA1C 2017 6.9 - continue outpatient monitoring - c/w home medication januvia 50 mg PO daily This patient with Non Obstructive coronaries Stable CHF with preserved EF S/P AICD Assessed as moderate cardiac risk for EGD and Colonoscopy under conscious sedation Since benefit outweighs the risk Recommend to proceed with the EGD and Endoscopy Objective - Vital Signs/Intake and Output Vital Signs (last 24 hours): Temp Pulse Resp BP Pulse Ox 97.9 F 67 18 147/75 98 08/13/18 15:00 08/13/18 18:00 08/13/18 15:00 08/13/18 18:02 08/13/18 15:00 Intake and Output: 08/13/18 08/14/18 18:59 06:59 Intake Total 100 Balance 100 - Medications Medications: Current Medications Acetaminophen (Tylenol 325mg Tab) 650 mg PO Q6H PRN PRN Reason: Headache Last Admin: 08/13/18 18:01 Dose: 650 mg Albuterol Sulfate (Albuterol 0.083% Inhal Donna (2.5 Mg/3 Ml) Ud) 2.5 mg INH RQ4 PRN PRN Reason: Shortness of Breath Aspirin (Ecotrin) 81 mg PO DAILY [facility] Last Admin: 08/13/18 09:25 Dose: Not Given Carvedilol (Coreg) 12.5 mg PO BID [facility] Last Admin: 08/13/18 18:02 Dose: 12.5 mg Ferric Sodium Gluconate Complex (Ferrlecit) 125 mg IVPB DAILY [facility] Stop: 08/18/18 21:31 Last Admin: 08/13/18 13:40 Dose: 125 mg Furosemide (Lasix) 40 mg PO DAILY [facility] Last Admin: 08/13/18 13:40 Dose: 40 mg Lactated Ringer's (Lactated Ringer's) 1,000 mls @ 100 mls/hr IV .Q10H [facility] Insulin Aspart (Novolog) 0 unit SC [facility]; Protocol Last Admin: 08/13/18 21:31 Dose: Not Given Magnesium Oxide (Mag-Ox) 400 mg PO DAILY [facility] Last Admin: 08/13/18 13:40 Dose: 400 mg Pantoprazole Sodium (Protonix Ec Tab) 40 mg PO DAILY [facility] Last Admin: 08/13/18 13:40 Dose: 40 mg Potassium Chloride (Potassium Chloride Oral Soln) 20 meq PO DAILY [facility] Last Admin: 08/13/18 09:25 Dose: Not Given Rosuvastatin Calcium (Crestor) 10 mg PO HS [facility] Last Admin: 08/13/18 21:27 Dose: 10 mg Sacubitril/Valsartan (Entresto 24 Mg-26 Mg) 1 tab PO DAILY [facility] Last Admin: 08/13/18 09:27 Dose: 1 tab Sitagliptin Phosphate (Januvia) 50 mg PO DAILY [facility] Last Admin: 08/13/18 09:25 Dose: Not Given - Labs Labs: 08/13/18 07:04 08/12/18 05:04 PT 13.1 SECONDS (9.7-12.2) H 08/10/18 16:55 INR 1.2 08/10/18 16:55 APTT 52.0 SECONDS (21-34) H 08/10/18 16:55
[2018-08-13] MEDS: Lactated Ringer's 1,000 ML IV SCH (23:46)
[2018-08-14 06:46] LABS: BASO % 0.3 % (0.0-2.0); EOS # 0.1 K/uL (0.0-0.7); EOS % 1.4 % (0.0-4.0); HEMOGLOBIN 9.1 g/dL (11.0-16.0); LYMPH # 1.4 K/uL (1.0-4.3); LYMPH % 21.4 % (20.0-40.0); MEAN CELL VOLUME 87.1 fL (81.0-99.0); MEAN CORPUSCULAR HEMOGLOBIN 28.3 pg (27.0-31.0); MEAN CORPUSCULAR HGB CONC 32.5 g/dL (33.0-37.0); MEAN PLATELET VOLUME 9.2 fL (7.2-11.7); MONO # 0.8 K/uL (0.0-0.8); MONO % 11.5 % (0.0-10.0); NEUT # 4.3 K/uL (1.8-7.0); NEUT % 65.4 % (50.0-75.0); NRBC % 0.1 % (0.0-2.0); RBC 3.22 Mil/uL (3.80-5.20); WHITE BLOOD COUNT 6.6 K/uL (4.8-10.8)
[2018-08-14 06:54] LABS: INR 1.2; PARTIAL THROMBOPLASTIN TIME 38.9 SECONDS (21-34); PROTHROMBIN TIME 13.4 SECONDS (9.7-12.2)
[2018-08-14 07:01] LABS: BLOOD UREA NITROGEN 13 mg/dL (7-17); CALCIUM 8.7 mg/dl (8.6-10.4); GFR NON-AFRICAN AMERICAN > 60
[2018-08-14] MEDS ORDERED: Lidocaine Hydrochloride 10 ML INJ ONE (07:26)
[2018-08-14] MEDS ORDERED: Iodixanol 320 MG/ML 200 ML BOTTLE IV ONE (07:26)
[2018-08-14] MEDS ORDERED: ceFAZolin 1 gm in NS 1 GM/100 ML BAG IVPB ONE ×2 (07:27→10:00)
[2018-08-14] MEDS ORDERED: HEPARIN-NS 5,000 UNITS/500 ML 5,000 UNIT/500 ML BAG IV ONE (07:27)
[2018-08-14] MEDS: (Novolog) Insulin Aspart, Recombinant 100 u/ml 10 ml vial SC SCH ×4 (08:01→21:58)
[2018-08-14] MEDS ORDERED: Ketamine 50 mg/ml Inj (10 ml) ONE (08:07)
[2018-08-14] MEDS ORDERED: Midazolam 2 MG/2 ML VIAL ONE (08:31)
[2018-08-14] MEDS: Lactated Ringer's 1,000 ML IV SCH ×2 (09:47→20:45)
--- NOTE | 2018-08-14 09:50 | PCM.SURG1 ---
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
--- NOTE | 2018-08-14 10:35 | RAD ---
Date of service: 08/14/2018 HISTORY: placement of portacath with us guidance COMPARISON: 08/12/2018 TECHNIQUE: 1 view obtained. FINDINGS: LUNGS: Right central venous infusion catheter repositioned extending now 2 the level of the right atrium. No pulmonary infiltrate. PLEURA: No pleural effusion or pneumothorax. CARDIOVASCULAR: There is atherosclerotic calcification of the thoracic aorta. Cardiomegaly. No congestive change. AICD noted. OSSEOUS STRUCTURES: No significant abnormalities. VISUALIZED UPPER ABDOMEN: Normal. OTHER FINDINGS: None. IMPRESSION: Repositioning of central venous infusion catheter compared to 08/12/2018 common now at the level of the right atrium. Otherwise no change.
[2018-08-14] MEDS ORDERED: Phytonadione 10 mg/ml Inj (Adult) SC STA (11:12)
[2018-08-14] MEDS: Sacubitril/Valsartan 24-26mg Tab PO SCH (11:35)
[2018-08-14] MEDS: Ferric Sodium Gluconat Complex 62.5 mg/5 ml Vial IVPB SCH (11:35)
[2018-08-14] MEDS: Pantoprazole 40 mg EC Tab PO SCH (11:36)
[2018-08-14] MEDS: Magnesium Oxide 400 mg Tab UD PO SCH (11:37)
[2018-08-14] MEDS: Potassium Chloride 20 mEq/15 ml LIQ UD PO SCH (11:38)
--- NOTE | 2018-08-14 12:11 | CP.PCM.PN ---
Subjective - Date & Time of Evaluation Date of Evaluation: 08/13/18 Time of Evaluation: 19:00 - Subjective Subjective: Feels tired s/p EGD - gastric ulcers non bleeding Objective - Vital Signs/Intake and Output Vital Signs (last 24 hours): Temp Pulse Resp BP Pulse Ox 98.4 F 84 26 H 102/68 97 08/14/18 10:45 08/14/18 10:45 08/14/18 10:45 08/14/18 11:37 08/14/18 10:45 Intake and Output: 08/14/18 08/14/18 06:59 18:59 Intake Total 850 Balance 850 - Medications Medications: Current Medications Acetaminophen (Tylenol 325mg Tab) 650 mg PO Q6H PRN PRN Reason: Headache Last Admin: 08/13/18 18:01 Dose: 650 mg Albuterol Sulfate (Albuterol 0.083% Inhal Donna (2.5 Mg/3 Ml) Ud) 2.5 mg INH RQ4 PRN PRN Reason: Shortness of Breath Aspirin (Ecotrin) 81 mg PO DAILY [facility] Last Admin: 08/14/18 11:35 Dose: 81 mg Bisacodyl (Dulcolax) 10 mg PO ONCE ONE Stop: 08/14/18 17:01 Carvedilol (Coreg) 12.5 mg PO BID [facility] Last Admin: 08/14/18 11:37 Dose: Not Given Ferric Sodium Gluconate Complex (Ferrlecit) 125 mg IVPB DAILY [facility] Stop: 08/18/18 21:31 Last Admin: 08/14/18 11:35 Dose: 125 mg Furosemide (Lasix) 40 mg PO DAILY [facility] Last Admin: 08/14/18 11:37 Dose: 40 mg Lactated Ringer's (Lactated Ringer's) 1,000 mls @ 100 mls/hr IV .Q10H [facility] Last Admin: 08/14/18 09:47 Dose: 80 mls Insulin Aspart (Novolog) 0 unit SC [facility]; Protocol Last Admin: 08/14/18 08:01 Dose: Not Given Magnesium Oxide (Mag-Ox) 400 mg PO DAILY [facility] Last Admin: 08/14/18 11:37 Dose: 400 mg Metoclopramide HCl (Reglan) 5 mg IVP Q6H [facility] Stop: 08/16/18 08:00 Last Admin: 08/14/18 11:36 Dose: 5 mg Pantoprazole Sodium (Protonix Ec Tab) 40 mg PO DAILY [facility] Last Admin: 08/14/18 11:36 Dose: 40 mg Polyethylene Glycol/Electrolytes (Golytely) 4,000 ml PO ONCE ONE Stop: 08/14/18 13:01 Potassium Chloride (Potassium Chloride Oral Soln) 20 meq PO DAILY [facility] Last Admin: 08/14/18 11:38 Dose: Not Given Rosuvastatin Calcium (Crestor) 10 mg PO HS [facility] Last Admin: 08/13/18 21:27 Dose: 10 mg Sacubitril/Valsartan (Entresto 24 Mg-26 Mg) 1 tab PO DAILY [facility] Last Admin: 08/14/18 11:35 Dose: 1 tab Sitagliptin Phosphate (Januvia) 50 mg PO DAILY [facility] Last Admin: 08/14/18 11:36 Dose: 50 mg - Labs Labs: 08/14/18 06:40 08/14/18 06:40 PT 13.4 SECONDS (9.7-12.2) H 08/14/18 06:40 INR 1.2 08/14/18 06:40 APTT 38.9 SECONDS (21-34) H 08/14/18 06:40 - Head Exam Head Exam: ATRAUMATIC - Eye Exam Eye Exam: Normal appearance - ENT Exam ENT Exam: Mucous Membranes Dry - Respiratory Exam Respiratory Exam: NORMAL BREATHING PATTERN - Cardiovascular Exam Cardiovascular Exam: +S1, +S2 - GI/Abdominal Exam GI & Abdominal Exam: Normal Bowel Sounds Assessment and Plan (1) Anemia Assessment & Plan: iron deficiency on IV iron transfusion support unable to undergo GI endoscopy due to high risk cardiac issues Status: Acute (2) Thrombocytopenia Assessment & Plan: mild, cont. to monitor Status: Acute (3) Encounter for care related to Port-a-Cath Assessment & Plan: malpositioned surgical evaluation Status: Acute
--- NOTE | 2018-08-14 12:12 | CP.PCM.PN ---
Subjective - Date & Time of Evaluation Date of Evaluation: 08/14/18 Time of Evaluation: 11:00 - Subjective Subjective: Portacath removed and replaced Objective - Vital Signs/Intake and Output Vital Signs (last 24 hours): Temp Pulse Resp BP Pulse Ox 98.4 F 84 26 H 102/68 97 08/14/18 10:45 08/14/18 10:45 08/14/18 10:45 08/14/18 11:37 08/14/18 10:45 Intake and Output: 08/14/18 08/14/18 06:59 18:59 Intake Total 850 Balance 850 - Medications Medications: Current Medications Acetaminophen (Tylenol 325mg Tab) 650 mg PO Q6H PRN PRN Reason: Headache Last Admin: 08/13/18 18:01 Dose: 650 mg Albuterol Sulfate (Albuterol 0.083% Inhal Donna (2.5 Mg/3 Ml) Ud) 2.5 mg INH RQ4 PRN PRN Reason: Shortness of Breath Aspirin (Ecotrin) 81 mg PO DAILY [facility] Last Admin: 08/14/18 11:35 Dose: 81 mg Bisacodyl (Dulcolax) 10 mg PO ONCE ONE Stop: 08/14/18 17:01 Carvedilol (Coreg) 12.5 mg PO BID [facility] Last Admin: 08/14/18 11:37 Dose: Not Given Ferric Sodium Gluconate Complex (Ferrlecit) 125 mg IVPB DAILY [facility] Stop: 08/18/18 21:31 Last Admin: 08/14/18 11:35 Dose: 125 mg Furosemide (Lasix) 40 mg PO DAILY [facility] Last Admin: 08/14/18 11:37 Dose: 40 mg Lactated Ringer's (Lactated Ringer's) 1,000 mls @ 100 mls/hr IV .Q10H [facility] Last Admin: 08/14/18 09:47 Dose: 80 mls Insulin Aspart (Novolog) 0 unit SC [facility]; Protocol Last Admin: 08/14/18 08:01 Dose: Not Given Magnesium Oxide (Mag-Ox) 400 mg PO DAILY [facility] Last Admin: 08/14/18 11:37 Dose: 400 mg Metoclopramide HCl (Reglan) 5 mg IVP Q6H [facility] Stop: 08/16/18 08:00 Last Admin: 08/14/18 11:36 Dose: 5 mg Pantoprazole Sodium (Protonix Ec Tab) 40 mg PO DAILY [facility] Last Admin: 08/14/18 11:36 Dose: 40 mg Polyethylene Glycol/Electrolytes (Golytely) 4,000 ml PO ONCE ONE Stop: 08/14/18 13:01 Potassium Chloride (Potassium Chloride Oral Soln) 20 meq PO DAILY [facility] Last Admin: 08/14/18 11:38 Dose: Not Given Rosuvastatin Calcium (Crestor) 10 mg PO HS [facility] Last Admin: 08/13/18 21:27 Dose: 10 mg Sacubitril/Valsartan (Entresto 24 Mg-26 Mg) 1 tab PO DAILY [facility] Last Admin: 08/14/18 11:35 Dose: 1 tab Sitagliptin Phosphate (Januvia) 50 mg PO DAILY [facility] Last Admin: 08/14/18 11:36 Dose: 50 mg - Labs Labs: 08/14/18 06:40 08/14/18 06:40 PT 13.4 SECONDS (9.7-12.2) H 08/14/18 06:40 INR 1.2 08/14/18 06:40 APTT 38.9 SECONDS (21-34) H 08/14/18 06:40 - Head Exam Head Exam: ATRAUMATIC - Eye Exam Eye Exam: Normal appearance - ENT Exam ENT Exam: Mucous Membranes Dry - Respiratory Exam Respiratory Exam: NORMAL BREATHING PATTERN - Cardiovascular Exam Cardiovascular Exam: +S1, +S2 - GI/Abdominal Exam GI & Abdominal Exam: Normal Bowel Sounds Assessment and Plan (1) Anemia Assessment & Plan: iron deficiency on IV iron transfusion support EGD shows nonbleeding gastric ulcers Status: Acute (2) Thrombocytopenia Assessment & Plan: mild, cont. to monitor Status: Acute (3) Encounter for care related to Port-a-Cath Assessment & Plan: replaced Status: Acute
[2018-08-14] MEDS ORDERED: Peg-Electrolyte Oral Soln 4L (Golytely) PO ONE (13:00)
--- NOTE | 2018-08-14 13:57 | PN ---
DATE: 08/14/2018 LOCATION: 564, bed A. SUBJECTIVE: This is a 63-year-old female seen and examined in rounds without significant clinical changes, scheduled for Port-A-Cath insertion today with intermittent period of abdominal pain and recent change of bowel movement. The entire chart is reviewed, including but not limited to the most recent lab and radiology study results, current and the previous medication list, current and the previous medical events. Today's lab results showed PT of 13.4 with PTT elevated at 38.9 with low hemoglobin 9.1, low hematocrit 28, thrombocytopenia of 124. CO2 content 36, indicative of respiratory alkalosis. Blood glucose level 180. The most recently done chest x-ray today, official report is seen. PHYSICAL EXAMINATION: GENERAL: A 63-year-old female. VITAL SIGNS: Afebrile with pulse of 82, respiratory rate 22 to 24 with blood pressure 110/58. HEENT: Pale, dry oral mucous membrane. Nonicteric sclerae. LUNGS: Few scattered crepitation. Decreased air entry at bases. HEART: Positive S1 and S2. ABDOMEN: Soft with mild generalized tenderness. No mass or organomegaly. No rebound tenderness or guarding. EXTREMITIES: Mild edematous changes. No clubbing or cyanosis. NEUROLOGIC: No reported new neurological deficits, sensory or motor. The patient received blood transfusion recently, had been refusing BiPAP. IMPRESSION: 1. Anemia, to rule out lower gastrointestinal blood loss. 2. Exacerbation of chronic obstructive pulmonary disease with sleep apnea. 3. Re-exacerbation of peptic ulcer disease. 4. Rule out occult lower gastrointestinal malignancy. 5. Coagulopathy, drug-induced. 6. Respiratory alkalosis. 7. Poorly controlled diabetes mellitus by history. 8. Known history of cardiac arrhythmias with atrial fibrillation, congestive heart failure with hyperlipidemia. SUGGESTIONS: 1. Continue current management. 2. The patient is to be scheduled to for colonoscopy due to her severe anemia. Further recommendation to follow. Love Jones MD
--- NOTE | 2018-08-14 14:45 | CP.PCM.PN ---
Subjective - Date & Time of Evaluation Date of Evaluation: 08/14/18 Time of Evaluation: 13:00 - Subjective Subjective: Patient seen and examined Status post Port-A-Cath replacement Lying comfortably in no distress Denies shortness of breath Refusing to use BiPAP Afebrile Objective - Vital Signs/Intake and Output Vital Signs (last 24 hours): Temp Pulse Resp BP Pulse Ox 98.4 F 84 26 H 102/68 97 08/14/18 10:45 08/14/18 10:45 08/14/18 10:45 08/14/18 11:37 08/14/18 10:45 Intake and Output: 08/14/18 08/14/18 06:59 18:59 Intake Total 1750 Balance 1750 - Medications Medications: Current Medications Acetaminophen (Tylenol 325mg Tab) 650 mg PO Q6H PRN PRN Reason: Headache Last Admin: 08/13/18 18:01 Dose: 650 mg Albuterol Sulfate (Albuterol 0.083% Inhal Donna (2.5 Mg/3 Ml) Ud) 2.5 mg INH RQ4 PRN PRN Reason: Shortness of Breath Aspirin (Ecotrin) 81 mg PO DAILY [facility] Last Admin: 08/14/18 11:35 Dose: 81 mg Bisacodyl (Dulcolax) 10 mg PO ONCE ONE Stop: 08/14/18 17:01 Carvedilol (Coreg) 12.5 mg PO BID [facility] Last Admin: 08/14/18 11:37 Dose: Not Given Ferric Sodium Gluconate Complex (Ferrlecit) 125 mg IVPB DAILY [facility] Stop: 08/18/18 21:31 Last Admin: 08/14/18 11:35 Dose: 125 mg Furosemide (Lasix) 40 mg PO DAILY [facility] Last Admin: 08/14/18 11:37 Dose: 40 mg Lactated Ringer's (Lactated Ringer's) 1,000 mls @ 100 mls/hr IV .Q10H [facility] Last Admin: 08/14/18 09:47 Dose: 80 mls Insulin Aspart (Novolog) 0 unit SC [facility]; Protocol Last Admin: 08/14/18 13:22 Dose: 1 unit Magnesium Oxide (Mag-Ox) 400 mg PO DAILY [facility] Last Admin: 08/14/18 11:37 Dose: 400 mg Metoclopramide HCl (Reglan) 5 mg IVP Q6H [facility] Stop: 08/16/18 08:00 Last Admin: 08/14/18 11:36 Dose: 5 mg Pantoprazole Sodium (Protonix Ec Tab) 40 mg PO DAILY [facility] Last Admin: 08/14/18 11:36 Dose: 40 mg Potassium Chloride (Potassium Chloride Oral Soln) 20 meq PO DAILY [facility] Last Admin: 08/14/18 11:38 Dose: Not Given Rosuvastatin Calcium (Crestor) 10 mg PO HS [facility] Last Admin: 08/13/18 21:27 Dose: 10 mg Sacubitril/Valsartan (Entresto 24 Mg-26 Mg) 1 tab PO DAILY [facility] Last Admin: 08/14/18 11:35 Dose: 1 tab Sitagliptin Phosphate (Januvia) 50 mg PO DAILY [facility] Last Admin: 08/14/18 11:36 Dose: 50 mg - Labs Labs: 08/14/18 06:40 08/14/18 06:40 PT 13.4 SECONDS (9.7-12.2) H 08/14/18 06:40 INR 1.2 08/14/18 06:40 APTT 38.9 SECONDS (21-34) H 08/14/18 06:40 - Head Exam Head Exam: ATRAUMATIC, NORMOCEPHALIC - ENT Exam ENT Exam: Mucous Membranes Moist - Neck Exam Neck Exam: Normal Inspection - Respiratory Exam Respiratory Exam: Decreased Breath Sounds - Cardiovascular Exam Cardiovascular Exam: REGULAR RHYTHM - GI/Abdominal Exam GI & Abdominal Exam: Soft, Normal Bowel Sounds - Extremities Exam Extremities Exam: Normal Inspection - Neurological Exam Neurological Exam: Alert, Oriented x3 Assessment and Plan (1) COPD (chronic obstructive pulmonary disease) Assessment & Plan: Continue with the nebulizer treatment Patient advised to use BiPAP Stable from pulmonary standpoint Status: Chronic (2) Anemia Status: Acute (3) Cardiomyopathy Status: Chronic (4) ROSIO (obstructive sleep apnea) Status: Chronic
[2018-08-14] MEDS ORDERED: Bisacodyl 5mg EC Tab PO ONE ×2 (17:00→22:09)
--- NOTE | 2018-08-14 19:46 | OP ---
PROCEDURE DATE: 08/14/2018 PREOPERATIVE DIAGNOSIS: Bent Port-A-Cath. POSTOPERATIVE DIAGNOSIS: Bent Port-A-Cath. PROCEDURE: Removal of old Port-A-Cath and placement of new Port-A-Cath through right jugular vein with C-arm fluoroscopy and ultrasound guidance puncture and micropuncture technique. SURGEON: Quincy Celis Jr., MD JOURNEYMAN ELECTRICIAN PV INSTALLER: None. ANESTHESIOLOGIST: Dr. Hollis. ANESTHESIA: Local with sedation. INDICATIONS: The patient is a 63-year-old woman, morbidly obese, sleep apnea, variety of other problems, who presents with a Port-A-Cath that has been previously placed in good position and now the tip of it is bent going back up the jugular vein. OPERATIVE FINDINGS: There is lot of congestion in the superior vena cava through our pacemaker defibrillator wires, and in this case we actually positioned the catheter a little more deeply, almost to the right atrium then we normally would to avoid the catheter being kicked back up to the jugular vein. Initially we positioned it by going through the old catheter and through the old wire to get catheter down in through the inferior vena cave, however, this proved impractical and we had to remove all this completely and start all over. We made a separate new puncture into the internal jugular vein on the right side, and then placed the wire again into the inferior vena cava which was quite difficult due to all the devices in the superior vena cava. Nonetheless, once we were here, I was quite satisfied with the position. We deployed the catheter in further than we usually do to avoid the kick out that had previously occurred, flushed the catheter with heparinized saline and I was quite pleased with it. We did put back in to the original pocket. So, the procedure carried out was removal of old Port-A-Cath and placement of a new Port-A-Cath with ultrasound guidance in the right jugular vein. Ultrasound imaging of the neck showed the vein was actually 20 mm in diameter with normal compressibility and no intraluminal thrombosis. Quincy Celis Jr., MD
--- NOTE | 2018-08-14 20:48 | CP.PCM.PN ---
Subjective - Date & Time of Evaluation Date of Evaluation: 08/14/18 - Subjective Subjective: patient examined today no nausea, no vomiting, no fever, no dizziness, no diarrhea, no shortness of breath Objective - Vital Signs/Intake and Output Vital Signs (last 24 hours): Temp Pulse Resp BP Pulse Ox 98.2 F 69 19 98/62 L 96 08/14/18 17:17 08/14/18 17:17 08/14/18 17:17 08/14/18 17:17 08/14/18 17:17 Intake and Output: 08/14/18 08/15/18 18:59 06:59 Intake Total 1750 Balance 1750 - Medications Medications: Current Medications Acetaminophen (Tylenol 325mg Tab) 650 mg PO Q6H PRN PRN Reason: Headache Last Admin: 08/14/18 17:19 Dose: 650 mg Albuterol Sulfate (Albuterol 0.083% Inhal Donna (2.5 Mg/3 Ml) Ud) 2.5 mg INH RQ4 PRN PRN Reason: Shortness of Breath Aspirin (Ecotrin) 81 mg PO DAILY [facility] Last Admin: 08/14/18 11:35 Dose: 81 mg Carvedilol (Coreg) 12.5 mg PO BID [facility] Last Admin: 08/14/18 17:11 Dose: Not Given Ferric Sodium Gluconate Complex (Ferrlecit) 125 mg IVPB DAILY [facility] Stop: 08/18/18 21:31 Last Admin: 08/14/18 11:35 Dose: 125 mg Furosemide (Lasix) 40 mg PO DAILY [facility] Last Admin: 08/14/18 11:37 Dose: 40 mg Lactated Ringer's (Lactated Ringer's) 1,000 mls @ 100 mls/hr IV .Q10H [facility] Last Admin: 08/14/18 20:45 Dose: 100 mls/hr Insulin Aspart (Novolog) 0 unit SC ACHS [facility]; Protocol Last Admin: 08/14/18 17:21 Dose: Not Given Magnesium Oxide (Mag-Ox) 400 mg PO DAILY [facility] Last Admin: 08/14/18 11:37 Dose: 400 mg Metoclopramide HCl (Reglan) 5 mg IVP Q6H [facility] Stop: 08/16/18 08:00 Last Admin: 08/14/18 17:18 Dose: 5 mg Pantoprazole Sodium (Protonix Ec Tab) 40 mg PO DAILY [facility] Last Admin: 08/14/18 11:36 Dose: 40 mg Potassium Chloride (Potassium Chloride Oral Soln) 20 meq PO DAILY [facility] Last Admin: 08/14/18 11:38 Dose: Not Given Rosuvastatin Calcium (Crestor) 10 mg PO HS [facility] Last Admin: 08/13/18 21:27 Dose: 10 mg Sacubitril/Valsartan (Entresto 24 Mg-26 Mg) 1 tab PO DAILY [facility] Last Admin: 08/14/18 11:35 Dose: 1 tab Sitagliptin Phosphate (Januvia) 50 mg PO DAILY [facility] Last Admin: 08/14/18 11:36 Dose: 50 mg - Labs Labs: 08/14/18 06:40 08/14/18 06:40 PT 13.4 SECONDS (9.7-12.2) H 08/14/18 06:40 INR 1.2 08/14/18 06:40 APTT 38.9 SECONDS (21-34) H 08/14/18 06:40 - Constitutional Appears: Well - Head Exam Head Exam: ATRAUMATIC, NORMAL INSPECTION, NORMOCEPHALIC - Eye Exam Eye Exam: EOMI, Normal appearance, PERRL Pupil Exam: NORMAL ACCOMODATION, PERRL - ENT Exam ENT Exam: Mucous Membranes Moist, Normal Exam - Neck Exam Neck Exam: Full ROM, Normal Inspection. absent: Lymphadenopathy - Respiratory Exam Respiratory Exam: Decreased Breath Sounds - Cardiovascular Exam Cardiovascular Exam: REGULAR RHYTHM, +S1, +S2 - GI/Abdominal Exam GI & Abdominal Exam: Soft, Diminished Bowel Sounds - Rectal Exam Rectal Exam: Deferred - Neurological Exam Neurological Exam: Oriented x3 Assessment and Plan - Assessment and Plan (Free Text) Plan: plan discussed with patient moderate complexity of care albuterol coreg crestor entresto ferrlecit januvia lactated ringer's lasix mag-ox novolog reglan potassium chloride protonix ec tab tylenol medications reviewed vitals reviewed labs reviewed
--- NOTE | 2018-08-14 22:34 | CP.PCM.PN ---
Subjective - Date & Time of Evaluation Date of Evaluation: 08/14/18 Time of Evaluation: 17:25 - Subjective Subjective: Patient seen and evaluated Denies chest pain and dyspnea Review of Systems - Constitutional Constitutional: Daytime Sleepiness, Fatigue. absent: Chills, Excessive Sweati ng, Fever, Weight Loss - EENT Eyes: absent: Blurred Vision, Dry Eye Nose/Mouth/Throat: absent: Nasal Trauma, Nose Pain, Mouth Pain - Cardiovascular Cardiovascular: Dyspnea. absent: Chest Pain, Chest Pain at Rest - Gastrointestinal Gastrointestinal: absent: Abdominal Pain, Bloating, Diarrhea - Musculoskeletal Musculoskeletal: absent: Joint Swelling, Myalgias Additional comments: LUE pain, sensation normal - Integumentary Integumentary: absent: Hirsutism, Lesions - Neurological Neurological: absent: Headaches, Paresthesias, Syncope - Psychiatric Psychiatric: absent: Confusion, Depression - Endocrine Endocrine: absent: Heat Intolorance, Polyphagia Physical Exam - Constitutional Appears: Non-toxic, No Acute Distress - Head Exam Head Exam: NORMAL INSPECTION, NORMOCEPHALIC - Eye Exam Eye Exam: EOMI, Normal appearance Additional comments: pale conjuctiva - ENT Exam ENT Exam: Mucous Membranes Moist - Respiratory Exam Respiratory Exam: Clear to Auscultation Bilateral, NORMAL BREATHING PATTERN. absent: Rales, Rhonchi, Wheezes - Cardiovascular Exam Cardiovascular Exam: +S1, +S2, Systolic Murmur - GI/Abdominal Exam GI & Abdominal Exam: Normal Bowel Sounds, Soft. 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 Acute on chronic anemia History of Congestive Heart Failure w/ preserved Ejection Fracture History of Hypertension History of atrial fibrillation - vitals stable, EKG ventricular paced w/ premature supraventricular complex - Echo 2018, EF of 52.8, EF wnl, moderated tricuspid regurgitation -Cath: Non Obstructive Coronaries History of diabetes - HgA1C 2017 6.9 - continue outpatient monitoring - c/w home medication januvia 50 mg PO daily Objective - Vital Signs/Intake and Output Vital Signs (last 24 hours): Temp Pulse Resp BP Pulse Ox 98.2 F 69 19 98/62 L 96 08/14/18 17:17 08/14/18 17:17 08/14/18 17:17 08/14/18 17:17 08/14/18 17:17 Intake and Output: 08/14/18 08/15/18 18:59 06:59 Intake Total 1750 Balance 1750 - Medications Medications: Current Medications Acetaminophen (Tylenol 325mg Tab) 650 mg PO Q6H PRN PRN Reason: Headache Last Admin: 08/14/18 17:19 Dose: 650 mg Albuterol Sulfate (Albuterol 0.083% Inhal Donna (2.5 Mg/3 Ml) Ud) 2.5 mg INH RQ4 PRN PRN Reason: Shortness of Breath Aspirin (Ecotrin) 81 mg PO DAILY [facility] Last Admin: 08/14/18 11:35 Dose: 81 mg Carvedilol (Coreg) 12.5 mg PO BID [facility] Last Admin: 08/14/18 17:11 Dose: Not Given Ferric Sodium Gluconate Complex (Ferrlecit) 125 mg IVPB DAILY [facility] Stop: 08/18/18 21:31 Last Admin: 08/14/18 11:35 Dose: 125 mg Furosemide (Lasix) 40 mg PO DAILY [facility] Last Admin: 08/14/18 11:37 Dose: 40 mg Lactated Ringer's (Lactated Ringer's) 1,000 mls @ 100 mls/hr IV .Q10H [facility] Last Admin: 08/14/18 20:45 Dose: 100 mls/hr Insulin Aspart (Novolog) 0 unit SC ACHS [facility]; Protocol Last Admin: 08/14/18 21:58 Dose: Not Given Magnesium Oxide (Mag-Ox) 400 mg PO DAILY [facility] Last Admin: 08/14/18 11:37 Dose: 400 mg Metoclopramide HCl (Reglan) 5 mg IVP Q6H [facility] Stop: 08/16/18 08:00 Last Admin: 08/14/18 17:18 Dose: 5 mg Pantoprazole Sodium (Protonix Ec Tab) 40 mg PO DAILY [facility] Last Admin: 08/14/18 11:36 Dose: 40 mg Potassium Chloride (Potassium Chloride Oral Soln) 20 meq PO DAILY [facility] Last Admin: 08/14/18 11:38 Dose: Not Given Rosuvastatin Calcium (Crestor) 10 mg PO HS [facility] Last Admin: 08/14/18 22:24 Dose: 10 mg Sacubitril/Valsartan (Entresto 24 Mg-26 Mg) 1 tab PO DAILY [facility] Last Admin: 08/14/18 11:35 Dose: 1 tab Sitagliptin Phosphate (Januvia) 50 mg PO DAILY [facility] Last Admin: 08/14/18 11:36 Dose: 50 mg - Labs Labs: 08/14/18 06:40 08/14/18 06:40 PT 13.4 SECONDS (9.7-12.2) H 08/14/18 06:40 INR 1.2 08/14/18 06:40 APTT 38.9 SECONDS (21-34) H 08/14/18 06:40
--- NOTE | 2018-08-14 23:29 | CP.PCM.PN ---
Subjective - Date & Time of Evaluation Date of Evaluation: 08/14/18 Time of Evaluation: 23:25 - Subjective Subjective: Surgery Progress note- Dr. Celis Pt S&E. s/p Portacath. Surgical site, C/D/I. Minimal tenderness at site. Denies fevers, chills, shortness of breath. Objective - Vital Signs/Intake and Output Vital Signs (last 24 hours): Temp Pulse Resp BP Pulse Ox 98.2 F 69 19 98/62 L 96 08/14/18 17:17 08/14/18 17:17 08/14/18 17:17 08/14/18 17:17 08/14/18 17:17 Intake and Output: 08/14/18 08/15/18 18:59 06:59 Intake Total 1750 Balance 1750 - Medications Medications: Current Medications Acetaminophen (Tylenol 325mg Tab) 650 mg PO Q6H PRN PRN Reason: Headache Last Admin: 08/14/18 17:19 Dose: 650 mg Albuterol Sulfate (Albuterol 0.083% Inhal Donna (2.5 Mg/3 Ml) Ud) 2.5 mg INH RQ4 PRN PRN Reason: Shortness of Breath Aspirin (Ecotrin) 81 mg PO DAILY [facility] Last Admin: 08/14/18 11:35 Dose: 81 mg Carvedilol (Coreg) 12.5 mg PO BID [facility] Last Admin: 08/14/18 17:11 Dose: Not Given Ferric Sodium Gluconate Complex (Ferrlecit) 125 mg IVPB DAILY [facility] Stop: 08/18/18 21:31 Last Admin: 08/14/18 11:35 Dose: 125 mg Furosemide (Lasix) 40 mg PO DAILY [facility] Last Admin: 08/14/18 11:37 Dose: 40 mg Lactated Ringer's (Lactated Ringer's) 1,000 mls @ 100 mls/hr IV .Q10H [facility] Last Admin: 08/14/18 20:45 Dose: 100 mls/hr Insulin Aspart (Novolog) 0 unit SC ACHS [facility]; Protocol Last Admin: 08/14/18 21:58 Dose: Not Given Magnesium Oxide (Mag-Ox) 400 mg PO DAILY [facility] Last Admin: 08/14/18 11:37 Dose: 400 mg Metoclopramide HCl (Reglan) 5 mg IVP Q6H [facility] Stop: 08/16/18 08:00 Last Admin: 08/14/18 17:18 Dose: 5 mg Pantoprazole Sodium (Protonix Ec Tab) 40 mg PO DAILY [facility] Last Admin: 08/14/18 11:36 Dose: 40 mg Potassium Chloride (Potassium Chloride Oral Soln) 20 meq PO DAILY [facility] Last Admin: 08/14/18 11:38 Dose: Not Given Rosuvastatin Calcium (Crestor) 10 mg PO HS [facility] Last Admin: 08/14/18 22:24 Dose: 10 mg Sacubitril/Valsartan (Entresto 24 Mg-26 Mg) 1 tab PO DAILY [facility] Last Admin: 08/14/18 11:35 Dose: 1 tab Sitagliptin Phosphate (Januvia) 50 mg PO DAILY [facility] Last Admin: 08/14/18 11:36 Dose: 50 mg - Labs Labs: 08/14/18 06:40 08/14/18 06:40 PT 13.4 SECONDS (9.7-12.2) H 08/14/18 06:40 INR 1.2 08/14/18 06:40 APTT 38.9 SECONDS (21-34) H 08/14/18 06:40 - Constitutional Appears: Non-toxic, No Acute Distress, Chronically Ill - Head Exam Head Exam: ATRAUMATIC - Eye Exam Eye Exam: Periorbital tenderness - ENT Exam ENT Exam: Mucous Membranes Moist - Respiratory Exam Respiratory Exam: absent: Accessory Muscle Use, Respiratory Distress Additional comments: Portacath site C/D/I - Cardiovascular Exam Cardiovascular Exam: absent: Bradycardia, Tachycardia - GI/Abdominal Exam GI & Abdominal Exam: Soft. absent: Distended, Firm, Guarding, Rigid, Tenderness - Neurological Exam Neurological Exam: Alert, Awake - Skin Skin Exam: Intact, Warm Assessment and Plan - Assessment and Plan (Free Text) Assessment: 63F s/p Portacath placement eariler today POD0 Plan: - post op cxr catheter in good position. No pneumothorax appreciated - cleared to use Port - no further acute surgical intervention indicated at this time - further recs per Dr. Celis Surgical attending PGY2
--- NOTE | 2018-08-15 00:10 | CARD ---
APPROVED REPORT Date of service: 08/10/2018 EKG Measurement Heart [id number] <Conclusion> Atrial fibrillation Intermittant V pacing with premature ventricular beats Nonspecific intraventricular block Abnormal ECG
[2018-08-15] MEDS: Lactated Ringer's 1,000 ML IV SCH ×3 (05:24→16:12)
--- NOTE | 2018-08-15 08:22 | RAD ---
Date of service: 08/14/2018 PROCEDURE: Intraoperative Fluoroscopy. HISTORY: BENT PORTACATH FINDINGS: Fluoroscopic assistance was provided for Port-A-Cath exchange. Please refer to the operative report from SUSHANT Cleary.
[2018-08-15] MEDS: (Novolog) Insulin Aspart, Recombinant 100 u/ml 10 ml vial SC SCH ×4 (08:32→21:14)
[2018-08-15] MEDS: Magnesium Oxide 400 mg Tab UD PO SCH (10:47)
[2018-08-15] MEDS: Pantoprazole 40 mg EC Tab PO SCH (10:47)
[2018-08-15] MEDS: Ferric Sodium Gluconat Complex 62.5 mg/5 ml Vial IVPB SCH (10:47)
[2018-08-15] MEDS: Sacubitril/Valsartan 24-26mg Tab PO SCH (10:47)
[2018-08-15] MEDS: Potassium Chloride 20 mEq/15 ml LIQ UD PO SCH (12:16)
[2018-08-15] MEDS ORDERED: Magnesium Citrate Oral SOL (300 ml) PO ONE ×3 (16:39→20:00)
[2018-08-15] MEDS ORDERED: Bisacodyl 5mg EC Tab PO ONE ×2 (16:42→22:00)
--- NOTE | 2018-08-15 18:13 | CP.PCM.PN ---
Subjective - Date & Time of Evaluation Date of Evaluation: 08/15/18 Time of Evaluation: 12:00 - Subjective Subjective: Patient seen and examined Sitting comfortably in no distress Afebrile Colonoscopy canceled Stable from pulmonary standpoint CPAP at night Follow-up in the office Objective - Vital Signs/Intake and Output Vital Signs (last 24 hours): Temp Pulse Resp BP Pulse Ox 97.9 F 60 20 116/75 95 08/15/18 15:00 08/15/18 15:00 08/15/18 15:00 08/15/18 15:00 08/15/18 15:00 Intake and Output: 08/15/18 08/15/18 06:59 18:59 Intake Total 800 1400 Balance 800 1400 - Medications Medications: Current Medications Acetaminophen (Tylenol 325mg Tab) 650 mg PO Q6H PRN PRN Reason: Headache Last Admin: 08/15/18 10:52 Dose: 650 mg Albuterol Sulfate (Albuterol 0.083% Inhal Donna (2.5 Mg/3 Ml) Ud) 2.5 mg INH RQ4 PRN PRN Reason: Shortness of Breath Aspirin (Ecotrin) 81 mg PO DAILY [facility] Last Admin: 08/15/18 10:47 Dose: 81 mg Bisacodyl (Dulcolax) 10 mg PO ONCE ONE Stop: 08/15/18 22:01 Carvedilol (Coreg) 12.5 mg PO BID [facility] Last Admin: 08/15/18 17:37 Dose: Not Given Ferric Sodium Gluconate Complex (Ferrlecit) 125 mg IVPB DAILY [facility] Stop: 08/18/18 21:31 Last Admin: 08/15/18 10:47 Dose: 125 mg Furosemide (Lasix) 40 mg PO DAILY [facility] Last Admin: 08/15/18 10:48 Dose: 40 mg Lactated Ringer's (Lactated Ringer's) 1,000 mls @ 100 mls/hr IV .Q10H [facility] Last Admin: 08/15/18 16:12 Dose: Not Given Insulin Aspart (Novolog) 0 unit SC [facility]; Protocol Last Admin: 08/15/18 17:30 Dose: Not Given Magnesium Citrate (Citrate Of Mag) 120 ml PO ONCE ONE Stop: 08/15/18 20:01 Magnesium Oxide (Mag-Ox) 400 mg PO DAILY [facility] Last Admin: 08/15/18 10:47 Dose: 400 mg Metoclopramide HCl (Reglan) 5 mg IVP Q6H [facility] Stop: 08/16/18 08:00 Last Admin: 08/15/18 17:37 Dose: 5 mg Pantoprazole Sodium (Protonix Ec Tab) 40 mg PO DAILY [facility] Last Admin: 08/15/18 10:47 Dose: 40 mg Potassium Chloride (Potassium Chloride Oral Soln) 20 meq PO DAILY [facility] Last Admin: 08/15/18 12:16 Dose: Not Given Rosuvastatin Calcium (Crestor) 10 mg PO HS [facility] Last Admin: 08/14/18 22:24 Dose: 10 mg Sacubitril/Valsartan (Entresto 24 Mg-26 Mg) 1 tab PO DAILY [facility] Last Admin: 08/15/18 10:47 Dose: 1 tab Sitagliptin Phosphate (Januvia) 50 mg PO DAILY [facility] Last Admin: 08/15/18 10:47 Dose: 50 mg - Labs Labs: 08/14/18 06:40 08/14/18 06:40 PT 13.4 SECONDS (9.7-12.2) H 08/14/18 06:40 INR 1.2 08/14/18 06:40 APTT 38.9 SECONDS (21-34) H 08/14/18 06:40 Assessment and Plan (1) COPD (chronic obstructive pulmonary disease) Status: Chronic (2) Anemia Status: Acute (3) Cardiomyopathy Status: Chronic (4) ROSIO (obstructive sleep apnea) Status: Chronic
--- NOTE | 2018-08-15 18:59 | PN ---
DATE: 08/15/2018 LOCATION: 564, bed E. SUBJECTIVE: This 63-year-old female was scheduled for colonoscopy today. The patient refused apparently to take the preparation and the colonoscopy subsequently was canceled due to lack of patient cooperation and refusal to have the test. The entire chart is reviewed including but not limited to the most recent lab results and today's blood glucose level is 134 with the latest reported hemoglobin of 9.1, hematocrit 28. IMPRESSION AND PLAN: Case discussed with the primary MD, and the patient is to be re-scheduled for colonoscopy as outpatient if she desires to. We will follow up closely with you. Love Jones MD
--- NOTE | 2018-08-15 19:04 | CP.PCM.PN ---
Subjective - Date & Time of Evaluation Date of Evaluation: 08/15/18 - Subjective Subjective: patient seen today no nausea, no vomiting, no dizziness, no fever, no diarrhea no shortness of breath Objective - Vital Signs/Intake and Output Vital Signs (last 24 hours): Temp Pulse Resp BP Pulse Ox 97.9 F 60 20 116/75 95 08/15/18 15:00 08/15/18 15:00 08/15/18 15:00 08/15/18 15:00 08/15/18 15:00 Intake and Output: 08/15/18 08/16/18 18:59 06:59 Intake Total 1400 Balance 1400 - Medications Medications: Current Medications Acetaminophen (Tylenol 325mg Tab) 650 mg PO Q6H PRN PRN Reason: Headache Last Admin: 08/15/18 10:52 Dose: 650 mg Albuterol Sulfate (Albuterol 0.083% Inhal Donna (2.5 Mg/3 Ml) Ud) 2.5 mg INH RQ4 PRN PRN Reason: Shortness of Breath Aspirin (Ecotrin) 81 mg PO DAILY [facility] Last Admin: 08/15/18 10:47 Dose: 81 mg Bisacodyl (Dulcolax) 10 mg PO ONCE ONE Stop: 08/15/18 22:01 Carvedilol (Coreg) 12.5 mg PO BID [facility] Last Admin: 08/15/18 17:37 Dose: Not Given Ferric Sodium Gluconate Complex (Ferrlecit) 125 mg IVPB DAILY [facility] Stop: 08/18/18 21:31 Last Admin: 08/15/18 10:47 Dose: 125 mg Furosemide (Lasix) 40 mg PO DAILY [facility] Last Admin: 08/15/18 10:48 Dose: 40 mg Lactated Ringer's (Lactated Ringer's) 1,000 mls @ 100 mls/hr IV .Q10H [facility] Last Admin: 08/15/18 16:12 Dose: Not Given Insulin Aspart (Novolog) 0 unit SC [facility]; Protocol Last Admin: 08/15/18 17:30 Dose: Not Given Magnesium Citrate (Citrate Of Mag) 120 ml PO ONCE ONE Stop: 08/15/18 20:01 Magnesium Oxide (Mag-Ox) 400 mg PO DAILY [facility] Last Admin: 08/15/18 10:47 Dose: 400 mg Metoclopramide HCl (Reglan) 5 mg IVP Q6H [facility] Stop: 08/16/18 08:00 Last Admin: 08/15/18 17:37 Dose: 5 mg Pantoprazole Sodium (Protonix Ec Tab) 40 mg PO DAILY [facility] Last Admin: 08/15/18 10:47 Dose: 40 mg Potassium Chloride (Potassium Chloride Oral Soln) 20 meq PO DAILY [facility] Last Admin: 08/15/18 12:16 Dose: Not Given Rosuvastatin Calcium (Crestor) 10 mg PO HS [facility] Last Admin: 08/14/18 22:24 Dose: 10 mg Sacubitril/Valsartan (Entresto 24 Mg-26 Mg) 1 tab PO DAILY [facility] Last Admin: 08/15/18 10:47 Dose: 1 tab Sitagliptin Phosphate (Januvia) 50 mg PO DAILY [facility] Last Admin: 08/15/18 10:47 Dose: 50 mg - Labs Labs: 08/14/18 06:40 08/14/18 06:40 PT 13.4 SECONDS (9.7-12.2) H 08/14/18 06:40 INR 1.2 08/14/18 06:40 APTT 38.9 SECONDS (21-34) H 08/14/18 06:40 - Constitutional Appears: Well - Head Exam Head Exam: ATRAUMATIC, NORMAL INSPECTION, NORMOCEPHALIC - Eye Exam Eye Exam: EOMI, Normal appearance, PERRL Pupil Exam: NORMAL ACCOMODATION, PERRL - ENT Exam ENT Exam: Mucous Membranes Moist, Normal Exam - Neck Exam Neck Exam: Full ROM, Normal Inspection. absent: Lymphadenopathy - Respiratory Exam Respiratory Exam: Decreased Breath Sounds - Cardiovascular Exam Cardiovascular Exam: REGULAR RHYTHM, +S1, +S2 - GI/Abdominal Exam GI & Abdominal Exam: Soft, Diminished Bowel Sounds - Rectal Exam Rectal Exam: Deferred - Neurological Exam Neurological Exam: Oriented x3 Assessment and Plan - Assessment and Plan (Free Text) Plan: albuterol coreg crestor entresto ferrlecit januvia lactated ringer's lasix mag-ox novolog reglan potassium chloride protonix ec tab tylenol medications reviewed vitals reviewed labs reviewed plan discussed with patient moderate complexity of care
[2018-08-15 21:24] LABS: CK-MB 0.31 ng/mL (0.0-3.38); TROPONIN I 0.029 ng/mL (0.00-0.120)
[2018-08-15] MEDS ORDERED: DiphenhydrAMINE 50 mg/ml Inj IVP STA (23:08)
--- NOTE | 2018-08-15 23:42 | CP.PCM.PN ---
Subjective - Date & Time of Evaluation Date of Evaluation: 08/15/18 Time of Evaluation: 08:45 - Subjective Subjective: Patient seen and evaluated Denies chest pain and dyspnea Review of Systems - Constitutional Constitutional: Daytime Sleepiness, Fatigue. absent: Chills, Excessive Sweati ng, Fever, Weight Loss - EENT Eyes: absent: Blurred Vision, Dry Eye Nose/Mouth/Throat: absent: Nasal Trauma, Nose Pain, Mouth Pain - Cardiovascular Cardiovascular: Dyspnea. absent: Chest Pain, Chest Pain at Rest - Gastrointestinal Gastrointestinal: absent: Abdominal Pain, Bloating, Diarrhea - Musculoskeletal Musculoskeletal: absent: Joint Swelling, Myalgias Additional comments: LUE pain, sensation normal - Integumentary Integumentary: absent: Hirsutism, Lesions - Neurological Neurological: absent: Headaches, Paresthesias, Syncope - Psychiatric Psychiatric: absent: Confusion, Depression - Endocrine Endocrine: absent: Heat Intolorance, Polyphagia Physical Exam - Constitutional Appears: Non-toxic, No Acute Distress - Head Exam Head Exam: NORMAL INSPECTION, NORMOCEPHALIC - Eye Exam Eye Exam: EOMI, Normal appearance Additional comments: pale conjuctiva - ENT Exam ENT Exam: Mucous Membranes Moist - Respiratory Exam Respiratory Exam: Clear to Auscultation Bilateral, NORMAL BREATHING PATTERN. absent: Rales, Rhonchi, Wheezes - Cardiovascular Exam Cardiovascular Exam: +S1, +S2, Systolic Murmur - GI/Abdominal Exam GI & Abdominal Exam: Normal Bowel Sounds, Soft. 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 Acute on chronic anemia History of Congestive Heart Failure w/ preserved Ejection Fracture History of Hypertension History of atrial fibrillation - vitals stable, EKG ventricular paced w/ premature supraventricular complex - Echo 2018, EF of 52.8, EF wnl, moderated tricuspid regurgitation -Cath: Non Obstructive Coronaries History of diabetes - HgA1C 2018 6.9 - continue outpatient monitoring - c/w home medication januvia 50 mg PO daily Objective - Vital Signs/Intake and Output Vital Signs (last 24 hours): Temp Pulse Resp BP Pulse Ox 97.9 F 66 20 105/69 95 08/15/18 15:00 08/15/18 18:00 08/15/18 15:00 08/15/18 20:31 08/15/18 15:00 Intake and Output: 08/15/18 08/16/18 18:59 06:59 Intake Total 1400 Balance 1400 - Medications Medications: Current Medications Acetaminophen (Tylenol 325mg Tab) 650 mg PO Q6H PRN PRN Reason: Headache Last Admin: 08/15/18 19:24 Dose: 650 mg Aspirin (Ecotrin) 81 mg PO DAILY [facility] Last Admin: 08/15/18 10:47 Dose: 81 mg Carvedilol (Coreg) 12.5 mg PO BID [facility] Last Admin: 08/15/18 20:31 Dose: 12.5 mg Ferric Sodium Gluconate Complex (Ferrlecit) 125 mg IVPB DAILY [facility] Stop: 08/18/18 21:31 Last Admin: 08/15/18 10:47 Dose: 125 mg Furosemide (Lasix) 40 mg PO DAILY [facility] Last Admin: 08/15/18 10:48 Dose: 40 mg Lactated Ringer's (Lactated Ringer's) 1,000 mls @ 100 mls/hr IV .Q10H [facility] Last Admin: 08/15/18 16:12 Dose: Not Given Insulin Aspart (Novolog) 0 unit SC [facility]; Protocol Last Admin: 08/15/18 21:14 Dose: Not Given Magnesium Oxide (Mag-Ox) 400 mg PO DAILY [facility] Last Admin: 08/15/18 10:47 Dose: 400 mg Metoclopramide HCl (Reglan) 5 mg IVP Q6H [facility] Stop: 08/16/18 08:00 Last Admin: 08/15/18 17:37 Dose: 5 mg Pantoprazole Sodium (Protonix Ec Tab) 40 mg PO DAILY [facility] Last Admin: 08/15/18 10:47 Dose: 40 mg Potassium Chloride (Potassium Chloride Oral Soln) 20 meq PO DAILY [facility] Last Admin: 08/15/18 12:16 Dose: Not Given Rosuvastatin Calcium (Crestor) 10 mg PO HS [facility] Last Admin: 08/15/18 22:18 Dose: 10 mg Sacubitril/Valsartan (Entresto 24 Mg-26 Mg) 1 tab PO DAILY [facility] Last Admin: 08/15/18 10:47 Dose: 1 tab Sitagliptin Phosphate (Januvia) 50 mg PO DAILY [facility] Last Admin: 08/15/18 10:47 Dose: 50 mg - Labs Labs: 08/14/18 06:40 08/14/18 06:40 PT 13.4 SECONDS (9.7-12.2) H 08/14/18 06:40 INR 1.2 08/14/18 06:40 APTT 38.9 SECONDS (21-34) H 08/14/18 06:40
[2018-08-16] MEDS: Lactated Ringer's 1,000 ML IV SCH (05:34)
[2018-08-16] MEDS: (Novolog) Insulin Aspart, Recombinant 100 u/ml 10 ml vial SC SCH ×4 (08:49→21:26)
--- NOTE | 2018-08-16 09:58 | CP.PCM.PN ---
Subjective - Date & Time of Evaluation Date of Evaluation: 08/16/18 Time of Evaluation: 09:20 - Subjective Subjective: Patient seen and examined Complaining of lower abdominal pain Denies any shortness of breath Refusing to use BiPAP Awake and responsive Objective - Vital Signs/Intake and Output Vital Signs (last 24 hours): Temp Pulse Resp BP Pulse Ox 98.6 F 62 18 102/66 96 08/16/18 07:00 08/16/18 08:35 08/16/18 07:00 08/16/18 07:00 08/16/18 07:00 - Medications Medications: Current Medications Acetaminophen (Tylenol 325mg Tab) 650 mg PO Q6H PRN PRN Reason: Headache Last Admin: 08/15/18 19:24 Dose: 650 mg Aspirin (Ecotrin) 81 mg PO DAILY [facility] Last Admin: 08/15/18 10:47 Dose: 81 mg Carvedilol (Coreg) 12.5 mg PO BID [facility] Last Admin: 08/15/18 20:31 Dose: 12.5 mg Ferric Sodium Gluconate Complex (Ferrlecit) 125 mg IVPB DAILY [facility] Stop: 08/18/18 21:31 Last Admin: 08/15/18 10:47 Dose: 125 mg Furosemide (Lasix) 40 mg PO DAILY [facility] Last Admin: 08/15/18 10:48 Dose: 40 mg Insulin Aspart (Novolog) 0 unit SC [facility]; Protocol Last Admin: 08/16/18 08:49 Dose: Not Given Magnesium Oxide (Mag-Ox) 400 mg PO DAILY [facility] Last Admin: 08/15/18 10:47 Dose: 400 mg Pantoprazole Sodium (Protonix Ec Tab) 40 mg PO DAILY [facility] Last Admin: 08/15/18 10:47 Dose: 40 mg Potassium Chloride (Potassium Chloride Oral Soln) 20 meq PO DAILY [facility] Last Admin: 08/15/18 12:16 Dose: Not Given Rosuvastatin Calcium (Crestor) 10 mg PO HS [facility] Last Admin: 08/15/18 22:18 Dose: 10 mg Sacubitril/Valsartan (Entresto 24 Mg-26 Mg) 1 tab PO DAILY [facility] Last Admin: 08/15/18 10:47 Dose: 1 tab Sitagliptin Phosphate (Januvia) 50 mg PO DAILY [facility] Last Admin: 08/15/18 10:47 Dose: 50 mg - Labs Labs: 08/14/18 06:40 08/14/18 06:40 PT 13.4 SECONDS (9.7-12.2) H 08/14/18 06:40 INR 1.2 08/14/18 06:40 APTT 38.9 SECONDS (21-34) H 08/14/18 06:40 - Head Exam Head Exam: ATRAUMATIC, NORMOCEPHALIC - ENT Exam ENT Exam: Mucous Membranes Moist - Neck Exam Neck Exam: Normal Inspection - Respiratory Exam Respiratory Exam: Decreased Breath Sounds - Cardiovascular Exam Cardiovascular Exam: REGULAR RHYTHM - GI/Abdominal Exam GI & Abdominal Exam: Soft, Normal Bowel Sounds Assessment and Plan (1) COPD (chronic obstructive pulmonary disease) Assessment & Plan: Continue with nebulizer treatment Follow-up if necessary Status: Chronic (2) Anemia Status: Acute (3) Cardiomyopathy Status: Chronic (4) ROSIO (obstructive sleep apnea) Status: Chronic
[2018-08-16] MEDS: Potassium Chloride 20 mEq/15 ml LIQ UD PO SCH (10:12)
[2018-08-16] MEDS: Ferric Sodium Gluconat Complex 62.5 mg/5 ml Vial IVPB SCH (10:12)
[2018-08-16] MEDS: Magnesium Oxide 400 mg Tab UD PO SCH (10:12)
[2018-08-16] MEDS: Sacubitril/Valsartan 24-26mg Tab PO SCH (10:12)
[2018-08-16] MEDS: Pantoprazole 40 mg EC Tab PO SCH (10:13)
[2018-08-16] MEDS ORDERED: Midazolam 2 MG/2 ML VIAL ONE (11:08)
--- NOTE | 2018-08-16 11:44 | CP.PCM.PN ---
Subjective - Date & Time of Evaluation Date of Evaluation: 08/15/18 Time of Evaluation: 12:00 - Subjective Subjective: Feeling better. Objective - Vital Signs/Intake and Output Vital Signs (last 24 hours): Temp Pulse Resp BP Pulse Ox 98.6 F 62 18 102/66 96 08/16/18 07:00 08/16/18 08:35 08/16/18 07:00 08/16/18 07:00 08/16/18 07:00 Intake and Output: 08/16/18 08/16/18 06:59 18:59 Intake Total 200 Balance 200 - Medications Medications: Current Medications Acetaminophen (Tylenol 325mg Tab) 650 mg PO Q6H PRN PRN Reason: Headache Last Admin: 08/15/18 19:24 Dose: 650 mg Aspirin (Ecotrin) 81 mg PO DAILY [facility] Last Admin: 08/16/18 10:12 Dose: Not Given Carvedilol (Coreg) 12.5 mg PO BID [facility] Last Admin: 08/16/18 10:11 Dose: Not Given Ferric Sodium Gluconate Complex (Ferrlecit) 125 mg IVPB DAILY [facility] Stop: 08/18/18 21:31 Last Admin: 08/16/18 10:12 Dose: Not Given Furosemide (Lasix) 40 mg PO DAILY [facility] Last Admin: 08/16/18 10:12 Dose: Not Given Insulin Aspart (Novolog) 0 unit SC [facility]; Protocol Last Admin: 08/16/18 08:49 Dose: Not Given Magnesium Oxide (Mag-Ox) 400 mg PO DAILY [facility] Last Admin: 08/16/18 10:12 Dose: Not Given Pantoprazole Sodium (Protonix Ec Tab) 40 mg PO DAILY [facility] Last Admin: 08/16/18 10:13 Dose: Not Given Potassium Chloride (Potassium Chloride Oral Soln) 20 meq PO DAILY [facility] Last Admin: 08/16/18 10:12 Dose: Not Given Rosuvastatin Calcium (Crestor) 10 mg PO HS [facility] Last Admin: 08/15/18 22:18 Dose: 10 mg Sacubitril/Valsartan (Entresto 24 Mg-26 Mg) 1 tab PO DAILY [facility] Last Admin: 08/16/18 10:12 Dose: Not Given Sitagliptin Phosphate (Januvia) 50 mg PO DAILY [facility] Last Admin: 08/16/18 10:12 Dose: Not Given - Labs Labs: 08/14/18 06:40 08/14/18 06:40 PT 13.4 SECONDS (9.7-12.2) H 08/14/18 06:40 INR 1.2 08/14/18 06:40 APTT 38.9 SECONDS (21-34) H 08/14/18 06:40 - Head Exam Head Exam: ATRAUMATIC - Eye Exam Eye Exam: Normal appearance - ENT Exam ENT Exam: Mucous Membranes Dry - Respiratory Exam Respiratory Exam: NORMAL BREATHING PATTERN - Cardiovascular Exam Cardiovascular Exam: +S1, +S2 - GI/Abdominal Exam GI & Abdominal Exam: Normal Bowel Sounds Assessment and Plan (1) Anemia Assessment & Plan: iron deficiency on IV iron transfusion support EGD shows nonbleeding gastric ulcers Status: Acute (2) Thrombocytopenia Assessment & Plan: mild, no intervention Status: Acute (3) Encounter for care related to Port-a-Cath Assessment & Plan: replaced Status: Acute
--- NOTE | 2018-08-16 11:44 | CP.PCM.PN ---
Subjective - Date & Time of Evaluation Date of Evaluation: 08/16/18 Time of Evaluation: 11:00 - Subjective Subjective: No complaints. Objective - Vital Signs/Intake and Output Vital Signs (last 24 hours): Temp Pulse Resp BP Pulse Ox 98.6 F 62 18 102/66 96 08/16/18 07:00 08/16/18 08:35 08/16/18 07:00 08/16/18 07:00 08/16/18 07:00 Intake and Output: 08/16/18 08/16/18 06:59 18:59 Intake Total 200 Balance 200 - Medications Medications: Current Medications Acetaminophen (Tylenol 325mg Tab) 650 mg PO Q6H PRN PRN Reason: Headache Last Admin: 08/15/18 19:24 Dose: 650 mg Aspirin (Ecotrin) 81 mg PO DAILY [facility] Last Admin: 08/16/18 10:12 Dose: Not Given Carvedilol (Coreg) 12.5 mg PO BID [facility] Last Admin: 08/16/18 10:11 Dose: Not Given Ferric Sodium Gluconate Complex (Ferrlecit) 125 mg IVPB DAILY [facility] Stop: 08/18/18 21:31 Last Admin: 08/16/18 10:12 Dose: Not Given Furosemide (Lasix) 40 mg PO DAILY [facility] Last Admin: 08/16/18 10:12 Dose: Not Given Insulin Aspart (Novolog) 0 unit SC [facility]; Protocol Last Admin: 08/16/18 08:49 Dose: Not Given Magnesium Oxide (Mag-Ox) 400 mg PO DAILY [facility] Last Admin: 08/16/18 10:12 Dose: Not Given Pantoprazole Sodium (Protonix Ec Tab) 40 mg PO DAILY [facility] Last Admin: 08/16/18 10:13 Dose: Not Given Potassium Chloride (Potassium Chloride Oral Soln) 20 meq PO DAILY [facility] Last Admin: 08/16/18 10:12 Dose: Not Given Rosuvastatin Calcium (Crestor) 10 mg PO HS [facility] Last Admin: 08/15/18 22:18 Dose: 10 mg Sacubitril/Valsartan (Entresto 24 Mg-26 Mg) 1 tab PO DAILY [facility] Last Admin: 08/16/18 10:12 Dose: Not Given Sitagliptin Phosphate (Januvia) 50 mg PO DAILY [facility] Last Admin: 08/16/18 10:12 Dose: Not Given - Labs Labs: 08/14/18 06:40 08/14/18 06:40 PT 13.4 SECONDS (9.7-12.2) H 08/14/18 06:40 INR 1.2 08/14/18 06:40 APTT 38.9 SECONDS (21-34) H 08/14/18 06:40 - Head Exam Head Exam: ATRAUMATIC - Eye Exam Eye Exam: Normal appearance - ENT Exam ENT Exam: Mucous Membranes Dry - Respiratory Exam Respiratory Exam: NORMAL BREATHING PATTERN - Cardiovascular Exam Cardiovascular Exam: +S1, +S2 - GI/Abdominal Exam GI & Abdominal Exam: Normal Bowel Sounds Assessment and Plan (1) Anemia Assessment & Plan: iron deficiency on IV iron transfusion support EGD shows nonbleeding gastric ulcers Status: Acute (2) Thrombocytopenia Assessment & Plan: mild cont. to monitor Status: Acute (3) Encounter for care related to Port-a-Cath Assessment & Plan: replaced Status: Acute
--- NOTE | 2018-08-16 18:39 | CP.PCM.PN ---
Subjective - Date & Time of Evaluation Date of Evaluation: 08/16/18 - Subjective Subjective: patient examined today no nausea, no vomiting, no dizziness, no diarrhea, no fever no shortness of breath Objective - Vital Signs/Intake and Output Vital Signs (last 24 hours): Temp Pulse Resp BP Pulse Ox 97.6 F 60 8 L 115/74 95 08/16/18 15:00 08/16/18 15:00 08/16/18 15:00 08/16/18 15:00 08/16/18 15:00 Intake and Output: 08/16/18 08/16/18 06:59 18:59 Intake Total 250 Balance 250 - Medications Medications: Current Medications Acetaminophen (Tylenol 325mg Tab) 650 mg PO Q6H PRN PRN Reason: Headache Last Admin: 08/15/18 19:24 Dose: 650 mg Aspirin (Ecotrin) 81 mg PO DAILY [facility] Last Admin: 08/16/18 10:12 Dose: Not Given Carvedilol (Coreg) 12.5 mg PO BID [facility] Last Admin: 08/16/18 10:11 Dose: Not Given Ferric Sodium Gluconate Complex (Ferrlecit) 125 mg IVPB DAILY [facility] Stop: 08/18/18 21:31 Last Admin: 08/16/18 10:12 Dose: Not Given Furosemide (Lasix) 40 mg PO DAILY [facility] Last Admin: 08/16/18 10:12 Dose: Not Given Insulin Aspart (Novolog) 0 unit SC [facility]; Protocol Last Admin: 08/16/18 16:35 Dose: Not Given Magnesium Oxide (Mag-Ox) 400 mg PO DAILY [facility] Last Admin: 08/16/18 10:12 Dose: Not Given Pantoprazole Sodium (Protonix Ec Tab) 40 mg PO DAILY [facility] Last Admin: 08/16/18 10:13 Dose: Not Given Potassium Chloride (Potassium Chloride Oral Soln) 20 meq PO DAILY [facility] Last Admin: 08/16/18 10:12 Dose: Not Given Rosuvastatin Calcium (Crestor) 10 mg PO HS [facility] Last Admin: 08/15/18 22:18 Dose: 10 mg Sacubitril/Valsartan (Entresto 24 Mg-26 Mg) 1 tab PO DAILY [facility] Last Admin: 08/16/18 10:12 Dose: Not Given Sitagliptin Phosphate (Januvia) 50 mg PO DAILY [facility] Last Admin: 08/16/18 10:12 Dose: Not Given - Labs Labs: 08/14/18 06:40 08/14/18 06:40 PT 13.4 SECONDS (9.7-12.2) H 08/14/18 06:40 INR 1.2 08/14/18 06:40 APTT 38.9 SECONDS (21-34) H 08/14/18 06:40 - Constitutional Appears: Well - Head Exam Head Exam: ATRAUMATIC, NORMAL INSPECTION, NORMOCEPHALIC - Eye Exam Eye Exam: EOMI, Normal appearance, PERRL Pupil Exam: NORMAL ACCOMODATION, PERRL - ENT Exam ENT Exam: Mucous Membranes Moist, Normal Exam - Neck Exam Neck Exam: Full ROM, Normal Inspection. absent: Lymphadenopathy - Respiratory Exam Respiratory Exam: Decreased Breath Sounds - Cardiovascular Exam Cardiovascular Exam: REGULAR RHYTHM, +S1, +S2 - GI/Abdominal Exam GI & Abdominal Exam: Soft, Diminished Bowel Sounds - Rectal Exam Rectal Exam: Deferred - Neurological Exam Neurological Exam: Oriented x3 Assessment and Plan - Assessment and Plan (Free Text) Plan: medications reviewed vitals reviewed labs reviewed plan discussed with patient moderate complexity of care albuterol coreg crestor entresto ferrlecit januvia lactated ringer's lasix mag-ox novolog reglan potassium chloride protonix ec tab tylenol
--- NOTE | 2018-08-17 00:37 | CARD ---
APPROVED REPORT Date of service: 08/15/2018 EKG Measurement Heart [id number] <Conclusion> Ventricular-paced rhythm with occasional supraventricular complexes and with frequent premature ventricular complexes Abnormal ECG
[2018-08-17] MEDS: (Novolog) Insulin Aspart, Recombinant 100 u/ml 10 ml vial SC SCH ×2 (07:03→12:54)
--- NOTE | 2018-08-17 07:15 | CP.PCM.PN ---
Subjective - Date & Time of Evaluation Date of Evaluation: 08/16/18 Time of Evaluation: 19:30 - Subjective Subjective: Patient seen and evaluated Denies chest pain and dyspnea Refusing to wear BiPAP Review of Systems - Constitutional Constitutional: Daytime Sleepiness, Fatigue. absent: Chills, Excessive Sweating, Fever, Weight Loss - EENT Eyes: absent: Blurred Vision, Dry Eye Nose/Mouth/Throat: absent: Nasal Trauma, Nose Pain, Mouth Pain - Cardiovascular Cardiovascular: Dyspnea. absent: Chest Pain, Chest Pain at Rest - Gastrointestinal Gastrointestinal: absent: Abdominal Pain, Bloating, Diarrhea - Musculoskeletal Musculoskeletal: absent: Joint Swelling, Myalgias Additional comments: LUE pain, sensation normal - Integumentary Integumentary: absent: Hirsutism, Lesions - Neurological Neurological: absent: Headaches, Paresthesias, Syncope - Psychiatric Psychiatric: absent: Confusion, Depression - Endocrine Endocrine: absent: Heat Intolorance, Polyphagia Physical Exam - Constitutional Appears: Non-toxic, No Acute Distress - Head Exam Head Exam: NORMAL INSPECTION, NORMOCEPHALIC - Eye Exam Eye Exam: EOMI, Normal appearance Additional comments: pale conjuctiva - ENT Exam ENT Exam: Mucous Membranes Moist - Respiratory Exam Respiratory Exam: Clear to Auscultation Bilateral, NORMAL BREATHING PATTERN. absent: Rales, Rhonchi, Wheezes - Cardiovascular Exam Cardiovascular Exam: +S1, +S2, Systolic Murmur - GI/Abdominal Exam GI & Abdominal Exam: Normal Bowel Sounds, Soft. 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 Acute on chronic anemia History of Congestive Heart Failure w/ preserved Ejection Fracture History of Hypertension History of atrial fibrillation - vitals stable, EKG ventricular paced w/ premature supraventricular complex - Echo 2018, EF of 52.8, EF wnl, moderated tricuspid regurgitation -Cath: Non Obstructive Coronaries History of diabetes - HgA1C 2018 6.9 - continue outpatient monitoring - c/w home medication januvia 50 mg PO daily Objective - Vital Signs/Intake and Output Vital Signs (last 24 hours): Temp Pulse Resp BP Pulse Ox 98.6 F 66 20 123/78 99 08/16/18 23:00 08/16/18 23:00 08/16/18 23:00 08/16/18 23:00 08/16/18 23:00 Intake and Output: 08/17/18 08/17/18 06:59 18:59 Intake Total 1500 Balance 1500 - Medications Medications: Current Medications Acetaminophen (Tylenol 325mg Tab) 650 mg PO Q6H PRN PRN Reason: Headache Last Admin: 08/16/18 21:25 Dose: 650 mg Aspirin (Ecotrin) 81 mg PO DAILY [facility] Last Admin: 08/16/18 10:12 Dose: Not Given Carvedilol (Coreg) 12.5 mg PO BID [facility] Last Admin: 08/16/18 18:41 Dose: Not Given Ferric Sodium Gluconate Complex (Ferrlecit) 125 mg IVPB DAILY [facility] Stop: 08/18/18 21:31 Last Admin: 08/16/18 10:12 Dose: Not Given Furosemide (Lasix) 40 mg PO DAILY [facility] Last Admin: 08/16/18 10:12 Dose: Not Given Insulin Aspart (Novolog) 0 unit SC [facility]; Protocol Last Admin: 08/17/18 07:03 Dose: Not Given Magnesium Oxide (Mag-Ox) 400 mg PO DAILY [facility] Last Admin: 08/16/18 10:12 Dose: Not Given Pantoprazole Sodium (Protonix Ec Tab) 40 mg PO DAILY [facility] Last Admin: 08/16/18 10:13 Dose: Not Given Potassium Chloride (Potassium Chloride Oral Soln) 20 meq PO DAILY [facility] Last Admin: 08/16/18 10:12 Dose: Not Given Rosuvastatin Calcium (Crestor) 10 mg PO [facility] Last Admin: 08/16/18 21:25 Dose: 10 mg Sacubitril/Valsartan (Entresto 24 Mg-26 Mg) 1 tab PO DAILY [facility] Last Admin: 08/16/18 10:12 Dose: Not Given Sitagliptin Phosphate (Januvia) 50 mg PO DAILY [facility] Last Admin: 08/16/18 10:12 Dose: Not Given - Labs Labs: 08/14/18 06:40 08/14/18 06:40 PT 13.4 SECONDS (9.7-12.2) H 08/14/18 06:40 INR 1.2 08/14/18 06:40 APTT 38.9 SECONDS (21-34) H 08/14/18 06:40
[2018-08-17] MEDS ORDERED: Aluminum Hydroxide/Magnesium Hydroxide Susp (30 mL) PO PRN (07:49)
[2018-08-17 08:18] LABS: BASO % 0.3 % (0.0-2.0); EOS # 0.1 K/uL (0.0-0.7); EOS % 1.5 % (0.0-4.0); HEMOGLOBIN 8.5 g/dL (11.0-16.0); LYMPH # 1.7 K/uL (1.0-4.3); LYMPH % 26.5 % (20.0-40.0); MEAN CELL VOLUME 87.1 fL (81.0-99.0); MEAN CORPUSCULAR HEMOGLOBIN 28.8 pg (27.0-31.0); MEAN CORPUSCULAR HGB CONC 33.1 g/dL (33.0-37.0); MEAN PLATELET VOLUME 9.4 fL (7.2-11.7); MONO # 0.8 K/uL (0.0-0.8); MONO % 12.6 % (0.0-10.0); NEUT # 3.7 K/uL (1.8-7.0); NEUT % 59.1 % (50.0-75.0); NRBC % 0.1 % (0.0-2.0); RBC 2.96 Mil/uL (3.80-5.20); RED CELL DISTRIBUTION WIDTH 18.1 % (11.5-14.5); WHITE BLOOD COUNT 6.3 K/uL (4.8-10.8)
[2018-08-17 08:26] LABS: BLOOD UREA NITROGEN 13 mg/dL (7-17); CALCIUM 8.9 mg/dl (8.6-10.4); GFR NON-AFRICAN AMERICAN > 60
[2018-08-17] MEDS: Magnesium Oxide 400 mg Tab UD PO SCH (09:56)
[2018-08-17] MEDS: Sacubitril/Valsartan 24-26mg Tab PO SCH (09:57)
[2018-08-17] MEDS: Ferric Sodium Gluconat Complex 62.5 mg/5 ml Vial IVPB SCH (09:57)
[2018-08-17] MEDS: Potassium Chloride 20 mEq/15 ml LIQ UD PO SCH (09:57)
[2018-08-17] MEDS: Pantoprazole 40 mg EC Tab PO SCH (09:59)
[2018-08-17 11:10] VITALS: PULSE 60
[2018-08-17] MEDS ORDERED: Oxycodone/Acetaminophen 5/325 mg Tab PO ONE (13:30)
--- NOTE | 2018-08-17 13:38 | PN ---
DATE: 08/17/2018 LOCATION: 564, bed A. SUBJECTIVE: This is a 63-year-old female, seen and examined in rounds with intermittent complaint of right-sided abdominal pain without any reported active bleeding, chest pain, palpitation but mild shortness of breath with nausea and mild dyspepsia. The patient is post upper and lower endoscopy, pathology report is still pending. The entire chart is reviewed including but not limited to the most recent lab and radiology study results and today's lab showed hemoglobin 8.5, hematocrit 25.8 with normal white blood cells but thrombocytopenia of 114 with CO2 content of 39 indicative of respiratory alkalosis. Blood glucose level 124. PHYSICAL EXAMINATION: GENERAL: A 63-year-old female, awake, alert, oriented. VITAL SIGNS: Afebrile with pulse of 60, respiratory rate 20 to 22, blood pressure 112/68. HEENT: Showed pale, dry oral mucous membrane. Nonicteric sclerae. LUNGS: Few scattered crepitation. Decreased air entry at bases. HEART: Positive S1 and S2. ABDOMEN: Soft with mild generalized tenderness. No mass or organomegaly. No rebound tenderness or guarding. EXTREMITIES: Without significant clubbing, cyanosis or edema. NEUROLOGIC: No reported new neurological deficits, sensory or motor. IMPRESSION: 1. Anemia. 2. Severe diverticulosis which could be a leading factor for her anemia. 3. Left-sided colitis. Biopsies done, pathology report pending. 4. Colon polyps, by recent colonoscopy. 5. Multiple past medical history including but not limited to obesity, sleep apnea, chronic obstructive pulmonary disease, respiratory alkalosis, poorly controlled diabetes mellitus, cardiac arrhythmia, congestive heart failure with hyperlipidemia. SUGGESTIONS: 1. Continue current management. 2. The patient may need repeat colonoscopy after more aggressive preparation due to her colon polyp that to be repeated within the next 4 to 6 months as outpatient. 3. Further recommendation to follow. 4. No seeds or citrus. Love Jones MD
--- NOTE | 2018-08-17 14:47 | PCM.HF ---
Heart Failure Core Measure - Heart Failure Ejection Fraction: 40 % or Greater (EF 55%) KENA Inhibitor Prescribed: Yes Beta-Daquan Prescribed: Carvedilol Angiotensin II Receptor Daquan Prescribed: Yes AnticoagulationTherapy for Atrial Fibrillation/Atrialflutter: No Contraindication/Reason for not providing: has severe anemia, Aldosterone Antagonist Prescribed: No Contraindication/Reason for not providing: EF >405 Hydralazine Nitrate Prescribed: No Contraindication/Reason for not providing: EF >40% Implantable Cardioverter Defibrillator Therapy: Yes Cardiac Resynchronization Therapy Prescribed: No Contraindication/Reason for not providing: not indicated - Follow up Will be discharged to: Home Follow Up Date (must be within 7 days from discharge): 08/22/18 Follow Up Time: 10:00
--- NOTE | 2018-08-17 14:58 | CP.PCM.PN ---
Subjective - Date & Time of Evaluation Date of Evaluation: 08/17/18 Time of Evaluation: 14:58 - Subjective Subjective: alert, oriented, no active bleeding or distress. Objective - Vital Signs/Intake and Output Vital Signs (last 24 hours): Temp Pulse Resp BP Pulse Ox 97.5 F L 60 20 105/66 98 08/17/18 07:00 08/17/18 09:55 08/17/18 09:55 08/17/18 09:57 08/17/18 09:55 Intake and Output: 08/17/18 08/17/18 06:59 18:59 Intake Total 1500 Balance 1500 - Medications Medications: Current Medications Acetaminophen (Tylenol 325mg Tab) 650 mg PO Q6H PRN PRN Reason: Headache Last Admin: 08/17/18 09:58 Dose: 650 mg Al Hydrox/Mg Hydrox/Simethicone (Maalox 30 Ml) 30 ml PO Q8H PRN PRN Reason: Indigestion / Heartburn Last Admin: 08/17/18 08:00 Dose: 30 ml Aspirin (Ecotrin) 81 mg PO DAILY [facility] Last Admin: 08/17/18 09:57 Dose: 81 mg Carvedilol (Coreg) 12.5 mg PO BID [facility] Last Admin: 08/17/18 09:58 Dose: Not Given Ferric Sodium Gluconate Complex (Ferrlecit) 125 mg IVPB DAILY [facility] Stop: 08/18/18 21:31 Last Admin: 08/17/18 09:57 Dose: 125 mg Furosemide (Lasix) 40 mg PO DAILY [facility] Last Admin: 08/17/18 09:57 Dose: 40 mg Insulin Aspart (Novolog) 0 unit SC [facility]; Protocol Last Admin: 08/17/18 12:54 Dose: 1 unit Magnesium Oxide (Mag-Ox) 400 mg PO DAILY [facility] Last Admin: 08/17/18 09:56 Dose: 400 mg Pantoprazole Sodium (Protonix Ec Tab) 40 mg PO DAILY [facility] Last Admin: 08/17/18 09:59 Dose: 40 mg Potassium Chloride (Potassium Chloride Oral Soln) 20 meq PO DAILY [facility] Last Admin: 08/17/18 09:57 Dose: 20 meq Rosuvastatin Calcium (Crestor) 10 mg PO [facility] Last Admin: 08/16/18 21:25 Dose: 10 mg Sacubitril/Valsartan (Entresto 24 Mg-26 Mg) 1 tab PO DAILY [facility] Last Admin: 08/17/18 09:57 Dose: 1 tab Sitagliptin Phosphate (Januvia) 50 mg PO DAILY [facility] Last Admin: 08/17/18 09:56 Dose: 50 mg - Labs Labs: 08/17/18 07:55 08/17/18 07:55 PT 13.4 SECONDS (9.7-12.2) H 08/14/18 06:40 INR 1.2 08/14/18 06:40 APTT 38.9 SECONDS (21-34) H 08/14/18 06:40 Assessment and Plan - Assessment and Plan (Free Text) Assessment: 63 YEAR old female admitted with symptomatic anemia, CHF, seen and examined. Alert and orientedx3, denies sob or chest pains. S/P COLONOSCOPY yesterday, no active bleeding , cleared by DR Greene. Discussed with DR Annamarie Mejia, plan to discha rge home today. Advised to follow up in the office in 1 week and follwup with HI in 6 months.
[2018-08-17 15:31] VITALS: BP 132/69; RESP 18; TEMP 97.8; O2SAT 96
--- NOTE | 2018-08-17 21:35 | CP.PCM.DIS ---
Provider - Provider Date of Admission: 08/12/18 16:46 Attending physician: Gill Mejia MD Consults: 08/10/18 18:30 Physician Consult Stat Comment: SYMPTOMATIC ANEMIA Consulting Provider: Ned Moura Consulting Physician: Ned Moura Reason for Consult: HEM ONC 08/11/18 15:36 Cardiology Consult Routine Comment: abnormal EKG Consulting Provider: Bryan Nicolas Consulting Physician: Bryan Nicolas Reason for Consult: abnormal EKG 08/11/18 15:38 Physician Consult Routine Comment: hx of asthma and sleep apnea Consulting Provider: Colton Serrano Consulting Physician: Colton Serrano Reason for Consult: hx of asthma and sleep apnea Additional Comments: 08/11/18 15:49 Cardiology Consult Routine Comment: hx of afib Consulting Provider: Moy Andino Consulting Physician: Moy Andino Reason for Consult: hx of afib 08/11/18 21:07 Physician Consult Routine Comment: repositioning of mediport Consulting Provider: Quincy Celis Jr. Consulting Physician: Quincy Celis Jr. Reason for Consult: repositioning of mediport 08/12/18 10:04 Gastroenterology Consult Routine Comment: Consulting Provider: Love Greene Consulting Physician: Love Greene Reason for Consult: anemia 08/12/18 17:00 Inpatient ADDICTION PSYCHIATRIST Core Measures Referral Routine Comment: Physician Instructions: Reason For Exam: COPD Time Spent in preparation of Discharge (in minutes): 30 Hospital Course - Lab Results Lab Results: Most Recent Lab Values WBC 6.3 K/uL (4.8-10.8) 08/17/18 07:55 RBC 2.96 Mil/uL (3.80-5.20) L 08/17/18 07:55 Hgb 8.5 g/dL (11.0-16.0) L 08/17/18 07:55 Hct 25.8 % (34.0-47.0) L 08/17/18 07:55 MCV 87.1 fL (81.0-99.0) 08/17/18 07:55 MCH 28.8 pg (27.0-31.0) 08/17/18 07:55 MCHC 33.1 g/dL (33.0-37.0) 08/17/18 07:55 RDW 18.1 % (11.5-14.5) H 08/17/18 07:55 Plt Count 114 K/uL (130-400) L 08/17/18 07:55 MPV 9.4 fL (7.2-11.7) 08/17/18 07:55 Neut % (Auto) 59.1 % (50.0-75.0) 08/17/18 07:55 Lymph % (Auto) 26.5 % (20.0-40.0) 08/17/18 07:55 Jay % (Auto) 12.6 % (0.0-10.0) H 08/17/18 07:55 Eos % (Auto) 1.5 % (0.0-4.0) 08/17/18 07:55 Baso % (Auto) 0.3 % (0.0-2.0) 08/17/18 07:55 Neut # (Auto) 3.7 K/uL (1.8-7.0) 08/17/18 07:55 Lymph # (Auto) 1.7 K/uL (1.0-4.3) 08/17/18 07:55 Jay # (Auto) 0.8 K/uL (0.0-0.8) 08/17/18 07:55 Eos # (Auto) 0.1 K/uL (0.0-0.7) 08/17/18 07:55 Baso # (Auto) 0.0 K/uL (0.0-0.2) 08/17/18 07:55 Differential Comment 08/13/18 07:04 PT 13.4 SECONDS (9.7-12.2) H 08/14/18 06:40 INR 1.2 08/14/18 06:40 APTT 38.9 SECONDS (21-34) H 08/14/18 06:40 Puncture Site Rra 08/12/18 12:31 pCO2 57 mm/Hg (35-45) H 08/12/18 12:31 pO2 143 mm/Hg (80-100) H 08/12/18 12:31 HCO3 32.2 mmol/L (21-28) H 08/12/18 12:31 ABG pH 7.40 (7.35-7.45) 08/12/18 12:31 ABG Total CO2 37.0 mmol/L (22-28) H 08/12/18 12:31 ABG O2 Saturation 100.1 % (95-98) H 08/12/18 12:31 ABG Base Excess 9.3 mmol/L (-2.0-3.0) H 08/12/18 12:31 ABG Hemoglobin 8.4 g/dL (11.7-17.4) L 08/12/18 12:31 ABG Carboxyhemoglobin 2.8 % (0.5-1.5) H 08/12/18 12:31 POC ABG HHb (Measured) -0.1 % (0.0-5.0) L 08/12/18 12:31 ABG Methemoglobin 1.1 % (0.0-3.0) 08/12/18 12:31 Ryan Test Pos 08/12/18 12:31 Hgb O2 Saturation 96.2 % (95.0-98.0) 08/12/18 12:31 Liter Flow 3.0 08/12/18 12:31 Sodium 137 mmol/L (132-148) 08/17/18 07:55 Potassium 4.1 mmol/L (3.6-5.2) 08/17/18 07:55 Chloride 94 mmol/L (98-107) L 08/17/18 07:55 Carbon Dioxide 39 mmol/L (22-30) H 08/17/18 07:55 Anion Gap 9 (10-20) L 08/17/18 07:55 BUN 13 mg/dL (7-17) 08/17/18 07:55 Creatinine 0.9 mg/dL (0.7-1.2) 08/17/18 07:55 Est GFR ( Amer) > 60 08/17/18 07:55 Est GFR (Non-Af Amer) > 60 08/17/18 07:55 POC Glucose (mg/dL) 138 mg/dL (65-110) H 08/17/18 15:55 Random Glucose 120 mg/dL (65-105) H 08/17/18 07:55 Calcium 8.9 mg/dl (8.6-10.4) 08/17/18 07:55 Phosphorus 3.5 mg/dL (2.5-4.5) 08/12/18 05:04 Magnesium 1.8 mg/dL (1.6-2.3) 08/12/18 05:04 Total Bilirubin 1.5 mg/dL (0.2-1.3) H 08/11/18 20:21 AST 17 U/L (14-36) 08/11/18 20:21 ALT 14 U/L (9-52) 08/11/18 20:21 Alkaline Phosphatase 79 U/L (38-126) 08/11/18 20:21 Total Creatine Kinase 52 U/L (30-135) 08/15/18 20:56 CK-MB (Mass) 0.31 ng/mL (0.0-3.38) 08/15/18 20:56 Troponin I 0.0290 ng/mL (0.00-0.120) 08/15/18 20:56 NT-Pro-B Natriuret Pep 287 pg/mL (0-900) 08/10/18 16:55 Total Protein 7.5 g/dL (6.3-8.3) 08/11/18 20:21 Albumin 3.8 g/dL (3.5-5.0) 08/11/18 20:21 Globulin 3.7 gm/dL (2.2-3.9) 08/11/18 20:21 Albumin/Globulin Ratio 1.0 (1.0-2.1) 08/11/18 20:21 Carcinoembryonic Ag 0.5 ng/mL (0-3.0) 08/12/18 12:05 CA 125 Antigen < 5.5 U/mL (0-35) 08/12/18 12:05 Folate > 20.0 ng/mL 08/12/18 12:05 Blood Type O POSITIVE 08/14/18 06:40 Antibody Screen Negative 08/14/18 06:40 - Hospital Course Hospital Course: 63-year-old female with history of low hemoglobin came and also with history of A. fib AICD hypertension diabetes anemia status post transfusion received IV Lasix BiPAP heart consultation pulmonary consultations heme-onc consultations status post echo which is showed ejection fraction of 52% with moderate tricuspid regurgitations no obstructive coronary disease eventually decided to discharge the patient follow-up with the PMD in 48hours patient is given a few tablet of Percocet for the pain patient advised to quit compliance with the BiPAP patient's hemoglobin on discharge is 8.5 and 25.8 patient advised to follow-up with the GI doctor for colonoscopy report cleared by Dr. Parker cleared by ID for discharge Moderate to high complexity of care. Plan of care discussed with patient &/or fa lo & staff. Medications reviewed and reconciled. Labs reviewed. Vitals reviewed. Discharge Exam - Head Exam Head Exam: ATRAUMATIC, NORMAL INSPECTION, NORMOCEPHALIC - Eye Exam Eye Exam: EOMI, Normal appearance, PERRL Pupil Exam: NORMAL ACCOMODATION, PERRL - Neck Exam Neck exam: Full Rom - Respiratory Exam Respiratory Exam: Decreased Breath Sounds, Rales - Cardiovascular Exam Cardiovascular Exam: Irregular Rhythm, +S1, +S2 - GI/Abdominal Exam GI & Abdominal Exam: Bruit, Diminished Bowel Sounds, Soft - Rectal Exam Rectal Exam: Deferred - Neurological Exam Neurological exam: Oriented x3 - Skin Skin Exam: Intact Discharge Plan - Discharge Medications Prescriptions: Aluminum Hydroxide/Magnesium H [Maalox 30 ml] 30 ml PO BID PRN 7 Days udc PRN Reason: Indigestion oxyCODONE/Acetaminophen [Percocet 5/325 mg Tab] 1 ea PO Q8H PRN #20 tab PRN Reason: Pain, Severe (8-10) - Follow Up Plan Condition: GOOD Disposition: HOSPICE - HOME Instructions: Heart Failure, Adult (DC), Anemia Caused by Low Iron, Adult (DC), Aluminum Hydroxide, Magnesium Hydroxide, and Simethicone, Bleeding Precautions, Oxycodone and Acetaminophen, Myelodysplastic Syndromes (DC), Dyspnea (GEN) Additional Instructions: Follow up with your Primary doctor in 1 week. Follow up with [facility] Dr. Greene in 6 months for repeat Colonoscopy as outpatient. Eat high fiber diet, no seeds, no citrus. Continue will all present medicines. If symptoms came back or worsens, go back to the emergency room. Referrals: Ned Moura MD [Staff Provider] - Moy Andino MD [Staff Provider] - Love Greene [Staff Provider] - Bryan Nicolas MD [Staff Provider] - Oracio Mejia MD [Staff Provider] -
--- NOTE | 2018-08-17 21:44 | CP.PCM.PN ---
Subjective - Date & Time of Evaluation Date of Evaluation: 08/17/18 Time of Evaluation: 18:00 - Subjective Subjective: No complaints. Objective - Vital Signs/Intake and Output Vital Signs (last 24 hours): Temp Pulse Resp BP Pulse Ox 97.8 F 60 18 132/69 96 08/17/18 15:00 08/17/18 15:00 08/17/18 15:00 08/17/18 15:00 08/17/18 15:00 - Labs Labs: 08/17/18 07:55 08/17/18 07:55 PT 13.4 SECONDS (9.7-12.2) H 08/14/18 06:40 INR 1.2 08/14/18 06:40 APTT 38.9 SECONDS (21-34) H 08/14/18 06:40 - Head Exam Head Exam: ATRAUMATIC - Eye Exam Eye Exam: Normal appearance - ENT Exam ENT Exam: Mucous Membranes Dry - Respiratory Exam Respiratory Exam: NORMAL BREATHING PATTERN - Cardiovascular Exam Cardiovascular Exam: +S1, +S2 - GI/Abdominal Exam GI & Abdominal Exam: Normal Bowel Sounds Assessment and Plan (1) Anemia Assessment & Plan: iron deficiency s/p EGD/colonoscopy IV iron s/p PRBC transfusion Status: Acute (2) Thrombocytopenia Assessment & Plan: mild Status: Acute (3) Encounter for care related to Port-a-Cath Assessment & Plan: replaced Status: Acute
== END 2018-08-17 16:22 | disposition hospice, home (50) | DRG 812 ==
LOC: C.ER 16:02 → C.9E 18:27 → C.5S 18:53 → OBSVTOIN 08-12 16:46
PROVIDERS: ADMIT Internal Medicine Nephrology; ATTEND Internal Medicine Nephrology
PROC: 30233N1 Transfusion of Nonautologous Red Blood Cells into Peripheral Vein, Percutaneous Approach (ICD-10-PCS; 2018-08-12)
PROC: 0DD68ZX Extraction of Stomach, Via Natural or Artificial Opening Endoscopic, Diagnostic (ICD-10-PCS; 2018-08-13)
PROC: 0JH60XZ Insertion of Tunneled Vascular Access Device into Chest Subcutaneous Tissue and Fascia, Open Approach (ICD-10-PCS; 2018-08-14)
PROC: B519ZZA Fluoroscopy of Inferior Vena Cava, Guidance (ICD-10-PCS; 2018-08-14)
PROC: 02HV33Z Insertion of Infusion Device into Superior Vena Cava, Percutaneous Approach (ICD-10-PCS; 2018-08-14)
PROC: 0JPT0WZ Removal of Totally Implantable Vascular Access Device from Trunk Subcutaneous Tissue and Fascia, Open Approach (ICD-10-PCS; 2018-08-14)
PROC: 0DJD8ZZ Inspection of Lower Intestinal Tract, Via Natural or Artificial Opening Endoscopic (ICD-10-PCS; principal; 2018-08-16 10:28)
DX: D50.9 Iron deficiency anemia, unspecified (principal); D68.9 Coagulation defect, unspecified; E87.3 Alkalosis; I42.9 Cardiomyopathy, unspecified; J44.1 Chronic obstructive pulmonary disease with (acute) exacerbation; I50.30 Unspecified diastolic (congestive) heart failure; T85.628A Displacement of other specified internal prosthetic devices, implants and grafts, initial encounter; Z68.43 Body mass index [BMI] 50.0-59.9, adult; D69.6 Thrombocytopenia, unspecified; K44.9 Diaphragmatic hernia without obstruction or gangrene; K63.5 Polyp of colon; K25.9 Gastric ulcer, unspecified as acute or chronic, without hemorrhage or perforation; E11.65 Type 2 diabetes mellitus with hyperglycemia; E66.01 Morbid (severe) obesity due to excess calories; E78.00 Pure hypercholesterolemia, unspecified; E78.5 Hyperlipidemia, unspecified; G47.33 Obstructive sleep apnea (adult) (pediatric); I11.0 Hypertensive heart disease with heart failure; I48.91 Unspecified atrial fibrillation; I70.0 Atherosclerosis of aorta; K57.30 Diverticulosis of large intestine without perforation or abscess without bleeding; K64.8 Other hemorrhoids; Z45.2 Encounter for adjustment and management of vascular access device; Z95.810 Presence of automatic (implantable) cardiac defibrillator; Z87.891 Personal history of nicotine dependence; Z79.84 Long term (current) use of oral hypoglycemic drugs